=== PATIENT | female | born 1995 | race Hispanic/Latino ===

== ENCOUNTER 2018-01-03 18:16 | Emergency (ER) | payer SELFPAY ==
[2018-01-03 19:03] LABS: Urine Blood NEGATIVE (NEG); Urine Glucose NEGATIVE (NEG); Urine Protein NEGATIVE (NEG); Urine Specific Gravity 1.015 (1.005-1.030)
--- NOTE | 2018-01-03 19:23 | RAD REPORT ---
EXAM DESCRIPTION: CT - Head Brain Wo Cont - 01/03/2018 7:13 pm CLINICAL HISTORY: SEIZURE COMPARISON: No comparisons TECHNIQUE: All CT scans are performed using dose optimization technique as appropriate and may inclu de automated exposure control or mA/KV adjustment according to patient size. FINDINGS: No intracranial hemorrhage, hydrocephalus or extra-axial fluid collection.No areas of brai n edema or evidence of midline shift. The paranasal sinuses and mastoids are clear. The calvarium is intact. IMPRESSION: No acute intracranial abnormality.
[2018-01-03 19:27] LABS: Absolute Monocytes 0.8 K/uL (0.1-1.3); Absolute Neutrophil 5.6 K/uL (1.8-8.0); Basophils % 0.6 % (0-1.3); Eosinophils % 3.1 % (0-4.4); Hematocrit 38.4 % (36.0-45.0); Lymphocytes % 31.1 % (15.3-44.8); MCH 32.5 pg (27.0-35.0); MCV 91.1 fL (80-100); Monocytes % 7.9 % (3.3-12.3); RBC Red Blood Cell Count 4.21 M/uL (3.86-4.86)
[2018-01-03 19:36] LABS: Barbiturates NEGATIVE (NEGATIVE); Benzodiazepines NEGATIVE (NEGATIVE); Cocaine NEGATIVE (NEGATIVE); METHAMPHETAM NEGATIVE (NEGATIVE); Methadone NEGATIVE (NEGATIVE); Opiates NEGATIVE (NEGATIVE); Phencyclidine NEGATIVE (NEGATIVE); THC Cannibis POSITIVE (NEGATIVE)
[2018-01-03 19:37] LABS: ALT/SGPT 26 U/L (12-78); AST/SGOT 15 U/L (15-37); Albumin 4.1 g/dL (3.4-5.0); Alkaline Phosphatase 54 U/L (45-117); BUN Blood Urea Nitrogen 9 mg/dL (7-18); Bicarbonate 29 mmol/L (21-32); Bilirubin Direct < 0.1 mg/dL (0-0.2); Bilirubin Total 0.3 mg/dL (0.2-1.0); Glucose Level 95 mg/dL (74-106); Potassium 3.4 mmol/L (3.5-5.1); Protein, Total 7.3 g/dL (6.4-8.2); Sodium Level 141 mmol/L (136-145)
--- NOTE | 2018-01-03 20:06 | ER ---
Nurse's Notes [facility] Name: Chetna Amador Age: 22 yrs Sex: Female : 1995 Arrival Date: 01/03/2018 Time: 18:20 Bed 30 Private MD: Diagnosis: Epilepsy and recurrent seizures Presentation: 01/03 18:40 Presenting complaint: EMS states: "MOTHER FOUND HER ON THE FLOOR. SHE HAD TWO TO THREE rv TIMES OF SEIZURE/SHAKING LASTING FOR 2-3 MINUTES. SHE HAS HISTORY OF SEIZURE. SHE TAKES DILANTIN BEFORE BUT SHE WAS TAKEN OFF. LAST SEIZURE WAS A YEAR AGO.". Transition of care: patient was not received from another setting of care. Onset of symptoms was January 03, 2018 at 18:00. Risk Assessment: Do you want to hurt yourself or someone else? Patient reports no desire to harm self or others. Initial Sepsis Screen: Does the patient meet any 2 criteria? No. Patient's initial sepsis screen is negative. Does the patient have a suspected source of infection? No. Patient's initial sepsis screen is negative. Care prior to arrival: None. 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 - Social history:: Smoking status: unknown. - Ebola Screening: : Patient negative for fever greater than or equal to 101.5 degrees Fahrenheit, and additional compatible Ebola Virus Disease symptoms Patient denies exposure to infectious person Patient denies travel to an Ebola-affected area in the 21 days before illness onset. Screenin:46 Abuse screen: Denies threats or abuse. Denies injuries from another. Nutritional rv screening: On. Tuberculosis screening: No symptoms or risk factors identified. Fall Risk None identified. Assessment: 18:44 General: Appears in no apparent distress. comfortable, Behavior is calm, cooperative. rv Pain: Complains of pain in GENERALIZED. Neuro: Level of Consciousness is awake, alert, obeys commands, Oriented to person, place, time, situation. Cardiovascular: Capillary refill < 3 seconds Rhythm is regular. Respiratory: Airway is patent. GI: No signs and/or symptoms were reported involving the gastrointestinal system. : No signs and/or symptoms were reported regarding the genitourinary system. EENT: No signs and/or symptoms were reported regarding the EENT system. Derm: Skin is intact. Musculoskeletal: No signs and/or symptoms reported regarding the musculoskeletal system. 20:13 Reassessment: Patient appears in no apparent distress at this time. Patient and/or rv family updated on plan of care and expected duration. Pain level reassessed. Patient is alert, oriented x 3, equal unlabored respirations, skin warm/dry/pink. Vital Signs: 18:45 BP 127 / 89; Pulse 85; Resp 22; Temp 98.6; Pulse Ox 100% on R/A; rv 20:13 BP 120 / 88; Pulse 80 MON; Resp 16 S; Pulse Ox 99% on R/A; rv ED Course: 18:20 Patient arrived in ED. rv 18:21 Erik Pal PA is PHCP. [facility] 18:21 Lucio Mendez MD is Attending Physician. [facility] 18:44 Triage completed. rv 18:46 Patient has correct armband on for positive identification. Bed in low position. Call rv light in reach. Side rails up X2. awake overnight monitor on. Pulse ox on. NIBP on. 18:47 Patient placed in an exam room, on a stretcher, on rn cardiac, on pulse oximetry, rv Patient notified of wait time. 19:00 No provider procedures requiring assistance completed. Maintain EMS IV. Dressing rv intact. Good blood return noted. Site clean \\T\\ dry. Gauge \\T\\ site: G18 RIGHT AC. IV is patent, Changed dressing on right antecubital Flushed right antecubital. 19:[address] via stretcher. nj 19:13 CT completed. Patient tolerated procedure well. Patient moved back from CT. nj 19:13 CT Head Brain wo Cont In Process Unspecified. EDMS 20:05 Steve Ross MD is Referral Physician. [facility] Administered Medications: No medications were administered Outcome: 20:05 Discharge ordered by . jmm 20:15 Condition: good rv 20:33 Patient left the ED. aa1 Signatures: Dispatcher [employer] EDMS Adamaris Johnson, RN RN aa1 Erik Pal PA PA jmm Jordan, Nathan nj Vicente, Ronaldo, RN RN rv
--- NOTE | 2018-01-03 20:07 | EDPHYS ---
Physician Documentation [facility] Name: Chetna Amador Age: 22 yrs Sex: Female : 1995 Arrival Date: 01/03/2018 Time: 18:20 Bed 30 Private MD: ED Physician Lucio Mendez HPI: 01/03 18:54 This 22 yrs old Female presents to ER via EMS with complaints of seizure. jmm 18:54 The patient presents after having a single isolated seizure. Character of seizure(s): jmm Motor activity: generalized. Seizure onset: just prior to arrival. Seizure Hx: Seizure medications: none. This is a 22 year old female with a history of seizures that presents to the ED after a seizure which occurred just prior to arrival. Seizure was witnessed by the patient's mom. Patient states having decreased sleep over the past 3 weeks due to stress. Patient states she has not taken medication for seizures since she turned 21. . PHARMACOGNOSIST: 18:46 LMP N/A - Irregular menses rv Historical: - Allergies: 18:44 No Known Allergies; rv - Home Meds: 18:44 None [Active]; rv - PMHx: 18:44 Seizures; rv - PSHx: 18:44 None; rv - Immunization history:: Adult Immunizations up to date. - Social history:: Smoking status: unknown. - Ebola Screening: : Patient negative for fever greater than or equal to 101.5 degrees Fahrenheit, and additional compatible Ebola Virus Disease symptoms Patient denies exposure to infectious person Patient denies travel to an Ebola-affected area in the 21 days before illness onset. ROS: 18:54 Constitutional: Negative for fever, chills, and weight loss, Cardiovascular: Negative jmm for chest pain, palpitations, and edema, Respiratory: Negative for shortness of breath, cough, wheezing, and pleuritic chest pain. 18:54 MS/Extremity: Negative for injury and deformity, Skin: Negative for injury, rash, and discoloration, Neuro: Negative for headache, weakness, numbness, tingling, and seizure. 18:54 : Positive for pelvic pain x 1 year. 18:54 All other systems are negative. Exam: 18:54 Constitutional: This is a well developed, well nourished patient who is awake, alert, jmm and in no acute distress. Head/Face: atraumatic. Eyes: EOMI, no conjunctival erythema appreciated ENT: Moist Mucus Membranes Neck: Trachea midline, Supple Chest/axilla: Normal chest wall appearance and motion. Cardiovascular: Regular rate and rhythm. No edema appreciated Respiratory: Normal respirations, no respiratory distress appreciated Abdomen/GI: Non distended, soft Back: Normal ROM Skin: General appearance color normal MS/ Extremity: Moves all extremities, no obvious deformities appreciated, no edema noted to the lower extremities Neuro: Awake and alert, normal gait Psych: Behavior is normal, Mood is normal, Patient is cooperative and pleasant Vital Signs: 18:45 BP 127 / 89; Pulse 85; Resp 22; Temp 98.6; Pulse Ox 100% on R/A; rv 20:13 BP 120 / 88; Pulse 80 MON; Resp 16 S; Pulse Ox 99% on R/A; rv MDM: 18:36 Patient medically screened. [facility] 20:03 Data reviewed: vital signs, nurses notes. Counseling: I had a detailed discussion with [facility] the patient and/or guardian regarding: the historical points, exam findings, and any diagnostic results supporting the discharge/admit diagnosis, lab results, radiology results, the need for outpatient follow up, to return to the emergency department if symptoms worsen or persist or if there are any questions or concerns that arise at home. ED course: I discussed the patient with Dr. Ross whom advised to discharge the patient with keppra 250 mg q pm and will follow up with the patient in clinic next week. Patient is alert and non toxic in appearance in the ED. No seizure like activity is appreciated. Patient given strict return precautions. Patient understood and agrees with the plan of care. . 01/03 18:37 Order name: Acetaminophen [facility] 01/03 18:37 Order name: Basic Metabolic Panel [facility] 01/03 18:37 Order name: CBC with Diff [facility] 01/03 18:37 Order name: ETOH Level [facility] 01/03 18:37 Order name: Hepatic Function [facility] 01/03 18:37 Order name: PT-INR; Complete Time: 19:19 [facility] 01/03 18:37 Order name: Ptt, Activated; Complete Time: 19:19 [facility] 01/03 18:37 Order name: Salicylate; Complete Time: 19:48 [facility] 01/03 18:37 Order name: Urine Drug Screen; Complete Time: 19:48 [facility] 01/03 18:38 Order name: Acetaminophen Level; Complete Time: 19:54 [facility] 01/03 18:38 Order name: Basic Metabolic Panel; Complete Time: 19:54 [facility] 01/03 18:38 Order name: CBC with Automated Diff; Complete Time: 19:48 [facility] 01/03 18:38 Order name: Alcohol Serum/Plasma; Complete Time: 19:48 [facility] 01/03 18:38 Order name: Liver (Hepatic) Function; Complete Time: 19:54 [facility] 01/03 18:37 Order name: EKG; Complete Time: 18:38 [facility] 01/03 18:37 Order name: EKG - Nurse/Tech; Complete Time: 18:43 [facility] 01/03 18:37 Order name: IV Saline Lock; Complete Time: 18:59 [facility] 01/03 18:37 Order name: Labs collected and sent; Complete Time: 18:59 [facility] 01/03 18:37 Order name: Urine Dipstick-Ancillary (obtain specimen); Complete Time: 18:59 [facility] 18:37 Order name: CT Head Brain wo Cont; Complete Time: 19:25 [facility] 01/03 18:40 Order name: Urine Test (obtain specimen); Complete Time: 19:43 [facility] 01/03 18:58 Order name: Urine Dipstick--Ancillary (enter results); Complete Time: 19:19 eb 01/03 18:58 Order name: Urine --Ancillary (enter results); Complete Time: 19:19 eb Administered Medications: No medications were administered Disposition: 01/03/18 20:05 Discharged to Home. Impression: Epilepsy and recurrent seizures. - Condition is Stable. - Discharge Instructions: Seizure, Adult. - Prescriptions for DIAZEPAM RECTAL - insert 1 applicatorful by RECTAL route as directed 10 MG GEL; 1 Pack. Keppra 500 mg Oral tablet - take 0.5 tablet by ORAL route At bedtime; 30 tablet. - Medication Reconciliation Form, Thank You Letter, Antibiotic Education, Prescription Opioid Use form. - Follow up: Steve Ross MD; When: 2 - 3 days; Reason: Recheck today's complaints, Continuance of care, Re-evaluation by your physician. Signatures: Dispatcher [employer] Adamaris Trujillo RN RN aa1 MickailErik PA PA jmm Vicente, Ronaldo, RN RN rv Corrections: (The following items were deleted from the chart) 20:33 20:05 01/03/2018 20:05 Discharged to Home. Impression: Epilepsy and recurrent seizures. aa1 Condition is Stable. Forms are Medication Reconciliation Form, Thank You Letter, Antibiotic Education, Prescription Opioid Use. Follow up: Steve Ross; When: 2 - 3 days; Reason: Recheck today's complaints, Continuance of care, Re-evaluation by your physician. patrick
--- NOTE | 2018-01-04 07:43 | EKG ---
Test Date: 2018-01-03 Test Time: 18:33:53 Retail Sales Clerk: TL MEASUREMENT RESULTS: Intervals: Rate: 78 WA: 156 QRSD: 78 QT: 372 QTc: 424 [place]: P: 31 WA: 156 QRS: 42 T: 31 INTERPRETIVE STATEMENTS: Normal sinus rhythm with sinus arrhythmia Normal ECG No previous ECG available for comparison Electronically Signed On 01-04-18 07:42:48 BELL NECK HAMMERER by Leonard Mohan
== END 2018-01-03 20:33 | disposition home or self-care (01) ==
LOC: ER 18:16
DX: G40.802 Other epilepsy, not intractable, without status epilepticus (principal)
CPT/HCPCS: 36415; 70450; 80048; 80076; 80307; 80320; 80329; 81003; 81025; 85025; 85610; 85730; 93005; 99284

== ENCOUNTER 2018-10-27 14:11 | Emergency (ER) | payer SELFPAY ==
[2018-10-27 15:17] LABS: Absolute Lymphocytes (CBC) 1.9 K/uL (0.7-4.9); Basophils % 0.6 % (0-1.3); Hematocrit 36.8 % (36.0-45.0); Lymphocytes % 29.4 % (15.3-44.8); MPV 10.3 fL (7.6-11.3); RBC Red Blood Cell Count 4.18 M/uL (3.86-4.86)
[2018-10-27 15:26] LABS: ALT/SGPT 20 U/L (12-78); AST/SGOT 14 U/L (15-37); Albumin 3.9 g/dL (3.4-5.0); Alkaline Phosphatase 40 U/L (45-117); BUN Blood Urea Nitrogen 7 mg/dL (7-18); Bicarbonate 25 mmol/L (21-32); Bilirubin Direct 0.2 mg/dL (0-0.2); Bilirubin Total 0.5 mg/dL (0.2-1.0); Glucose Level 78 mg/dL (74-106); Lipase 117 U/L (73-393); Potassium 3.7 mmol/L (3.5-5.1); Protein, Total 6.9 g/dL (6.4-8.2); Sodium Level 141 mmol/L (136-145)
[2018-10-27] MEDS ORDERED: NA CHLORIDE 0.9% 1,000 ML ONE (15:40)
--- NOTE | 2018-10-27 17:01 | ER ---
Nurse's Notes [facility] Name: Chetna Amador Age: 22 yrs Sex: Female : 1995 Arrival Date: 10/27/2018 Time: 14:13 Bed 15 Private MD: Diagnosis: Less than 8 weeks gestation of Presentation: 10/27 14:20 Presenting complaint: Patient states: Nausea and vomiting that started yesterday. Today aj1 she is having some pelvic pain, and some light pink vaginal discharge. States that she was suppose to have her period on October 16, she took a test but it was negative. Transition of care: patient was not received from another setting of care. Onset of symptoms was 2018. Risk Assessment: Do you want to hurt yourself or someone else? Patient reports no desire to harm self or others. Initial Sepsis Screen: Does the patient meet any 2 criteria? No. Patient's initial sepsis screen is negative. Does the patient have a suspected source of infection? No. Patient's initial sepsis screen is negative. Care prior to arrival: None. 14:20 Method Of Arrival: Ambulatory aj 14:20 Acuity: SWAPNIL 4 aj1 17:41 Acuity: SWAPNIL 3 ss Triage Assessment: 14:22 General: Appears in no apparent distress. comfortable, Behavior is calm, cooperative, aj1 appropriate for age. Pain: Pain currently is 9 out of 10 on a pain scale. Neuro: Level of Consciousness is alert, obeys commands. Cardiovascular: Patient's skin is warm and dry. Respiratory: Airway is patent Respiratory effort is even, unlabored, Respiratory pattern is regular, symmetrical. GI: Reports nausea, vomiting. 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 - Social history:: Smoking status: Patient/guardian denies using tobacco. - Ebola Screening: : Patient denies travel to an Ebola-affected area in the 21 days before illness onset. Screenin:38 Abuse screen: Denies threats or abuse. Nutritional screening: No deficits noted. rb1 Tuberculosis screening: No symptoms or risk factors identified. Fall Risk None identified. Assessment: 14:38 General: Appears in no apparent distress. comfortable, Behavior is calm, cooperative, rb1 Reports fever for. Pain: Complains of pain in abdomen Pain currently is 9 out of 10 on a pain scale. Neuro: Level of Consciousness is awake, alert, obeys commands, Oriented to person, place, time, situation. Cardiovascular: Capillary refill < 3 seconds is brisk in bilateral fingers. Respiratory: Airway is patent Respiratory effort is even, unlabored, Respiratory pattern is regular, symmetrical. GI: Reports nausea, vomiting. : Reports pink tinged when she wipes. Derm: Skin is pink, warm \T\ dry. 15:35 Reassessment: Pt. is crying and feeling anxious because her UPT came back positive. Her rb1 significant other is at the bedside. 16:30 Reassessment: Patient appears in no apparent distress at this time. Patient and/or rb1 family updated on plan of care and expected duration. Pain level reassessed. Patient is alert, oriented x 3, equal unlabored respirations, skin warm/dry/pink. 16:45 Reassessment: US is at pt. bedside. rb1 17:28 Reassessment: Patient appears in no apparent distress at this time. Patient and/or rb1 family updated on plan of care and expected duration. Pain level reassessed. Patient is alert, oriented x 3, equal unlabored respirations, skin warm/dry/pink. Vital Signs: 14:22 BP 126 / 73; Pulse 88; Resp 18; Temp 97.6; Pulse Ox 98% on R/A; Weight 94.8 kg (R); aj1 Height 5 ft. 5 in. (165.10 cm) (R); Pain 9/10; 16:42 BP 118 / 66; Pulse 74; Resp 16; Temp 98.0(O); Pulse Ox 100% on R/A; Pain 7/10; rb1 17:38 BP 122 / 81; Pulse 79; Resp 16; Temp 98.3(O); Pulse Ox 100% on R/A; Pain 5/10; rb1 14:22 Body Mass Index 34.78 (94.80 kg, 165.10 cm) aj1 ED Course: 14:13 Patient arrived in ED. as 14:22 Triage completed. aj1 14:22 Sandhya Dutton FNP-C [facility]. kb 14:22 Lucio Mendez MD is Attending Physician. kb 14:22 Arm band placed on Patient placed in an exam room. aj1 14:38 Patient has correct armband on for positive identification. Bed in low position. Call rb1 light in reach. Side rails up X 1. Pulse ox on. NIBP on. 14:40 Georgia Jameson, RN is Primary Nurse. rb1 15:01 Initial lab(s) drawn, by me, sent to lab. Inserted saline lock: 20 gauge in right jp3 antecubital area, using aseptic technique. Blood collected. Patient maintains SpO2 saturation greater than 95% on room air. 15:02 Lipase Sent. jp3 15:02 Hepatic Function Sent. jp3 15:02 CBC with Diff Sent. jp3 15:02 Basic Metabolic Panel Sent. jp3 17:06 Ultrasound completed. Patient tolerated well. Notified CASH POSTING CLERK/PA sandhya. sg3 17:07 US Transvaginal Ob In Process Unspecified. EDMS 17:41 No provider procedures requiring assistance completed. IV discontinued, intact, rb1 bleeding controlled, No redness/swelling at site. Pressure dressing applied. Administered Medications: 15:45 Drug: NS 0.9% 1000 ml Route: IV; Rate: 1000 ml; Site: right antecubital; rb1 16:53 Follow up: IV Status: Completed infusion rb1 Outcome: 15:31 Discharge ordered by MD. kb 17:01 Discharge ordered by MD. kb 17:41 Patient left the ED. rb1 17:41 Discharged to home ambulatory, with significant other. rb1 17:41 Condition: stable 17:41 Discharge instructions given to patient, Instructed on discharge instructions, follow up and referral plans. Demonstrated understanding of instructions, follow-up care, Prescriptions given X none Signatures: Dispatcher [employer] EDMS Sandhya Dutton FNP-C DRUM SANDER SETTER-CkDayanara Guzmán RN RN aj1 Rosy Whiting Shelby, RN RN ss Georgia Jameson, RN RN rb1 Corry Medrano sg3 Raul Thompson jp3
--- NOTE | 2018-10-27 17:02 | EDPHYS ---
Physician Documentation [facility] Name: Chetna Amador Age: 22 yrs Sex: Female : 1995 Arrival Date: 10/27/2018 Time: 14:13 Bed 15 Private MD: ED Physician Lucio Mendez HPI: 10/27 16:31 This 22 yrs old Female presents to ER via Ambulatory with complaints of kb Vomiting, Pelvic Pain, Vaginal Discharge. 16:31 The patient presents to the emergency department with nausea, vomiting, abdominal pain. kb Onset: The symptoms/episode began/occurred yesterday. Possible causes: unknown. The symptoms are aggravated by nothing. The symptoms are alleviated by nothing. Associated signs and symptoms: Pertinent positives: abdominal pain, nausea, vaginal discharge, vomiting. Severity of symptoms: At their worst the symptoms were moderate in the emergency department the symptoms are unchanged. The patient has not experienced similar symptoms in the past. The patient has not recently seen a physician. Pt reports nausea, vomiting that started yesterday morning. Diarrhea yesterday morning, fever last night. Reports light pink discharge today. 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 - Social history:: Smoking status: Patient/guardian denies using tobacco. - Ebola Screening: : Patient denies travel to an Ebola-affected area in the 21 days before illness onset. ROS: 16:31 Constitutional: Negative for fever, chills, and weight loss, ENT: Negative for injury, kb pain, and discharge, Neck: Negative for injury, pain, and swelling, Cardiovascular: Negative for chest pain, palpitations, and edema, Respiratory: Negative for shortness of breath, cough, wheezing, and pleuritic chest pain, Back: Negative for injury and pain, MS/Extremity: Negative for injury and deformity, Skin: Negative for injury, rash, and discoloration, Neuro: Negative for headache, weakness, numbness, tingling, and seizure. 16:31 Abdomen/GI: Positive for abdominal pain, nausea and vomiting. 16:31 : Positive for vaginal bleeding. Exam: 16:30 Constitutional: This is a well developed, well nourished patient who is awake, alert, kb and in no acute distress. Head/Face: Normocephalic, atraumatic. ENT: Nares patent. No nasal discharge, no septal abnormalities noted. Tympanic membranes are normal and external auditory canals are clear. Oropharynx with no redness, swelling, or masses, exudates, or evidence of obstruction, uvula midline. Mucous membranes moist. Neck: Trachea midline, no thyromegaly or masses palpated, and no cervical lymphadenopathy. Supple, full range of motion without nuchal rigidity, or vertebral point tenderness. No Meningismus. Chest/axilla: Normal chest wall appearance and motion. Nontender with no deformity. No lesions are appreciated. Cardiovascular: Regular rate and rhythm with a normal S1 and S2. No gallops, murmurs, or rubs. Normal PMI, no JVD. No pulse deficits. Respiratory: Lungs have equal breath sounds bilaterally, clear to auscultation and percussion. No rales, rhonchi or wheezes noted. No increased work of breathing, no retractions or nasal flaring. Back: No spinal tenderness. No costovertebral tenderness. Full range of motion. Skin: Warm, dry with normal turgor. Normal color with no rashes, no lesions, and no evidence of cellulitis. MS/ Extremity: Pulses equal, no cyanosis. Neurovascular intact. Full, normal range of motion. Neuro: Awake and alert, GCS 15, oriented to person, place, time, and situation. Cranial nerves II-XII grossly intact. Motor strength 5/5 in all extremities. Sensory grossly intact. Cerebellar exam normal. Normal gait. 16:30 Abdomen/GI: Inspection: abdomen appears normal, Bowel sounds: normal, in all quadrants, Palpation: soft, in all quadrants, mild abdominal tenderness, in the right lower quadrant, moderate abdominal tenderness, in the left lower quadrant. Vital Signs: 14:22 BP 126 / 73; Pulse 88; Resp 18; Temp 97.6; Pulse Ox 98% on R/A; Weight 94.8 kg (R); aj1 Height 5 ft. 5 in. (165.10 cm) (R); Pain 9/10; 16:42 BP 118 / 66; Pulse 74; Resp 16; Temp 98.0(O); Pulse Ox 100% on R/A; Pain 7/10; rb1 17:38 BP 122 / 81; Pulse 79; Resp 16; Temp 98.3(O); Pulse Ox 100% on R/A; Pain 5/10; rb1 14:22 Body Mass Index 34.78 (94.80 kg, 165.10 cm) aj1 MDM: 14:23 Patient medically screened. kb 15:28 Data reviewed: vital signs, nurses notes. Data interpreted: Pulse oximetry: on room air kb is 98 %. Interpretation: normal. 17:00 Counseling: I had a detailed discussion with the patient and/or guardian regarding: the kb historical points, exam findings, and any diagnostic results supporting the discharge/admit diagnosis, lab results, radiology results, the need for outpatient follow up, an OB/Gyne specialist, to return to the emergency department if symptoms worsen or persist or if there are any questions or concerns that arise at home. 10/27 14:39 Order name: Basic Metabolic Panel; Complete Time: 15:28 kb 10/27 14:39 Order name: CBC with Diff; Complete Time: 15:23 kb 10/27 14:39 Order name: Hepatic Function; Complete Time: 15:28 kb 10/27 14:39 Order name: Lipase; Complete Time: 15:28 kb 10/27 15:26 Order name: Urine Dipstick--Ancillary (enter results) eb 10/27 15:26 Order name: Urine --Ancillary (enter results) eb 10/27 14:23 Order name: Urine Test (obtain specimen); Complete Time: 15:59 kb 10/27 14:23 Order name: Urine Dipstick-Ancillary (obtain specimen); Complete Time: 15:59 kb 10/27 14:39 Order name: IV Saline Lock; Complete Time: 15:02 kb 10/27 15:32 Order name: US Transvaginal Ob kb 10/27 15:32 Order name: Abo/rh Typing; Complete Time: 16:33 kb 10/27 15:32 Order name: HCG-Quantitative; Complete Time: 16:41 kb 10/27 17:00 Order name: ABO/RH no charge; Complete Time: 17:01 EDMS 10/27 14:39 Order name: Labs collected and sent; Complete Time: 15:02 kb Administered Medications: 15:45 Drug: NS 0.9% 1000 ml Route: IV; Rate: 1000 ml; Site: right antecubital; rb1 16:53 Follow up: IV Status: Completed infusion rb1 Disposition: 18:07 Co-signature as Attending Physician, Lucio Mendez MD. rn Disposition: 10/27/18 17:01 Discharged to Home. Impression: Less than 8 weeks gestation of . - Condition is Stable. - Discharge Instructions: First Trimester of , [id number]. - Medication Reconciliation Form, Thank You Letter, Antibiotic Education, Prescription Opioid Use, Work release form form. - Follow up: Emergency Department; When: As needed; Reason: Worsening of condition. Follow up: Private Physician; When: 2 - 3 days; Reason: Recheck today's complaints, Continuance of care, Re-evaluation by your physician. Signatures: Dispatcher [employer] EDMS Sandhya Dutton, Dayanara Thompson RN RN aj1 Lucio Mendez MD MD rn Barber, Rebecca, RN RN rb1 Corrections: (The following items were deleted from the chart) 15:32 15:31 10/27/2018 15:31 Discharged to Home. Impression: Nausea with vomiting, kb unspecified; state. Condition is Stable. Forms are Medication Reconciliation Form, Thank You Letter, Antibiotic Education, Prescription Opioid Use. Follow up: Emergency Department; When: As needed; Reason: Worsening of condition. Follow up: Private Physician; When: 2 - 3 days; Reason: Recheck today's complaints, Continuance of care, Re-evaluation by your physician. 16:31 15:28 Counseling: I had a detailed discussion with the patient and/or guardian regarding: the historical points, exam findings, and any diagnostic results supporting the discharge/admit diagnosis, lab results, the need for outpatient follow up, a family practitioner, to return to the emergency department if symptoms worsen or persist or if there are any questions or concerns that arise at home, kb 17:41 17:01 10/27/2018 17:01 Discharged to Home. Impression: Less than 8 weeks gestation of rb1 . Condition is Stable. Forms are Medication Reconciliation Form, Thank You Letter, Antibiotic Education, Prescription Opioid Use. Follow up: Emergency Department; When: As needed; Reason: Worsening of condition. Follow up: Private Physician; When: 2 - 3 days; Reason: Recheck today's complaints, Continuance of care, Re-evaluation by your physician. kb
[2018-10-27 20:16] LABS: Urine Blood NEGATIVE (NEG); Urine Glucose NEGATIVE (NEG); Urine Protein NEGATIVE (NEG)
[2018-10-27 20:39] VITALS: BP 118/66; TEMP 98; O2SAT 100
--- NOTE | 2018-10-27 23:48 | RAD REPORT ---
EXAM DESCRIPTION: US - Transvaginal OB - 10/27/2018 10:33 pm CLINICAL HISTORY: Abd pain;Abd cramping, COMPARISON: <Comparisons> FINDINGS: A single gestational sac is seen within the uterus. The shape of the sac is within normal limits for gestational age. Within the sac is a single pole with crown-rump length of 8 mm, cor relating to estimated gestational age of 7 weeks 0 days. Estimated date of delivery is 06/15/2019. Heart rate is 128 BPM. The placenta is not yet developed due to early gestational age. 11 x 8 mm subchorionic bleed is prese nt inferiorly. The maternal adnexa and ovaries are within normal limits. Normal Doppler blood flow was demonstrated to both ovaries. IMPRESSION: Single live early intrauterine gestation with estimated gestational age of 7 weeks 0 day s, COOPRE 06/15/2019. 11 x 8 mm inferiorly located subchorionic bleed.
== END 2018-10-27 17:41 | disposition home or self-care (01) ==
LOC: ER 14:11
DX: O21.9 Vomiting of pregnancy, unspecified (principal); Z3A.01 Less than 8 weeks gestation of pregnancy
CPT/HCPCS: 36415; 76817; 80048; 80076; 81003; 81025; 83690; 84702; 85025; 86900; 86901; 96360; 99284; J7030

== ENCOUNTER 2022-07-14 16:01 | Emergency (ER) | payer OTHER ==
--- OUTSIDE RECORDS SUMMARY | 2022-07-14 16:13 | XMS REPORT | Continuity of Care Document ---
:1995 Author Organization [facility] t Address [address] [facility]. [address] [place] [address] Care Team Providers Name Role Phone Nicole Boland PA-C Primary Care Physician DANIEL AGUILAR Attending Clinician Unavailable Daniel Aguilar MD Attending Clinician Doctor Unassigned, Marlin Attending Clinician Unavailable Pgy2 Attending Clinician Unavailable Sindy Rizvi MA Attending Clinician Unavailable Visit, Mary Nurse Attending Clinician Unavailable Emmanuel Rosas Attending Clinician [phone] EMMANUEL RABAGO Attending Clinician Unavailable SINDY WHITT Attending Clinician Unavailable Provider, Mary Temp Attending Clinician Unavailable Sindy Whitt CNM Attending Clinician NIC SNEED Attending Clinician Unavailable Olegario Ingram MD Attending Clinician [phone] Bertram Rodriguez Attending Clinician BERTRAM QUINONEZ Attending Clinician Unavailable Lab, [facility] Attending Clinician Unavailable Nicole Boland PA-C Attending Clinician NICOLE BOLAND Attending Clinician Unavailable SUDARSHAN MONTES Attending Clinician Unavailable Sandhya Jarrett Attending Clinician Unavailable Sudarshan Montes MD Attending Clinician Us, Con-m Attending Clinician Unavailable iDno Lopez MD Attending Clinician DINO LOPEZ Attending Clinician Unavailable SANDRA JOE Attending Clinician Unavailable Heath CABLE INSTALLATION TECHNICIANSandra Osman Attending Clinician SARAH MORALES Attending Clinician Unavailable Andrew SIMENTALSarah Osman Attending Clinician Silas Marino Attending Clinician Unavailable Ultrasound, [facility] Attending Clinician Unavailable Olayinka Duenas MD Attending Clinician Patience Mcleod MD Attending Clinician PATIENCE MCLEOD Attending Clinician Unavailable Rosey Corado PA-C Attending Clinician Luc Triplett MD, Marj Attending Clinician [phone] Po, [facility] Lab Main Attending Clinician Unavailable JULIA HOLLIS Attending Clinician Unavailable Rosie Lisa MD Attending Clinician ROSIE LISA Attending Clinician Unavailable Nurse, [facility] General Surgery Attending Clinician Unavailable Ultrasound, [facility] Attending Clinician Unavailable Ramy Schwartz MD Attending Clinician Cruzito Thompson DO Attending Clinician , [facility] Attending Clinician Unavailable ROSIE LISA Admitting Clinician Unavailable DANIEL AGUILAR Admitting Clinician Unavailable Daniel Aguilar MD Admitting Clinician NIC SNEED Admitting Clinician Unavailable Silas Marino Admitting Clinician Unavailable Payers Payer Name Policy Type Policy Number Effective Date Expiration Date [facility] [id number] 2018 CHOICE MEDICAID 00:00:00 Problems Condition Condition Condition Status Onset Resolution Last Treating Co mments Source Name Details Category Date Date Treatment Clinician Date Tubal Tubal Disease Active Overview: Univer s ligation ligation 05-26 Formattin ity of status status 00:00: g of this [place] 00 note Medical might be Branch different from the original. Added automatic ally from request for surgery [id number] Well woman Well woman Disease Active U nivers exam exam 2-10 ity of 00:00: [place] [facility] Morbid Morbid Disease Active Univers obesity obesity 2-10 ity of 00:00: [place] [facility] Nerve pain Nerve pain Disease Active U nivers 1-11 ity of 00:00: [place] 00 Medical Branch 39 weeks 39 weeks Disease Active 2021-02 Unive rs gestation gestation 2-22 ity of of of 00:00: [place] 00 Medi yessica Branch Pain of Pain of Disease Active 2021-02 Univers round round 1-10 ity of ligament ligament 00:00: [place] affecting affecting 00 Medi yessica , , Br anch antepartum antepartum Depression Depression Disease Active 2021-02 U nivers affecting affecting 0-22 [place] in third in third 00 Medica l trimester, trimester, Br anch antepartum antepartum Supervisio Supervisio Disease Active 2021-02 U nivers n of n of 0-20 ity of high-risk high-risk 00:00[place] 00 [place] with with Branch insufficie insufficie nt nt care in care in third third trimester trimester Maternal Maternal Disease Active 2021-02 Unive rs tobacco tobacco 0-20 ity of use in use in 00:00: [place] third third 00 Medical trimester trimester Bran ch Abnormal Abnormal Disease Active Unive rs quad quad 6-29 ity of screen- screen- 00:00: [place] +DS risk +DS risk 00 Medica l 1:67 1:67 Branch Obesity Obesity Disease Active Univers affecting affecting 6-28 ity of , , 00:00: [place] antepartum antepartum 00 Me dical Branch High risk High risk Disease Active Uni vers , , 6-28 it y of antepartum antepartum 00:00: [place] 00 [place] Insufficie Insufficie Disease Active U nivers nt nt 6-28 ity of 00:00: [place] care in care in 00 Medical second second Branch trimester trimester History of History of Disease Active U nivers pre-eclamp pre-eclamp 6-28 it y of chad in chad in 00:00: [place] prior prior 00 Medical , , Br anch currently currently S/P S/P Disease Active Univers 6-28 ity of section section 00:00: [place] 00 Medical Branch Short Short Disease Active Univers interval interval 6-28 ity of between between 00:00: [place] pregnancie pregnancie 00 Me dical s s Branch affecting affecting , , antepartum antepartum Supervisio Supervisio Disease Active U nivers n of high n of high 7-21 ity of risk risk 00:00: [place] 00 [facility] in second in second Bran ch trimester trimester 23 weeks 23 weeks Disease Active Unive rs gestation gestation 7-21 ity of of of 00:00: [place] 00 [facility] Branch Morbid Morbid Disease Active Univers obesity obesity 5-12 ity of with body with body 00:00[place] mass index mass index 00 Me dical of of Branch 40.0-49.9 40.0-49.9 Hx of Hx of Disease Active Univers preeclamps preeclamps 5-12 it y of ia, prior ia, prior 00:00: [place] , , 00 Me dical currently currently Bran ch , , unspecifie unspecifie d d trimester trimester Morbid Morbid Disease Active Univers obesity obesity 5-12 ity of with body with body 00:00: [place] mass index mass index 00 Me dical of of Branch 40.0-49.9 40.0-49.9 Single Single Disease Active Univers liveborn liveborn 4-25 ity of , , 00:00: [place] delivered delivered 00 [facility] by by Branch 39 weeks 39 weeks Disease Active Unive rs gestation gestation 4-19 ity of of of 00:00: [place] 00 [facility] Branch Supervisio Supervisio Disease Active U nivers n of high n of high 4-19 ity of risk risk 00:00: [place] , , 00 Me dical antepartum antepartum Br anch Encounter Encounter Disease Active Uni vers for for 4-19 ity of elective elective 00:00: [place] induction induction 00 [facility] of labor of labor Branch Positive Positive Disease Active 2019- Unive rs GBS test GBS test 4-19 ity of 00:00: [place] 00 Medical Branch Seizure Seizure Disease Active 2019- Univers disorder disorder 4-19 ity of during during 00:00: [place] , , 00 Me dical antepartum antepartum Br anch Excessive Excessive Disease Active Uni vers weight weight 4-19 ity of gain gain 00:00: [place] during during 00 Medical , , Br anch antepartum antepartum BMI BMI Disease Active 2019- Univers 40.0-44.9, 40.0-44.9, 4-19 it y of adult adult 00:00: [address] Branch Morbid Morbid Disease Active 2019- Univers obesity obesity 2-01 ity of with body with body 00:00[place] mass index mass index 00 Wi dical of of Branch 40.0-49.9 40.0-49.9 Seizure Seizure Disease Active 2018-02 Univers disorder disorder 0-10 ity of in in 00:00: [place] 00 [facility] Branch Obesity Obesity Disease Active Univers affecting affecting 9-26 it[place] of 00:[place] in second in second 00 [facility] trimester trimester Bran ch Obesity Obesity Disease Active Univers (BMI (BMI 9-26 ity of 30-39.9) 30-39.9) 00:00: [address] Allergies, Adverse Reactions, Alerts Allergy Allergy Status Severity Reaction(s) Onset Inactive Treating Comm ents Source Name Type Date Date Clinician No Known DA Active U [facility] Allergie 06-10 [place] 00:[facility]: [place] 00 [facility] NO KNOWN Drug Active Univers ALLERGIE Class ity of S [facility] Social History Social Habit Start Date Stop Date Quantity Comments Source ASSERTION 2021-05-26 University of 00:00:00 [facility] History of Cigarette Smoker Universi ty of tobacco use [facility] Exposure to 2022-06-30 2022-07-10 Not sure University of SARS-CoV-2 00:00:00 10:48:00 [facility] (event) Branch Tobacco use and 2022-07-10 2022-07-10 Smokeless tobacco Un iversity of exposure 00:00:00 00:00:00 non-user [facility] Alcohol intake 2021-08-16 2021-08-16 Lifetime University of 00:00:00 00:00:00 non-drinker [facility] (finding) [place] Tobacco Comment 2021-08-16 2021-08-16 4 cig per wk x 1 Uni versity of 00:00:00 00:00:00 yr. [facility] Sex Ass[birth year] At [birth year] Universit y of 00:00:00 00:00:00 [facility] Smoking Status Start Date Stop Date Source Ex-smoker 2022-07-10 00:00:00 2022-07-10 00:00:00 Universi ty [facility] Smokes tobacco daily 2021-09-14 00:00:00 Univers ity [facility] Never smoker [facility] Medications Ordered Filled Start Stop Current Ordering Indication Dosage Frequency Signature Comments Components Source Medication Medication Date Date Medication? Clinician (SIG) Name Name lactated Yes 500mL at 75 Univers ringers IV 5-24 mL/hr, 500 ity of infusion 16:15: mL, IV [place] 500 mL 00 Infusion, Medical CONTINUOUS Branch , Starting on Sun07/12/22 at 1115, Until Discontinu ed, Routine, PACU lactated 2022- No 500mL at 75 Univer s ringers IV 5-24 05-24 mL/hr, 500 it y of infusion 16:15: 20:19 mL, IV [place] 500 mL 00 :28 Infusion, Medical CONTINUOUS Branch , Starting on Sun07/12/22 at 1115, Until Sun07/12/22 at 1519, Routine, PACU bupivacaine 2022- No PRN, Unive rs (preserv 07-12- Starting ity of free) 16:05: 16:15 on Sun (SENSORCAIN 00 :07 07/12/22 at Wi dical E MPF) 0.25 1105, Branch % (2.5 Until Sun mg/mL) 07/12/22 at injection 1115, Routine, Intra-op HYDROcodone Yes 1{tbl} 1 tablet, Univers -acetaminop 07-12 Oral, PRN, it y of hen (NORCO 16:02: 1 dose, [place] 5) 5-325 mg 27 Starting Medi yessica tablet 1 on Sun Branch tablet 07/12/22 at 1102, Until Discontinu ed, Routine, Pain (scale 7-10), DSU Recovery ibuprofen 2022-0 Yes 800mg 800 mg, Univ ers (IBU) 07-12 Oral, PRN, ity of tablet 800 16:02: 1 dose, [place] mg 27 Starting Medical on Sun Branch 07/12/22 at 1102, Until Discontinu ed, Routine, Pain (scale 4-6), DSU Recovery acetaminoph Yes 650mg 650 mg, Un [place] en 07-12 Oral, PRN, ity of (TYLENOL) 16:02: 1 dose, [place] tablet 650 27 Starting Medic al mg on Sun Branch 07/12/22 at 1102, Until Discontinu ed, Routine, Pain (scale 1-3), DSU Recovery HYDROcodone 2022- No 1{tbl} 1 tablet, Univers -acetaminop 07-12 Oral, PRN, i ty of hen (NORCO 16:02: 20:19 1 dose, [place] 5) 5-325 mg 27 :28 Starting Medi yessica tablet 1 on Sun Branch tablet 07/12/22 at 1102, Until Sun07/12/22 at 1519, Routine, Pain (scale 7-10), DSU Recovery ibuprofen 2022- No 800mg 800 mg, Uni vers (IBU) 07-12 Oral, PRN, ity of tablet 800 16:02: 20:19 1 dose, [place] mg 27 :28 Starting Medical on Sun Branch 07/12/22 at 1102, Until 07/12/22 at 1519, Routine, Pain (scale 4-6), DSU Recovery acetaminoph 2022- No 650mg 650 mg, U nivers en 07-12 Oral, PRN, ity of (TYLENOL) 16:02: 20:19 1 dose, [place] tablet 650 27 :28 Starting Medic al mg on Sun Branch 07/12/22 at 1102, Until Sun07/12/22 at 1519, Routine, Pain (scale 1-3), DSU Recovery HYDROmorphO Yes .2mg 0.2 mg, Uni vers ne 07-12 Slow IV ity of (DILAUDID) 16:02: Push, [place] injection 18 Q5MIN PRN, Medi yessica 0.2 mg 10 doses, Branch Starting on Sun07/12/22 at 1102, Until Discontinu ed, Routine, Pain (scale 7-10), PACU
Us e approved by (Faculty): PACU USE -ANESTHESI A SERVICE-HY DROMORPHON E INJECTIONS FENTanyl PF 2022- No 25ug 25 mcg, [place] (SUBLIMAZE 07-12-24 Slow IV ity o f (PF)) 16:02: 16:34 Push, [place] injection 18 :00 Q5MIN PRN, Medi yessica 25 mcg 4 doses, Branch Starting on Sun07/12/22 at 1102, Until Sun07/12/22 at 1134, Routine, Pain (scale 4-6), PACU ondansetron 2022- No 4mg 4 mg, Slow Univers (ZOFRAN 07-12 IV Push, ity of (PF)) 16:02: 16:55 PRN, 1 [place] injection 4 18 :00 dose, Medical mg Starting Branch on Sun07/12/22 at 1102, Until Sun07/12/22 at 1155, Routine, Nausea and Vomiting (N/V), PACU HYDROmorphO 2022- No .2mg 0.2 mg, Un [place] ne 07-12 Slow IV ity of (DILAUDID) 16:02: 20:19 Push, [place] injection 18 :28 Q5MIN PRN, Medi yessica 0.2 mg 10 doses, Branch Starting on Sun07/12/22 at 1102, Until Sun07/12/22 at 1519, Routine, Pain (scale 7-10), PACU
Us e approved by (Faculty): PACU USE -ANESTHESI A SERVICE-HY DROMORPHON E INJECTIONS FENTanyl PF 2022-2022- No 25ug 25 mcg, Un [place] (SUBLIMAZE 07-12-24 Slow IV ity o f (PF)) 16:02: 16:34 Push, [place] injection 18 :00 Q5MIN PRN, Medi yessica 25 mcg 4 doses, Branch Starting on Sun07/12/22 at 1102, Until Sun07/12/22 at 1134, Routine, Pain (scale 4-6), PACU ondansetron 2022- No 4mg 4 mg, Slow Univers (ZOFRAN - 05-24 IV Push, ity of (PF)) 16:02: 16:55 PRN, 1 [place] injection 4 18 :00 dose, Medical mg Starting Branch on Sun07/12/22 at 1102, Until Sun07/12/22 at 1155, Routine, Nausea and Vomiting (N/V), PACU ibuprofen 0 Yes [id number] 800mg Take 1 Univers 800 mg 5-24 tablet by ity of tablet 00:00: mouth [place] 00 every 6 Medical (six) Branch hours as needed for Alternate with [place] for pain scale 4-6. ibuprofen Yes [id number] 800mg Take 1 Univers 800 mg 5-24 tablet by ity of tablet 00:00: mouth [place] 00 every 6 Medical (six) Branch hours as needed for Alternate with [place] for pain scale 4-6. HYDROcodone 2022- Yes [id number] 1{tbl} Take 1 U nivers -acetaminop 07-12-01 tablet by it y of hen 5-325 00:00: 04:59 mouth [place] mg tablet 00 :00 every 6 Medical (six) Branch hours as needed for Pain (scale 4-6) or Pain (scale 7-10) for up to 7 days. Indication s: acute pain HYDROcodone 2022- Yes [id number] 1{tbl} Take 1 U nivers -acetaminop 07-12-01 tablet by it y of hen 5-325 00:00: 04:59 mouth [place] mg tablet 00 :00 every 6 Medical (six) Branch hours as needed for Pain (scale 4-6) or Pain (scale 7-10) for up to 7 days. Indication s: acute pain medroxyPROG 2022-2022- Yes [id number] 150mg Univers ESTERone 3-20 11-27 ity of (DEPO-PROVE 05:00: 05:59 [place] RA) syringe 00 :00 Medical 150 mg Branch medroxyPROG 2022-2022- Yes [id number] 150mg Univers ESTERone 3-20 11-27 ity of (DEPO-PROVE 05:00: 05:59 [place] RA) syringe 00 :00 Medical 150 mg Branch medroxyPROG 2022-0 2022- Yes [id number] 150mg Univers ESTERone 3-20 11-27 ity of (DEPO-PROVE 05:00: 05:59 [place] RA) syringe 00 :00 Medical 150 mg Branch medroxyPROG 2022-0 2022- Yes [id number] 150mg Univers ESTERone 3-20 11-27 ity of (DEPO-PROVE 05:00: 05:59 [place] RA) syringe 00 :00 Medical 150 mg Branch medroxyPROG 2023-0 2022- Yes [id number] 150mg Univers ESTERone 3-20 11-27 ity of (DEPO-PROVE 05:00: 05:59 [place] RA) syringe 00 :00 Medical 150 mg Branch medroxyPROG 2022-0 2022- Yes [id number] 150mg Univers ESTERone 3-20 11-27 ity of (DEPO-PROVE 05:00: 05:59 [place] RA) syringe 00 :00 Medical 150 mg Branch medroxyPROG 2022-0 2022- Yes [id number] 150mg 150 mg, Univers ESTERone 3-20 11-27 Intramuscu ity of (DEPO-PROVE 05:00: 05:59 lar, [place] RA) syringe 00 :00 [id number], Med ical 150 mg 3 doses, Branch First dose on Sun05/08/22 at 0000, Last dose on Sun10/23/22 at 0000, Routine medroxyPROG 2022-2022- Yes [id number] 150mg Univers ESTERone 3-20 11-27 ity of (DEPO-PROVE 05:00: 05:59 [place] RA) syringe 00 :00 Medical 150 mg Branch medroxyPROG 3-0 2022- Yes [id number] 150mg Univers ESTERone 3-20 11-27 ity of (DEPO-PROVE 05:00: 05:59 [place] RA) syringe 00 :00 Medical 150 mg Branch medroxyPROG 2023-0 2022- Yes [id number] 150mg Univers ESTERone 3-20 11-27 ity of (DEPO-PROVE 05:00: 05:59 [place] RA) syringe 00 :00 Medical 150 mg Branch medroxyPROG 2022- Yes [id number] 150mg Univers ESTERone 3-20 - ity of (DEPO-PROVE 05:00: 05:59 [place] RA) syringe 00 :00 Medical 150 mg Branch medroxyPROG 2022- Yes [id number] 150mg Univers ESTERone 3-20 - ity of (DEPO-PROVE 05:00: 05:59 [place] RA) syringe 00 :00 Medical 150 mg Branch medroxyPROG 2022- Yes [id number] 150mg Univers ESTERone 3-20 - ity of (DEPO-PROVE 05:00: 05:59 [place] RA) syringe 00 :00 Medical 150 mg Branch medroxyPROG 2021-02- No 150mg 150 mg, U nivers ESTERone 04-13 Intramuscu ity of (DEPO-PROVE 12:15: 12:15 lar, ONCE, [facility]) 00 :00 1 dose, On Medical injection Fri Branch 150 mg 02/10/22 at 0615, Routine 2021-02- No Take by [facility] rs vit 04-13 mouth. ity of calc,iron,f 06:06: 00:00 [facility] 17 :00 Medical ( Branch VITAMIN ORAL) aspirin 81 2021-02- No 81mg Take 81 mg Univers mg EC 04-13 by mouth ity of tablet 06:06: 00:00 daily. [place] 17 :00 Medical Branch 2021-02- No Take by [facility] rs vit 04-13 mouth. ity of calc,iron,f 06:06: 00:00 [facility] 17 :00 Medical ( Branch VITAMIN ORAL) aspirin 81 2021-02- No 81mg Take 81 mg Univers mg EC 04-13 by mouth ity of tablet 06:06: 00:00 daily. [place] 17 :00 Medical Branch acetaminoph 2021-02- No 1000mg 1,000 mg, Univers en ADULT 04-13 IV ity of (OFIRMEV) 00:45: 01:42 Infusion, [place] injection 00 :24 at 400 Medical 1,000 mg mL/hr Branch Administer over 15 Minutes, ONCE, 1 dose, On [facility] 02/09/22 at 1845, Routine
Indicatio n: Perioperat elder Patient proMETHazin 2021-02 No 12.5mg 12.5 mg, Univers e 2-23 12- IV ity of (PHENERGAN) 00:45: 02:13 Piggyback, [place] 12.5 mg in 00 :08 ONCE, Medical NS 50 mL IV Administer Br anch piggyback over 15 (CNR) Minutes, On [facility] 02/09/22 at 1845, For 1 dose 2021-02 Yes [id number] 1{tbl} Take 1 Univers vitamin 2-23 tablet by ity of w/FA tablet 00:00: mouth in [place] 00 the Medical morning. Branch docusate 2021-02 Yes [id number] 200mg Take 2 U nivers 100 mg 2-23 capsules ity of capsule 00:00: by mouth [place] 00 once daily Medical as needed Branch for Constipati on. ferrous 2021-02 Yes [id number] 325mg Take 1 [place] sulfate 325 2-23 tablet by ity of mg (65 mg 00:00: mouth [place] iron) 00 the Medical tablet morning Branch and 1 tablet in the evening. ibuprofen 2021-02 Yes [id number] 600mg Take 1 Univers 600 mg 2-23 tablet by ity of tablet 00:00: mouth [place] 00 every 6 Medical (six) Branch hours as needed (Pain). Take with food or milk. ibuprofen 2021-02 Yes 600mg 600 mg, Univ ers (IBU) 2-23 Oral, Q6H, ity of tablet 600 00:00: First dose [place] mg 00 on [facility] Medical 02/09/22 Branch at 1800, Until Discontinu ed, Routine 2021-02 Yes [id number] 1{tbl} Take 1 Univers vitamin 2-23 tablet by ity of w/FA tablet 00:00: mouth in [place] 00 the Medical morning. Branch docusate 2021-02 Yes [id number] 200mg Take 2 U nivers 100 mg 2-23 capsules ity of capsule 00:00: by mouth [place] 00 once daily Medical as needed Branch for Constipati on. ferrous 2021-02 Yes [id number] 325mg Take 1 Un [place] sulfate 325 2-23 tablet by ity of mg (65 mg 00:00: mouth [place] iron) 00 the Medical tablet morning Branch and 1 tablet in the evening. ibuprofen 2021-02 Yes [id number] 600mg Take 1 Univers 600 mg 2-23 tablet by ity of tablet 00:00: mouth [place] 00 every 6 Medical (six) Branch hours as needed (Pain). Take with food or milk. ibuprofen 2021-02 Yes 600mg 600 mg, Univ ers (IBU) 2-23 Oral, Q6H, ity of tablet 600 00:00: First dose [place] mg 00 on [facility] 02/09/22 Branch at 1800, Until Discontinu ed, Routine 2021-02 Yes [id number] 1{tbl} Take 1 Univers vitamin 2-23 tablet by ity of w/FA tablet 00:00: mouth in [place] 00 the Medical morning. Branch docusate 2021-02 Yes [id number] 200mg Take 2 U nivers 100 mg 2-23 capsules ity of capsule 00:00: by mouth [place] 00 once daily Medical as needed Branch for Constipati on. ferrous 2021-02 Yes [id number] 325mg Take 1 [place] sulfate 325 2-23 tablet by ity of mg (65 mg 00:00: mouth [place] iron) 00 the Medical tablet morning Branch and 1 tablet in the evening. ibuprofen 2021-02 Yes [id number] 600mg Take 1 Univers 600 mg 2-23 tablet by ity of tablet 00:00: mouth [place] 00 every 6 Medical (six) Branch hours as needed (Pain). Take with food or milk. 2021-02 Yes [id number] 1{tbl} Take 1 Univers vitamin 2-23 tablet by ity of w/FA tablet 00:00: mouth in [place] 00 the Medical morning. Branch docusate 2021-02 Yes [id number] 200mg Take 2 U nivers 100 mg 2-23 capsules ity of capsule 00:00: by mouth [place] 00 once daily Medical as needed Branch for Constipati on. ferrous 2021-02 Yes [id number] 325mg Take 1 [place] sulfate 325 2-23 tablet by ity of mg (65 mg 00:00: mouth [place] iron) 00 the Medical tablet morning Branch and 1 tablet in the evening. ibuprofen 2021-02 Yes [id number] 600mg Take 1 Univers 600 mg 2-23 tablet by ity of tablet 00:00: mouth [place] 00 every 6 Medical (six) Branch hours as needed (Pain). Take with food or milk. 2021-02 Yes [id number] 1{tbl} Take 1 Univers vitamin 2-23 tablet by ity of w/FA tablet 00:00: mouth in [place] 00 the Medical morning. Branch docusate 2021-02 Yes [id number] 200mg Take 2 U nivers 100 mg 2-23 capsules ity of capsule 00:00: by mouth [place] 00 once daily Medical as needed Branch for Constipati on. ferrous 2021-02 Yes [id number] 325mg Take 1 Un [place] sulfate 325 2-23 tablet by ity of mg (65 mg 00:00: mouth [place] iron) 00 the Medical tablet morning Branch and 1 tablet in the evening. ibuprofen 2021-02 Yes [id number] 600mg Take 1 Univers 600 mg 2-23 tablet by ity of tablet 00:00: mouth [place] 00 every 6 Medical (six) Branch hours as needed (Pain). Take with food or milk. 2021-02 Yes [id number] 1{tbl} Take 1 Univers vitamin 2-23 tablet by ity of w/FA tablet 00:00: mouth in [place] 00 the Medical morning. Branch docusate 2021-02 Yes [id number] 200mg Take 2 U nivers 100 mg 2-23 capsules ity of capsule 00:00: by mouth [place] 00 once daily Medical as needed Branch for Constipati on. ferrous 2021-02 Yes [id number] 325mg Take 1 Un [place] sulfate 325 2-23 tablet by ity of mg (65 mg 00:00: mouth [place] iron) 00 the Medical tablet morning Branch and 1 tablet in the evening. ibuprofen 2021-02 Yes [id number] 600mg Take 1 Univers 600 mg 2-23 tablet by ity of tablet 00:00: mouth [place] 00 every 6 Medical (six) Branch hours as needed (Pain). Take with food or milk. 2021-02 Yes [id number] 1{tbl} Take 1 Univers vitamin 2-23 tablet by ity of w/FA tablet 00:00: mouth in [place] 00 the Medical morning. Branch docusate 2021-02 Yes [id number] 200mg Take 2 U nivers 100 mg 2-23 capsules ity of capsule 00:00: by mouth [place] 00 once daily Medical as needed Branch for Constipati on. ferrous 2021-02 Yes [id number] 325mg Take 1 Un [place] sulfate 325 2-23 tablet by ity of mg (65 mg 00:00: mouth [place] iron) 00 the Medical tablet morning Branch and 1 tablet in the evening. ibuprofen 2021-02 Yes [id number] 600mg Take 1 Univers 600 mg 2-23 tablet by ity of tablet 00:00: mouth [place] 00 every 6 Medical (six) Branch hours as needed (Pain). Take with food or milk. 2021-02 Yes [id number] 1{tbl} Take 1 Univers vitamin 2-23 tablet by ity of w/FA tablet 00:00: mouth in [place] 00 the Medical morning. Branch docusate 2021-02 Yes [id number] 200mg Take 2 U nivers 100 mg 2-23 capsules ity of capsule 00:00: by mouth [place] 00 once daily Medical as needed Branch for Constipati on. ferrous 2021-02 Yes [id number] 325mg Take 1 Un [place] sulfate 325 2-23 tablet by ity of mg (65 mg 00:00: mouth [place] iron) 00 the Medical tablet morning Branch and 1 tablet in the evening. ibuprofen 2021-02 Yes [id number] 600mg Take 1 Univers 600 mg 2-23 tablet by ity of tablet 00:00: mouth [place] 00 every 6 Medical (six) Branch hours as needed (Pain). Take with food or milk. 2021-02 Yes [id number] 1{tbl} Take 1 Univers vitamin 2-23 tablet by ity of w/FA tablet 00:00: mouth in [place] 00 the Medical morning. Branch docusate 2021-02 Yes [id number] 200mg Take 2 U nivers 100 mg 2-23 capsules ity of capsule 00:00: by mouth [place] 00 once daily Medical as needed Branch for Constipati on. ferrous 2021-02 Yes [id number] 325mg Take 1 [facility] [place] sulfate 325 2-23 tablet by ity of mg (65 mg 00:00: [place] iron[place] 00 the Medical tablet morning Branch and 1 tablet in the evening. ibuprofen 2021-02 Yes [id number] 600mg Take 1 [facility] 600 mg 2-23 tablet by ity of tablet 00:00: mouth [place] 00 every 6 Medical (six) Branch hours as needed (Pain). Take with food or milk. 2021-02 Yes [id number] 1{tbl} Take 1 [facility] vitamin 2-23 tablet by ity of w/FA tablet 00:00: mouth in [place] 00 the Medical morning. Branch docusate 2021-02 Yes [id number] 200mg Take 2 [facility] nivers 100 mg 2-23 capsules ity of capsule 00:00: by mouth [place] 00 once daily Medical as needed Branch for Constipati on. ferrous 2021-02 Yes [id number] 325mg Take 1 [facility] [place] sulfate 325 2-23 tablet by ity of mg (65 mg 00:00: mouth [place] iron) 00 the Medical tablet morning Branch and 1 tablet in the evening. ibuprofen 2021-02 Yes [id number] 600mg Take 1 [facility] 600 mg 2-23 tablet by ity of tablet 00:00: mouth [place] 00 every 6 Medical (six) Branch hours as needed (Pain). Take with food or milk. 2021-02 Yes [id number] 1{tbl} Take 1 [facility] vitamin 2-23 tablet by ity of w/FA tablet 00:00: mouth in [place] 00 the Medical morning. Branch docusate 2021-02 Yes [id number] 200mg Take 2 [facility] n[facility] 100 mg 2-23 capsules ity of capsule 00:00: by mouth [place] 00 once daily Medical as needed Branch for Constipati on. ferrous 2021-02 Yes [id number] 325mg Take 1 [facility] [place] sulfate 325 2-23 tablet by [facility] of mg (65 mg 00:00: [place] iron) 00 the Medical tablet morning Branch and 1 tablet in the evening. ibuprofen 2021-02 Yes [id number] 600mg Take 1 [facility] 600 mg 2-23 tablet by ity of tablet 00:00: mouth [place] 00 every 6 Medical (six) Branch hours as needed (Pain). Take with food or milk. 2021-02 Yes [id number] 1{tbl} Take 1 [facility] vitamin 2-23 tablet by ity of w/FA tablet 00:00: mouth in [place] 00 the Medical morning. Branch docusate 2021-02 Yes [id number] 200mg Take 2 [facility] n[facility] 100 mg 2-23 capsules ity of capsule 00:00: by mouth [place] 00 once daily Medical as needed Branch for Constipati on. ferrous 2021-02 Yes [id number] 325mg Take 1 [place] sulfate 325 2-23 tablet by ity of mg (65 mg 00:00: [place] iron) 00 the Medical tablet morning Branch and 1 tablet in the evening. ibuprofen 2021-02 Yes [id number] 600mg Take 1 [facility] 600 mg 2-23 tablet by ity of tablet 00:00: mouth [place] 00 every 6 Medical (six) Branch hours as needed (Pain). Take with food or milk. 2021-02 Yes [id number] 1{tbl} Take 1 [facility] vitamin 2-23 tablet by ity of w/FA tablet 00:00: mouth in [place] 00 the Medical morning. Branch docusate 2021-02 Yes [id number] 200mg Take 2 [facility] 100 mg 2-23 capsules ity of capsule 00:00: by mouth [place] 00 once daily Medical as needed Branch for Constipati on. ferrous 2021-02 Yes [id number] 325mg Take 1 [place] sulfate 325 2-23 tablet by ity of mg (65 mg 00:00: [place] iron) 00 the Medical tablet morning Branch and 1 tablet in the evening. ibuprofen 2021-02 Yes [id number] 600mg Take 1 [facility] 600 mg 2-23 tablet by ity of tablet 00:00: mouth [place] 00 every 6 Medical (six) Branch hours as needed (Pain). Take with food or milk. 2021-02 Yes [id number] 1{tbl} Take 1 [facility] vitamin 2-23 tablet by ity of w/FA tablet 00:00: mouth in [place] 00 the Medical morning. Branch docusate 2021-02 Yes [id number] 200mg Take 2 [facility] 100 mg 2-23 capsules ity of capsule 00:00: by mouth [place] 00 once daily Medical as needed Branch for Constipati on. ferrous 2021-02 Yes [id number] 325mg Take 1 [place] sulfate 325 2-23 tablet by ity of mg (65 mg 00:00: [place] iron[place] 00 the Medical tablet morning Branch and 1 tablet in the evening. ibuprofen 2021-02 Yes [id number] 600mg Take 1 [facility] 600 mg 2-23 tablet by ity of tablet 00:00: mouth [place] 00 every 6 Medical (six) Branch hours as needed (Pain). Take with food or milk. 2021-02 Yes [id number] 1{tbl} Take 1 [facility] vitamin 2-23 tablet by ity of w/FA tablet 00:00: mouth in [place] 00 the Medical morning. Branch docusate 2021-02 Yes [id number] 200mg Take 2 [facility] 100 mg 2-23 capsules ity of capsule 00:00: by mouth [place] 00 once daily Medical as needed Branch for Constipati on. ferrous 2021-02 Yes [id number] 325mg Take 1 [place] sulfate 325 2-23 tablet by ity of mg (65 mg 00:00: [place] iron) 00 the Medical tablet morning Branch and 1 tablet in the evening. ibuprofen 2021-02 Yes [id number] 600mg Take 1 [facility] 600 mg 2-23 tablet by ity of tablet 00:00: mouth [place] 00 every 6 Medical (six) Branch hours as needed (Pain). Take with food or milk. 2021-02 Yes [id number] 1{tbl} Take 1 [facility] vitamin 2-23 tablet by ity of w/FA tablet 00:00: mouth in [place] 00 the Medical morning. Branch docusate 2021-02 Yes [id number] 200mg Take 2 [facility] 100 mg 2-23 capsules ity of capsule 00:00: by mouth [place] 00 once daily Medical as needed Branch for Constipati on. ferrous 2021-02 Yes [id number] 325mg Take 1 [place] sulfate 325 2-23 tablet by ity of mg (65 mg 00:00: [place] iron) 00 the Medical tablet morning Branch and 1 tablet in the evening. ibuprofen 2021-02 Yes [id number] 600mg Take 1 [facility] 600 mg 2-23 tablet by ity of tablet 00:00: mouth [place] 00 every 6 Medical (six) Branch hours as needed (Pain). Take with food or milk. 2021-02 Yes [id number] 1{tbl} Take 1 [facility] vitamin 2-23 tablet by ity of w/FA tablet 00:00: mouth in [place] 00 the Medical morning. Branch docusate 2021-02 Yes [id number] 200mg Take 2 [facility] n[facility] 100 mg 2-23 capsules ity of capsule 00:00: by mouth [place] 00 once daily Medical as needed Branch for Constipati on. ferrous 2021-02 Yes [id number] 325mg Take 1 [place] sulfate 325 2-23 tablet by ity of mg (65 mg 00:00: mouth [place] iron) 00 the Medical tablet morning Branch and 1 tablet in the evening. ibuprofen 2021-02 Yes [id number] 600mg Take 1 [facility] 600 mg 2-23 tablet by ity of tablet 00:00: mouth [place] 00 every 6 Medical (six) Branch hours as needed (Pain). Take with food or milk. HYDROcodone 2021-02- No [id number] 1{tbl} Take 1 U nivers -acetaminop 2-23 12-31 tablet by it y of hen 5-325 00:00: 05:59 mouth [place] mg tablet 00 :00 every 6 Medical (six) Branch hours as needed (Pain scale above 4) for up to 7 days. Do not exceed 3 grams of acetaminop hen in 24 hours. Indication s: acute pain HYDROcodone 2021-02- No [id number] 1{tbl} Take 1 U nivers -acetaminop 2-23 12-31 tablet by it y of hen 5-325 00:00: 05:59 mouth [place] mg tablet 00 :00 every 6 Medical (six) Branch hours as needed (Pain scale above 4) for up to 7 days. Do not exceed 3 grams of acetaminop hen in 24 hours. Indication s: acute pain lactated 2021-02- No 1000mL at 125 Univ ers ringers IV 2-22 12-22 mL/hr, ity of infusion 20:45: 20:35 1,000 mL, [place] 1,000 mL 00 :00 IV Medical Infusion, Branch ONCE, 1 dose, On [place] 02/09/22 at 1445, Routine rho(D) 2021-02 Yes 300ug 300 mcg, Univer s immune 2-22 Intramuscu ity of globulin 20:34: lar, ONCE, [place] (RHOGAM) 28 For 1 Medical syringe 300 dose, Branch mcg Conditiona l, Routine rho(D) 2021-02 Yes 300ug 300 mcg, Univer s immune 2- Intramuscu ity of globulin 20:34: lar, ONCE, [place] (RHOGAM) 28 For 1 Medical syringe 300 dose, Branch mcg Conditiona l, Routine HYDROcodone 2021-02 Yes 2{tbl} 2 tablet, Univers -acetaminop 2- Oral, ity of hen (NORCO 20:34: Q6HPRN, [place] 5) 5-325 mg 19 Starting Medi yessica tablet 2 on [place] Branch tablet 02/09/22 at 1434, Until Discontinu ed, Routine, Pain (scale 7-10), Alternate with Ibuprofen HYDROcodone 2021-02 Yes 1{tbl} 1 tablet, Univers -acetaminop 2- Oral, ity of hen (NORCO 20:34: Q6HPRN, [place] 5) 5-325 mg 19 Starting Medi yessica tablet 1 on [place] Branch tablet 02/09/22 at 1434, Until Discontinu ed, Routine, Pain (scale 4-6), Alternate with Ibuprofen human 2021-02 Yes .5mL 0.5 mL, Univers papillomav 04-12 Intramuscu ity of vac,9-evelin(P 20:34: lar, [place] F) 19 ONCE-PRIOR Medical (GARDASIL-9 TO Branch ) syringe DISCHARGE, 0.5 mL 1 dose, Starting on [place] 02/09/22 at 1434, Until Discontinu ed, Routine, Give vaccine prior to discharge diphenhydrA 2021-02 Yes 25mg 25 mg, Univ ers MINE 2- Slow IV ity of (BENADRYL) 20:34: Push, [place] injection 19 Q6HPRN, Medical 25 mg Starting Branch on [place] 02/09/22 at 1434, Until Discontinu ed, Routine, Itching diphenhydrA 2021-02 Yes 25mg 25 mg, Univ ers MINE 2- Oral, ity of (BENADRYL) 20:34: Q6HPRN, [place] tablet 25 19 Starting Medica l mg on [place] Branch 02/09/22 at 1434, Until Discontinu ed, Routine, Sleep, Itching ondansetron 2021-02 Yes 4mg 4 mg, Slow Univers (ZOFRAN 2- IV Push, ity of (PF)) 20:34: Q8HPRN, [place] injection 4 19 Starting Medi yessica mg on [facility] Branch 02/09/22 at 1434, Until Discontinu ed, Routine, Nausea and Vomiting (N/V) bisacodyL 2021-02 Yes 10mg 10 mg, Univer s (DULCOLAX) 2- Rectal, ity of suppository 20:34: QDAILYPRN, [place] 10 mg 19 Starting Medical on [place] Branch 02/09/22 at 1434, Until Discontinu ed, Routine, Constipati on simethicone 2021-02 Yes 160mg 160 mg, [place] (GAS RELIEF 2- Oral, ity of (SIMETHICON 20:34: PC+HSPRN, [place] E)) 19 Starting Medical chewable on [facility] tablet 160 02/09/22 mg at 1434, Until Discontinu ed, Routine, Gas docusate 2021-02 Yes 200mg 200 mg, Unive rs (COLACE) 2- Oral, ity of capsule 200 20:34: QDAILYPRN, [place] mg 19 Starting Medical on [facility] Branch 02/09/22 at 1434, Until Discontinu ed, Routine, Constipati on magnesium 2021-02 Yes 30mL 30 mL, Univer s hydroxide 2- Oral, ity of (MILK OF 20:34: QDAILYPRN, [place] MAGNESIA) 19 Starting Medica l 400 mg/5 mL on [facility] suspension 02/09/22 30 mL at 1434, Until Discontinu ed, Routine, Constipati on HYDROcodone 2021-02 Yes 2{tbl} 2 tablet, Univers -acetaminop 2- Oral, ity of hen (NORCO 20:34: Q6HPRN, [place] 5) 5-325 mg 19 Starting Medi yessica tablet 2 on [facility] tablet 02/09/22 at 1434, Until Discontinu ed, Routine, Pain (scale 7-10), Alternate with Ibuprofen HYDROcodone 2021-02 Yes 1{tbl} 1 tablet, Univers -acetaminop 2-22 Oral, ity of hen (NORCO 20:34: Q6HPRN, [place] 5) 5-325 mg 19 Starting Medi yessica tablet 1 on [facility] tablet 02/09/22 at 1434, Until Discontinu ed, Routine, Pain (scale 4-6), Alternate with Ibuprofen human 2021-02 Yes .5mL 0.5 mL, Univers papillomav 04-12 Intramuscu ity of vac,9-evelin(P 20:34: lar, [place] F) 19 ONCE-PRIOR Medical (GARDASIL-9 TO [place] ) syringe DISCHARGE, 0.5 mL 1 dose, Starting on [facility] 02/09/22 at 1434, Until Discontinu ed, Routine, Give vaccine prior to discharge diphenhydrA 2021-02 Yes 25mg 25 mg, Univ ers MINE 2- Slow IV ity of (BENADRYL) 20:34: Push, [place] injection 19 Q6HPRN, Medical 25 mg Starting Branch on [facility] 02/09/22 at 1434, Until Discontinu ed, Routine, Itching diphenhydrA 2021-02 Yes 25mg 25 mg, Univ ers MINE 2- Oral, ity of (BENADRYL) 20:34: Q6HPRN, [place] tablet 25 19 Starting Medica l mg on [facility] 02/09/22 at 1434, Until Discontinu ed, Routine, Sleep, Itching ondansetron 2021-02 Yes 4mg 4 mg, Slow Univers (ZOFRAN 2 IV Push, ity of (PF)) 20:34: Q8HPRN, [place] injection 4 19 Starting Medi yessica mg on [facility] 02/09/22 at 1434, Until Discontinu ed, Routine, Nausea and Vomiting (N/V) bisacodyL 2021-02 Yes 10mg 10 mg, Univer s (DULCOLAX) 2 Rectal, ity of suppository 20:34: QDAILYPRN, [place] 10 mg 19 Starting Medical on [facility] 02/09/22 at 1434, Until Discontinu ed, Routine, Constipati on simethicone 2021-02 Yes 160mg 160 mg, [place] (GAS RELIEF 2 Oral, ity of (SIMETHICON 20:34: PC+HSPRN, [place] E)) 19 Starting Medical chewable on [facility] tablet 160 02/09/22 mg at 1434, Until Discontinu ed, Routine, Gas docusate 2021-02 Yes 200mg 200 mg, Unive rs (COLACE) 04-12 Oral, ity of capsule 200 20:34: QDAILYPRN, [place] mg 19 Starting Medical on [place] Branch 02/09/22 at 1434, Until Discontinu ed, Routine, Constipati on magnesium 2021-02 Yes 30mL 30 mL, Univer s hydroxide 04-12 Oral, ity of (MILK OF 20:34: QDAILYPRN, [place] MAGNESIA) 19 Starting Medica l 400 mg/5 mL on [place] Branch suspension 02/09/22 30 mL at 1434, Until Discontinu ed, Routine, Constipati on lactated 2021-02- No 1000mL at 125 Univ ers ringers IV 04-12 12-23 mL/hr, ity of infusion 20:34: 05:03 1,000 mL, [place] 1,000 mL 19 :25 IV Medical Infusion, Branch PRN, 1 dose, Starting on [place] 02/09/22 at 1434, Until Discontinu ed, Routine nalbuphine 2021-02 Yes 5mg 5 mg, Univer s (NUBAIN) 04-12 Intravenou ity o f injection 5 18:02: s, PRN, 1 [place] mg 07 dose, Medical Starting Branch on [place] 02/09/22 at 1202, Until Discontinu ed, Routine, itching nalbuphine 2021-02 Yes 5mg 5 mg, Univer s (NUBAIN) 04-12 Intravenou ity o f injection 5 18:02: s, PRN, 1 [place] mg 07 dose, Medical Starting Branch on [place] 02/09/22 at 1202, Until Discontinu ed, Routine, itching naloxone 2021-02- No .4mg 0.4 mg, Unive rs (NARCAN) 04-12 1225 Slow IV ity of injection 18:02: 00:14 Push, PRN [place] 0.4 mg 07 :19 - SEE Medical INSTRUCTIO Branch NS, Starting on [place] 02/09/22 at 1202, Until 02/11/22 at 1814, Routine, Analgesia Recovery naloxone 2021-02- No .4mg 0.4 mg, Unive rs (NARCAN) 04-12 Slow IV ity of injection 18:02: 00:14 [place], PRN [place] 0.4 mg 07 :19 - SEE Medical INSTRUCTIO Branch NS, Starting on [place] 02/09/22 at 1202, Until 02/11/22 at 1814, Routine, Analgesia Recovery acetaminoph 2021-02 No 650mg 650 mg, U nivers en 04-12 Oral, ity of (TYLENOL) 12:45: 15:02 ONCE, 1 [place] tablet 650 00 :00 dose, On Medic al mg [place] Branch 02/09/22 at 0645, Routine lactated 2021-02 No 1000mL at 125 Univ ers ringers IV 04-12 mL/hr, ity of infusion 12:45: 20:34 1,000 mL, [place] 1,000 mL 00 :26 IV Medical Infusion, Branch CONTINUOUS , Starting on [place] 02/09/22 at 0645, Until [place] 02/09/22 at 1434, Routine ceFAZolin 2021-02 No 2000mg 2,000 mg, Univers (ANCEF) 04-12 IV ity of 2,000 mg in 12:32: 20:34 Piggyback, [place] NaCl 0.9% 22 :26 O.R. Medical () 100 mL HOLDING Branc h MINI-BAG ONCE, Starting on [place] 02/09/22 at 0632, Until [place] 02/09/22 at 1434, Administer over 30 Minutes, 100 mL
Reas on for Anti-Infec tive: Surgical Prophylaxi s
Surgi yessica Prophylaxi s: UNDERWRITING INTERN
Duration of therapy: within 24 hours of surgery sodium 2021-02 No 30mL 30 mL, Univers citrate-cit 04-12 Oral, ity of [place]ila acid 12:32: 16:33 PRE-PROCED [place] (BICITRA) 22 :00 URE ONCE, Medic al 500-334 1 dose, Branch mg/5 mL Starting solution 30 on [place] mL 02/09/22 at 0632, Until [place] 02/09/22 at 1033, Routine, Surgery/Pr ocedure aspirin 81 2021-02 Yes 81mg Take 81 mg U nivers mg EC 1-22 by mouth ity of tablet 14:21: daily. [place] 20 Medical Branch aspirin 81 2021-02 Yes 81mg Take 81 mg U nivers mg EC 1-22 by mouth ity of tablet 14:21: daily. [place] 20 Medical Branch aspirin 2021-0 Yes 81mg Take 81 mg Univ ers (ADULT LOW 8-23 by mouth ity o f DOSE 16:59: daily. [place] ASPIRIN) 81 12 Medical mg EC Branch tablet aspirin 2021-0 Yes 81mg Take 81 mg Univ ers (ADULT LOW 8-23 by mouth ity o f DOSE 16:59: daily. [place] ASPIRIN) 81 12 Medical mg EC Branch tablet aspirin 2021-0 Yes 81mg Take 81 mg Univ ers (ADULT LOW 8-23 by mouth ity o f DOSE 16:59: daily. [place] ASPIRIN) 81 12 Medical mg EC Branch tablet aspirin Yes 81mg Take 81 mg Univ ers (ADULT LOW 8-23 by mouth ity o f DOSE 16:59: daily. [place] ASPIRIN) 81 12 Medical mg EC Branch tablet aspirin Yes 81mg Take 81 mg Univ ers (ADULT LOW 8-23 by mouth ity o f DOSE 16:59: daily. [place] ASPIRIN) 81 12 Medical mg EC Branch tablet aspirin 0 Yes 81mg Take 81 mg Univ ers (ADULT LOW 8-23 by mouth ity o f DOSE 16:59: daily. [place] ASPIRIN) 81 12 Medical mg EC Branch tablet aspirin Yes 81mg Take 81 mg Univ ers (ADULT LOW 8-23 by mouth ity o f DOSE 16:59: daily. [place] ASPIRIN) 81 12 Medical mg EC Branch tablet aspirin 2021-0 Yes 81mg Take 81 mg Univ ers (ADULT LOW 8-23 by mouth ity o f DOSE 16:59: daily. [place] ASPIRIN) 81 12 Medical mg EC Branch tablet aspirin 2021-0 Yes 81mg Take 81 mg Univ ers (ADULT LOW 8-23 by mouth ity o f DOSE 16:59: daily. [place] ASPIRIN) 81 12 Medical mg EC Branch tablet aspirin 2021-0 Yes 81mg Take 81 mg Univ ers (ADULT LOW 8-23 by mouth ity o f DOSE 16:59: daily. [place] ASPIRIN) 81 12 Medical mg EC Branch tablet 0 Yes Take by Univer s vit 8-23 mouth. ity of calc,iron,f 16:59: [place] [address] Medical ( Branch VITAMIN ORAL) Yes Take by Univer s vit 8-23 mouth. ity of calc,iron,f 16:59: [place] [address] Medical ( Branch VITAMIN ORAL) Yes Take by Univer s vit 8-23 mouth. ity of calc,iron,f 16:59: [place] [address] Medical ( Branch VITAMIN ORAL) Yes Take by Univer s vit 8-23 mouth. ity of calc,iron,f 16:59: [place] [address] Medical ( Branch VITAMIN ORAL) Yes Take by Univer s vit 8-23 mouth. ity of calc,iron,f 16:59: [place] [address] Medical ( Branch VITAMIN ORAL) Yes Take by Univer s vit 8-23 mouth. ity of calc,iron,f 16:59: [place] [address] Medical ( Branch VITAMIN ORAL) Yes Take by Univer s vit 8-23 mouth. ity of calc,iron,f 16:59: [place] [address] Medical ( Branch VITAMIN ORAL) Yes Take by Univer s vit 8-23 mouth. ity of calc,iron,f 16:59: [place] [address] Medical ( Branch VITAMIN ORAL) Yes Take by Univer s vit 8-23 mouth. ity of calc,iron,f 16:59: [place] [address] Medical ( Branch VITAMIN ORAL) Yes Take by Univer s vit 8-23 mouth. ity of calc,iron,f 16:59: [place] [address] Medical ( Branch VITAMIN ORAL) Yes Take by Univer s vit 8-23 mouth. ity of calc,iron,f 16:59: [place] [address] Medical ( Branch VITAMIN ORAL) Yes Take by Univer s vit 8-23 mouth. ity of calc,iron,f 16:59: [place] [address] Medical ( Branch VITAMIN ORAL) aspirin Yes 81mg Take 81 mg Univ ers (ADULT LOW 7-27 by mouth ity o f DOSE 15:32: daily. [place] ASPIRIN) 81 59 Medical mg EC Branch tablet 0 Yes Take by Univer s vit 7-27 mouth. ity of calc,iron,f 15:32: [place] olic 58 Medical ( Branch VITAMIN ORAL) [id number] 2021-0 Yes 1{each} Take 1 U nivers 3-dha-epa-f 7-01 Each by ity o f [place] oil 00:00: mouth [place] ( 00 daily. Medical GUMMY) 400 Branch mcg-35 mg -25 mg-5 mg Chew [id number] 2021-0 Yes 1{each} Take 1 U nivers 3-dha-epa-f 7-01 Each by ity o f [place] oil 00:00: mouth [place] ( 00 daily. Medical GUMMY) 400 Branch mcg-35 mg -25 mg-5 mg Chew [id number] 2021-0 Yes 1{each} Take 1 U nivers 3-dha-epa-f 7-01 Each by ity o f [place] oil 00:00: mouth [place] ( 00 daily. Medical GUMMY) 400 Branch mcg-35 mg -25 mg-5 mg Chew [id number] 2021-0 Yes 1{each} Take 1 U nivers 3-dha-epa-f 7-01 Each by ity o f [place] oil 00:00: mouth [place] ( 00 daily. Medical GUMMY) 400 Branch mcg-35 mg -25 mg-5 mg Chew [id number] 2021-0 Yes 1{each} Take 1 U nivers 3-dha-epa-f 7-01 Each by ity o f [place] oil 00:00: mouth [place] ( 00 daily. Medical GUMMY) 400 Branch mcg-35 mg -25 mg-5 mg Chew [id number] 2021-0 Yes 1{each} Take 1 U nivers 3-dha-epa-f 7-01 Each by ity o f [place] oil 00:00: mouth [place] ( 00 daily. Medical GUMMY) 400 Branch mcg-35 mg -25 mg-5 mg Chew [id number] 2021-0 Yes 1{each} Take 1 U nivers 3-dha-epa-f 7-01 Each by ity o f [place] oil 00:00: mouth [place] ( 00 daily. Medical GUMMY) 400 Branch mcg-35 mg -25 mg-5 mg Chew [id number] 2022-0 Yes 1{each} Take 1 U nivers 3-dha-epa-f 7-01 Each by ity o f [place] oil 00:00: mouth [place] ( 00 daily. Medical GUMMY) 400 Branch mcg-35 mg -25 mg-5 mg Chew [id number] 2022-0 Yes 1{each} Take 1 U nivers 3-dha-epa-f 7-01 Each by ity o f [place] oil 00:00: mouth [place] ( 00 daily. Medical GUMMY) 400 Branch mcg-35 mg -25 mg-5 mg Chew [id number] 2-0 Yes 1{each} Take 1 U nivers 3-dha-epa-f 7-01 Each by ity o f [place] oil 00:00: mouth [place] ( 00 daily. Medical GUMMY) 400 Branch mcg-35 mg -25 mg-5 mg Chew [id number] 2021-0 Yes 1{each} Take 1 U nivers 3-dha-epa-f 7-01 Each by ity o f [place] oil 00:00: mouth [place] ( 00 daily. Medical GUMMY) 400 Branch mcg-35 mg -25 mg-5 mg Chew [id number] 2021-0 Yes 1{each} Take 1 U nivers 3-dha-epa-f 7-01 Each by ity o f [place] oil 00:00: mouth [place] ( 00 daily. Medical GUMMY) 400 Branch mcg-35 mg -25 mg-5 mg Chew [id number] 2021-0 Yes 1{each} Take 1 U nivers 3-dha-epa-f 7-01 Each by ity o f [place] oil 00:00: mouth [place] ( 00 daily. Medical GUMMY) 400 Branch mcg-35 mg -25 mg-5 mg Chew [id number] 2-0 Yes 1{each} Take 1 U nivers 3-dha-epa-f 7-01 Each by ity o f [place] oil 00:00: mouth [place] ( 00 daily. Medical GUMMY) 400 Branch mcg-35 mg -25 mg-5 mg Chew [id number] 2-0 2022- No 1{each} Take 1 Univers 3-dha-epa-f -02-10 Each by ity of [place] oil 00:00: 00:00 mouth [place] ( 00 :00 daily. Medical GUMMY) 400 Branch mcg-35 mg -25 mg-5 mg Chew [id number] 2021- No 1{each} Take 1 Univers 3-dha-epa-f -02-10 Each by ity of [place] oil 00:00: 00:00 mouth [place] ( 00 :00 daily. Medical GUMMY) 400 Branch mcg-35 mg -25 mg-5 mg Chew Yes [id number] 1{tbl} Take 1 U nivers multivitami 6-28 tablet by ity of n ( 00:00: mouth [place] VITAMIN) 00 daily. Medical tablet Branch Yes [id number] 1{tbl} Take 1 U nivers multivitami 6-28 tablet by ity of n ( 00:00: mouth [place] VITAMIN) 00 daily. Medical tablet Branch Yes [id number] 1{tbl} Take 1 U nivers multivitami 6-28 tablet by ity of n ( 00:00: mouth [place] VITAMIN) 00 daily. Medical tablet Branch Yes [id number] 1{tbl} Take 1 U nivers multivitami 6-28 tablet by ity of n ( 00:00: mouth [place] VITAMIN) 00 daily. Medical tablet Branch Yes [id number] 1{tbl} Take 1 U nivers multivitami 6-28 tablet by ity of n ( 00:00: mouth [place] VITAMIN) 00 daily. Medical tablet Branch Yes [id number] 1{tbl} Take 1 U nivers multivitami 6-28 tablet by ity of n ( 00:00: mouth [place] VITAMIN) 00 daily. Medical tablet Branch Yes [id number] 1{tbl} Take 1 U nivers multivitami 6-28 tablet by ity of n ( 00:00: mouth [place] VITAMIN) 00 daily. Medical tablet Branch Yes [id number] 1{tbl} Take 1 U nivers multivitami 6-28 tablet by ity of n ( 00:00: mouth [place] VITAMIN) 00 daily. Medical tablet Branch Yes [id number] 1{tbl} Take 1 U nivers multivitami 6-28 tablet by ity of n ( 00:00: mouth [place] VITAMIN) 00 daily. Medical tablet Branch Yes [id number] 1{tbl} Take 1 U nivers multivitami 6-28 tablet by ity of n ( 00:00: mouth [place] VITAMIN) 00 daily. Medical tablet Branch Yes [id number] 1{tbl} Take 1 U nivers multivitami 6-28 tablet by ity of n ( 00:00: mouth [place] VITAMIN) 00 daily. Medical tablet Branch Yes [id number] 1{tbl} Take 1 U nivers multivitami 6-28 tablet by ity of n ( 00:00: mouth [place] VITAMIN) 00 daily. Medical tablet Branch Yes [id number] 1{tbl} Take 1 U nivers multivitami 6-28 tablet by ity of n ( 00:00: mouth [place] VITAMIN) 00 daily. Medical tablet Branch Yes [id number] 1{tbl} Take 1 U nivers multivitami 6-28 tablet by ity of n ( 00:00: mouth [place] VITAMIN) 00 daily. Medical tablet Branch Yes [id number] 1{tbl} Take 1 U nivers multivitami 6-28 tablet by ity of n ( 00:00: mouth [place] VITAMIN) 00 daily. Medical tablet Branch 2021- No [id number] 1{tbl} Take 1 Univers multivitami 6-28 12-23 tablet by it y of n ( 00:00: 00:00 [place] VITAMIN) 00 :00 daily. Medical tablet Branch 2021- No [id number] 1{tbl} Take 1 [facility] multivitami 6-28 12-23 tablet by it y of n ( 00:00: 00:00 [place] VITAMIN) 00 :00 daily. Medical tablet Branch Yes Take by Univer s vit 7-21 mouth. ity of calc,iron,f 20:05: [place] olic 07 Medical ( Branch VITAMIN ORAL) aspirin 2021-0 Yes 81mg Take 81 mg Univ ers (ADULT LOW 7-21 by mouth ity o f DOSE 20:05: daily. [place] ASPIRIN) 81 07 Medical mg EC Branch tablet Yes Take by [email or web address] vit 7-21 mouth. ity of calc,iron,f 20:05: [place] [id number] Medical ( Branch VITAMIN ORAL) aspirin Yes 81mg Take 81 mg [facility] ers (ADULT LOW 7-21 by mouth ity o f DOSE 20:05: daily. [place] ASPIRIN) 81 07 Medical mg EC Branch tablet Yes Take by [email or web address] vit 6-09 mouth. ity of calc,iron,f 20:15: [place] [id number] Medical ( Branch VITAMIN ORAL) Yes Take by [email or web address] vit 6- mouth. ity of calc,iron,f 20:15: [place] [address] Medical ( Branch VITAMIN ORAL) Yes Take by [email or web address] vit 6- mouth. ity of calc,iron,f 20:15: [place] [address] Medical ( Branch VITAMIN ORAL) Yes Take by [email or web address] vit 6-09 mouth. ity of calc,iron,f 20:15: [place] [address] Medical ( Branch VITAMIN ORAL) Yes Take by [email or web address] vit 6-09 mouth. ity of calc,iron,f 20:15: [place] [address] Medical ( Branch VITAMIN ORAL) Yes Take by [email or web address] vit 6-09 mouth. ity of calc,iron,f 20:15: [place] [address] Medical ( Branch VITAMIN ORAL) Yes Take by [email or web address] vit 6-09 mouth. ity of calc,iron,f 20:15: [place] [address] Medical ( Branch VITAMIN ORAL) norethindro 2020-0 Yes [id number] 1{tbl} Take 1 [facility] ne-e.estrad 5-21 tablet by ity of iol-iron 00:00: mouth [place] (LOESTRIN 00 daily. Medical FE 1.07/18) Branch 1.5 mg-30 mcg (21)/75 mg (7) per tablet norethindro 2020-0 Yes [id number] 1{tbl} Take 1 Univers ne-e.estrad 5-21 tablet by ity of iol-iron 00:00: mouth [place] (LOESTRIN 00 daily. Medical FE ) Branch 1.5 mg-30 mcg (21)/75 mg (7) per tablet norethindro 2019-0 2020- No [id number] 1{tbl} Take 1 Univers ne-e.estrad 5-21 05-12 tablet by it y of iol-iron 00:00: 00:00 mouth [place] (LOESTRIN 00 :00 daily. Medical FE ) Branch 1.5 mg-30 mcg (21)/75 mg (7) per tablet docusate 2020-0 Yes [id number] 240mg Take 1 [facility] [place] calcium 240 4-25 capsule by it y of mg capsule 00:00: mouth [place] 00 daily as Medical needed for Branch Constipati on. simethicone 2020-0 Yes [id number] 160mg Take 2 [facility] 80 mg 4-25 tablets by ity of chewable 00:00: mouth [place] tablet 00 after Medical meals and Branch at bedtime as needed for Gas. oxyCODONE 5 2019-0 Yes [id number] 5mg Take 1 [facility] mg 4-25 tablet by ity of immediate 00:00: mouth [place] release 00 every 6 Medical tablet (six) Branch hours as needed for Pain (scale 4-6) or Pain (scale 7-10). docusate 2020-0 Yes [id number] 240mg Take 1 [facility] [place] calcium 240 4-25 capsule by it y of mg capsule 00:00: mouth once [place] 00 daily as Medical needed for Branch Constipati on. simethicone 2020-0 Yes [id number] 160mg Take 2 [facility] 80 mg 4-25 tablets by ity of chewable 00:00: mouth [place] tablet 00 after Medical meals and Branch at bedtime as needed for Gas. oxyCODONE 5 2020-0 Yes [id number] 5mg Take 1 [facility] mg 4-25 tablet by ity of immediate 00:00: mouth [place] release 00 every 6 Medical tablet (six) Branch hours as needed for Pain (scale 4-6) or Pain (scale 7-10). docusate 2020-0 Yes [id number] 240mg Take 1 [facility] [place] calcium 240 4-25 capsule by it y of mg capsule 00:00: mouth once [place] 00 daily as Medical needed for Branch Constipati on. simethicone 2020-0 Yes [id number] 160mg Take 2 [facility] 80 mg 4-25 tablets by ity of chewable 00:00: mouth [place] tablet 00 after Medical meals and Branch at bedtime as needed for Gas. oxyCODONE 5 2020-0 Yes [id number] 5mg Take 1 [facility] mg 4-25 tablet by ity of immediate 00:00: mouth [place] release 00 every 6 Medical tablet (six) Branch hours as needed for Pain (scale 4-6) or Pain (scale 7-10). docusate 2020-0 Yes [id number] 240mg Take 1 [facility] [place] calcium 240 4-25 capsule by it y of mg capsule 00:00: mouth once [place] 00 daily as Medical needed for Branch Constipati on. simethicone 2020-0 Yes [id number] 160mg Take 2 [facility] 80 mg 4-25 tablets by ity of chewable 00:00: mouth [place] tablet 00 after Medical meals and Branch at bedtime as needed for Gas. oxyCODONE 5 2019-0 Yes [id number] 5mg Take 1 [facility] mg 4-25 tablet by ity of immediate 00:00: mouth [place] release 00 every 6 Medical tablet (six) Branch hours as needed for Pain (scale 4-6) or Pain (scale 7-10). docusate 2020-0 Yes [id number] 240mg Take 1 [facility] [place] calcium 240 4-25 capsule by it y of mg capsule 00:00: mouth once [place] 00 daily as Medical needed for Branch Constipati on. simethicone 2020-0 Yes [id number] 160mg Take 2 [facility] 80 mg 4-25 tablets by ity of chewable 00:00: mouth [place] tablet 00 after Medical meals and Branch at bedtime as needed for Gas. oxyCODONE 5 2020-0 Yes [id number] 5mg Take 1 [facility] mg 4-25 tablet by ity of immediate 00:00: mouth [place] release 00 every 6 Medical tablet (six) Branch hours as needed for Pain (scale 4-6) or Pain (scale 7-10). docusate 2020-0 202- No [id number] 240mg Take 1 [facility] calcium 240 4-25 05-12 capsule by i ty of mg capsule 00:00: 00:00 mouth once [place] 00 :00 daily as Medical needed for Branch Constipati on. simethicone 2019-2020- No [id number] 160mg Take 2 [facility] 80 mg 4-25 05-12 tablets by ity of chewable 00:00: 00:00 mouth [place] tablet 00 :00 after Medical meals and Branch at bedtime as needed for Gas. oxyCODONE 5 2020- No [id number] 5mg Take 1 [facility] mg 4-25 05-12 tablet by ity of immediate 00:00: 00:00 mouth [place] release 00 :00 every 6 Medical tablet (six) Branch hours as needed for Pain (scale 4-6) or Pain (scale 7-10). acetaminoph No [id number] 650mg Take 2 [facility] en 325 mg 4-25 04-26 tablets by ity of tablet 00:00: 04:59 mouth [place] 00 :00 every 6 Medical (six) Branch hours as needed for Pain (scale 1-3) or Pain (scale 4-6). acetaminoph No [id number] 650mg Take 2 [facility] en 325 mg 4-25 04-26 tablets by ity of tablet 00:00: 04:59 mouth [place] 00 :00 every 6 Medical (six) Branch hours as needed for Pain (scale 1-3) or Pain (scale 4-6). acetaminoph No [id number] 650mg Take 2 [facility] en 325 mg 4-25 04-26 tablets by ity of tablet 00:00: 04:59 mouth [place] 00 :00 every 6 Medical (six) Branch hours as needed for Pain (scale 1-3) or Pain (scale 4-6). acetaminoph No [id number] 650mg Take 2 [facility] en 325 mg 4-25 04-26 tablets by ity of tablet 00:00: 04:59 mouth [place] 00 :00 every 6 Medical (six) Branch hours as needed for Pain (scale 1-3) or Pain (scale 4-6). acetaminoph No [id number] 650mg Take 2 [facility] en 325 mg 4-25 04-26 tablets by ity of tablet 00:00: 04:59 mouth [place] 00 :00 every 6 Medical (six) Branch hours as needed for Pain (scale 1-3) or Pain (scale 4-6). 2020-0 Yes Take by [email or web address] vits62/FA/o 4-22 mouth ity of m3/dha/epa 20:08: daily. [place] ( 21 Medical GUMMY ORAL) Branch ofloxacin 2020-0 Yes [id number] 5[drp] Place 5 Univers 0.3 % otic 4-14 Drops in ity o f drops 00:00: both ears [place] 00 2 (two) Medical times Branch daily. ofloxacin 2020-0 Yes [id number] 5[drp] Place 5 Univers 0.3 % otic 4-14 Drops in ity o f drops 00:00: both ears [place] 00 2 (two) Medical times Branch daily. ofloxacin 2020-0 Yes [id number] 5[drp] Place 5 Univers 0.3 % otic 4-14 Drops in ity o f drops 00:00: both ears [place] 00 2 (two) Medical times Branch daily. ofloxacin 2020-0 Yes [id number] 5[drp] Place 5 Univers 0.3 % otic 4-14 Drops in ity o f drops 00:00: both ears [place] 00 2 (two) Medical times Branch daily. ofloxacin 2020-0 Yes [id number] 5[drp] Place 5 Univers 0.3 % otic 4-14 Drops in ity o f drops 00:00: both ears [place] 00 2 (two) Medical times Branch daily. ofloxacin 2020-0 Yes [id number] 5[drp] Place 5 Univers 0.3 % otic 4-14 Drops in ity o f drops 00:00: both ears [place] 00 2 (two) Medical times Branch daily. ofloxacin 2020-0 Yes [id number] 5[drp] Place 5 Univers 0.3 % otic 4-14 Drops in ity o f drops 00:00: both ears [place] 00 2 (two) Medical times Branch daily. ofloxacin 2020-0 Yes [id number] 5[drp] Place 5 Univers 0.3 % otic 4-14 Drops in ity o f drops 00:00: both ears [place] 00 2 (two) Medical times Branch daily. 2020-0 Yes Take by [email or web address] vits62/FA/o 3-19 mouth ity of m3/dha/epa 18:41: daily. [place] ( 40 Medical GUMMY ORAL) Branch 2020-0 Yes Take by Univer s vits62/FA/o 3-19 mouth ity of m3/dha/epa 18:41: daily. [place] ( 40 Medical GUMMY ORAL) Branch 2020-0 Yes Take by Univer s vits62/FA/o 3-19 mouth ity of m3/dha/epa 18:41: daily. [place] ( 40 Medical GUMMY ORAL) Branch 2020-0 Yes Take by Univer s vits62/FA/o 3-19 mouth ity of m3/dha/epa 18:41: daily. [place] ( 40 Medical GUMMY ORAL) Branch 2020-0 Yes Take by Univer s vits62/FA/o 3-19 mouth ity of m3/dha/epa 18:41: daily. [place] ( 40 Medical GUMMY ORAL) Branch 2020-0 Yes Take by Univer s vits62/FA/o 3-19 mouth ity of m3/dha/epa 18:41: daily. [place] ( 40 Medical GUMMY ORAL) Branch 2020-0 Yes Take by Univer s vits62/FA/o 3-19 mouth ity of m3/dha/epa 18:41: daily. [place] ( 40 Medical GUMMY ORAL) Branch 2020-0 Yes Take by Univer s vits62/FA/o 3-19 mouth ity of m3/dha/epa 18:41: daily. [place] ( 40 Medical GUMMY ORAL) Branch 2020-0 Yes Take by Univer s vits62/FA/o 3-19 mouth ity of m3/dha/epa 18:41: daily. [place] ( 40 Medical GUMMY ORAL) Branch 2020-0 Yes Take by Univer s vits62/FA/o 3-19 mouth ity of m3/dha/epa 18:41: daily. [place] ( 40 Medical GUMMY ORAL) Branch 2020-0 Yes Take by Univer s vits62/FA/o 3-19 mouth ity of m3/dha/epa 18:41: daily. [place] ( 40 Medical GUMMY ORAL) Branch 2020-0 Yes Take by Univer s vits62/FA/o 3-19 mouth ity of m3/dha/epa 18:41: daily. [place] ( 40 Medical GUMMY ORAL) [place] Yes Take by [facility] vits62/FA/o 3-19 mouth ity of m3/dha/epa 18:41: daily. [place] ( 40 Medical GUMMY ORAL) [place] Yes Take by [facility] vits62/FA/o 3-19 mouth ity of m3/dha/epa 18:41: daily. [place] ( 40 Medical GUMMY ORAL) [place] Yes Take by [facility] vits62/FA/o 3-19 mouth ity of m3/dha/epa 18:41: daily. [place] ( 40 Medical GUMMY ORAL) [place] [id number]- 2020-0 Yes [id number] 1{tbl} Take 1 Univers iron-folic 1-07 tablet by ity of acid-dha 00:00: mouth [place] 30-1.4-200 00 daily. Medical mg CpID [facility] Yes [id number] 1{tbl} Take 1 Univers iron-folic 1-07 tablet by ity of acid-dha 00:00: mouth [place] 30-1.4-200 00 daily. Medical mg CpID [place] [id number]- 2020-0 Yes [id number] 1{tbl} Take 1 Univers iron-folic 1-07 tablet by ity of acid-dha 00:00: mouth [place] 30-1.4-200 00 daily. Medical mg CpID [place] [id number]- 2020-0 Yes [id number] 1{tbl} Take 1 [facility] iron-folic 1-07 tablet by ity of acid-dha 00:00: mouth [place] 30-1.4-200 00 daily. Medical mg CpID [place] - 2020-0 Yes [id number] 1{tbl} Take 1 [facility] iron-folic 1-07 tablet by ity of acid-dha 00:00: mouth [place] 30-1.4-200 00 daily. Medical mg CpID [place] [id number]- 2020-0 Yes [id number] 1{tbl} Take 1 [facility] iron-folic 1-07 tablet by ity of acid-dha 00:00: mouth [place] 30-1.4-200 00 daily. Medical mg CpID [place] [id number]- 2020-0 Yes [id number] 1{tbl} Take 1 [facility] iron-folic 1-07 tablet by ity of acid-dha 00:00: mouth [place] 30-1.4-200 00 daily. Medical mg [facility] Yes [id number] 1{tbl} Take 1 [facility] iron-folic 1-07 tablet by ity of acid-dha 00:00: mouth [place] 30-1.4-200 00 daily. Medical mg [facility] Yes [id number] 1{tbl} Take 1 [facility] iron-folic 1-07 tablet by ity of acid-dha 00:00: mouth [place] 30-1.4-200 00 daily. Medical mg [facility] Yes [id number] 1{tbl} Take 1 [facility] iron-folic 1-07 tablet by ity of acid-dha 00:00: mouth [place] 30-1.4-200 00 daily. Medical mg [facility] Yes [id number] 1{tbl} Take 1 [facility] iron-folic 1-07 tablet by ity of acid-dha 00:00: mouth [place] 30-1.4-200 00 daily. Medical mg [facility] Yes [id number] 1{tbl} Take 1 Univers iron-folic 1-07 tablet by ity of acid-dha 00:00: mouth [place] 30-1.4-200 00 daily. Medical mg [facility] Yes [id number] 1{tbl} Take 1 Univers iron-folic 1-07 tablet by ity of acid-dha 00:00: mouth [place] 30-1.4-200 00 daily. Medical mg [facility] Yes [id number] 1{tbl} Take 1 [facility] iron-folic 1-07 tablet by ity of acid-dha 00:00: mouth [place] 30-1.4-200 00 daily. Medical mg [facility] Yes [id number] 1{tbl} Take 1 [facility] iron-folic 1-07 tablet by ity of acid-dha 00:00: mouth [place] 30-1.4-200 00 daily. Medical mg [facility] Yes [id number] 1{tbl} Take 1 [facility] iron-folic 1-07 tablet by ity of acid-dha 00:00: mouth [place] 30-1.4-200 00 daily. Medical mg [facility] Yes [id number] 1{tbl} Take 1 [facility] iron-folic 1-07 tablet by ity of acid-dha 00:00: mouth [place] 30-1.4-200 00 daily. Medical mg [facility] Yes [id number] 1{tbl} Take 1 [facility] iron-folic 1-07 tablet by ity of acid-dha 00:00: mouth [place] 30-1.4-200 00 daily. Medical mg [facility] Yes [id number] 1{tbl} Take 1 Univers iron-folic 1-07 tablet by ity of acid-dha 00:00: mouth [place] 30-1.4-200 00 daily. Medical mg [facility] Yes [id number] 1{tbl} Take 1 Univers iron-folic 1-07 tablet by ity of acid-dha 00:00: mouth [place] 30-1.4-200 00 daily. Medical mg [facility] Yes [id number] 1{tbl} Take 1 Univers iron-folic 1-07 tablet by ity of acid-dha 00:00: mouth [place] 30-1.4-200 00 daily. Medical mg [facility] Yes [id number] 1{tbl} Take 1 Univers iron-folic 1-07 tablet by ity of acid-dha 00:00: mouth [place] 30-1.4-200 00 daily. Medical mg [facility] Yes [id number] 1{tbl} Take 1 Univers iron-folic 1-07 tablet by ity of acid-dha 00:00: mouth [place] 30-1.4-200 00 daily. Medical mg [facility] Yes [id number] 1{tbl} Take 1 [facility] iron-folic 1-07 tablet by ity of acid-dha 00:00: mouth [place] 30-1.4-200 00 daily. Medical mg [facility] Yes [id number] 1{tbl} Take 1 Univers iron-folic 1-07 tablet by ity of acid-dha 00:00: mouth [place] 30-1.4-200 00 daily. Medical mg [place] [address] 2021- No [id number] 1{tbl} Take 1 Univers iron-folic 1-07 05-12 tablet by ity of acid-dha 00:00: 00:00 mouth [place] 30-1.4-200 00 :00 daily. Medical mg CpID Branch cephALEXin 2018- Yes [id number] 500mg Take 1 [facility] 500 mg 2-11 capsule by ity of capsule 00:00: mouth [place] ([facility]) Medical times Branch daily. cephALEXin 2018-02 Yes [id number] 500mg Take 1 [facility] 500 mg 2-11 capsule by ity of capsule 00:00: mouth [place] ([facility]) Medical times Branch daily. cephALEXin 2018-02 Yes [id number] 500mg Take 1 [facility] 500 mg 2-11 capsule by ity of capsule 00:00: mouth [place] ([facility]) Medical times Branch daily. cephALEXin 2018-02 Yes [id number] 500mg Take 1 [facility] 500 mg 2-11 capsule by ity of capsule 00:00: mouth [place] ([facility]) Medical times Branch daily. cephALEXin 2018-02 Yes [id number] 500mg Take 1 [facility] 500 mg 2-11 capsule by ity of capsule 00:00: mouth [address] [place] [address] ([facility]) Medical times Branch daily. cephALEXin 2018-02 Yes [id number] 500mg Take 1 [facility] 500 mg 2-11 capsule by ity of capsule 00:00: mouth [place] ([facility]) Medical times Branch daily. cephALEXin 2018-02 Yes [id number] 500mg Take 1 [facility] 500 mg 2-11 capsule by ity of capsule 00:00: mouth [place] ([facility]) Medical times Branch daily. cephALEXin 2018-02 Yes [id number] 500mg Take 1 [facility] 500 mg 2-11 capsule by ity of capsule 00:00: mouth [address] [place] [address] ([facility]) Medical times Branch daily. cephALEXin 2018-02 Yes [id number] 500mg Take 1 [facility] 500 mg 2-11 capsule by ity of capsule 00:00: mouth [place] ([facility]) Medical times Branch daily. cephALEXin 2018- Yes [id number] 500mg Take 1 [facility] 500 mg 2-11 capsule by ity of capsule 00:00: mouth [place] ([facility]) Medical times Branch daily. cephALEXin 2018-02 Yes [id number] 500mg Take 1 [facility] 500 mg 2-11 capsule by ity of capsule 00:00: mouth [address] [place] [address] ([facility]) Medical times Branch daily. cephALEXin 2018- Yes [id number] 500mg Take 1 [facility] 500 mg 2-11 capsule by ity of capsule 00:00: mouth 4 [place] ([facility]) Medical times Branch daily. cephALEXin 2018- Yes [id number] 500mg Take 1 [facility] 500 mg 2-11 capsule by ity of capsule 00:00: mouth 4 [place] ([facility]) Medical times Branch daily. cephALEXin 2018-02 Yes [id number] 500mg Take 1 [facility] 500 mg 2-11 capsule by ity of capsule 00:00: mouth 4 [place] ([facility]) Medical times Branch daily. cephALEXin 2018-02 Yes [id number] 500mg Take 1 [facility] 500 mg 2-11 capsule by ity of capsule 00:00: mouth 4 [place] ([facility]) Medical times Branch daily. cephALEXin 2018-02 Yes [id number] 500mg Take 1 [facility] 500 mg 2-11 capsule by ity of capsule 00:00: mouth 4 [place] ([facility]) Medical times Branch daily. cephALEXin 2018-02 Yes [id number] 500mg Take 1 [facility] 500 mg 2-11 capsule by ity of capsule 00:00: mouth [address] [place] [address] ([facility]) Medical times Branch daily. cephALEXin 2018-02 Yes [id number] 500mg Take 1 [facility] 500 mg 2-11 capsule by ity of capsule 00:00: mouth [address] [place] [address] ([facility]) Medical times Branch daily. cephALEXin 2018-02 Yes [id number] 500mg Take 1 [facility] 500 mg 2-11 capsule by ity of capsule 00:00: mouth 4 [place] [address] ([facility]) Medical times Branch daily. cephALEXin 2018-02 Yes [id number] 500mg Take 1 [facility] 500 mg 2-11 capsule by ity of capsule 00:00: mouth [address] [place] [address] ([facility]) Medical times Branch daily. 2019- Yes Take by [email or web address] vits62/FA/o 0-10 mouth ity of m3/dha/epa 19:12: daily. [place] ( 30 Medical GUMMY ORAL) Branch 2019- Yes Take by Univer s vits62/FA/o 0-10 mouth ity of m3/dha/epa 19:12: daily. [place] ( 30 Medical GUMMY ORAL) Branch 2019- Yes Take by Univer s vits62/FA/o 0-10 mouth ity of m3/dha/epa 19:12: daily. [place] ( 30 Medical GUMMY ORAL) [place] 2019-1 Yes Take by Univer s vits62/FA/o 0-10 mouth ity of m3/dha/epa 19:12: daily. [place] ( 30 Medical GUMMY ORAL) [place] No known No Univers medications ity [facility] No known No Univers medications ity [facility] No known No Univers medications ity [facility] No known No Univers medications ity [facility] No known No Univers medications ity [facility] No known No Univers medications ity [facility] No known No Univers medications ity [facility] Immunizations Ordered Immunization Filled Immunization Date Status Commen ts Source Name Name TDAP 2021-12-08 Completed University of 00:00:00 [facility] TDAP 2021-12-08 Completed University of 00:00:00 [facility] TDAP 2021-12-08 Completed University of 00:00:00 [facility] TDAP 2021-12-08 Completed University of 00:00:00 [facility] TDAP 2021-12-08 Completed University of 00:00:00 [facility] TDAP 2021-12-08 Completed University of 00:00:00 [facility] TDAP 2021-12-08 Completed University of 00:00:00 [facility] TDAP 2021-12-08 Completed University of 00:00:00 [facility] TDAP 2021-12-08 Completed University of 00:00:00 [facility] TDAP 2021-12-08 Completed University of 00:00:00 [facility] TDAP 2021-12-08 Completed University of 00:00:00 [facility] TDAP 2021-12-08 Completed University of 00:00:00 [facility] TDAP 2021-12-08 Completed University of 00:00:00 [facility] TDAP 2021-12-08 Completed University of 00:00:00 [facility] TDAP 2021-12-08 Completed University of 00:00:00 [facility] TDAP 2021-12-08 Completed University of 00:00:00 [facility] TDAP 2021-12-08 Completed University of 00:00:00 [facility] TDAP 2021-12-08 Completed University of 00:00:00 [facility] TDAP 2021-12-08 Completed University of 00:00:00 [facility] TDAP 2021-12-08 Completed University of 00:00:00 [facility] TDAP 2021-12-08 Completed University of 00:00:00 [place] [facility] TDAP 2021-12-08 Completed University of 00:00:00 [place] [facility] TDAP 2021-12-08 Completed University of 00:00:00 [facility] Branch TDAP 2021-12-08 Completed University of 00:00:00 [facility] Branch TDAP 2021-12-08 Completed University of 00:00:00 [facility] Branch TDAP 2021-12-08 Completed University of 00:00:00 [facility] TDAP 2021-12-08 Completed University of 00:00:00 [facility] TDAP 2020-07-28 Completed University of 00:00:00 [facility] TDAP 2020-07-28 Completed University of 00:00:00 [facility] TDAP 2020-07-28 Completed University of 00:00:00 [facility] TDAP 2020-07-28 Completed University of 00:00:00 [facility] TDAP 2020-07-28 Completed University of 00:00:00 [facility] TDAP 2020-07-28 Completed University of 00:00:00 [facility] TDAP 2020-07-28 Completed University of 00:00:00 [facility] TDAP 2020-07-28 Completed University of 00:00:00 [facility] TDAP 2020-07-28 Completed University of 00:00:00 [facility] TDAP 2020-07-28 Completed University of 00:00:00 [facility] Branch TDAP 2020-07-28 Completed University of 00:00:00 [facility] TDAP 2020-07-28 Completed University of 00:00:00 [facility] TDAP 2020-07-28 Completed University of 00:00:00 [facility] TDAP 2020-07-28 Completed University of 00:00:00 [facility] TDAP 2020-07-28 Completed University of 00:00:00 [facility] TDAP 2020-07-28 Completed University of 00:00:00 [facility] TDAP 2020-07-28 Completed University of 00:00:00 [facility] TDAP 2020-07-28 Completed University of 00:00:00 [facility] TDAP 2020-07-28 Completed University of 00:00:00 [place] [facility] TDAP 2020-07-28 Completed University of 00:00:00 [place] [facility] TDAP 2020-07-28 Completed University of 00:00:00 [place] [facility] TDAP 2020-07-28 Completed University of 00:00:00 [place] [facility] TDAP 2020-07-28 Completed University of 00:00:00 [place] [facility] TDAP 2020-07-28 Completed University of 00:00:00 [place] [facility] TDAP 2020-07-28 Completed University of 00:00:00 [place] [facility] TDAP 2020-07-28 Completed University of 00:00:00 [place] [facility] TDAP 2020-07-28 Completed University of 00:00:00 [place] [facility] TDAP 2020-07-28 Completed University of 00:00:00 [place] [facility] TDAP 2020-07-28 Completed University of 00:00:00 [place] [facility] TDAP 2020-07-28 Completed University of 00:00:00 [place] [facility] TDAP 2020-07-28 Completed University of 00:00:00 [place] [facility] TDAP 2020-07-28 Completed University of 00:00:00 [place] [facility] TDAP 2020-07-28 Completed University of 00:00:00 [place] [facility] TDAP 2020-07-28 Completed University of 00:00:00 [place] [facility] TDAP 2020-07-28 Completed University of 00:00:00 [place] [facility] TDAP 2020-07-28 Completed University of 00:00:00 [place] [facility] TDAP 2020-07-28 Completed University of 00:00:00 [place] [facility] TDAP 2020-07-28 Completed University of 00:00:00 [place] [facility] TDAP 2020-07-28 Completed University of 00:00:00 [place] [facility] TDAP (ADACEL) VACCINE 2019-03-21 Completed Uni versity of 00:00:00 [place] [facility] TDAP (ADACEL) VACCINE 2019-03-21 Completed Uni versity of 00:00:00 [place] [facility] TDAP (ADACEL) VACCINE 2019-03-21 Completed Uni versity of 00:00:00 [place] [facility] TDAP (ADACEL) VACCINE 2019-03-21 Completed Uni versity of 00:00:00 [place] [facility] TDAP (ADACEL) VACCINE 2019-03-21 Completed Uni versity of 00:00:00 [place] [facility] TDAP (ADACEL) VACCINE 2019-03-21 Completed Uni versity of 00:00:00 [place] [facility] TDAP (ADACEL) VACCINE 2019-03-21 Completed Uni versity of 00:00:00 [place] [facility] TDAP (ADACEL) VACCINE 2019-03-21 Completed Uni versity of 00:00:00 [place] [facility] TDAP (ADACEL) VACCINE 2019-03-21 Completed Uni versity of 00:00:00 [place] [facility] TDAP (ADACEL) VACCINE 2019-03-21 Completed Uni versity of 00:00:00 [place] [facility] TDAP (ADACEL) VACCINE 2019-03-21 Completed Uni versity of 00:00:00 [place] [facility] TDAP (ADACEL) VACCINE 2019-03-21 Completed Uni versity of 00:00:00 [place] [facility] TDAP (ADACEL) VACCINE 2019-03-21 Completed Uni versity of 00:00:00 [place] [facility] TDAP (ADACEL) VACCINE 2019-03-21 Completed Uni versity of 00:00:00 [place] [facility] TDAP (ADACEL) VACCINE 2019-03-21 Completed Uni versity of 00:00:00 [place] [facility] TDAP (ADACEL) VACCINE 2019-03-21 Completed Uni versity of 00:00:00 [place] [facility] TDAP (ADACEL) VACCINE 2019-03-21 Completed Uni versity of 00:00:00 [place] [facility] TDAP (ADACEL) VACCINE 2019-03-21 Completed Uni versity of 00:00:00 [place] [facility] TDAP (ADACEL) VACCINE 2019-03-21 Completed Uni versity of 00:00:00 [place] [facility] TDAP (ADACEL) VACCINE 2019-03-21 Completed Uni versity of 00:00:00 [place] [facility] TDAP (ADACEL) VACCINE 2019-03-21 Completed Uni versity of 00:00:00 [facility] TDAP (ADACEL) VACCINE 2019-03-21 Completed [facility] 00:00:00 [facility] TDAP (ADACEL) VACCINE 2019-03-21 Completed [facility] 00:00:00 [facility] TDAP (ADACEL) VACCINE 2019-03-21 Completed [facility] 00:00:00 [facility] TDAP (ADACEL) VACCINE 2019-03-21 Completed [facility] 00:00:00 [facility] TDAP (ADACEL) VACCINE 2019-03-21 Completed [facility] 00:00:00 [facility] TDAP (ADACEL) VACCINE 2019-03-21 Completed [facility] 00:00:00 [facility] TDAP (ADACEL) VACCINE 2019-03-21 Completed [facility] 00:00:00 [facility] TDAP (ADACEL) VACCINE 2019-03-21 Completed [facility] 00:00:00 [facility] TDAP (ADACEL) VACCINE 2019-03-21 Completed [facility] 00:00:00 [facility] TDAP (ADACEL) VACCINE 2019-03-21 Completed [facility] 00:00:00 [facility] TDAP (ADACEL) VACCINE 2019-03-21 Completed [facility] 00:00:00 [facility] TDAP (ADACEL) VACCINE 2019-03-21 Completed [facility] 00:00:00 [facility] TDAP (ADACEL) VACCINE 2019-03-21 Completed [facility] 00:00:00 [facility] TDAP (ADACEL) VACCINE 2019-03-21 Completed [facility] 00:00:00 [facility] TDAP (ADACEL) VACCINE 2019-03-21 Completed [facility] 00:00:00 [facility] TDAP (ADACEL) VACCINE 2019-03-21 Completed [facility] 00:00:00 [facility] TDAP (ADACEL) VACCINE 2019-03-21 Completed [facility] 00:00:00 [facility] TDAP (ADACEL) VACCINE 2019-03-21 Completed [facility] 00:00:00 [facility] TDAP (ADACEL) VACCINE 2019-03-21 Completed [facility] 00:00:00 [facility] TDAP (ADACEL) VACCINE 2019-03-21 Completed [facility] 00:00:00 [facility] TDAP (ADACEL) VACCINE 2019-03-21 Completed [facility] 00:00:00 [facility] TDAP (ADACEL) VACCINE 2019-03-21 Completed [facility] 00:00:00 [facility] TDAP (ADACEL) VACCINE 2019-03-21 Completed [facility] 00:00:00 [facility] TDAP (ADACEL) VACCINE 2019-03-21 Completed [facility] 00:00:00 [facility] TDAP (ADACEL) VACCINE 2019-03-21 Completed [facility] 00:00:00 [facility] TDAP (ADACEL) VACCINE 2019-03-21 Completed [facility] 00:00:00 [facility] TDAP (ADACEL) VACCINE 2019-03-21 Completed [facility] 00:00:00 [facility] TDAP (ADACEL) VACCINE 2019-03-21 Completed [facility] 00:00:00 [facility] TDAP (ADACEL) VACCINE 2019-03-21 Completed [facility] 00:00:00 [facility] TDAP (ADACEL) VACCINE 2019-03-21 Completed [facility] 00:00:00 [facility] TDAP (ADACEL) VACCINE 2019-03-21 Completed [facility] 00:00:00 [facility] TDAP (ADACEL) VACCINE 2019-03-21 Completed [facility] 00:00:00 [facility] TDAP (ADACEL) VACCINE 2019-03-21 Completed [facility] 00:00:00 [facility] TDAP (ADACEL) VACCINE 2019-03-21 Completed [facility] 00:00:00 [facility] TDAP (ADACEL) VACCINE 2019-03-21 Completed [facility] 00:00:00 [facility] TDAP (ADACEL) VACCINE 2019-03-21 Completed [facility] 00:00:00 [facility] TDAP (ADACEL) VACCINE 2019-03-21 Completed [facility] 00:00:00 [facility] TDAP (ADACEL) VACCINE 2019-03-21 Completed [facility] 00:00:00 [facility] TDAP (ADACEL) VACCINE 2019-03-21 Completed [facility] 00:00:00 [facility] TDAP (ADACEL) VACCINE 2019-03-21 Completed [facility] 00:00:00 [facility] TDAP (ADACEL) VACCINE 2019-03-21 Completed [facility] 00:00:00 [facility] TDAP (ADACEL) VACCINE 2019-03-21 Completed [facility] 00:00:00 [facility] TDAP (ADACEL) VACCINE 2019-03-21 Completed [facility] 00:00:00 [facility] TDAP (ADACEL) VACCINE 2019-03-21 Completed [facility] 00:00:00 [facility] TDAP (ADACEL) VACCINE 2019-03-21 Completed [facility] 00:00:00 [facility] TDAP (ADACEL) VACCINE 2019-03-21 Completed [facility] 00:00:00 [facility] TDAP (ADACEL) VACCINE 2019-03-21 Completed [facility] 00:00:00 [facility] TDAP (ADACEL) VACCINE 2019-03-21 Completed [facility] 00:00:00 [facility] TDAP (ADACEL) VACCINE 2019-03-21 Completed [facility] 00:00:00 [facility] TDAP (ADACEL) VACCINE 2019-03-21 Completed [facility] 00:00:00 [facility] TDAP (ADACEL) VACCINE 2019-03-21 Completed [facility] 00:00:00 [facility] Influenza Virus 2018-11-28 Completed [facility] Vaccine Quad .5 mL IM 00:00:00 [facility] Influenza Virus 2018-11-28 Completed [facility] Vaccine Quad .5 mL IM 00:00:00 [facility] Influenza Virus 2018-11-28 Completed [facility] Vaccine Quad .5 mL IM 00:00:00 [facility] Influenza Virus 2018-11-28 Completed [facility] Vaccine Quad .5 mL IM 00:00:00 [facility] Influenza Virus 2018-11-28 Completed [facility] Vaccine Quad .5 mL IM 00:00:00 [facility] Influenza Virus 2018-11-28 Completed [facility] Vaccine Quad .5 mL IM 00:00:00 [facility] Influenza Virus 2018-11-28 Completed [facility] Vaccine Quad .5 mL IM 00:00:00 [facility] Influenza Virus 2018-11-28 Completed [facility] Vaccine Quad .5 mL IM 00:00:00 [facility] Influenza Virus 2018-11-28 Completed [facility] Vaccine Quad .5 mL IM 00:00:00 [facility] Influenza Virus 2018-11-28 Completed [facility] Vaccine Quad .5 mL IM 00:00:00 [facility] Influenza Virus 2018-11-28 Completed [facility] Vaccine Quad .5 mL IM 00:00:00 [facility] Influenza Virus 2018-11-28 Completed [facility] Vaccine Quad .5 mL IM 00:00:00 [facility] Influenza Virus 2018-11-28 Completed [facility] Vaccine Quad .5 mL IM 00:00:00 [facility] Influenza Virus 2018-11-28 Completed [facility] Vaccine Quad .5 mL IM 00:00:00 [facility] Influenza Virus 2018-11-28 Completed [facility] Vaccine Quad .5 mL IM 00:00:00 [facility] Influenza Virus 2018-11-28 Completed [facility] Vaccine Quad .5 mL IM 00:00:00 [facility] Influenza Virus 2018-11-28 Completed [facility] Vaccine Quad .5 mL IM 00:00:00 [facility] Influenza Virus 2018-11-28 Completed [facility] Vaccine Quad .5 mL IM 00:00:00 [facility] Influenza Virus 2018-11-28 Completed [facility] Vaccine Quad .5 mL IM 00:00:00 [facility] Influenza Virus 2018-11-28 Completed [facility] Vaccine Quad .5 mL IM 00:00:00 [facility] Influenza Virus 2018-11-28 Completed [facility] Vaccine Quad .5 mL IM 00:00:00 [facility] Influenza Virus 2018-11-28 Completed [facility] Vaccine Quad .5 mL IM 00:00:00 [facility] Influenza Virus 2018-11-28 Completed [facility] Vaccine Quad .5 mL IM 00:00:00 [facility] Influenza Virus 2018-11-28 Completed [facility] Vaccine Quad .5 mL IM 00:00:00 [facility] Influenza Virus 2018-11-28 Completed [facility] Vaccine Quad .5 mL IM 00:00:00 [facility] Influenza Virus 2018-11-28 Completed [facility] Vaccine Quad .5 mL IM 00:00:00 [facility] Influenza Virus 2018-11-28 Completed [facility] Vaccine Quad .5 mL IM 00:00:00 [facility] Influenza Virus 2018-11-28 Completed [facility] Vaccine Quad .5 mL IM 00:00:00 [facility] Influenza Virus 2018-11-28 Completed [facility] Vaccine Quad .5 mL IM 00:00:00 [facility] Influenza Virus 2018-11-28 Completed [facility] Vaccine Quad .5 mL IM 00:00:00 [facility] Influenza Virus 2018-11-28 Completed [facility] Vaccine Quad .5 mL IM 00:00:00 [facility] Influenza Virus 2018-11-28 Completed [facility] Vaccine Quad .5 mL IM 00:00:00 [facility] Influenza Virus 2018-11-28 Completed [facility] Vaccine Quad .5 mL IM 00:00:00 [facility] Influenza Virus 2018-11-28 Completed [facility] Vaccine Quad .5 mL IM 00:00:00 [facility] Influenza Virus 2018-11-28 Completed [facility] Vaccine Quad .5 mL IM 00:00:00 [facility] Influenza Virus 2018-11-28 Completed [facility] Vaccine Quad .5 mL IM 00:00:00 [facility] Influenza Virus 2018-11-28 Completed [facility] Vaccine Quad .5 mL IM 00:00:00 [facility] Influenza Virus 2018-11-28 Completed [facility] Vaccine Quad .5 mL IM 00:00:00 [facility] Influenza Virus 2018-11-28 Completed [facility] Vaccine Quad .5 mL IM 00:00:00 [facility] Influenza Virus 2018-11-28 Completed [facility] Vaccine Quad .5 mL IM 00:00:00 [facility] Influenza Virus 2018-11-28 Completed [facility] Vaccine Quad .5 mL IM 00:00:00 [facility] Influenza Virus 2018-11-28 Completed [facility] Vaccine Quad .5 mL IM 00:00:00 [facility] Influenza Virus 2018-11-28 Completed [facility] Vaccine Quad .5 mL IM 00:00:00 [facility] Influenza Virus 2018-11-28 Completed [facility] Vaccine Quad .5 mL IM 00:00:00 [facility] Influenza Virus 2018-11-28 Completed [facility] Vaccine Quad .5 mL IM 00:00:00 [facility] Influenza Virus 2018-11-28 Completed [facility] Vaccine Quad .5 mL IM 00:00:00 [facility] Influenza Virus 2018-11-28 Completed [facility] Vaccine Quad .5 mL IM 00:00:00 [facility] Influenza Virus 2018-11-28 Completed [facility] Vaccine Quad .5 mL IM 00:00:00 [facility] Influenza Virus 2018-11-28 Completed [facility] Vaccine Quad .5 mL IM 00:00:00 [facility] Influenza Virus 2018-11-28 Completed [facility] Vaccine Quad .5 mL IM 00:00:00 [facility] Influenza Virus 2018-11-28 Completed [facility] Vaccine Quad .5 mL IM 00:00:00 [facility] Influenza Virus 2018-11-28 Completed [facility] Vaccine Quad .5 mL IM 00:00:00 [facility] Influenza Virus 2018-11-28 Completed [facility] Vaccine Quad .5 mL IM 00:00:00 [facility] Influenza Virus 2018-11-28 Completed [facility] Vaccine Quad .5 mL IM 00:00:00 [facility] Influenza Virus 2018-11-28 Completed [facility] Vaccine Quad .5 mL IM 00:00:00 [facility] Influenza Virus 2018-11-28 Completed [facility] Vaccine Quad .5 mL IM 00:00:00 [facility] Influenza Virus 2018-11-28 Completed [facility] Vaccine Quad .5 mL IM 00:00:00 [facility] Influenza Virus 2018-11-28 Completed [facility] Vaccine Quad .5 mL IM 00:00:00 [facility] Influenza Virus 2018-11-28 Completed [facility] Vaccine Quad .5 mL IM 00:00:00 [facility] Influenza Virus 2018-11-28 Completed [facility] Vaccine Quad .5 mL IM 00:00:00 [facility] Influenza Virus 2018-11-28 Completed [facility] Vaccine Quad .5 mL IM 00:00:00 [facility] Influenza Virus 2018-11-28 Completed [facility] Vaccine Quad .5 mL IM 00:00:00 [facility] Influenza Virus 2018-11-28 Completed [facility] Vaccine Quad .5 mL IM 00:00:00 [facility] Influenza Virus 2018-11-28 Completed [facility] Vaccine Quad .5 mL IM 00:00:00 [facility] Influenza Virus 2018-11-28 Completed [facility] Vaccine Quad .5 mL IM 00:00:00 [facility] Influenza Virus 2018-11-28 Completed [facility] Vaccine Quad .5 mL IM 00:00:00 [facility] Influenza Virus 2018-11-28 Completed [facility] Vaccine Quad .5 mL IM 00:00:00 [facility] Influenza Virus 2018-11-28 Completed [facility] Vaccine Quad .5 mL IM 00:00:00 [facility] Influenza Virus 2018-11-28 Completed [facility] Vaccine Quad .5 mL IM 00:00:00 [facility] Influenza Virus 2018-11-28 Completed [facility] Vaccine Quad .5 mL IM 00:00:00 [facility] Influenza Virus 2018-11-28 Completed [facility] Vaccine Quad .5 mL IM 00:00:00 [facility] Influenza Virus 2018-11-28 Completed [facility] Vaccine Quad .5 mL IM 00:00:00 [facility] Influenza Virus 2012-11-29 Completed [facility] Vaccine Nasal 00:00:00 [facility] Influenza Virus 2012-11-29 Completed [facility] Vaccine Nasal 00:00:00 [facility] Influenza Virus 2012-11-29 Completed [facility] Vaccine Nasal 00:00:00 [facility] Influenza Virus 2012-11-29 Completed [facility] Vaccine Nasal 00:00:00 [facility] Influenza Virus 2012-11-29 Completed [facility] Vaccine Nasal 00:00:00 [facility] Influenza Virus 2012-11-29 Completed [facility] Vaccine Nasal 00:00:00 [facility] Influenza Virus 2012-11-29 Completed [facility] Vaccine Nasal 00:00:00 [facility] Influenza Virus 2012-11-29 Completed [facility] of Vaccine Nasal 00:00:00 [facility] Meningococcal 2011-11-27 Completed [facility] Polysaccharide 00:00:00 [facility] (groups A, C, Y and Branc h W-135) conjugate vaccine (MCV4P) Meningococcal 2011-11-27 Completed [facility] Polysaccharide 00:00:00 [facility] (groups A, C, Y and Branc h W-135) conjugate vaccine (MCV4P) Meningococcal 2011-11-27 Completed [facility] Polysaccharide 00:00:00 [facility] (groups A, C, Y and Branc h W-135) conjugate vaccine (MCV4P) Meningococcal 2011-11-27 Completed [facility] Polysaccharide 00:00:00 [facility] (groups A, C, Y and Branc h W-135) conjugate vaccine (MCV4P) Meningococcal 2011-11-27 Completed [facility] Polysaccharide 00:00:00 [facility] (groups A, C, Y and Branc h W-135) conjugate vaccine (MCV4P) Meningococcal 2011-11-27 Completed [facility] Polysaccharide 00:00:00 [facility] (groups A, C, Y and Branc h W-135) conjugate vaccine (MCV4P) Meningococcal 2011-11-27 Completed [facility] Polysaccharide 00:00:00 [facility] (groups A, C, Y and Branc h W-135) conjugate vaccine (MCV4P) Meningococcal 2011-11-27 Completed [facility] Polysaccharide 00:00:00 [facility] (groups A, C, Y and Branc h W-135) conjugate vaccine (MCV4P) Influenza Virus 2011-11-10 Completed [facility]it [facility] of Vaccine - Whole 00:00:00 [facility] Influenza Virus 2011-11-10 Completed [facility] of Vaccine - Whole 00:00:00 [facility] Influenza Virus 2011-11-10 Completed [facility] of Vaccine - Whole 00:00:00 [facility] Influenza Virus 2011-11-10 Completed [facility] of Vaccine - Whole 00:00:00 [facility] Influenza Virus 2011-11-10 Completed [facility] of Vaccine - Whole 00:00:00 [facility] Influenza Virus 2011-11-10 Completed [facility] of Vaccine - Whole 00:00:00 [facility] Influenza Virus 2011-11-10 Completed [facility] of Vaccine - Whole 00:00:00 [facility] Influenza Virus 2011-11-10 Completed [facility] of Vaccine - Whole 00:00:00 [facility] Influenza Virus 2010-11-25 Completed [facility] of Vaccine Nasal 00:00:00 [facility] Influenza Virus 2010-11-25 Completed [facility] of Vaccine Nasal 00:00:00 [facility] Influenza Virus 2010-11-25 Completed [facility] of Vaccine Nasal 00:00:00 [facility] Influenza Virus 2010-11-25 Completed [facility] of Vaccine Nasal 00:00:00 [facility] Influenza Virus 2010-11-25 Completed [facility] of Vaccine Nasal 00:00:00 [facility] Influenza Virus 2010-11-25 Completed [facility] of Vaccine Nasal 00:00:00 [facility] Influenza Virus 2010-11-25 Completed [facility] of Vaccine Nasal 00:00:00 [facility] Influenza Virus 2010-11-25 Completed [facility] of Vaccine Nasal 00:00:00 [facility] Flu Trivalent 2010-02-24 Completed University of 00:00:00 [facility] Flu Trivalent 2010-02-24 Completed University of 00:00:00 [facility] Flu Trivalent 2010-02-24 Completed University of 00:00:00 [facility] Flu Trivalent 2010-02-24 Completed [facility] of 00:00:00 [facility] Flu Trivalent 2010-02-24 Completed [facility] of 00:00:00 [facility] Flu Trivalent 2010-02-24 Completed [facility] of 00:00:00 [facility] Flu Trivalent 2010-02-24 Completed [facility] of 00:00:00 [facility] Flu Trivalent 2010-02-24 Completed [facility] of 00:00:00 [facility] Influenza Virus 2008-11-23 Completed [facility]it [facility] of Vaccine Nasal 00:00:00 [facility] Influenza Virus 2008-11-23 Completed [facility] of Vaccine Nasal 00:00:00 [facility] Influenza Virus 2008-11-23 Completed [facility] of Vaccine Nasal 00:00:00 [facility] Influenza Virus 2008-11-23 Completed [facility] of Vaccine Nasal 00:00:00 [facility] Influenza Virus 2008-11-23 Completed [facility] of Vaccine Nasal 00:00:00 [facility] Influenza Virus 2008-11-23 Completed [facility] of Vaccine Nasal 00:00:00 [facility] Influenza Virus 2008-11-23 Completed [facility] of Vaccine Nasal 00:00:00 [facility] Influenza Virus 2008-11-23 Completed [facility] of Vaccine Nasal 00:00:00 [facility] HPV 2008-04-28 Completed [facility] of 00:00:00 [facility] HPV 2008-04-28 Completed [facility] of 00:00:00 [facility] HPV 2008-04-28 Completed [facility] of 00:00:00 [facility] HPV 2008-04-28 Completed [facility] of 00:00:00 [facility] HPV 2008-04-28 Completed [facility] of 00:00:00 [facility] HPV 2008-04-28 Completed [facility] of 00:00:00 [facility] HPV 2008-04-28 Completed [facility] of 00:00:00 [facility] HPV 2008-04-28 Completed [facility] of 00:00:00 [facility] HPV 2008-04-28 Completed [facility] of 00:00:00 [facility] HPV 2008-04-28 Completed [facility] of 00:00:00 [facility] HPV 2008-04-28 Completed [facility] of 00:00:00 [facility] HPV 2008-04-28 Completed [facility] of 00:00:00 [facility] HPV 2008-04-28 Completed [facility] of 00:00:00 [facility] HPV 2008-04-28 Completed [facility] of 00:00:00 [facility] HPV 2007-12-02 Completed [facility] of 00:00:00 [facility] HPV 2007-12-02 Completed [facility] of 00:00:00 [facility] HPV 2007-12-02 Completed [facility] of 00:00:00 [facility] HPV 2007-12-02 Completed [facility] of 00:00:00 [facility] HPV 2007-12-02 Completed [facility] of 00:00:00 [facility] HPV 2007-12-02 Completed [facility] of 00:00:00 [facility] HPV 2007-12-02 Completed [facility] of 00:00:00 [facility] Influenza Virus 2007-12-02 Completed [facility]it y of Vaccine - Whole 00:00:00 [facility] HPV 2007-12-02 Completed [facility] of 00:00:00 [facility] Influenza Virus 2007-12-02 Completed [facility]it y of Vaccine - Whole 00:00:00 [facility] HPV 2007-12-02 Completed [facility] of 00:00:00 [facility] Influenza Virus 2007-12-02 Completed [facility] of Vaccine - Whole 00:00:00 [facility] HPV 2007-12-02 Completed [facility] of 00:00:00 [facility] Influenza Virus 2007-12-02 Completed [facility] y of Vaccine - Whole 00:00:00 [facility] HPV 2007-12-02 Completed [facility] of 00:00:00 [facility] Influenza Virus 2007-12-02 Completed [facility] y of Vaccine - Whole 00:00:00 [facility] HPV 2007-12-02 Completed [facility] of 00:00:00 [facility] Influenza Virus 2007-12-02 Completed [facility] y of Vaccine - Whole 00:00:00 [facility] HPV 2007-12-02 Completed [facility] of 00:00:00 [facility] Influenza Virus 2007-12-02 Completed [facility] of Vaccine - Whole 00:00:00 [facility] HPV 2007-12-02 Completed [facility] of 00:00:00 [facility] Influenza Virus 2007-12-02 Completed [facility] of Vaccine - Whole 00:00:00 [facility] HPV 2007-05-23 Completed [facility] of 00:00:00 [facility] HPV 2007-05-23 Completed [facility] of 00:00:00 [facility] HPV 2007-05-23 Completed [facility] of 00:00:00 [facility] HPV 2007-05-23 Completed [facility] of 00:00:00 [facility] HPV 2007-05-23 Completed [facility] of 00:00:00 [facility] HPV 2007-05-23 Completed [facility] of 00:00:00 [facility] HPV 2007-05-23 Completed [facility] of 00:00:00 [facility] TDAP 2007-05-23 Completed [facility] of 00:00:00 [facility] Meningococcal 2007-05-23 Completed [facility] Polysaccharide 00:00:00 [facility] (groups A, C, Y and Branc h W-135) conjugate vaccine (MCV4P) HPV 2007-05-23 Completed [facility] of 00:00:00 [facility] TDAP 2007-05-23 Completed [facility] of 00:00:00 [facility] Meningococcal 2007-05-23 Completed [facility] Polysaccharide 00:00:00 [facility] (groups A, C, Y and Branc h W-135) conjugate vaccine (MCV4P) HPV 2007-05-23 Completed [facility] of 00:00:00 [facility] TDAP 2007-05-23 Completed [facility] of 00:00:00 [facility] Meningococcal 2007-05-23 Completed [facility] Polysaccharide 00:00:00 [facility] (groups A, C, Y and Branc h W-135) conjugate vaccine (MCV4P) HPV 2007-05-23 Completed [facility] of 00:00:00 [facility] TDAP 2007-05-23 Completed [facility] of 00:00:00 [facility] Meningococcal 2007-05-23 Completed [facility] Polysaccharide 00:00:00 [facility] (groups A, C, Y and Branc h W-135) conjugate vaccine (MCV4P) HPV 2007-05-23 Completed [facility] of 00:00:00 [facility] TDAP 2007-05-23 Completed [facility] of 00:00:00 [facility] Meningococcal 2007-05-23 Completed [facility] Polysaccharide 00:00:00 [facility] (groups A, C, Y and Branc h W-135) conjugate vaccine (MCV4P) HPV 2007-05-23 Completed [facility] of 00:00:00 [facility] TDAP 2007-05-23 Completed [facility] of 00:00:00 [facility] Meningococcal 2007-05-23 Completed [facility] Polysaccharide 00:00:00 [facility] (groups A, C, Y and Branc h W-135) conjugate vaccine (MCV4P) HPV 2007-05-23 Completed [facility] of 00:00:00 [facility] TDAP 2007-05-23 Completed [facility] 00:00:00 [facility] Meningococcal 2007-05-23 Completed [facility] Polysaccharide 00:00:00 [place] [facility] (groups A, C, Y and Branc h W-135) conjugate vaccine (MCV4P) HPV 2007-05-23 Completed [facility] 00:00:00 [facility] TDAP 2007-05-23 Completed [facility] 00:00:00 [facility] Meningococcal 2007-05-23 Completed [facility] Polysaccharide 00:00:00 [place] [facility] (groups A, C, Y and Branc h W-135) conjugate vaccine (MCV4P) Varicella 2006-06-25 Completed University of (varivax)(chicken 00:00:00 [place] [facility] pox) Branch HEPATITIS A 2006-06-25 Completed [facility] 00:00:00 [facility] Varicella 2006-06-25 Completed [facility] of (varivax)(chicken 00:00:00 [place] [facility] pox) [facility] HEPATITIS A 2006-06-25 Completed [facility] of 00:00:00 [facility] Varicella 2006-06-25 Completed [facility] of (varivax)(chicken 00:00:00 [place] [facility] pox) [facility] HEPATITIS A 2006-06-25 Completed [facility] of 00:00:00 [facility] Varicella 2006-06-25 Completed [facility] of (varivax)(chicken 00:00:00 [place] [facility] pox) Branch HEPATITIS A 2006-06-25 Completed [facility] of 00:00:00 [facility] Varicella 2006-06-25 Completed [facility] of (varivax)(chicken 00:00:00 [place] [facility] pox) [facility] HEPATITIS A 2006-06-25 Completed [facility] of 00:00:00 [facility] Varicella 2006-06-25 Completed [facility] of (varivax)(chicken 00:00:00 [place] [facility] pox) Branch HEPATITIS A 2006-06-25 Completed [facility] of 00:00:00 [facility] Varicella 2006-06-25 Completed [facility] of (varivax)(chicken 00:00:00 [place] [facility] pox) Branch HEPATITIS A 2006-06-25 Completed [facility] of 00:00:00 [facility] Varicella 2006-06-25 Completed [facility] of (varivax)(chicken 00:00:00 [place] [facility] pox) [facility] HEPATITIS A 2006-06-25 Completed [facility] of 00:00:00 [facility] DT/Tetanus 2004-01-20 Completed [facility] of 00:00:00 [facility] DT/Tetanus 2004-01-20 Completed [facility] of 00:00:00 [facility] DT/Tetanus 2004-01-20 Completed [facility] of 00:00:00 [facility] DT/Tetanus 2004-01-20 Completed [facility] of 00:00:00 [facility] DT/Tetanus 2004-01-20 Completed [facility] of 00:00:00 [facility] DT/Tetanus 2004-01-20 Completed [facility] of 00:00:00 [facility] DT/Tetanus 2004-01-20 Completed [facility] of 00:00:00 [facility] DT/Tetanus 2004-01-20 Completed [facility] of 00:00:00 [facility] MMR 1996-12-12 Completed [facility] of 00:00:00 [facility] Poliovirus, Live, 1996-12-12 Completed Univers ity of Oral, Trivalent 00:00:00 [facility] Haemophilus 1996-12-12 Completed University of influenzae type b 00:00:00 [facility] edical vaccine, conjugate Branch unspecified formulation DTaP, Unspecified 1996-12-12 Completed Univers ity of Formulation 00:00:00 [facility] MMR 1996-12-12 Completed University of 00:00:00 [facility] Poliovirus, Live, 1996-12-12 Completed Univers ity of Oral, Trivalent 00:00:00 [facility] Haemophilus 1996-12-12 Completed University of influenzae type b 00:00:00 [facility] edical vaccine, conjugate Branch unspecified formulation DTaP, Unspecified 1996-12-12 Completed Univers ity of Formulation 00:00:00 [facility] MMR 1996-12-12 Completed University of 00:00:00 [facility] Poliovirus, Live, 1996-12-12 Completed Univers ity of Oral, Trivalent 00:00:00 [facility] Haemophilus 1996-12-12 Completed University of influenzae type b 00:00:00 [facility] edical vaccine, conjugate Branch unspecified formulation DTaP, Unspecified 1996-12-12 Completed Univers ity of Formulation 00:00:00 [facility] MMR 1996-12-12 Completed University of 00:00:00 [facility] Poliovirus, Live, 1996-12-12 Completed Univers ity of Oral, Trivalent 00:00:00 [facility] Haemophilus 1996-12-12 Completed University of influenzae type b 00:00:00 [facility] edical vaccine, conjugate Branch unspecified formulation DTaP, Unspecified 1996-12-12 Completed Univers ity of Formulation 00:00:00 [facility] MMR 1996-12-12 Completed University of 00:00:00 [facility] Poliovirus, Live, 1996-12-12 Completed Univers ity of Oral, Trivalent 00:00:00 [facility] Haemophilus 1996-12-12 Completed University of influenzae type b 00:00:00 [facility] edical vaccine, conjugate Branch unspecified formulation DTaP, Unspecified 1996-12-12 Completed Univers ity of Formulation 00:00:00 [facility] MMR 1996-12-12 Completed University of 00:00:00 [facility] Poliovirus, Live, 1996-12-12 Completed Univers ity of Oral, Trivalent 00:00:00 [facility] Haemophilus 1996-12-12 Completed University of influenzae type b 00:00:00 [facility] edical vaccine, conjugate Branch unspecified formulation DTaP, Unspecified 1996-12-12 Completed Univers ity of Formulation 00:00:00 [facility] MMR 1996-12-12 Completed University of 00:00:00 [facility] Poliovirus, Live, 1996-12-12 Completed Univers ity of Oral, Trivalent 00:00:00 [facility] Haemophilus 1996-12-12 Completed University of influenzae type b 00:00:00 [facility] edical vaccine, conjugate Branch unspecified formulation DTaP, Unspecified 1996-12-12 Completed Univers ity of Formulation 00:00:00 [facility] MMR 1996-12-12 Completed University of 00:00:00 [facility] Poliovirus, Live, 1996-12-12 Completed Univers ity [facility] Oral, [facility] influenzae type b 00:00:00 [facility] edical vaccine, conjugate Branch unspecified formulation DTaP, Unspecified 1996-12-12 Completed Univers ity of Formulation 00:00:00 [facility] Poliovirus, Live, 1996-10-10 Completed Univers ity of Oral, Trivalent 00:00:00 [facility] Haemophilus 1996-10-10 Completed University of influenzae type b 00:00:00 [facility] edical vaccine, conjugate Branch unspecified formulation Hep B, Adol or Pedi 1996-10-10 Completed Unive rsity of Dosage 00:00:00 [facility] Poliovirus, Live, 1996-10-10 Completed Univers ity of Oral, Trivalent 00:00:00 [facility] Haemophilus 1996-10-10 Completed University of influenzae type b 00:00:00 [facility] edical vaccine, conjugate Branch unspecified formulation Hep B, Adol or Pedi 1996-10-10 Completed Unive rsity of Dosage 00:00:00 [facility] Poliovirus, Live, 1996-10-10 Completed Univers ity of Oral, Trivalent 00:00:00 [facility] Haemophilus 1996-10-10 Completed University of influenzae type b 00:00:00 [facility] edical vaccine, conjugate Branch unspecified formulation Hep B, Adol or Pedi 1996-10-10 Completed Unive rsity of Dosage 00:00:00 [facility] Poliovirus, Live, 1996-10-10 Completed Univers ity of Oral, Trivalent 00:00:00 [facility] University of influenzae type b 00:00:00 [facility] edical vaccine, conjugate Branch unspecified formulation Hep B, Adol or Pedi 1996-10-10 Completed Unive rsity of Dosage 00:00:00 [facility] Poliovirus, Live, 1996-10-10 Completed Univers ity of Oral, Trivalent 00:00:00 [facility] Com[facility] University of influenzae type b 00:00:00 [facility] edical vaccine, conjugate Branch unspecified formulation Hep B, Adol or Pedi 1996-10-10 Completed Unive rsity of Dosage 00:00:00 [facility] Poliovirus, Live, 1996-10-10 Completed Univers ity of Oral, Trivalent 00:00:00 [facility] Com[facility] University of influenzae type b 00:00:00 [facility] edical vaccine, conjugate Branch unspecified formulation Hep B, Adol or Pedi 1996-10-10 Completed Unive rsity of Dosage 00:00:00 [facility] Poliovirus, Live, 1996-10-10 Completed Univers ity of Oral, Trivalent 00:00:00 [facility] Com[facility] University of influenzae type b 00:00:00 [facility] edical vaccine, conjugate Branch unspecified formulation Hep B, Adol or Pedi 1996-10-10 Completed Unive rsity of Dosage 00:00:00 [facility] Poliovirus, Live, 1996-10-10 Completed Univers ity of Oral, Trivalent 00:00:00 [facility] Com[facility] University of influenzae type b 00:00:00 [facility] edical vaccine, conjugate Branch unspecified formulation Hep B, Adol or Pedi 1996-10-10 Completed Unive rsity of Dosage 00:00:00 [facility] Poliovirus, Live, 1996-02-11 Completed Univers ity of Oral, Trivalent 00:00:00 [place] [facility] Hep B, Unspecified 1996-02-11 Completed Univer sity of Formulation 00:00:00 [facility] DPT/HIB 1996-02-11 Completed University of 00:00:00 [facility] Poliovirus, Live, 1996-02-11 Completed Univers ity of Oral, Trivalent 00:00:00 [facility] Hep B, Unspecified 1996-02-11 Completed Univer sity of Formulation 00:00:00 [facility] DPT/HIB 1996-02-11 Completed University of 00:00:00 [facility] Poliovirus, Live, 1996-02-11 Completed Univers ity of Oral, Trivalent 00:00:00 [facility] Branch Hep B, Unspecified 1996-02-11 Completed Univer sity of Formulation 00:00:00 [facility] DPT/HIB 1996-02-11 Completed University of 00:00:00 [facility] Poliovirus, Live, 1996-02-11 Completed Univers ity of Oral, Trivalent 00:00:00 [facility] Branch Hep B, Unspecified 1996-02-11 Completed Univer sity of Formulation 00:00:00 [facility] DPT/HIB 1996-02-11 Completed University of 00:00:00 [facility] Poliovirus, Live, 1996-02-11 Completed Univers ity of Oral, Trivalent 00:00:00 [facility] Branch Hep B, Unspecified 1996-02-11 Completed Univer sity of Formulation 00:00:00 [facility] DPT/HIB 1996-02-11 Completed University of 00:00:00 [facility] Poliovirus, Live, 1996-02-11 Completed Univers ity of Oral, Trivalent 00:00:00 [facility] Branch Hep B, Unspecified 1996-02-11 Completed Univer sity of Formulation 00:00:00 [facility] DPT/HIB 1996-02-11 Completed University of 00:00:00 [facility] Poliovirus, Live, 1996-02-11 Completed Univers ity of Oral, Trivalent 00:00:00 [facility] Branch Hep B, Unspecified 1996-02-11 Completed Univer sity of Formulation 00:00:00 [facility] DPT/HIB 1996-02-11 Completed University of 00:00:00 [facility] Poliovirus, Live, 1996-02-11 Completed Univers ity of Oral, Trivalent 00:00:00 [facility] ical Branch Hep B, Unspecified 1996-02-11 Completed Univer sity of Formulation 00:00:00 [facility] DPT/HIB 1996-02-11 Completed [facility] 00:00:00 [facility] Hep B, Unspecified 1995 Completed Univer sity of Formulation 00:00:00 [facility] Hep B, Unspecified 1995 Completed Univer sity of Formulation 00:00:00 [facility] Branch Hep B, Unspecified 1995 Completed Univer sity of Formulation 00:00:00 [facility] Branch Hep B, Unspecified 1995 Completed Univer sity of Formulation 00:00:00 [facility] Branch Hep B, Unspecified 1995 Completed Univer sity of Formulation 00:00:00 [facility] Branch Hep B, Unspecified 1995 Completed Univer sity of Formulation 00:00:00 [facility] Hep B, Unspecified 1995 Completed Univer sity of Formulation 00:00:00 [facility] Hep B, Unspecified 1995 Completed Univer sity of Formulation 00:00:00 [facility] Vital Signs Vital Name Observation Time Observation Value Comments Source Oxygen saturation in 2022-07-12 17:45:00 96 /min [facility] Arterial blood by [facility] Pulse oximetry [place] Systolic blood 2022-07-12 17:30:00 130 mm[Hg] Univer sity of pressure [facility] Diastolic blood 2022-07-12 17:30:00 84 mm[Hg] Unive rsity of pressure [facility] Respiratory rate 2022-07-12 17:30:00 13 /min [facility] 2022-07-12 16:10:00 77 /min [facility] Body temperature 2022-07-12 16:10:00 36.22 Kimberlyn [facility] height 2022-07-12 12:39:00 165.1 cm [facility] Body weight 2022-07-12 12:39:00 123.8 kg [facility] BMI 2022-07-12 12:39:00 45.42 kg/m2 [facility] Respiratory rate 2022-07-12 13:05:00 18 /min [facility] Systolic blood 2022-07-12 12:39:00 135 mm[Hg] Univer sity of pressure [facility] Diastolic blood 2022-07-12 12:39:00 85 mm[Hg] Unive rsity of pressure [facility] Heart rate 2022-07-12 12:39:00 88 /min [facility] Body temperature 2022-07-12 12:39:00 36.94 Kimberlyn [facility] Body height 2022-07-12 12:39:00 165.1 cm [facility] Body weight 2022-07-12 12:39:00 123.8 kg [facility] BMI 2022-07-12 12:39:00 45.42 kg/m2 Universi ty of [facility] Oxygen saturation in 2022-07-12 12:39:00 98 /min University of Arterial blood by [facility] Pulse oximetry Branch Systolic blood 2022-05-23 18:59:00 120 mm[Hg] Univer sity of pressure [facility] Diastolic blood 2022-05-23 18:59:00 69 mm[Hg] Unive rsity of pressure [facility] Heart rate 2022-05-23 18:59:00 85 /min [facility] Body temperature 2022-05-23 18:59:00 36.11 Kimberlyn [facility] Body height 2022-05-23 18:59:00 165.1 cm [facility] Body weight 2022-05-23 18:59:00 123.923 kg [facility] BMI 2022-05-23 18:59:00 45.46 kg/m2 [facility] Systolic blood 2022-05-08 20:43:00 120 mm[Hg] Univer sity of pressure [facility] Diastolic blood 2022-05-08 20:43:00 58 mm[Hg] Unive rsity of pressure [facility] Heart rate 2022-05-08 20:43:00 88 /min [facility] Body temperature 2022-05-08 20:43:00 36.33 Kimberlyn [facility] Respiratory rate 2022-05-08 20:43:00 18 /min Univ ersity of [facility] Body height 2022-05-08 20:43:00 165.1 cm [facility] Body weight 2022-05-08 20:43:00 125.374 kg [facility] BMI 2022-05-08 20:43:00 46.00 kg/m2 [facility] Systolic blood 2022-03-30 21:49:00 119 mm[Hg] Univer sity of pressure [facility] Diastolic blood 2022-03-30 21:49:00 70 mm[Hg] Unive rsity of pressure [facility] Heart rate 2022-03-30 21:49:00 83 /min [facility] Body temperature 2022-03-30 21:49:00 36.22 Kimberlyn [facility] Respiratory rate 2022-03-30 21:49:00 18 /min Univ ers[facility] Body weight 2022-03-30 21:49:00 123.968 kg [facility] BMI 2022-03-30 21:49:00 45.48 kg/m2 [facility] Systolic blood 2022-02-28 22:15:00 133 mm[Hg] Univer sity of pressure [facility] Diastolic blood 2022-02-28 22:15:00 77 mm[Hg] Unive rsity of pressure [facility] Heart rate 2022-02-28 22:15:00 93 /min [facility] Body temperature 2022-02-28 22:15:00 36.67 Kimberlyn [facility] Respiratory rate 2022-02-28 22:15:00 20 /min Univ [facility] Body height 2022-02-28 22:15:00 165.1 cm [facility] Body weight 2022-02-28 22:15:00 125.964 kg [facility] BMI 2022-02-28 22:15:00 46.21 kg/m2 [facility] Systolic blood 2022-02-11 05:56:00 133 mm[Hg] Univer sity of pressure [facility] Diastolic blood 2022-02-11 05:56:00 88 mm[Hg] Unive rsity of pressure [facility] Heart rate 2022-02-11 05:56:00 96 /min [facility] Body temperature 2022-02-11 05:56:00 37 Kimberlyn [facility] Respiratory rate 2022-02-11 05:56:00 20 /min Univ ersity of [facility] Oxygen saturation in 2022-02-11 05:56:00 99 /min [facility] of Arterial blood by [place] [employer] [facility] Pulse oximetry Branch Body weight 2022-02-09 12:00:00 130.182 kg [facility] BMI 2022-02-09 12:00:00 47.76 kg/m2 [facility] Heart rate 2022-02-09 14:00:00 109 /min [facility] Oxygen saturation in 2022-02-09 14:00:00 98 /min University of Arterial blood by [facility] Pulse oximetry Branch Systolic blood 2022-02-09 12:44:00 138 mm[Hg] Univer sity of pressure [facility] Diastolic blood 2022-02-09 12:44:00 75 mm[Hg] Unive rsity of pressure [facility] Body temperature 2022-02-09 12:44:00 37.22 Kimberlyn [facility] Respiratory rate 2022-02-09 12:44:00 16 /min Univ ers[facility] Body weight 2022-02-09 12:00:00 130.182 kg [facility] BMI 2022-02-09 12:00:00 47.76 kg/m2 [facility] Systolic blood 2022-01-10 19:13:00 123 mm[Hg] Univer sity of pressure [facility] Diastolic blood 2022-01-10 19:13:00 78 mm[Hg] Unive rsity of pressure [facility] Heart rate 2022-01-10 19:13:00 103 /min [facility] Body temperature 2022-01-10 19:13:00 36.78 Kimberlyn [facility] Respiratory rate 2022-01-10 19:13:00 20 /min Univ ersity of [facility] Body height 2022-01-10 19:13:00 165.1 cm [facility] Body weight 2022-01-10 19:13:00 130.182 kg [facility] BMI 2022-01-10 19:13:00 47.76 kg/m2 [facility] Systolic blood 2021-12-29 20:00:00 128 mm[Hg] Univer sity of pressure [facility] Diastolic blood 2021-12-29 20:00:00 81 mm[Hg] Unive rsity of pressure [facility] Heart rate 2021-12-29 20:00:00 107 /min [facility] Body temperature 2021-12-29 20:00:00 36.61 Kimberlyn [facility] Respiratory rate 2021-12-29 20:00:00 18 /min Univ [facility] Body height 2021-12-29 20:00:00 165.1 cm [facility] Body weight 2021-12-29 20:00:00 128.005 kg [facility] BMI 2021-12-29 20:00:00 46.96 kg/m2 [facility] Systolic blood 2021-12-08 13:19:00 123 mm[Hg] Univer sity of pressure [facility] Diastolic blood 2021-12-08 13:19:00 87 mm[Hg] Unive rsity of pressure [facility] Heart rate 2021-12-08 13:19:00 105 /min [facility] Body temperature 2021-12-08 13:19:00 36.28 Kimberlyn [facility] Respiratory rate 2021-12-08 13:19:00 16 /min Univ [facility] Body height 2021-12-08 13:19:00 165.1 cm [facility] Body weight 2021-12-08 13:19:00 125.828 kg [facility] BMI 2021-12-08 13:19:00 46.16 kg/m2 [facility] Systolic blood 2021-09-14 19:47:00 111 mm[Hg] Univer sity of pressure [facility] Diastolic blood 2021-09-14 19:47:00 78 mm[Hg] Unive rsity of pressure [facility] Heart rate 2021-09-14 19:47:00 133 /min [facility] Body temperature 2021-09-14 19:47:00 37.56 Kimberlyn [facility] Respiratory rate 2021-09-14 19:47:00 16 /min [facility] Body height 2021-09-14 19:47:00 165.1 cm [facility] Body weight 2021-09-14 19:47:00 116.756 kg [facility] BMI 2021-09-14 19:47:00 42.83 kg/m2 [facility] Systolic blood 2021-08-16 19:24:00 119 mm[Hg] Univer sity of pressure [facility] Diastolic blood 2021-08-16 19:24:00 75 mm[Hg] Unive rsity of pressure [facility] Heart rate 2021-08-16 19:24:00 98 /min [facility] Body temperature 2021-08-16 19:24:00 37.11 Kimberlyn [facility] Respiratory rate 2021-08-16 19:24:00 16 /min [facility] Body height 2021-08-16 19:24:00 165.1 cm [facility] Body weight 2021-08-16 19:24:00 118.298 kg [facility] BMI 2021-08-16 19:24:00 43.40 kg/m2 [facility] Systolic blood 2021-08-16 19:24:00 119 mm[Hg] Univer sity of pressure [facility] Diastolic blood 2021-08-16 19:24:00 75 mm[Hg] Unive rsity of pressure [facility] Heart rate 2021-08-16 19:24:00 98 /min [facility] Body temperature 2021-08-16 19:24:00 37.11 Kimberlyn [facility] Respiratory rate 2021-08-16 19:24:00 16 /min [facility] Body height 2021-08-16 19:24:00 165.1 cm [facility] Body weight 2021-08-16 19:24:00 118.298 kg [facility] BMI 2021-08-16 19:24:00 43.40 kg/m2 [facility] Systolic blood 2020-09-08 20:04:00 119 mm[Hg] Univer sity of pressure [facility] Diastolic blood 2020-09-08 20:04:00 79 mm[Hg] Unive rsity of pressure [facility] Heart rate 2020-09-08 20:04:00 96 /min [facility] Body temperature 2020-09-08 20:04:00 36.78 Kimberlyn [facility] Respiratory rate 2020-09-08 20:04:00 18 /min [facility] Body height 2020-09-08 20:04:00 165.1 cm [facility] Body weight 2020-09-08 20:04:00 112.22 kg [facility] BMI 2020-09-08 20:04:00 41.17 kg/m2 [facility] Systolic blood 2020-07-28 20:15:00 125 mm[Hg] Univer sity of pressure [facility] Diastolic blood 2020-07-28 20:15:00 80 mm[Hg] Unive rsity of pressure [facility] Heart rate 2020-07-28 20:15:00 90 /min [facility] Body temperature 2020-07-28 20:15:00 37 Kimberlyn [facility] Respiratory rate 2020-07-28 20:15:00 18 /min [facility] Body height 2020-07-28 20:15:00 165.1 cm [facility] Body weight 2020-07-28 20:15:00 108.682 kg [facility] BMI 2020-07-28 20:15:00 39.87 kg/m2 [facility] Systolic blood 2020-06-30 16:01:00 122 mm[Hg] Univer sity of pressure [facility] Diastolic blood 2020-06-30 16:01:00 77 mm[Hg] Unive rsity of pressure [facility] Heart rate 2020-06-30 16:01:00 83 /min [facility] Branch Body temperature 2020-06-30 16:01:00 36.72 Kimberlyn [facility] Respiratory rate 2020-06-30 16:01:00 16 /min [facility] Body height 2020-06-30 16:01:00 165.1 cm [facility] Body weight 2020-06-30 16:01:00 109.135 kg [facility] BMI 2020-06-30 16:01:00 40.04 kg/m2 [facility] Systolic blood 2019-07-10 15:53:00 121 mm[Hg] [facility] Diastolic blood 2019-07-10 15:53:00 85 mm[Hg] [facility] Heart rate 2019-07-10 15:53:00 97 /min [facility] Body temperature 2019-07-10 15:53:00 36.89 Kimberlyn [facility] Respiratory rate 2019-07-10 15:53:00 18 /min [facility] Body weight 2019-07-10 15:53:00 121.11 kg [facility] BMI 2019-07-10 15:53:00 44.43 kg/m2 [facility] Systolic blood 2019-07-10 15:53:00 121 mm[Hg] [facility] Diastolic blood 2019-07-10 15:53:00 85 mm[Hg] [facility] Heart rate 2019-07-10 15:53:00 97 /min [facility] Body temperature 2019-07-10 15:53:00 36.89 Kimberlyn [facility] Respiratory rate 2019-07-10 15:53:00 18 /min [facility] Body weight 2019-07-10 15:53:00 121.11 kg [facility] BMI 2019-07-10 15:53:00 44.43 kg/m2 [facility] Systolic blood 2019-06-19 18:08:00 130 mm[Hg] [facility] Diastolic blood 2019-06-19 18:08:00 88 mm[Hg] [facility] Heart rate 2019-06-19 18:08:00 96 /min [facility] Body temperature 2019-06-19 18:08:00 37 Kimberlyn [facility] Respiratory rate 2019-06-19 18:08:00 18 /min [facility] Body weight 2019-06-19 18:08:00 127.007 kg [facility] BMI 2019-06-19 18:08:00 46.59 kg/m2 [facility] Systolic blood 2019-06-19 18:08:00 130 mm[Hg] [facility] Diastolic blood 2019-06-19 18:08:00 88 mm[Hg] [facility] Heart rate 2019-06-19 18:08:00 96 /min [facility] Body temperature 2019-06-19 18:08:00 37 Kimberlyn [facility] Respiratory rate 2019-06-19 18:08:00 18 /min [facility] Body weight 2019-06-19 18:08:00 127.007 kg [facility] BMI 2019-06-19 18:08:00 46.59 kg/m2 [facility] Body temperature 2019-06-10 15:57:00 36.72 Kimberlyn [facility] Body temperature 2019-06-10 15:57:00 36.72 Kimberlyn [facility] Systolic blood 2019-06-05 19:38:00 129 mm[Hg] [facility] Diastolic blood 2019-06-05 19:38:00 87 mm[Hg] [facility] Heart rate 2019-06-05 19:38:00 105 /min [facility] Body temperature 2019-06-05 19:38:00 36.89 Kimberlyn [facility] Respiratory rate 2019-06-05 19:38:00 18 /min [facility] Body height 2019-06-05 19:38:00 165.1 cm [facility] Body weight 2019-06-05 19:38:00 137.44 kg [facility] BMI 2019-06-05 19:38:00 50.42 kg/m2 [facility] Systolic blood 2019-06-03 21:00:00 148 mm[Hg] [facility] [place] Diastolic blood 2019-06-03 21:00:00 91 mm[Hg] [facility]ive rsity of pressure [facility] Heart rate 2019-06-03 21:00:00 116 /min [facility] Respiratory rate 2019-06-03 21:00:00 20 /min [facility] Oxygen saturation in 2019-06-03 21:00:00 99 /min [facility] of Arterial blood by [facility] Pulse oximetry Branch Body temperature 2019-06-03 20:54:00 36.78 Kimberlyn [facility] Body weight 2019-06-03 20:54:00 132.904 kg [facility] BMI 2019-06-03 20:54:00 48.76 kg/m2 [facility] Systolic blood 2019-05-29 20:24:00 132 mm[Hg] Univer [facility] Diastolic blood 2019-05-29 20:24:00 81 mm[Hg] Unive rsity of pressure [facility] Heart rate 2019-05-29 20:24:00 113 /min [facility] Body temperature 2019-05-29 20:24:00 36.89 Kimberlyn [facility] Respiratory rate 2019-05-29 20:24:00 18 /min [facility] Body height 2019-05-29 20:24:00 165.1 cm [facility] [place] Body weight 2019-05-29 20:24:00 135.172 kg [facility] BMI 2019-05-29 20:24:00 49.59 kg/m2 [facility] Systolic blood 2019-05-23 20:38:00 122 mm[Hg] [facility]iver [facility] Diastolic blood 2019-05-23 20:38:00 72 mm[Hg] [facility]ive [facility]ity of [facility] Heart rate 2019-05-23 20:38:00 113 /min [facility] Body temperature 2019-05-23 20:38:00 36.83 Kimberlyn [facility] Body weight 2019-05-23 20:38:00 132.904 kg [facility] BMI 2019-05-23 20:38:00 48.76 kg/m2 [facility] Systolic blood 2019-05-08 18:41:00 129 mm[Hg] [facility] Diastolic blood 2019-05-08 18:41:00 79 mm[Hg] [facility] Heart rate 2019-05-08 18:41:00 113 /min [facility] Body temperature 2019-05-08 18:41:00 36.67 Kimberlyn [facility] Respiratory rate 2019-05-08 18:41:00 18 /min [facility] Body height 2019-05-08 18:41:00 165.1 cm [facility] Body weight 2019-05-08 18:41:00 126.372 kg [facility] BMI 2019-05-08 18:41:00 46.36 kg/m2 [facility] Systolic blood 2019-04-04 22:03:00 130 mm[Hg] [facility] Diastolic blood 2019-04-04 22:03:00 87 mm[Hg] [facility] Heart rate 2019-04-04 22:03:00 99 /min [facility] Body temperature 2019-04-04 22:03:00 36.72 Kimberlyn [facility] Respiratory rate 2019-04-04 22:03:00 18 /min [facility] Body height 2019-04-04 22:03:00 165.1 cm [facility] Body weight 2019-04-04 22:03:00 117.935 kg [facility] BMI 2019-04-04 22:03:00 43.27 kg/m2 [facility] Systolic blood 2019-03-21 22:42:00 120 mm[Hg] [facility] Diastolic blood 2019-03-21 22:42:00 81 mm[Hg] [facility] Heart rate 2019-03-21 22:42:00 110 /min [facility] Body temperature 2019-03-21 22:42:00 36.83 Kimberlyn [facility] Respiratory rate 2019-03-21 22:42:00 18 /min [facility] Body height 2019-03-21 22:42:00 165.1 cm [facility] Body weight 2019-03-21 22:42:00 113.853 kg [facility] BMI 2019-03-21 22:42:00 41.77 kg/m2 [facility] Procedures Procedure Date / Time Performing Clinician Source Performed LAPAROSCOPIC 2022-07-12 13:41:00 Daniel Aguilar [facility] SALPINGECTOMY [facility] DIAGNOSTIC LAPAROSCOPY 2022-07-12 13:41:00 Daniel Aguilar [facility] HB ABO GROUPING 2022-07-12 12:58:00 Hernandez, [facility] HB ABO GROUPING 2022-07-12 12:58:00 Hernandez, [facility] POCT TEST 2022-07-12 12:40:00 Wilbert Urrutia [facility] POCT TEST 2022-07-12 12:40:00 Wilbert Urrutia [facility] ASSIGNMENT OF BENEFITS 2022-07-12 12:29:40 Doctor Unassigned, No [facility] DISCLOSURE AND CONSENT, 2022-05-23 05:01:00 Doctor Unassigned, N o [facility] MEDICAL AND SURGICAL [facility] PROCEDURES GC & CHLAMYDIA AMPLIFIED 2022-03-30 22:14:00 Emmanuel Rabago [facility] ASSAY [facility] HIV 1/2 AG-AB WITH 2022-03-30 22:14:[address] [facility] SYPHILIS IGG/IGM 2022-03-30 22:14:00 Emmanuel Rabago [facility] CBC WITH DIFF 2022-02-10 10:19:00 Dorothydanisha [facility] CBC WITH DIFF 2022-02-10 10:19:00 [facility] 2022-02-09 18:31:00 Juan [facility] VENOUS CORD GAS 2022-02-09 18:31:00 Juan [facility] SECTION 2022-02-09 16:24:00 [facility] SECTION 2022-02-09 16:24:00 [facility] CBC WITH DIFF 2022-02-09 13:25:00 Juan [facility] HEPATITIS B SURFACE 2022-02-09 13:25:00 Juan [facility] ANTIGEN [facility] GALV ONLY - SYPHILIS 2022-02-09 13:25:00 Juan [facility] IGG/IGM [facility] CBC WITH DIFF 2022-02-09 13:25:00 Juan [facility] HEPATITIS B SURFACE 2022-02-09 13:25:00 Juan [facility] ANTIGEN [facility] GALV ONLY - SYPHILIS 2022-02-09 13:25:00 Juan [facility] IGG/IGM [facility] HB ABO GROUPING 2022-02-09 12:37:00 Juan [facility] RHO (D) IMMUNE GLOBULIN 2022-02-09 12:37:00 Dorothydanisha [facility] HB ABO GROUPING 2022-02-09 12:37:00 Juan [facility] RHO (D) IMMUNE GLOBULIN 2022-02-09 12:37:00 [facility] 2022-01-10 19:15:00 Gin [facility] POCT URINALYSIS 2021-12-29 00:00:00 Gin [facility] GLUCOSE 1 HOUR POST 2021-12-08 14:20:00 Bertram Quinonez [facility] CBC WITH DIFF 2021-12-08 14:20:00 Bertram Quinonez [facility] TDAP VACCINE, >11 YRS, 2021-12-08 13:39:18 Bertram Quinonez [facility] POCT URINALYSIS 2021-12-08 00:00:00 Gin [facility] POCT URINALYSIS 2021-09-14 00:00:00 Gin [facility] QUAD SCRN 2021-08-16 20:53:00 Gin [facility] GLUCOSE 1 HOUR POST 2021-08-16 20:52:00 Gin [facility] WITH DIFF 2021-08-16 20:52:00 Gin [facility] RUBELLA SCREEN IGG 2021-08-16 20:52:00 Gin [facility] VZV ANTIBODY SCREEN 2021-08-16 20:52:00 Gin [facility] HEPATITIS B SURFACE 2021-08-16 20:52:00 Gin [facility] ANTIGEN [facility] HIV 1/2 AG-AB WITH 2021-08-16 20:52:00 [facility] REFLEX [facility] GALV ONLY - SYPHILIS 2021-08-16 20:52:00 Gin [facility] IGG/IGM Medical Branch HB ABO GROUPING 2021-08-16 20:49:00 Gin [facility] URINE CULTURE 2021-08-16 20:20:00 Gin [facility] GC & CHLAMYDIA AMPLIFIED 2021-08-16 20:20:00 Nicole Boland [facility] ASSAY [facility] LAB ONLY PAP 2021-08-16 20:20:00 Gin [facility] SMEAR-LIQUID BASED Medical Branc h PAP SMEAR-LIQUID 2021-08-16 20:20:00 Gin [facility] BASED-CP Medical Branch POCT URINALYSIS 2021-08-16 00:00:00 Gin [facility] POCT TEST 2021-08-16 00:00:00 Nicole Boland [facility] [id number] 2020-12-30 00:00:00 JERRY Winter [facility] POCT URINALYSIS W/O 2020-09-08 20:02:00 Adum, Patience Bella [facility] SCANNED LAB RESULTS 2020-07-29 05:01:00 Doctor Unassigned, [facility] V[facility], >11 YRS, 2020-07-28 20:17:08 Adum, Patience Belcher [facility] POCT URINALYSIS W/O 2020-07-28 00:00:00 Adum, Patience Bella [facility] CBC WITH DIFF 2020-07-02 19:18:00 Adum, Patience Bella [facility] ASSIGNMENT OF BENEFITS 2020-07-02 18:02:33 Doctor Unassigned, No [facility] POCT TEST 2020-06-30 16:00:00 Adum, Patience Bella [facility] POCT URINALYSIS W/O 2020-06-30 15:59:00 Adum, Patience Bella [facility] ASSIGNMENT OF BENEFITS 2019-07-10 16:59:19 Doctor Unassigned, No [facility] POCT URINALYSIS W/O 2019-07-10 00:00:00 Rosie Lisa [facility] POCT URINALYSIS W/O 2019-06-05 00:00:00 Rosie Lisa [facility] POCT URINALYSIS W/O 2019-05-29 00:00:00 Rosie Lisa [facility] CBC WITH DIFFERENTIAL 2019-05-27 19:41:00 Rosie Lisa [facility] DSU PRE-OP 2019-05-23 05:01:00 Doctor Unassigned, No [facility] POCT URINALYSIS W/O 2019-05-08 00:00:00 Lisa, Rosie [facility] ADC / LCC - DRUG SCREEN 2019-04-04 22:48:00 Nidia Rosie [facility] POCT URINALYSIS W/O 2019-04-04 00:00:00 Rosie Lisa [facility] GLUCOSE 1 HOUR POST 2019-03-26 21:52:00 [facility] WITH DIFFERENTIAL 2019-03-26 21:52:00 Rosie Lisa [facility] ADC OR DANA ONLY - 2019-03-26 21:52:00 [facility] HIV 1/2 AG-AB WITH 2019-03-26 21:52:[address] [facility] REFLEX [facility] HB ABO GROUPING 2019-03-26 21:00:00 Rosie Lisa [facility] ASSIGNMENT OF BENEFITS 2019-03-26 20:30:45 Doctor Unassigned, No [facility] Name [facility] TDAP (ADACEL) 2019-03-21 22:45:02 Rosie Lisa [facility] IMMUNIZATION [facility] Encounters Start End Encounter Admission Attending Care Care Encounter Source Date/Time Date/Time Type Type Clinicians Facility Department ID 2020-12-16 Outpatient P [facility] LUCIAN [id number] Univers 18:13:48 [facility] 2020-12-16 Emergency [facility] [id number] Univers [facility] 2022-08-08 2022-08-08 Outpatient R [facility] [id number] Univers 13:30:00 13:30:00 ity [facility] 2022-07-12 2022-07-12 Outpatient [facility]ARE COORDINATOR [id number] Univers 07:31:00 13:15:00 [facility] 2022-07-12 2022-07-12 [facility] RAVI Aguilar [id number] Univers 07:31:00 13:15:00 Encounter Daniel DESIR [id number] ity [facility] 4.2.7.2.686 David as [phone] [facility] [address] 2022-07-12 2022-07-12 Surgery RAVI Aguilar [id number] Univers 08:45:00 11:09:00 Daniel Bella KARLEE 350.1.13.10 it y of HOSPITAL 4.2.7.2.686 David as [id number] [facility] [address] 2022-07-12 2022-07-12 Orders Doctor JEAN MARIE [id number] Univers 00:00:00 00:00:00 Only Unassigned, KARLEE 350.1.13.10 ity of [place] [facility] 4.2.7.2.686 David as [id number] [facility] [address] [place] 2022-05-23 2022-05-23 Outpatient R VALERIE [facility] [id number] Univers 13:45:00 15:06:02 DANIEL ity of [facility] 2022-05-23 2022-05-23 Office Pgy2 UNIVERSIT [id number] Univers 13:45:00 15:06:02 Visit Daniel Aguilar [facility] 350.1.13.10 ity of CL[place] [id number] [facility] [address] 2022-05-23 2022-05-23 Orders Doctor JEAN MARIE 1.2.840.114 [id number] Univers 00:00:00 00:00:00 Only Unassigned, KARLEE 350.1.13.10 ity of [place] [facility] 4.2.7.2.686 David as [id number] [facility] [address] 2022-05-16 2022-05-16 Case Dmitri KERMIT [id number] Univers 00:00:00 00:00:00 Management Sindy BRASHER 350.1.13.10 [place] [id number] [facility] [address] 2022-05-08 2022-05-08 Nurse Visit, Vinicius-Rmchp Nurse [facility] 1.2 .840.114 [id number] Univers 15:30:00 15:48:51 Visit Gregoryaga Emmanuel Moreno UNDERWRITING INTERN 350.1.13. 10 ity of REGIONAL 4.2.7.2.686 David as MATERNAL [id number] [facility] & [address] 2022-05-08 2022-05-08 Outpatient R CARMELO [facility] [id number] Univers 15:30:00 15:30:00 EMMANUEL ity o f [facility] 2022-04-13 2022-04-13 [facility] [id number] Univers 00:00:00 00:00:00 Emmanuel C UNDERWRITING INTERN 350.1.13.10 ity of REGIONAL 4.2.7.2.686 David as MATERNAL [id number] [address] 2022-03-31 2022-03-31 Telephone [facility] [id number] [facility] 00:00:00 00:00:00 Emmanuel C UNDERWRITING INTERN 350.1.13.10 ity of REGIONAL 4.2.7.2.686 David as MATERNAL [id number] [facility] & [address] 2022-03-30 2022-03-30 [facility] [id number] Univers 15:30:00 16:18:57 EMMANUEL ity o [facility] 2022-03-30 2022-03-30 [facility] [id number] Univers 15:30:00 16:18:57 Visit Emmanuel C UNDERWRITING INTERN 350.1.13.10 ity of REGIONAL 4.2.7.2.686 David as MATERNAL [id number] [address] 2022-03-28 2022-03-28 Outpatient Maggy WHITT [facility] [id number] Univers 15:00:00 15:00:00 SINDY ity [facility] 2022-03-07 2022-03-07 Outpatient Maggy WHITT [facility] [id number] Univers 13:15:00 13:15:00 SINDY ity of [facility] 2022-02-28 2022-02-28 Outpatient R JOSE EDUARDO [facility] [id number] Univers 16:00:00 16:39:26 SINDY ity [facility] 2022-02-28 2022-02-28 Routine Provider, Vinicius-Rmchp Mike [facility] 1 .2.840.114 [id number] Univers 16:00:00 16:39:26 Sindy Whitt UNDERWRITING INTERN 350.1.13. 10 ity of Visit [facility] 4.2.7.2.686 David as MATERNAL [id number] Med ical & CHILD [address] [facility] 2022-02-09 2022-02-11 Inpatient P VENKATA [facility]CI[facility] [id number] Univers 06:23:00 05:22:00 NIC ity [facility] 2022-02-09 2022-02-11 Hospital JEAN MARIE Sneed 1.2.840.114 [id number] Univers 06:23:00 05:22:00 Encounter Nicmuriel DESIR 350.1.13.10 ity [facility] 4.2.7.2.686 David as [id number] [facility] [address] 2022-02-09 2022-02-09 Surgery JEAN MARIE Ingram 1.2.840.114 [id number] Univers 07:15:00 09:01:00 Chasey KARLEE 350.1.13.10 it y of [facility] 4.2.7.2.[place] [id number] [facility] [address] 2022-02-01 2022-02-01 Telephone [facility] [id number] Univers 00:00:00 00:00:00 Bertram UNDERWRITING INTERN 350.1.13.10 it y of [facility] 4.2.7.2.686 David as MATERNAL [id number] Med ical & CHILD 122 [facility] 2022-01-23 2022-01-23 Outpatient P [facility] [id number] Univers 15:00:00 15:00:00 ity of [facility] 2022-01-19 2022-01-19 Outpatient Maggy QUINONEZ [facility] [id number] Univers 15:45:00 15:45:00 [facility] 2022-01-11 2022-01-11 Outpatient P [facility] [id number] Univers 13:00:00 13:00:00 [facility] 2022-01-10 2022-01-10 Routine [facility] 1.2.840.114 [id number] Univers 13:15:00 13:21:51 Bertram UNDERWRITING INTERN 350.1.13.10 i ty of Visit REGIONAL 4.2.7.2.686 David as MATERNAL [id number] [facility] & [address] 2022-01-10 2022-01-10 Outpatient Maggy QUINONEZ [facility] [id number] Univers 13:15:00 13:21:51 BERTRAM [facility] 2021-12-29 2021-12-29 Outpatient Maggy QUINONEZ [facility] [id number] Univers 14:15:00 14:34:25 [facility] 2021-12-29 2021-12-29 Routine [facility] 1.2.840.114 [id number] Univers 14:15:00 14:34:25 Bertram UNDERWRITING INTERN 350.1.13.10 i ty of Visit REGIONAL 4.2.7.2.686 David as MATERNAL [id number] [address] 2021-12-26 2021-12-26 Case David [facility] 1.2.840.114 [id number] Univers 00:00:00 00:00:00 Management Bertram UNDERWRITING INTERN 350.1.13.10 ity of REGIONAL 4.2.7.2.686 David as MATERNAL [id number] [address] 2021-12-22 2021-12-22 Outpatient Maggy QUINONEZ [facility] [id number] Univers 12:45:00 12:45:00 [facility] 2021-12-15 2021-12-15 Equipment Inspector Lab, Nwc-Rmchp [facility] 1.2.840. 114 [id number] Univers 08:00:00 11:08:42 Visit Nicole Boland UNDERWRITING INTERN 350.1.13.10 ity of [facility] 4.2.7.2.686 David as MATERNAL [id number] [facility] & [address] 2021-12-15 2021-12-15 Outpatient Maggy BOLAND [facility] [id number] Univers 08:00:00 08:00:00 NICOLE [facility] 2021-12-12 2021-12-12 Telephone [facility] [id number] Univers 00:00:00 00:00:00 Bertram UNDERWRITING INTERN 350.1.13.10 it y of REGIONAL 4.2.7.2.686 David as MATERNAL [id number] [facility] & [address] 2021-12-08 2021-12-08 [facility] [id number] Univers 08:15:00 09:20:06 BERTRAM [facility] 2021-12-08 2021-12-08 Routine [facility] 1.2.840.114 [id number] Univers 08:15:00 09:20:06 Bertram UNDERWRITING INTERN 350.1.13.10 i ty of Visit REGIONAL 4.2.7.2.686 David as MATERNAL [id number] [facility] & [address] 2021-12-01 2021-12-01 Outpatient Maggy QUINONEZ [facility] [id number] Univers 10:30:00 10:30:00 BERTRAM [facility] 2021-11-10 2021-11-10 [facility] [id number] Univers 10:30:00 10:30:00 BERTRAM [facility] 2021-11-03 2021-11-03 Outpatient Maggy QUINONEZ [facility] [id number] Univers 15:15:00 15:15:00 BERTRAM [facility] 2021-11-03 2021-11-03 Telephone [facility] [id number] Univers 00:00:00 00:00:00 Bertram UNDERWRITING INTERN 350.1.13.10 it y of REGIONAL 4.2.7.2.686 David as MATERNAL [id number] [facility] & CHILD [address] [place] [address] 2021-10-25 2021-10-25 Outpatient Maggy BOLAND [facility] [id number] Univers 15:00:00 15:00:00 [facility] 2021-10-25 2021-10-25 Telephone [facility] [id number] Univers 00:00:00 00:00:00 Bertram UNDERWRITING INTERN 350.1.13.10 it y of REGIONAL 4.2.7.2.686 David as MATERNAL [id number] [address] 2021-10-12 2021-10-12 Outpatient Maggy BOLAND [facility] [id number] Univers 14:45:00 14:45:00 [facility] 2021-10-06 2021-10-06 Outpatient P [facility] [id number] Univers 13:00:00 13:00:00 [facility] 2021-09-14 2021-09-14 Outpatient Maggy BOLAND [facility] [id number] Univers 14:45:00 15:42:26 [facility] 2021-09-14 2021-09-14 [facility] 1.2.840.114 [id number] Univers 14:45:00 15:42:26 Nicole UNDERWRITING INTERN 350.1.13.10 i ty of Visit REGIONAL 4.2.7.2.686 David as MATERNAL [phone] [facility] CHILD [address] [place] [address] 2021-09-14 2021-09-14 Outpatient Maggy BOLAND [facility] [id number] Univers 14:45:00 14:45:00 [facility] 2021-09-14 2021-09-14 Outpatient Maggy BOLAND [facility] [id number] Univers 14:45:00 14:45:00 [facility] 2021-09-14 2021-09-14 Outpatient R GIN [facility] [id number] Univers 14:45:00 14:45:00 NICOLE ity [facility] 2021-09-05 2021-09-05 Telephone Gin [facility] 1.2.957.083 [id number] Univers 00:00:00 00:00:00 Nicole UNDERWRITING INTERN 350.1.13.10 it y of REGIONAL 4.2.7.2.686 David as MATERNAL [phone] [facility] CHILD 122 [facility] 2021-09-02 2021-09-02 Outpatient SUDARSHAN VELA [facility] [id number] Univers 11:15:00 14:39:00 ity [facility] 2021-09-02 2021-09-02 TelemedicSandhya Alexander [facility] 1.2.8 40.114 [id number] Univers 11:15:00 14:39:00 ne Visit Sudarshan Montes UNDERWRITING INTERN 350.1.13.10 ity of REGIONAL 4.2.7.2.686 David as MATERNAL [phone] [facility] [address] [place] [address] 2021-09-01 2021-09-01 Equipment Inspector Krish Mazariegos [facility] 1.2.840.114 [id number] Univers 13:30:00 13:59:57 Visit Dino Lopez UNDERWRITING INTERN 350.1.13.1 0 ity of REGIONAL 4.2.7.2.686 David as MATERNAL [phone] [facility] CHILD [address] [facility]OB 2021-09-01 2021-09-01 Outpatient P JOHN [facility] [id number] Univers 13:30:00 13:59:57 DINO grajeda [facility] 2021-09-01 2021-09-01 Outpatient P JOHN [facility] [id number] Univers 13:30:00 13:30:00 DINO [facility] 2021-08-26 2021-08-26 Outpatient Maggy JOE [facility] [id number] Univers 09:30:00 09:40:11 SANDRA [facility] 2021-08-26 2021-08-26 Equipment Inspector Lab, Nwc[facility]Rm[facility] 1.2.840. 114 [id number] Univers 09:30:00 09:40:11 Visit Sandra Joe UNDERWRITING INTERN 350.1.13.10 ity of [facility] 4.2.7.2.686 David as MATERNAL [phone] [facility] & [address] 2021-08-23 2021-08-23 Outpatient Maggy JOE [facility] [id number] Univers 10:00:00 10:00:00 SANDRA [facility] 2021-08-19 2021-08-19 Outpatient R ANDREW [facility] [id number] Univers 09:30:00 09:30:00 SARAH taras [facility] 2021-08-19 2021-08-19 [facility]phone [facility] 1.2.840.114 [id number] Univers 00:00:00 00:00:00 Sarah Bella UNDERWRITING INTERN 350.1.13.10 it y of [facility] 4.2.7.2.686 David as MATERNAL [phone] [address] 2021-08-17 2021-08-17 Telephone Gin [facility] 1.2.599.365 [id number] Univers 00:00:00 00:00:00 Nicole UNDERWRITING INTERN 350.1.13.10 it y of [facility] 4.2.7.2.686 David as MATERNAL [phone] [address] 2021-08-16 2021-08-16 Outpatient Maggy BOLAND [facility] [id number] Univers 14:15:00 15:39:45 NICOLE [facility] 2021-08-16 2021-08-16 Outpatient Maggy BOLAND [facility] [id number] Univers 14:15:00 15:39:45 NICOLE [facility] 2021-08-16 2021-08-16 Initial Gin [facility] 1.2.840.114 [id number] Univers 14:15:00 15:39:45 Nicole UNDERWRITING INTERN 350.1.13.10 i ty of Visit [facility] 4.2.7.2.686 David as MATERNAL [phone] [facility] CHILD [address] [place] [address] 2021-08-16 2021-08-16 Outpatient R GIN [facility] [id number] Univers 14:15:00 15:39:45 NICOLE ity of [facility] 2021-08-16 2021-08-16 Initial Gin [facility] 1.2.840.114 [id number] Univers 14:15:00 15:39:45 Nicole UNDERWRITING INTERN 350.1.13.10 i ty of Visit [facility] 4.2.7.2.686 David as MATERNAL [phone] [facility] CHILD [address] [place] [address] 2021-08-16 2021-08-16 Orders Doctor JEAN MARIE 1.2.840.114 [id number] Univers 00:00:00 00:00:00 Only Unassigned, KARLEE 350.1.13.10 ity [facility] 4.2.7.2.686 David as [phone] [address] 2020-12-30 2021-01-01 Inpatient ION Marino, [facility] [id number] [facility] 10:05:00 13:15:00 Silas Araiza [facility] 2020-10-05 2020-10-05 Outpatient R [facility] [id number] Univers 13:00:00 13:00:00 ity of [facility] 2020-09-10 2020-09-10 Equipment Inspector Ultrasound, Adc [facility] 1.2 .840.114 [id number] Univers 15:11:35 15:41:35 Visit Olayinka Duenas 350.1.13.10 ity [facility] [place].2.7.[place] [phone] Wi dic[address] 2020-09-10 2020-09-10 Outpatient R [facility] [id number] Univers 15:00:00 15:00:00 ity [facility] 2020-09-08 2020-09-08 Routine Adum, [facility] 1.2.840.114 [id number] Univers 14:23:42 15:39:03 Patience Bella Serenity 350.1.13.10 ity of Visit [place].2.7.2.[place] [phone] Wi dical nal [address] [place] [address] 2020-09-08 2020-09-08 Outpatient R ADUM, [facility] [id number] Univers 14:15:00 14:15:00 PATIENCE ity [facility] 2020-09-01 2020-09-01 Outpatient R ADUM, [facility] [id number] Univers 09:15:00 09:15:00 PATIENCE ity [facility] 2020-08-25 2020-08-25 Outpatient R ADUM, [facility] [id number] Univers 14:15:00 14:15:00 PATIENCE ity [facility] 2020-08-16 2020-08-16 Case [facility] 1.2.840.114 [id number] Univers 00:00:00 00:00:00 Management Patience Benton 350.1.13.10 ity of [place]2.7.2.[place] [phone] Wi dical nal [address] [place] [address] 2020-08-16 2020-08-16 Telephone Mak [facility] 1.2.840.114 [id number] Univers 00:00:00 00:00:00 Rosey Benton 350.1.13.10 i ty of [place] 4.2.7.2.[place] [phone] Wi dical nal [address] [place] [address] 2020-08-13 2020-08-13 Equipment Inspector Ultrasound, Adc [facility] 1.2 .840.114 [id number] Univers 14:15:34 15:15:34 Visit Marj Hays 350.1 .13.10 ity of [place] 4.2.7.2.[place] [phone] Wi dical nal [address] [place] [address] 2020-08-13 2020-08-13 Outpatient P [facility] [id number] Univers 14:00:00 14:00:00 ity of [facility] 2020-08-13 2020-08-13 Case Adum, [facility] 1.2.840.114 [id number] Univers 00:00:00 00:00:00 Management Patience Benton 350.1.13.10 ity of [place]2.7.2.[place] [phone] Wi dical [address] 2020-07-29 2020-07-29 Orders Doctor JEAN MARIE 1.2.840.114 [id number] Univers 00:00:00 00:00:00 Only Unassigned, KARLEE 350.1.13.10 ity of [place] [facility] 4.2.7.2.686 David as [phone] [address] 2020-07-28 2020-07-28 Routine Adum, [facility] 1.2.840.114 [id number] Univers 14:51:38 16:08:48 Patience Benton 350.1.13.10 ity of Visit [place] 4.2.7.2.[place] [phone] Wi dical nal [address] [place] [address] 2020-07-28 2020-07-28 Outpatient R ADUM, [facility] [id number] Univers 14:30:00 14:30:00 PATIENCE ity of [facility] 2020-07-13 2020-07-13 Case Adum, [facility] 1.2.840.114 [id number] Univers 00:00:00 00:00:00 Management Patience Sharpton 350.1.13.10 ity of [place] 4.2.7.2.[place] [phone] Wi dical nal [address] [place] [address] 2020-07-09 2020-07-09 Telephone Adum, [facility] 1.2.052.164 [id number] Univers 00:00:00 00:00:00 Patience L [place] 350.1.13.10 ity of [place] 4.2.7.2.[place] [phone] Wi dical nal [address] [place] [address] 2020-07-05 2020-07-05 Equipment Inspector Derek, Adc Lab Main [facility] 1.2.8 40.114 [id number] Univers 12:40:26 12:55:26 Visit Adum, Patience Bella Serenity 350.1.13.10 ity of [place] 4.2.7.2.[place] [phone] [facility] [address] [facility] 2020-07-05 2020-07-05 Outpatient R ADUM, [facility] [id number] Univers 12:30:00 12:30:00 PATIENCE ity [facility] 2020-07-02 2020-07-02 Equipment Inspector Derek, Adc Lab Main [facility] 1.2.8 40.114 [id number] Univers 13:02:56 13:17:56 Visit AdumPatience Serenity 350.1.13.10 ity of [place] 4.2.7.2.[place] [phone] [facility] [address] [facility] 2020-07-02 2020-07-02 Outpatient R [facility] [id number] Univers 10:15:00 10:15:00 ity of [facility] 2020-07-02 2020-07-02 Orders Doctor JEAN MARIE 1.2.840.114 [id number] Univers 00:00:00 00:00:00 Only Unassigned, KARLEE 350.1.13.10 ity of [place] [facility] 4.2.7.2.686 David as [phone] [address] 2020-06-30 2020-06-30 Initial Adum, [facility] 1.2.840.114 [id number] Univers 10:39:42 12:04:24 Patience Bella Serenity 350.1.13.10 ity of Visit [place] 4.2.7.2.[place] [phone] [facility] [address] [facility] 2020-06-30 2020-06-30 Outpatient R ADUM, [facility] [id number] Univers 10:30:00 10:30:00 PATIENCE ity [facility] 2020-06-24 2020-06-24 Outpatient R ADUM, [facility] [id number] Univers 13:30:00 13:30:00 PATIENCE ity [facility] 2020-01-12 2020-01-12 Outpatient R ADUM, [facility] [id number] Univers 13:00:00 13:00:00 PATIENCE grajeda [facility] 2019-11-13 2019-11-13 Outpatient R BUNNY, [facility] [id number] Univers 08:00:00 08:00:00 JULIA itmuriel [facility] 2019-08-21 2019-08-21 Outpatient R [facility] [id number] Univers 13:00:00 13:00:00 ity [facility] 2019-07-22 2019-07-22 Telephone [facility] 1.2.840.114 [id number] 00:00:00 00:00:00 Rosie Benton 350.1.13.10 [place] 4.2.7.2.686 Professio [phone] [address] 2019-07-22 2019-07-22 Telephone [facility] 1.2.840.114 [id number] Univers 00:00:00 00:00:00 Rosie Benton 350.1.13.10 i ty of [place]2.7.2.[place] [phone] Wi dical [address] 2019-07-10 2019-07-10 Equipment Inspector Moriah Reed [facility] 1.2.840.114 [id number] 11:59:33 12:14:33 Visit Lab Main [place] 350.1.13.10 [place] 4.2.7.2.686 Professio [phone] [address] 2019-07-10 2019-07-10 Equipment Inspector Moriah Reed Lab Main [facility] 1.2.8 40.114 [id number] Univers 11:59:33 12:14:33 Visit Rosie Lisa 350.1.13.10 ity of [place] 4.2.7.2.[place] [phone] Wi dical [address] 2019-07-10 2019-07-10 Routine Lisa, [facility] 1.2.840.114 [id number] 10:32:19 11:43:21 Rosie Benton 350.1.13.10 Visit [place] 4.2.7.2.686 Professio [phone] [address] 2019-07-10 2019-07-10 Routine Lisa, [facility] 1.2.840.114 [id number] [facility] 10:32:19 11:43:21 Rosie [place] 350.1.13.10 ity of Visit [place] 4.2.7.2.[place] [phone] [address] 2019-07-10 2019-07-10 Outpatient R LISA, [facility] [id number] Univers 11:30:00 11:30:00 ROSIE ity [facility] 2019-07-10 2019-07-10 Orders Doctor JEAN MARIE 1.2.840.114 [id number] 00:00:00 00:00:00 Only Unassigned, KARLEE 350.1.13.10 [place] [facility] 4.2.7.2.686 [phone] [facility] 2019-07-10 2019-07-10 Orders Doctor JEAN MARIE 1.2.840.114 [id number] Univers 00:00:00 00:00:00 Only Unassigned, KARLEE 350.1.13.10 ity of [place] [facility] 4.2.7.2.686 David as [phone] [address] 2019-06-19 2019-06-19 Routine Lisa, [facility] 1.2.840.114 [id number] 12:59:21 13:55:02 Rosie [place] 350.1.13.10 Visit [place] 4.2.7.2.686 Professio [phone] [address] 2019-06-19 2019-06-19 Routine Lisa, [facility] 1.2.840.114 [id number] Univers 12:59:21 13:55:02 Rosie [place] 350.1.13.10 ity of Visit [place] 4[place]2.7.2.[place] [phone] Wi dic[address] 2019-06-19 2019-06-19 Outpatient R LISA, [facility] [id number] Univers 13:00:00 13:00:00 ROSIE ity [facility] 2019-06-11 2019-06-11 Telephone Lisa, [facility] 1.2.840.114 [id number] 00:00:00 00:00:00 Rosie Benton 350.1.13.10 [place] 4.2.7.2.686 Professio [phone] [address] 2019-06-11 2019-06-11 Telephone Lisa, [facility] 1.2.840.114 [id number] [facility] 00:00:00 00:00:00 Rosie Benton 350.1.13.10 i ty of [place].2.[place] [phone] [address] 2019-06-10 2019-06-10 Nurse Nurse, [facility] 1.2.840.114 [id number] 10:43:00 11:07:40 Visit General [place] 350.1.13.10 Surgery [place] 4.2.7.2.686 Professio [phone] [address] 2019-06-10 2019-06-10 Nurse Nurse, [facility] General Surgery [facility] 1.2.840.114 [id number] [facility] 10:43:00 11:07:40 Visit Rosie Lisa 350.1.13.10 ity of [place] 4.2.7.2.[place] [phone] [address] 2019-06-10 2019-06-10 Outpatient R LISA, [facility] [id number] [facility] 10:30:00 10:30:00 ROSIE grajeda [facility] 2019-06-10 2019-06-10 Telephone Lisa, [facility] 1.2.840.114 [id number] 00:00:00 00:00:00 Rosie Benton 350.1.13.10 [place] 4.2.7.2.686 Professio [phone] [address] 2019-06-10 2019-06-10 Telephone Lisa, [facility] 1.2.840.114 [id number] [facility] 00:00:00 00:00:00 Rosie Benton 350.1.13.10 i ty of [place] 4[place]2.7.2.[place] [phone] [address] 2019-06-05 2019-06-05 Routine Scurry, [facility] 1.2.840.114 [id number] Univers 14:20:26 15:15:21 Rosie Benton 350.1.13.10 ity of Visit [place] 4[place]2.7.2.[place] [phone] [address] 2019-06-05 2019-06-05 Outpatient R [facility] [id number] Univers 14:15:00 14:15:00 ROSIE ity of [facility] 2019-06-04 2019-06-04 Equipment Inspector Ultrasound, [facility] 1.2 .840.114 [id number] Univers 14:30:39 14:57:33 Visit Ramy Schwartz UNDERWRITING INTERN 350.1.13.10 ity of REGIONAL 4.2.7.2.686 David as MATERNAL [phone] Med ical & CHILD [address] [place] [address] 2019-06-04 2019-06-04 Outpatient P [facility] [id number] Univers 14:30:00 14:30:00 ity of [facility] 2019-06-03 2019-06-03 [facility] 1.2.274.557 [id number] Univers 15:44:34 16:32:00 Cruzito Sharpton 350.1.13.10 i ty of [place].2.7.2.[place] [phone] [address] 2019-06-02 2019-06-02 Telephone Scurry, [facility] 1.2.840.114 [id number] Univers 00:00:00 00:00:00 Rosie Benton 350.1.13.10 i ty of [place] 4.2.7.2.[place] [phone] [address] 2019-05-29 2019-05-29 Routine Scurry, [facility] 1.2.840.114 [id number] Univers 14:59:08 15:47:56 Rosie Benton 350.1.13.10 ity of Visit [place] 4.2.7.2.[place] [phone] Wi dical nal [address] [facility] 2019-05-29 2019-05-29 Outpatient R [facility] [id number] Univers 14:45:00 14:45:00 ROSIE ity of [facility] 2019-05-27 2019-05-27 Equipment Inspector 1, Adc Lab [facility] 1.2.840.114 [id number] Univers 14:28:26 14:43:26 Visit Rosie Lisa 350.1.13.10 ity of [place] 4.2.7.2.[place] [phone] [facility] [address] 2019-05-27 2019-05-27 Outpatient R [facility] [id number] Univers 14:00:00 14:00:00 ity of [facility] 2019-05-23 2019-05-23 Routine [facility] 1.2.840.114 [id number] Univers 08:35:46 16:15:44 Rosie Serenity 350.1.13.10 ity of Visit [place]2.7.2.[place] [phone] Wi dical nal [address] [place] [address] 2019-05-23 2019-05-23 [id number] Univers 15:15:00 15:15:00 ROSIE ity of [facility] 2019-05-23 2019-05-23 Orders Doctor AJ 1.2.840.114 [id number] Univers 00:00:00 00:00:00 Only Unassigned, KARLEE 350.1.13.10 ity of [place] [facility] 4.2.7.2.686 David as [phone] [facility] [address] 2019-05-15 2019-05-15 Telemedici [facility] 1.2.840.114 [id number] Univers 11:24:12 17:00:51 ne Visit Rosie Benton 350.1.13.10 ity of [place].2.[place] [phone] Wi dical nal [address] [facility] 2019-05-15 2019-05-15 Outpatient R LISA, [facility] [id number] Univers 16:00:00 16:00:00 ROSIE ity [facility] 2019-05-08 2019-05-10 [facility] 1.2.840.114 [id number] Univers 13:28:58 01:26:19 Rosie Benton 350.1.13.10 ity of Visit [place].2.[place] [phone] Wi dical nal [address] [facility] 2019-05-08 2019-05-08 [id number] Univers 13:15:00 13:15:00 ROSIE ity [facility] 2019-04-24 2019-04-24 Outpatient R LISA, [facility] [id number] Univers 15:15:00 15:15:00 ROSIE ity [facility] 2019-04-04 2019-04-04 Routine [facility] 1.2.840.114 [id number] Univers 15:41:32 16:58:45 Rosie Benton 350.1.13.10 ity of Visit [place].2.[place] [phone] Wi dical nal [address] [facility] 2019-03-26 2019-03-26 Equipment Inspector Derek, Adc Lab Main [facility] 1.2.8 40.114 [id number] Univers 14:32:19 14:47:19 Visit Rosie Lisa 350.1.13.10 ity of [place].2.[place] [phone] Wi dical nal [address] [facility] 2019-03-26 2019-03-26 Orders Doctor JEAN MARIE 1.2.840.114 [id number] Univers 00:00:00 00:00:00 Only Unassigned, KARLEE 350.1.13.10 ity of [place] [facility] 4.2.7.2.686 David as [phone] [address] 2019-03-21 2019-03-21 [facility] 1.2.840.114 [id number] Univers 16:12:08 16:53:37 Rosie Benton 350.1.13.10 ity of Visit [place] 4.2.7.2.686 Daniel Otero [phone] Wi dical nal [address] [facility] Results Test Description Test Time Test Comments Results Result Comments Source POCT Test 2022-07-12 12:43:00 Test Item Value Reference Range Interpretation Comme nts POCT PREG (test code = 1605) Negative On board controls acceptable with C Line (test code = 3574) Yes POCT PREG LOT # (test code = 3575) POCT PREG TEST DATE (test code = 3576) [id number] 12:43:00 Test Item Value Reference Range Interpretation Comments POCT PREG (test code = 1605) Negative On board controls acceptable with C Yes Line (test code = 3574) POCT PREG LOT # (test code = 3575) POCT PREG TEST DATE (test code = 3576) [facility] (D) IMMUNE [id number] 20:41:00 Test Item Value Reference Range Interpretation Comments RHIG CANDIDATE? No- see comment Patient i s not a (test code = candidate for R hIg- 5055) Patient is Rh Positive.Perfor med at [facility] Laboratory Services - [facility] Blood [address] [place] [address] Free: [phone] A No. [id number] [facility] (D) IMMUNE [id number] 20:41:00 Test Item Value Reference Range Interpretation Comments RHIG CANDIDATE? No- see comment Patient i s not a (test code = candidate for R hIg- 5055) Patient is Rh Positive.Perfor med at [facility] Laboratory Services - [facility] Blood [address] [place] [address] 230[address]Wafm Free: [phone] A No. [id number] [facility] [id number] 18:43:14 Test Item Value Reference Range Interpretation Comments VENOUS BASE EXCESS, CORD mEq/L (test code = 9943981495) VENOUS PH, CORD (test 7.25-7.45 code = 9263379887) VENOUS PC02, CORD (test See_Comment H [Au tomated message] code = 2799947959) The syste m which generated this result transmitted ref erence range: 27 - 49 mmHg. The reference r becca was not used to interpret this result as normal/abnor mal. VENOUS PO2, CORD (test See_Comment [Aut omated message] code = 7745473235) The syste m which generated this result transmitted ref erence range: 17 - 41 mmHg. The reference r becca was not used to interpret this result as normal/abnor mal. VENOUS BICARBONATE, CORD See_Comment [A utomated message] (test code = 7442981413) The system which generated this result transmitted ref erence range: 12 - 29 mEq/L. The reference r becca was not used to interpret this result as normal/abnor mal. Lab Interpretation (test Abnormal code = 27440-9) [id number]:14 Test Item Value Reference Range Interpretation Comments VENOUS BASE EXCESS, CORD mEq/L (test code = 0911133746) VENOUS PH, CORD (test 7.25-7.45 code = [id number]) VENOUS PC02, CORD (test See_Comment H [Au tomated message] code = [id number]) The syste m which generated this result transmitted ref erence range: 27 - 49 mmHg. The reference r becca was not used to interpret this result as normal/abnor mal. VENOUS PO2, CORD (test See_Comment [Aut omated message] code = [id number]) The syste m which generated this result transmitted ref erence range: 17 - 41 mmHg. The reference r becca was not used to interpret this result as normal/abnor mal. VENOUS BICARBONATE, CORD See_Comment [A utomated message] (test code = [id number]) The system which generated this result transmitted ref erence range: 12 - 29 mEq/L. The reference r becca was not used to interpret this result as normal/abnor mal. Lab Interpretation (test Abnormal code = 62873-8) [facility] [id number] 14:03:57 Test Item Value Reference Range Interpretation Comments ABO & RH (test code A POSITIVE Performe d at [facility] = 20) Laboratory Serv [facility] 45 [place] [address]Aypf Free: [phone] A No. [id number] IAT (test code = Negative Performed a t [facility] 1185) Laboratory [facility] Blood [facility] [place] [address]Fuoc Free: [phone] A No. [id number] [facility] Screen - ONCE [id number] 14:03:57 Test Item Value Reference Range Interpretation Comments ABO & RH (test code A POSITIVE Performe d at [facility] = 20) Laboratory [facility] Blood [address] [address]Uwke Free: [phone] A No. [id number] IAT (test code = Negative Performed a t [facility] 1185) Laboratory [facility] Blood [address] [address]Cgny Free: [phone] A No. [id number] [facility] SPECIFIC [id number] 19:15:00 Test Item Value Reference Range Interpretation Comments POCT U SP GRAV (test code = 3255) na 1.005-1.025 POCT PH U (test code = 3254) 5 mg/dl 5-8 POCT U LEUK EST (test code = neg Negative - Negative 3263) POCT U NIT (test code = 3262) neg Negative - Negative POCT U PROT (test code = 3259) neg Negative - Negative POCT U GLU (test code = 3256) neg Negative - Negative POCT U KETONE (test code = 3258) neg Negative - Negative POCT U UROBILI (test code = 3260) na 0.2-1 POCT U BILI (test code = 3261) na Negative - Negative POCT U BLD (test code = 3257) neg Negative - Negative POCT U COLOR (test code = 3266) na POCT U APPEAR (test code = 3267) na [facility] SPECIFIC [id number] 20:02:00 Test Item Value Reference Range Interpretation Comments POCT U SP GRAV (test code = 3255) na 1.005-1.025 POCT PH U (test code = 3254) na 5-8 POCT U LEUK EST (test code = 3263) na Negative - Negative POCT U NIT (test code = 3262) na Negative - Negative POCT U PROT (test code = 3259) neg Negative - Negative POCT U GLU (test code = 3256) neg Negative - Negative POCT U KETONE (test code = 3258) na Negative - Negative POCT U UROBILI (test code = 3260) na 0.2-1 POCT U BILI (test code = 3261) na Negative - Negative POCT U BLD (test code = 3257) na Negative - Negative POCT U COLOR (test code = 3266) POCT U APPEAR (test code = 3267) [facility] URINALYSIS W SPECIFIC [id number] 20:02:00 Test Item Value Reference Range Interpretation Comments POCT U SP GRAV (test code = 3255) na 1.005-1.025 POCT PH U (test code = 3254) na 5-8 POCT U LEUK EST (test code = 3263) na Negative - Negative POCT U NIT (test code = 3262) na Negative - Negative POCT U PROT (test code = 3259) neg Negative - Negative POCT U GLU (test code = 3256) neg Negative - Negative POCT U KETONE (test code = 3258) na Negative - Negative POCT U UROBILI (test code = 3260) na 0.2-1 POCT U BILI (test code = 3261) na Negative - Negative POCT U BLD (test code = 3257) na Negative - Negative POCT U COLOR (test code = 3266) POCT U APPEAR (test code = 3267) [facility] URINALYSIS W SPECIFIC [id number] 13:24:00 Test Item Value Reference Range Interpretation Comments POCT U SP GRAV (test code = 3255) n 1.005-1.025 POCT PH U (test code = 3254) n 5-8 POCT U LEUK EST (test code = 3263) n Negative - Negative POCT U NIT (test code = 3262) n Negative - Negative POCT U PROT (test code = 3259) neg Negative - Negative POCT U GLU (test code = 3256) neg Negative - Negative POCT U KETONE (test code = 3258) n Negative - Negative POCT U UROBILI (test code = 3260) n 0.2-1 POCT U BILI (test code = 3261) n Negative - Negative POCT U BLD (test code = 3257) n Negative - Negative POCT U COLOR (test code = 3266) POCT U APPEAR (test code = 3267) [facility] SPECIFIC [id number] 19:52:00 Test Item Value Reference Range Interpretation Comments POCT U SP GRAV (test code = 3255) n 1.005-1.025 POCT PH U (test code = 3254) n 5-8 POCT U LEUK EST (test code = 3263) n Negative - Negative POCT U NIT (test code = 3262) n Negative - Negative POCT U PROT (test code = 3259) neg Negative - Negative POCT U GLU (test code = 3256) neg Negative - Negative POCT U KETONE (test code = 3258) n Negative - Negative POCT U UROBILI (test code = 3260) n 0.2-1 POCT U BILI (test code = 3261) n Negative - Negative POCT U BLD (test code = 3257) n Negative - Negative POCT U COLOR (test code = 3266) POCT U APPEAR (test code = 3267) [facility] TylerQUAD [id number] 20:17:52 Test Item Value Reference Interpretation Comments Range RACE (test code = 0738070087) WEIGHT (test code = lbs 6696322103) GEST. AGE (test 19w,3d code = 9176854332) INS. DEP (test code No = 7218648617) LMP (test code = 1453625540) US DATE (test code = 9177582260) PE DATE (test code = 5941270932) METHOD (test code = LMP 4424246833) MULT GEST (test No code = 1947497274) NTD HX (test code = No 9162766447) INITAL OR REPEAT Initial (test code = Testing 0514265533) SMOKER (test code = No 7820882413) RH (test code = Unknown 0563055610) INHIBIN (test code 120.5 pg/mL = 3295704869) AFP-MS (test code = 10.5 ng/mL 5044452712) ESTRIOL (test code 0.11 ng/mL = 0351689575) BHCG DOWNS (test mIU/mL code = 3789708941) AFP-MS MoM (test code = 6555131176) BHCG MoM (test code = 4506341282) INHIBIN MoM (test code = 5601412868) E3 MoM (test code = 6217464045) EQ AGE RSK (test equivalent to that of a code = 8982672074) 41.5 year old DS APR (test code = 1:1010 8585255267) DS INTERP (test See Note The risk of Down code = 1363848377) syndrome is GREATER than the screening c ut-off. If thegestation al age is confirmed, coun selling regarding the r isks andbenefits of amniocentesis i s suggested. DS RSK (test code = ~ 1:67 The risk at 0700489129) mid-trimester i s approximately 1 :67 DS SCRN (test code Positive = 9534582533) TRISOMY 18 (test See Note These serum marker code = 2346534948) levels ar e not consistent with the pattern seen in Trisomy 18 pregnancies. Maternal serum screening will detectapproxima tely 60% of Trisomy 18 pregnancies. ES RSK (test code = ~ 1:843 The risk of Trisomy 18 1506572276) is approximatel y 1:843The Trisom y 18 cut-off is 1:45 ES SCRN (test code Negative = 7414049252) OSB INTERP (test See Note The materna l serum AFP code = 2501213577) result is NOT elevated for a of thisgestational age. The risk of an open neural tube defect is less thanthe screeni ng cut-off. OSB RSK (test code 1:4440 The risk of OSB is equal = 0619162723) to 1:4440The O SB cut-off is 2.57 (1:104) OSB SCRN (test code Negative = 0253402275) INTERPRETATION P INTERPRETATIO N: SCREEN (test code = POSITIVE Follow -up for 6384202775) risk of Down sy ndrome is suggested [facility] [id number] 19:26:59 Test Item Value Reference Range Interpretation Comments VZV IgG antibody Positive Negative (test code = 89851-8) KAMILLE (test code = KAMILLE) Positive - Indicates the patient was exposed to VZV through infection or vaccination.Negative - Indicates the patient could be susceptible to VZV infection.Equivocal - A second specimen should be sent for testing. [facility] Tyler[facility]BELLA SCREEN (LUIS) [id number] 19:26:59 Test Item Value Reference Range Interpretation Comments Rubella screen IgG Positive Negative (test code = 0852114773) KAMILLE (test code = KAMILLE) Positive - Indicates the patient was exposed to Rubella through infection or vaccination.Negative - Indicates the patient could be susceptible to Rubella infection.Equivocal - A second specimen should be sent. [facility] ONLY - SYPHILIS [id number] 16:09:46 Test Item Value Reference Range Interpretation Comments Syphilis IgG/IgM (test Non-reactive Non-reactive code = 93075-2) KAMILLE (test code = KAMILLE) Non-reactive - No serologic evidence of T. pallidum infection. Cannot exclude incubating or early syphilis. Submit a second specimen in 2-4 weeks if syphilis is clinically suspected. Equivocal - Further testing to follow. Reactive - Further testing to follow. Lab Interpretation (test Normal code = 29587-8) [facility]2 AG-AB WITH [id number] 04:28:35 Test Item Value Reference Range Interpretation Comments HIV Negative Negative Semi-quantitative (test code = 51231-7) KAMILLE (test code = Non-reactive for HIV-1 KAMILLE) antigen and HIV-1/HIV-2 antibodies. ?No laboratory evidence of HIV infection. ?Repeat in 2-4 weeks if acute HIV infection is suspected. [facility] TylerPR[facility]AT[facility] WORKUP, BLOOD [id number] 03:11:28 Test Item Value Reference Range Interpretation Comments ABO & RH (test code A POSITIVE Performe d at [facility] = 20) Laboratory Serv [facility] [address]Pprv Free: [phone] A No. [id number] IAT (test code = Negative Performed a t [facility] 1185) Laboratory Serv [facility]3 [address] [place], [place] [address] [facility] [address]Rrna Free: [phone] A No. [id number] [facility] TylerGLUCOSE 1 HOUR POST [id number] 03:02:50 Test Item Value Reference Range Interpretation Comments GLUC 1 HR (test code = 6716695189) 108 mg/dL 120-170 L Lab Interpretation (test code = Abnormal 89873-8) [facility] TylerHEPATITIS B SURFACE [id number] 02:56:09 Test Item Value Reference Range Interpretation Comments HBsAg Semi-Quantitative (test code = Negative Negative 5195-3) [facility] TylerCB WITH [id number] 01:53:42 Test Item Value Reference Range Interpretation Comments WBC (test code = See_Comment [Automated 9923-2) message] The sy stem which generated this result transmitted reference range : 4.30 - 11.10 10*3/?L. The reference range was not used to interpret this result as normal/abnormal . RBC (test code = See_Comment [Automated 709-8) message] The sy stem which generated this result transmitted reference range : 3.93 - 5.25 10*6/?L. The reference range was not used to interpret this result as normal/abnormal . HGB (test code = 12.8 g/dL 11.6-15 718-7) HCT (test code = 35.8 % 35.7-45.2 4544-3) MCV (test code = 87.1 fL 80.6-95.5 787-2) MCH (test code = 31.1 pg 25.9-32.8 785-6) MCHC (test code = 35.8 g/dL 31.6-35.1 H 786-4) RDW-SD (test code = 39.0 fL 39-49.9 65841-4) RDW-CV (test code = 12.3 % 12-15.5 788-0) PLT (test code = See_Comment [Automated 107-3) message] The sy stem which generated this result transmitted reference range : 166 - 358 10*3/ ?L. The reference r becca was not used to interpret this result as normal/abnormal . MPV (test code = 11.7 fL 9.5-12.9 82317-2) NRBC/100 WBC (test See_Comment [Automat ed code = 6109486592) message] The system which generated this result transmitted reference range : 0.0 - 10.0 /100 WBCs. The refer ence range was not u sed to interpret th is result as normal/abnormal . NRBC x10^3 (test code See_Comment [Auto mated = 5512660283) message] The s ystem which generated this result transmitted reference range : 10*3/?L. The reference range was not used to interpret this result as normal/abnormal . GRAN MAT (NEUT) % 60.7 % (test code = 770-8) IMM GRAN % (test code 0.30 % = 6300474779) LYMPH % (test code = 31.7 % 736-9) MONO % (test code = 5.3 % 5905-5) EOS % (test code = 1.7 % 713-8) BASO % (test code = 0.3 % 706-2) GRAN MAT x10^3(ANC) 4.03 10*3/uL 1.88-7.09 (test code = 0597898083) IMM GRAN x10^3 (test 0-0.06 code = 7107452975) LYMPH x10^3 (test code 2.10 10*3/uL 1.32-3.29 = 731-0) MONO x10^3 (test code 0.35 10*3/uL 0.33-0.92 = 742-7) EOS x10^3 (test code = 0.11 10*3/uL 0.03-0.39 711-2) BASO x10^3 (test code 0.01-0.07 = 704-7) Lab Interpretation Abnormal (test code = 62715-3) [facility] URINALYSIS W SPECIFIC [id number] 19:26:00 Test Item Value Reference Range Interpretation Comments POCT U SP GRAV (test code = 3255) n 1.005-1.025 POCT PH U (test code = 3254) 6 mg/dl 5-8 POCT U LEUK EST (test code = neg Negative - Negative 3263) POCT U NIT (test code = 3262) neg Negative - Negative POCT U PROT (test code = 3259) trace Negative - Negative POCT U GLU (test code = 3256) neg Negative - Negative POCT U KETONE (test code = 3258) neg Negative - Negative POCT U UROBILI (test code = 3260) n 0.2-1 POCT U BILI (test code = 3261) n Negative - Negative POCT U BLD (test code = 3257) neg Negative - Negative POCT U COLOR (test code = 3266) POCT U APPEAR (test code = 3267) [facility] [id number] 19:25:00 Test Item Value Reference Range Interpretation Comments POCT PREG (test code = 1605) Positive On board controls acceptable with C Yes Line (test code = 3574) POCT PREG LOT # (test code = 3575) POCT PREG TEST DATE (test code = 3576) [facility] W/AUTO [id number] 05:46:00 Test Item Value Reference Range Interpretation Comments WHITE BLOOD CELL (test code = 9.5 K/mm3 4.1-12.1 N WBC) RED BLOOD CELL (test code = RBC) 3.14 M/mm3 3.8-5.5 L HEMOGLOBIN (test code = HGB) 9.9 G/DL 10.6-15.8 L HEMATOCRIT (test code = HCT) 28.6 % 31.8-47.4 L MEAN CELL VOLUME (test code = 91.1 fL 80.1-101.1 N MCV) MEAN CELL HGB (test code = MCH) 31.5 pg 25.3-35.3 N MEAN CELL HGB CONCETRATION (test 34.6 G/DL 32.7-35.1 N code = MCHC) RED CELL DISTRIBUTION WIDTH 13.0 % 12.2-16.4 N (test code = RDW) RED CELL DISTRIBUTION WIDTH 41.9 fL 36.4-46.3 N (test code = RDW-SD) PLATELET COUNT (test code = PLT) 106 K/mm3 155-337 L MEAN PLATELET VOLUME (test code 12.8 fL 6.8-11.2 H = MPV) GRANULOCYTE % (test code = GR%) 66.9 % 37.8-82.6 N IMMATURE GRANULOCYTE % (test 0.6 % 0.0-2.0 N code = IG%) LYMPHOCYTE % (test code = LY%) 22.7 % 14.1-45.4 N MONOCYTE % (test code = MO%) 8.4 % 2.5-11.7 N EOSINOPHIL % (test code = EO%) 1.1 % 0.0-6.2 N BASOPHIL % (test code = BA%) 0.3 % 0.0-2.1 N NUCLEATED RBC % (test code = 0.0 /100WBC% 0.0-1.0 N NRBC%) GRANULOCYTE # (test code = GR#) 6.36 k/mm3 2.0-13.7 N IMMATURE GRANULOCYTE # (test 0.06 K/mm3 0.00-0.03 H code = IG#) LYMPHOCYTE # (test code = LY#) 2.16 K/mm3 0.6-3.8 N MONOCYTE # (test code = MO#) 0.80 K/mm3 0.11-0.59 H EOSINOPHIL # (test code = EO#) 0.10 K/mm3 0.0-0.4 N BASOPHIL # (test code = BA#) 0.03 K/mm3 0.0-0.1 N NUCLEATED RBC # (test code = 0.00 K/mm3 0.0-0.05 N NRBC#) DRUGS OF ABUSE SCREEN [id number] 14:01:00 Test Item Value Reference Interpretation Comments Range URN COCAINE (test NONE DETECTED See_Comment [Automat ed message] The code = COCAURN) (NEG) system which generated SCcutoff this result tra nsmitted reference range : <300 NG/ML. The refe rence range was not u sed to interpret this result as normal/abnormal . URN CANNABINOIDS NONE DETECTED See_Comment [Automate d message] The (test code = (NEG) system which ge nerated CANNABURN) SCcutoff this result tra nsmitted reference range : <50 NG/ML. The refe rence range was not u sed to interpret this result as normal/abnormal . URN AMPHETAMINE NONE DETECTED See_Comment [Automated message] The (test code = (NEG) system which ge nerated AMPHETURN) SCcutoff this result tra nsmitted reference range : <1000 NG/ML. The refe rence range was not u sed to interpret this result as normal/abnormal . URN BARBITURATE NONE DETECTED See_Comment [Automated message] The (test code = (NEG) system which ge nerated BARBITURN) SCcutoff this result tra nsmitted reference range : <200 NG/ML. The refe rence range was not u sed to interpret this result as normal/abnormal . URN BENZODIAZEPINE NONE DETECTED See_Comment [Automa marielena message] The (test code = (NEG) system which ge nerated BENZOURN) SCcutoff this result tra nsmitted reference range : <200 NG/ML. The refe rence range was not u sed to interpret this result as normal/abnormal . URN OPIATES (test NONE DETECTED See_Comment [Automat ed message] The code = OPIATURN) (NEG) system whic h generated SCcutoff this result tra nsmitted reference range : <300 NG/ML. The refe rence range was not u sed to interpret this result as normal/abnormal . URN PHENCYCLIDINE NONE DETECTED See_Comment ------ Fo r all drug (PCP) (test code = (NEG) screen an alytes PHENCURN) SCcutoff ------The scree n method provides only a preliminary analyticaltest result. A more specific a lternate chemical method mustbe used in order t o obtain a confirmed travon lytical result.Gas chromatography/ mass spectrometry (G C/MS) is thepreferred confirmatory me thod. Other chemical confirmationmet hods are available. Clin ical consideration andprofessional judgement shoul d be applied to any drug ofabuse test re sult, particularly wh en preliminary positiveresults are used. [Automate d message] The sy stem which generated this result transmit marielena reference range : <25 NG/ML. The refe rence range was not u sed to interpret this result as normal/abnormal . CORD VENOUS BLOOD [id number] 13:39:00 Test Item Value Reference Range Interpretation Comments VENOUS BLOOD GAS SITE (test Venous Site DESCRIPTION code = SITEV) CORD VENOUS PH (test code = 7.27 pH units 7.25-7.45 N PHCV) CORD VENOUS PCO2 (test code = 64 mmHg 27-49 H PCO2CV) CORD VENOUS PO2 (test code = 10 mmHg 17-41 L PO2CV) CORD VENOUS HCO3 (test code = 29.4 mmol/L 12-28 H HCO3CV) CORD VENOUS BASE EXCESS (test 2.5 mmol/L -10--2 H code = BEXCV) CORD VENOUS 02 SAT (test code = 11 % (calc) 72-77 L O2SCV) HOLD IN OE? NCAMPUS: CCORD ARTERIAL BLOOD [id number] 13:38:00 Test Item Value Reference Range Interpretation Comments ABG SITE (test code = SITEA) Arterial ARTKIT DESCRIPTION CORD BLOOD ABG PH (test code 7.21 pH units 7.18-7.38 N = PHCA) CORD BLOOD ABG PCO2 (test 74 mmHg 32-66 H code = PCO2CA) CORD BLOOD ABG PO2 (test code < 10 mmHg 6-30 N = PO2CA) CORD BLOOD ABG HCO3 (test 29.3 mmol/L 17-27 H code = HCO3CA) CORD BLOOD ABG SISI (test code 1.4 mmol/L -10--2 H = BEXCA) CORD BLOOD ABG 02 SAT (test < 4 % (calc) 72-77 L code = O2SCA) HOLD IN OE? NCAMPUS: CAB HIV 1 12:46:00 Test Item Value Reference Range Interpretation Comments AB HIV 1 2 NonReactive SREEN NR This i s a screening (test code = test only A [id number]) Non-Reactive te st result does not exclude the possibility of exposure to or infection with HIV. HIV antibodies and/orantigen m ay be undetectable in some stages of infection.Curre ntly available assay s for the detection o f p24 antigenand/or antibodies to H IV-1 and/or HIV-2 ma y not detect allinfec marielena individuals. HIV-1/HIV-2 differentiation testing will be reflexedautomat ically per pathologist approved reflex protocols onall Reactive test r esults. Has the HIV testing consent form been signed? YESAB [id number] 11:49:00 Test Item Value Reference Range Interpretation Comments AB TREPONEMA (test code = NonReactive Screen NonReactive TREPAB) HBSAG NEUTRALIZATION [id number] 11:49:00 Test Item Value Reference Range Interpretation Comments AG HEPATITIS B SURFACE NEG-NONREAC SCREEN Nonreactive (test code = HBSAG) COVID 19 Asymptomatic IH [id number] 11:29:00 Test Item Value Reference Range Interpretation Comments COVID 19 Asymptomatic IH AG (test Negative Neg code = COVNONPUIAG) CBC W/AUTO [id number] 11:08:00 Test Item Value Reference Range Interpretation Comments WHITE BLOOD CELL (test code = 9.7 K/mm3 4.1-12.1 N WBC) RED BLOOD CELL (test code = RBC) 3.83 M/mm3 3.8-5.5 N HEMOGLOBIN (test code = HGB) 12.0 G/DL 10.6-15.8 N HEMATOCRIT (test code = HCT) 34.7 % 31.8-47.4 N MEAN CELL VOLUME (test code = 90.6 fL 80.1-101.1 N MCV) MEAN CELL HGB (test code = MCH) 31.3 pg 25.3-35.3 N MEAN CELL HGB CONCETRATION (test 34.6 G/DL 32.7-35.1 N code = MCHC) RED CELL DISTRIBUTION WIDTH 12.7 % 12.2-16.4 N (test code = RDW) RED CELL DISTRIBUTION WIDTH 41.1 fL 36.4-46.3 N (test code = RDW-SD) PLATELET COUNT (test code = PLT) 141 K/mm3 155-337 L MEAN PLATELET VOLUME (test code 12.5 fL 6.8-11.2 H = MPV) GRANULOCYTE % (test code = GR%) 69.4 % 37.8-82.6 N IMMATURE GRANULOCYTE % (test 0.8 % 0.0-2.0 N code = IG%) LYMPHOCYTE % (test code = LY%) 22.1 % 14.1-45.4 N MONOCYTE % (test code = MO%) 6.7 % 2.5-11.7 N EOSINOPHIL % (test code = EO%) 0.8 % 0.0-6.2 N BASOPHIL % (test code = BA%) 0.2 % 0.0-2.1 N NUCLEATED RBC % (test code = 0.0 /100WBC% 0.0-1.0 N NRBC%) GRANULOCYTE # (test code = GR#) 6.70 k/mm3 2.0-13.7 N IMMATURE GRANULOCYTE # (test 0.08 K/mm3 0.00-0.03 H code = IG#) LYMPHOCYTE # (test code = LY#) 2.14 K/mm3 0.6-3.8 N MONOCYTE # (test code = MO#) 0.65 K/mm3 0.11-0.59 H EOSINOPHIL # (test code = EO#) 0.08 K/mm3 0.0-0.4 N BASOPHIL # (test code = BA#) 0.02 K/mm3 0.0-0.1 N NUCLEATED RBC # (test code = 0.00 K/mm3 0.0-0.05 N NRBC#) POCT URINALYSIS W/O SPECIFIC [id number] 20:02:00 Test Item Value Reference Range Interpretation Comments POCT PH U (test code = 3254) n/a 5-8 POCT U LEUK EST (test code = 3263) n/a Negative - Negative POCT U NIT (test code = 3262) n/a Negative - Negative POCT U PROT (test code = 3259) neg Negative - Negative POCT U GLU (test code = 3256) neg Negative - Negative POCT U KETONE (test code = 3258) n/a Negative - Negative POCT U BLD (test code = 3257) n/a Negative - Negative [facility] URINALYSIS W/O SPECIFIC [id number] 20:17:00 Test Item Value Reference Range Interpretation Comments POCT PH U (test code = 3254) n/a 5-8 POCT U LEUK EST (test code = 3263) n/a Negative - Negative POCT U NIT (test code = 3262) n/a Negative - Negative POCT U PROT (test code = 3259) neg Negative - Negative POCT U GLU (test code = 3256) neg Negative - Negative POCT U KETONE (test code = 3258) n/a Negative - Negative POCT U BLD (test code = 3257) n/a Negative - Negative Lab Interpretation (test code = Normal 48725-1) [facility] URINALYSIS W/O SPECIFIC [id number] 20:17:00 Test Item Value Reference Range Interpretation Comments POCT PH U (test code = 3254) n/a 5-8 POCT U LEUK EST (test code = 3263) n/a Negative - Negative POCT U NIT (test code = 3262) n/a Negative - Negative POCT U PROT (test code = 3259) neg Negative - Negative POCT U GLU (test code = 3256) neg Negative - Negative POCT U KETONE (test code = 3258) n/a Negative - Negative POCT U BLD (test code = 3257) n/a Negative - Negative Lab Interpretation (test code = Normal 01215-8) General acute hospital WITH [id number] 19:47:33 Test Item Value Reference Range Interpretation Comments WBC (test code = See_Comment [Automated 6690-2) message] The sy stem which generated this result transmitted reference range : 4.30 - 11.10 10*3/?L. The reference range was not used to interpret this result as normal/abnormal . RBC (test code = See_Comment L [Automated 789-8) message] The sy stem which generated this result transmitted reference range : 3.93 - 5.25 10*6/?L. The reference range was not used to interpret this result as normal/abnormal . HGB (test code = 12.3 g/dL 11.6-15.0 718-7) HCT (test code = 33.9 % 35.7-45.2 L 4544-3) MCV (test code = 87.4 fL 80.6-95.5 787-2) MCH (test code = 31.7 pg 25.9-32.8 785-6) MCHC (test code = 36.3 g/dL 31.6-35.1 H 786-4) RDW-SD (test code = 38.4 fL 39.0-49.9 L 72395-3) RDW-CV (test code = 12.1 % 12.0-15.5 788-0) PLT (test code = See_Comment [Automated 777-3) message] The sy stem which generated this result transmitted reference range : 166 - 358 10*3/ ?L. The reference r becca was not used to interpret this result as normal/abnormal . MPV (test code = 11.9 fL 9.5-12.9 03373-0) NRBC/100 WBC (test See_Comment [Automat ed code = 0871574693) message] The system which generated this result transmitted reference range : 0.0 - 10.0 /100 WBCs. The refer ence range was not u sed to interpret th is result as normal/abnormal . NRBC x10^3 (test code <0.01 See_Comment [Auto mated = 9100378487) message] The s ystem which generated this result transmitted reference range : 10*3/?L. The reference range was not used to interpret this result as normal/abnormal . GRAN MAT (NEUT) % 50.1 % (test code = 770-8) IMM GRAN % (test code 0.40 % = 7363074735) LYMPH % (test code = 38.2 % 736-9) MONO % (test code = 7.8 % 5905-5) EOS % (test code = 2.9 % 713-8) BASO % (test code = 0.6 % 706-2) GRAN MAT x10^3(ANC) 2.62 10*3/uL 1.88-7.09 (test code = [id number]) IMM GRAN x10^3 (test <0.03 0.00-0.06 code = [id number]) LYMPH x10^3 (test code 2.00 10*3/uL 1.32-3.29 = 731-0) MONO x10^3 (test code 0.41 10*3/uL 0.33-0.92 = 742-7) EOS x10^3 (test code = 0.15 10*3/uL 0.03-0.39 711-2) BASO x10^3 (test code 0.03 10*3/uL 0.01-0.07 = 704-7) Lab Interpretation Abnormal (test code = 19854-6) [facility] [facility] [id number] 16:00:00 Test Item Value Reference Range Interpretation Comments POCT PREG (test code Positive = 1605) On board controls Yes acceptable with C Line (test code = 3574) POCT PREG LOT # (test code = 3575) POCT PREG TEST DATE (test code = 357) KAMILLE (test code = KAMILLE) accurate development and interpretation of all internal controls [facility] URINALYSIS W/O SPECIFIC [id number] 15:59:00 Test Item Value Reference Range Interpretation Comments POCT PH U (test code = 3254) 5 mg/dl 5-8 POCT U LEUK EST (test code = NEG Negative - Negative 3263) POCT U NIT (test code = 3262) NEG Negative - Negative POCT U PROT (test code = 3259) NEG Negative - Negative POCT U GLU (test code = 3256) NEG Negative - Negative POCT U KETONE (test code = 3258) NEG Negative - Negative POCT U BLD (test code = 3257) NEG Negative - Negative [facility] URINALYSIS W/O SPECIFIC [id number] 16:40:00 Test Item Value Reference Range Interpretation Comments POCT PH U (test code = 3254) n/a 5-8 POCT U LEUK EST (test code = 3263) n/a Negative - Negative POCT U NIT (test code = 3262) n/a Negative - Negative POCT U PROT (test code = 3259) neg Negative - Negative POCT U GLU (test code = 3256) neg Negative - Negative POCT U KETONE (test code = 3258) n/a Negative - Negative POCT U BLD (test code = 3257) n/a Negative - Negative Lab Interpretation (test code = Normal 41468-7) [facility] URINALYSIS W/O SPECIFIC [id number] 20:12:00 Test Item Value Reference Range Interpretation Comments POCT PH U (test code = 3254) n/a 5-8 POCT U LEUK EST (test code = 3263) n/a Negative - Negative POCT U NIT (test code = 3262) n/a Negative - Negative POCT U PROT (test code = 3259) neg Negative - Negative POCT U GLU (test code = 3256) neg Negative - Negative POCT U KETONE (test code = 3258) n/a Negative - Negative POCT U BLD (test code = 3257) n/a Negative - Negative Lab Interpretation (test code = Normal 33966-2) [facility] URINALYSIS W/O SPECIFIC [id number] 20:12:00 Test Item Value Reference Range Interpretation Comments POCT PH U (test code = 3254) n/a 5-8 POCT U LEUK EST (test code = 3263) n/a Negative - Negative POCT U NIT (test code = 3262) n/a Negative - Negative POCT U PROT (test code = 3259) neg Negative - Negative POCT U GLU (test code = 3256) neg Negative - Negative POCT U KETONE (test code = 3258) n/a Negative - Negative POCT U BLD (test code = 3257) n/a Negative - Negative Lab Interpretation (test code = Normal 71754-6) [facility] [id number] 20:34:00 Test Item Value Reference Range Interpretation Comments POCT PH U (test code = 3254) n/a 5-8 POCT U LEUK EST (test code = 3263) n/a Negative - Negative POCT U NIT (test code = 3262) n/a Negative - Negative POCT U PROT (test code = 3259) neg Negative - Negative POCT U GLU (test code = 3256) Negative - Negative POCT U KETONE (test code = 3258) n/a Negative - Negative POCT U BLD (test code = 3257) n/a Negative - Negative Lab Interpretation (test code = Normal 68566-4) [facility] WITH [id number] 19:51:00 Test Item Value Reference Range Interpretation Comments WBC (test code = See_Comment [Automated 3890-2) message] The sy stem which generated this result transmitted reference range : 4.30 - 11.10 10*3/?L. The reference range was not used to interpret this result as normal/abnormal . RBC (test code = See_Comment L [Automated 227-8) message] The sy stem which generated this result transmitted reference range : 3.93 - 5.25 10*6/?L. The reference range was not used to interpret this result as normal/abnormal . HGB (test code = 12.0 g/dL 11.6-15 718-7) HCT (test code = 33.7 % 35.7-45.2 L 4544-3) MCV (test code = 90.8 fL 80.6-95.5 787-2) MCH (test code = 32.3 pg 25.9-32.8 785-6) MCHC (test code = 35.6 g/dL 31.6-35.1 H 786-4) RDW-SD (test code = 41.4 fL 39-49.9 79875-0) RDW-CV (test code = 12.9 % 12-15.5 788-0) PLT (test code = See_Comment [Automated 777-3) message] The sy stem which generated this result transmitted reference range : 166 - 358 10*3/ ?L. The reference r becca was not used to interpret this result as normal/abnormal . MPV (test code = 11.3 fL 9.5-12.9 59360-9) NRBC/100 WBC (test See_Comment [Automat ed code = 1665796570) message] The system which generated this result transmitted reference range : 0.0 - 10.0 /100 WBCs. The refer ence range was not u sed to interpret th is result as normal/abnormal . NRBC x10^3 (test code <0.01 See_Comment [Auto mated = 9792368125) message] The s ystem which generated this result transmitted reference range : 10*3/?L. The reference range was not used to interpret this result as normal/abnormal . GRAN MAT (NEUT) % 64.7 % (test code = 770-8) IMM GRAN % (test code 1.00 % = 0183986628) LYMPH % (test code = 23.0 % 736-9) MONO % (test code = 9.0 % 5905-5) EOS % (test code = 2.0 % 713-8) BASO % (test code = 0.3 % 706-2) GRAN MAT x10^3(ANC) 6.63 10*3/uL 1.88-7.09 (test code = 1969276846) IMM GRAN x10^3 (test 0.10 10*3/uL 0-0.06 H code = 5148981531) LYMPH x10^3 (test code 2.36 10*3/uL 1.32-3.29 = 731-0) MONO x10^3 (test code 0.92 10*3/uL 0.33-0.92 = 742-7) EOS x10^3 (test code = 0.20 10*3/uL 0.03-0.39 711-2) BASO x10^3 (test code 0.03 10*3/uL 0.01-0.07 = 704-7) Lab Interpretation Abnormal (test code = 75151-1) [facility] URINALYSIS W/O SPECIFIC [id number] 21:07:00 Test Item Value Reference Range Interpretation Comments POCT PH U (test code = 3254) n/a 5-8 POCT U LEUK EST (test code = 3263) n/a Negative - Negative POCT U NIT (test code = 3262) n/a Negative - Negative POCT U PROT (test code = 3259) neg Negative - Negative POCT U GLU (test code = 3256) neg Negative - Negative POCT U KETONE (test code = 3258) n/a Negative - Negative POCT U BLD (test code = 3257) n/a Negative - Negative Lab Interpretation (test code = Normal 30178-1) [facility] URINALYSIS W/O SPECIFIC [id number] 21:07:00 Test Item Value Reference Range Interpretation Comments POCT PH U (test code = 3254) n/a 5-8 POCT U LEUK EST (test code = 3263) n/a Negative - Negative POCT U NIT (test code = 3262) n/a Negative - Negative POCT U PROT (test code = 3259) neg Negative - Negative POCT U GLU (test code = 3256) neg Negative - Negative POCT U KETONE (test code = 3258) n/a Negative - Negative POCT U BLD (test code = 3257) n/a Negative - Negative Lab Interpretation (test code = Normal 90516-0) [facility] / [facility] - DRUG SCREEN [id number] 00:31:00 Test Item Value Reference Range Interpretation Comments BENZO U (test code = Negative Negative 1943887335) SUDHIR U (test code = Negative Negative 3274638952) AMPHET (test code = Negative Negative 1087484488) THC (test code = Negative Negative 8782496278) METHADONE (test code = Negative Negative 6158378122) Meth U (test code = Negative Negative 0838574735) OPIATES (test code = Negative Negative 5302862873) Cocaine Metabolite (test Negative Negative code = 7575635019) PROPOXY (test code = Negative Negative 2602884943) Tric U (test code = Negative Negative 8953780233) PCP (test code = Negative Negative 9450986502) OXYCOD (test code = Negative Negative 0403816636) KAMILLE (test code = KAMILLE) Urine Drug Cutoff Ranges Benzodiazepines: ? ? 150 ng/mLBarbiturates: ?200 ng/mLAmphetamine: ? 500 ng/mLCannabinoids: ?50 ?ng/mLMethadone: ? 200 ng/mLMethamphetamine: ? ? 500 ng/mL Opiates: ? 100 ng/mL or 2000 ng/mLCocaine: ? 150 ng/mLPropoxyphene: ?300 ng/mLTricyclics: ?300 ng/mLOxycodone: ? 100 ng/mLPCP: ? 25 ?ng/mL The results are to be used only for medical (i.e., treatment) purposes. Unconfirmed screening results must not be used for non-medical purposes (e.g., employment testing, legal testing). Lab Interpretation (test Normal code = 68232-6) [facility] SPECIFIC [id number] 22:07:00 Test Item Value Reference Range Interpretation Comments POCT PH U (test code = 3254) N/A 5-8 POCT U LEUK EST (test code = N/A Negative - Negative 3263) POCT U NIT (test code = 3262) N/A Negative - Negative POCT U PROT (test code = 3259) Negative Negative - Negative POCT U GLU (test code = 3256) Negative Negative - Negative POCT U KETONE (test code = 3258) N/A Negative - Negative POCT U BLD (test code = 3257) N/A Negative - Negative [facility] - [id number] 01:32:00 Test Item Value Reference Range Interpretation Comments RPR (Qualitative) (test code = Nonreactive Nonreactive 88044-6) Lab Interpretation (test code = Normal 93002-9) [facility]-AB WITH [id number] 23:28:00 Test Item Value Reference Range Interpretation Comments HIV Negative Negative Semi-quantitative (test code = 48347-2) KAMILLE (test code = Non-reactive for HIV-1 KAMILLE) antigen and HIV-1/HIV-2 antibodies. ?No laboratory evidence of HIV infection. ?Repeat in 2-4 weeks if acute HIV infection is suspected. [facility] [id number] 22:48:00 Test Item Value Reference Range Interpretation Comments GLUC 1 HR (test code = 7077876424) 105 mg/dL 120-170 L Lab Interpretation (test code = Abnormal 72856-8) [facility] WORK[facility], BLOOD [id number] 22:47:10 Test Item Value Reference Range Interpretation Comments ABO & RH (test code A Positive Performe d at [facility] = 20) Laboratory Serv [facility] [address] [place], [place] [id number] Free: [phone] A No. [id number] IAT (test code = Negative Performed a t [facility] 1185) Laboratory Serv [facility] [address] [place], [place] [id number] Free: [phone] A No. [id number] [facility] TylerCBC WITH [id number] 21:58:00 Test Item Value Reference Range Interpretation Comments WBC (test code = See_Comment [Automated 5411-2) message] The sy stem which generated this result transmitted reference range : 4.30 - 11.10 10*3/?L. The reference range was not used to interpret this result as normal/abnormal . RBC (test code = See_Comment L [Automated 899-8) message] The sy stem which generated this result transmitted reference range : 3.93 - 5.25 10*6/?L. The reference range was not used to interpret this result as normal/abnormal . HGB (test code = 12.3 g/dL 11.6-15 718-7) HCT (test code = 34.4 % 35.7-45.2 L 4544-3) MCV (test code = 93.0 fL 80.6-95.5 787-2) MCH (test code = 33.2 pg 25.9-32.8 H 785-6) MCHC (test code = 35.8 g/dL 31.6-35.1 H 786-4) RDW-SD (test code = 42.3 fL 39-49.9 82607-1) RDW-CV (test code = 12.5 % 12-15.5 788-0) PLT (test code = See_Comment L [Automated 777-3) message] The sy stem which generated this result transmitted reference range : 166 - 358 10*3/ ?L. The reference r becca was not used to interpret this result as normal/abnormal . MPV (test code = 12.2 fL 9.5-12.9 37829-4) NRBC/100 WBC (test See_Comment [Automat ed code = 0593705880) message] The system which generated this result transmitted reference range : 0.0 - 10.0 /100 WBCs. The refer ence range was not u sed to interpret th is result as normal/abnormal . NRBC x10^3 (test code <0.01 See_Comment [Auto mated = 4745352789) message] The s ystem which generated this result transmitted reference range : 10*3/?L. The reference range was not used to interpret this result as normal/abnormal . GRAN MAT (NEUT) % 63.4 % (test code = 770-8) IMM GRAN % (test code 1.30 % = 1860924685) LYMPH % (test code = 25.0 % 736-9) MONO % (test code = 7.7 % 5905-5) EOS % (test code = 2.3 % 713-8) BASO % (test code = 0.3 % 706-2) GRAN MAT x10^3(ANC) 6.55 10*3/uL 1.88-7.09 (test code = 5143990359) IMM GRAN x10^3 (test 0.13 10*3/uL 0-0.06 H code = 7820479141) LYMPH x10^3 (test code 2.59 10*3/uL 1.32-3.29 = 731-0) MONO x10^3 (test code 0.80 10*3/uL 0.33-0.92 = 742-7) EOS x10^3 (test code = 0.24 10*3/uL 0.03-0.39 711-2) BASO x10^3 (test code 0.03 10*3/uL 0.01-0.07 = 704-7) Lab Interpretation Abnormal (test code = 64870-1) [facility] Notes Date/Time Note Provider Source 2021-01-01 12:15:00-00:00 [facility] ([facility]) DT Operative Note REPORT#:[id number] REPORT STATUS: Signed DATE:01/01/21 TIME: 1215 PATIENT: MITCH GONZALEZ UNIT #: [id number] ROOM/BED: [address] : 95 AGE: 25 SEX: F ATTEND: Ish Marino MD ADM AUTHOR: Silas Marino MD * ALL edits or amendments must be made on the [employer]/computer document * Operative Report Operative Note Note: Date of service: 12/30/2020 Preoperative diagnosis: 39 weeks intrauterine gestation No care Prior declined trial labor Postoperative diagnosis: Same Procedure: Repeat low transverse section. Surgeon: Jean Pierre ESPANA. Business Technology Teacher: None. Operative findings: Peralta live fetus normal uterus tubes and ova umu Apgars per NICU Anesthesia was spinal. Estimated blood loss: 600 cc. Fluids Per anesthesia. Quiroga catheter to gravity. Complications: None. Specimens removed placenta. Narrative: Patient taken operating spina l anesthesia was found to be adequate. Pfannenstiel skin incision was made carried down to the underlying fascia sharply a scalpel. Fascia was nicked in midline. Fascial excision was extended laterally pickups and curved Arevalo scissors. The rectus muscles were midline. The r ight the peritoneum was identified tented up and entered sharply Metzenb ausiena scissors the incision was extended superiorly and inferiorly good visualiz ation of bowel and bladder content. Bladder blade was placed. The vesicoperitoneum w as identified tented up and entered sharply Metzenbaum scissors the incision was extended laterally and bladder flap was created digitally. Blad aquilino blade was replaced. Low transverse hysterotomy was made without difficulty and exte nded digitally. Amniotomy was performed with a scalpel demonstrate clear fluid . Senior Attorney's right hand was inserted into the uter ine cavity and the head was delivered with mild fundal pressure without difficulty. Nares and mouth were bulb suctioned on maternal abdomen. Remaind er the infant was delivered with mild fundal pressure without difficulty. Na res and mouth were bulb suctioned again on maternal abdomen. The infant' s umbilical cord was then clamped cut and infant was handed off to waiting pediatric staff. The placenta was delivered manually. The uterus is exteriorized and cleared of all clots. Uterine incision was closed with a running locking suture #1 chromic with excellent hemostasis was noted. The cul-de- sac was irrigated copious amounts of normal saline and evacuated. The uterus was returned to the abdomen. Uterine incision was reinspected not have excellent hemostasis. Paracolic gut ters were inspected and cleared of all clots. Sponge lap needle count correct x1. Peritoneum was closed with 2-0 PDS. Sponge lap and needle count correct x2. The fascia was closed with #1 Vicryl. The subcu was closed with 3 000 plain. Sponge lap and needle count correct x3. The skin was closed with subcuticular kylee an d Dermabond. Patient was taken recovery room in stable condit ion. There are no complications. Jean Pierre Marino MD Sponge lap needle count correct x3. at 1217 RPT #:[id number] END OF REPORT 2021-01-01 08:41:00-00:00 [facility] ([facility]) OB Disch REPORT#:[id number] REPORT STATUS: Signed DATE:01/01/21 TIME: 08 PATIENT: MITCH GONZALEZ UNIT #: [id number] ROOM/BED: [address] : 95 AGE: 25 SEX: F ATTEND: Ish Marino MD ADM AUTHOR: Alanna Espinoza CNM * ALL edits or amendments must be made on the el [employer]/computer document * Subjective Subjective Admission EGA: Weeks: 39 Days: 4 EGA at delivery (wks/days): 39.4 Status/day: post operative (day 2) Patient reports: Patient reports: Yes: normal lochia, pain management effective, tolerating po well, voiding well, voiding without pain, tolerating ambulatio n, flatus. No: complaints, bowel movement, nausea, vomiting, excess elder bleeding, abdominal pain, perineal pain, difficulty nursing, headache, blurred visi on. Objective General VS: Vital Signs Date Temp Pulse Resp B/P B/P Mean Pulse Ox FiO2 12/31-01/01 97.9-99.1 87-120 18-20 101-133/66-83 77.9-100.0 95-98 Last Documented: Result Date Time Pulse Ox 98 01/01 0759 B/P 117/70 01/01 0759 B/P Mean 85.9 01/01 0759 O2 Delivery Room air 01/01 759 Temp 97.9 01/01 759 Pulse 87 01/01 075 Resp 18 01/01 759 PATIENT WEIGHT: Weight (lb): 286 Weight (oz): Weight (kg): 129.727 Physical Exam Breasts: Breasts: normal Feeding: breast Nursing: well Lungs: unlabored breathing Neuro: Exam: alert, oriented x3, normal speech, normal gait Abdomen: post gravid, soft Incision site: well approximated edges, kylee intact, dressing clean dry, dry, no drainage, no inflammation Uterus: involution appropriate, non-tender Fundus: firm, below the umbilicus Lochia: normal Results Findings/Data: Laboratory Tests: 12/31 12/30 12/30 0515 1310 1310 Blood Gas Puncture Site (DESCRIPTION Site) Venous Arteria l Cord ABG pH (7.18 - 7.38 pH units) 7.21 Cord ABG pCO2 (32 - 66 mmHg) 74 H Cord ABG pO2 (6 - 30 mmHg) < 10 Cord ABG HCO3 (17 - 27 mmol/L) 29.3 H Cord ABG Base Excess (-10 - -2 mmol/L) 1.4 H Cord ABG O2 Sat (72 - 77 % (calc)) < 4 L Cord VBG pH (7.25 - 7.45 pH units) 7.27 Cord VBG pCO2 (27 - 49 mmHg) 64 H Cord VBG pO2 (17 - 41 mmHg) 10 L Cord VBG HCO3 (12 - 28 mmol/L) 29.4 H Cord VBG Base Excess (-10 - -2 mmol/L) 2.5 H Cord VBG O2 Sat (72 - 77 % (calc)) 11 L Hematology WBC (4.1 - 12.1 K/mm3) 9.5 RBC (3.8 - 5.5 M/mm3) 3.14 L Hgb (10.6 - 15.8 G/DL) 9.9 L Hct (31.8 - 47.4 %) 28.6 L MCV (80.1 - 101.1 fL) 91.1 MCH (25.3 - 35.3 pg) 31.5 MCHC (32.7 - 35.1 G/DL) 34.6 RDW (12.2 - 16.4 %) 13.0 Plt Count (155 - 337 K/mm3) 106 L MPV (6.8 - 11.2 fL) 12.8 H Gran % (37.8 - 82.6 %) 66.9 Lymph % (Auto) (14.1 - 45.4 %) 22.7 Boundary % (Auto) (2.5 - 11.7 %) 8.4 Eos % (Auto) (0.0 - 6.2 %) 1.1 Baso % (Auto) (0.0 - 2.1 %) 0.3 Gran # (2.0 - 13.7 k/mm3) 6.36 Lymph # (Auto) (0.6 - 3.8 K/mm3) 2.16 Boundary # (Auto) (0.11 - 0.59 K/mm3) 0.80 H Eos # (Auto) (0.0 - 0.4 K/mm3) 0.10 Baso # (Auto) (0.0 - 0.1 K/mm3) 0.03 Immature Gran % (0.0 - 2.0 %) 0.6 Nucleated RBC % (0.0 - 1.0 /100WBC%) 0.0 Nucleated RBCs # (0.0 - 0.05 K/mm3) 0.00 12/30 12/30 1146 1014 Hematology WBC (4.1 - 12.1 K/mm3) 9.7 RBC (3.8 - 5.5 M/mm3) 3.83 Hgb (10.6 - 15.8 G/DL) 12.0 Hct (31.8 - 47.4 %) 34.7 MCV (80.1 - 101.1 fL) 90.6 MCH (25.3 - 35.3 pg) 31.3 MCHC (32.7 - 35.1 G/DL) 34.6 RDW (12.2 - 16.4 %) 12.7 Plt Count (155 - 337 K/mm3) 141 L MPV (6.8 - 11.2 fL) 12.5 H Gran % (37.8 - 82.6 %) 69.4 Lymph % (Auto) (14.1 - 45.4 %) 22.1 Boundary % (Auto) (2.5 - 11.7 %) 6.7 Eos % (Auto) (0.0 - 6.2 %) 0.8 Baso % (Auto) (0.0 - 2.1 %) 0.2 Gran # (2.0 - 13.7 k/mm3) 6.70 Lymph # (Auto) (0.6 - 3.8 K/mm3) 2.14 Boundary # (Auto) (0.11 - 0.59 K/mm3) 0.65 H Eos # (Auto) (0.0 - 0.4 K/mm3) 0.08 Baso # (Auto) (0.0 - 0.1 K/mm3) 0.02 Immature Gran % (0.0 - 2.0 %) 0.8 Nucleated RBC % (0.0 - 1.0 /100WBC%) 0.0 Nucleated RBCs # (0.0 - 0.05 K/mm3) 0.00 Toxicology Urine Opiates Screen (<300 NG/ML SCcutoff) NONE DETECTED (NEG) Urine Barbiturates (<200 NG/ML SCcutoff) NONE D ETECTED (NEG) Ur Phencyclidine Scrn (<25 NG/ML SCcutoff) NONE DETECTED (NEG) Ur Amphetamines Screen (<1000 NG/ML SCcutoff) N ONE DETECTED (NEG) U Benzodiazepines Scrn (<200 NG/ML SCcutoff) NO NE DETECTED (NEG) Urine Cocaine Screen (<300 NG/ML SCcutoff) NON E DETECTED (NEG) Urine Cannabinoids (<50 NG/ML SCcutoff) NONE DE TECTED (NEG) 12/30 12/30 1013 1013 Serology T.pallidum Ab (FTA-ABS) (NonReactive Screen) No nReactive Hep Bs Antigen (Nonreactive SCREEN) NEG-NONREAC SARS-CoV-2 Ag (Rapid) (Neg) Negative 12/30 1013 Serology HIV 1 2 Antibody (NR SREEN) NonReactive Results: no new labs, labs reviewed, vital signs stable Discharge Summary General Assessment: nml progress Date of admission: Date of admission: 12/30/20 Admission diagnosis: previous uterine incision Hospital course: repeat admit, spinal anesthesia, nml postop/postpart care Procedures: spinal anesthesia, repeat CS deliver y Discharge condition: stable Discharge to: Home/Self Care Discharge diagnosis: full-term uncomp delivery Discharge management: greater than 30 mins Time spent: Time spent with patient (minutes): 15 >50% spent on counseling/coordination of care: yes Plan: routine care, discharge tomorro w Discharge Instructions Instructions: routine instr sheet given Diet: Res Diet Activity: Resume Normal Activity Additional discharge routines: Attending Follow- Up Contraception discussed: abstinence for 4-6 week s, will discuss at PP visit Discharge meds: Continue taking these medications: [SEIZURE MEDICATION] Unknown Dose Instructions: PT STATES TAKES SEIZURE MED, UNKNOWN OF NAME Start taking the following new medications: HYDROcodone/APAP (NORCO 5/325) 1 TAB TAB 1 TABLET ORAL EVERY SIX HOURS NEEDED as need ed for PAIN SCALE OF 2 TO 7 Qty = 28 No Refills IBUPROFEN (MOTRIN) 800 MG TAB 800 MILLIGRAM ORAL EVERY 8 HOURS. Qty = 60 No Refills Prescriptions: e-prescribe Add'l Follow-up Appointments Attending Physician: Attending Physician: Silas Marino MD Attending physician follow up timeframe: In 2-3 weeks Electronically Signed by Alanna Espinoza CNM on 12/20 05/09 at 0844 at 1717 RPT #:[id number] END OF REPORT 2020-12-31 12:15:00-00:00 [facility] OB Postpart Progr Note REPORT#:[id number] REPORT STATUS: Signed DATE:12/31/20 TIME: 1215 PATIENT: MITCH GONZALEZ UNIT #: [id number] ROOM/BED: [address] : 95 AGE: 25 SEX: F ATTEND: Ralf Marino MD ADM AUTHOR: Alanna Espinoza CNM * ALL edits or amendments must be made on the el [employer]/computer document * Subjective Subjective Admission EGA: Weeks: 39 Days: 4 EGA at delivery (wks/days): 39.4 Status/Day: post operative (day 1) Patient reports: Patient reports: Yes normal lochia, Yes pain management effective, Yes tolerating po well, Yes voiding well, Yes voiding without pain, Yes tolerating ambulation, Yes flatus, No no complaints, No bowel movement, No nausea, No vomiting, No excessive bleeding, No abdominal pain, No perineal pain, N o difficulty nursing, No headache, No blurred vision Objective Nursing Documentation Review Nursing Data: The data set between the solid lines has been im ported from nursing documentation. Any exceptions have been noted be low under Provider comments. Feeding preference: Post hemorrhage risk score: Medium Risk f or Hemorrhage. Provider comments on imported nursing data: [] General VS: Vital Signs: Date Time Temp Pulse Resp B/P B/P Pulse O2 O2 F low FiO2 Mean Ox Delivery Rate 12/31 0847 98.6 87 18 101/66 77.9 95 12/31 0409 98.1 72 20 125/82 96.4 97 Room air 12/30 2348 98.2 83 18 115/77 89.4 96 Room air 12/30 2238 101 108/68 81.5 12/30 2237 66 117/71 86.7 97 12/30 1945 98.1 84 18 112/77 88.9 97 Room air 12/30 1651 101 100 12/30 1646 100 99 12/30 1645 102.0 12/30 1645 95 136/79 12/30 1641 95 97 12/30 1636 94 97 12/30 1631 90 97 12/30 1630 94.0 12/30 1630 82 130/70 12/30 1626 91 96 12/30 1621 86 97 12/30 1616 94 97 12/30 1615 91.0 12/30 1615 88 128/64 12/30 1611 89 98 12/30 1606 88 98 12/30 1601 89.0 12/30 1601 87 127/62 98 12/30 1556 85 98 12/30 1551 82 99 12/30 1546 95 98 12/30 1541 89 98 12/30 1536 83 97 12/30 1531 76.0 12/30 1531 79 109/58 97 12/30 1526 79 97 12/30 1521 87 98 12/30 1516 85 98 12/30 1515 91.0 12/30 1515 83 133/63 12/30 1511 86 100 12/30 1506 79 97 12/30 1501 91.0 12/30 1501 87 134/58 99 12/30 1456 81 98 12/30 1451 91 98 12/30 1446 102.0 12/30 1446 87 139/80 98 12/30 1441 86 100 12/30 1436 88 99 12/30 1431 104.0 12/30 1431 87 131/85 100 12/30 1426 96 98 12/30 1421 92 99 12/30 1416 86.0 12/30 1416 89 106/69 100 12/30 1411 86 100 12/30 1406 92 99 12/30 1401 98.0 12/30 1401 85 117/84 99 12/30 1356 92 98 12/30 1351 89 97 12/30 1346 95.0 12/30 1346 90 120/79 99 12/30 1341 93 100 12/30 1336 95 99 12/30 1331 94 99 12/30 1329 100.0 12/30 1329 93 126/84 12/30 1326 101.0 12/30 1326 94 126/85 100 12/30 1323 94.0 12/30 1323 93 126/75 12/30 1321 99 100 12/30 1320 99.0 12/30 1320 100 130/82 12/30 1316 106 99 12/30 1312 105.0 12/30 1312 105 135/83 12/30 1311 87 98 PATIENT WEIGHT: Weight (lb): 286 Weight (oz): Weight (kg): 129.727 Physical Exam Breasts: Breasts: soft Nipples: intact Feeding: breast Nursing: well Lungs: no unlabored breathing Neuro: Exam: alert, oriented x3, normal speech, normal gait Abdomen: soft, no abnormal tenderness Incision site: no drainage Uterus: firm, involution appropriate Fundus: firm, below the umbilicus Lochia: normal Lower extremities: Edema: none Result Findings/Data: Laboratory Tests: 12/31 12/30 12/30 0515 1310 1310 Blood Gas Puncture Site (DESCRIPTION Site) Venous Arteria l Cord ABG pH (7.18 - 7.38 pH units) 7.21 Cord ABG pCO2 (32 - 66 mmHg) 74 H Cord ABG pO2 (6 - 30 mmHg) < 10 Cord ABG HCO3 (17 - 27 mmol/L) 29.3 H Cord ABG Base Excess (-10 - -2 mmol/L) 1.4 H Cord ABG O2 Sat (72 - 77 % (calc)) < 4 L Cord VBG pH (7.25 - 7.45 pH units) 7.27 Cord VBG pCO2 (27 - 49 mmHg) 64 H Cord VBG pO2 (17 - 41 mmHg) 10 L Cord VBG HCO3 (12 - 28 mmol/L) 29.4 H Cord VBG Base Excess (-10 - -2 mmol/L) 2.5 H Cord VBG O2 Sat (72 - 77 % (calc)) 11 L Hematology WBC (4.1 - 12.1 K/mm3) 9.5 RBC (3.8 - 5.5 M/mm3) 3.14 L Hgb (10.6 - 15.8 G/DL) 9.9 L Hct (31.8 - 47.4 %) 28.6 L MCV (80.1 - 101.1 fL) 91.1 MCH (25.3 - 35.3 pg) 31.5 MCHC (32.7 - 35.1 G/DL) 34.6 RDW (12.2 - 16.4 %) 13.0 Plt Count (155 - 337 K/mm3) 106 L MPV (6.8 - 11.2 fL) 12.8 H Gran % (37.8 - 82.6 %) 66.9 Lymph % (Auto) (14.1 - 45.4 %) 22.7 Boundary % (Auto) (2.5 - 11.7 %) 8.4 Eos % (Auto) (0.0 - 6.2 %) 1.1 Baso % (Auto) (0.0 - 2.1 %) 0.3 Gran # (2.0 - 13.7 k/mm3) 6.36 Lymph # (Auto) (0.6 - 3.8 K/mm3) 2.16 Boundary # (Auto) (0.11 - 0.59 K/mm3) 0.80 H Eos # (Auto) (0.0 - 0.4 K/mm3) 0.10 Baso # (Auto) (0.0 - 0.1 K/mm3) 0.03 Immature Gran % (0.0 - 2.0 %) 0.6 Nucleated RBC % (0.0 - 1.0 /100WBC%) 0.0 Nucleated RBCs # (0.0 - 0.05 K/mm3) 0.00 Results: no new labs, labs reviewed, vitl signs stable Diagnosis, Assessment Plan Diagnosis, Assessment Plan Assessment: nml progress Plan: routine care, discharge tomorro w Plan discussed with: patient Electronically Signed by Alanna Espinoza CNM on 12/20 04/11 at 1217 RPT #[id number] END OF REPORT
--- NOTE | 2022-07-14 16:49 | EDPHYS ---
Physician Documentation [facility] Name: Chetna Amador Age: 26 yrs Sex: Female : 1995 Arrival Date: 07/14/2022 Time: 16:01 Bed DIS4 Private MD: ED Physician Lucio Mendez HPI: 07/14 16:42 This 26 yrs old Female presents to ER via Unassigned with complaints of Lip cp Injury. 16:42 The patient presents with redness, swelling. The problem is located in the right upper cp lip. Onset: The symptoms/episode began/occurred 2 day(s) ago. Associated signs and symptoms: Pertinent positives: pain, Pertinent negatives: chills, fever. Severity of symptoms: in the emergency department the symptoms are unchanged, despite home interventions. 16:42 Patient is a 26-year-old female who presents to the emergency department with cp complaints of right side upper lip swelling, pain and redness for the past 2 days. Patient reports she was intubated for surgery when her lip was injured 2 days ago. Historical: - Allergies: 16:43 No Known Allergies; bp - Home Meds: 16:43 None [Active]; bp - PMHx: 16:43 Seizures; bp - PSHx: 16:43 section; Ligation of fallopian tube; bp - Immunization history:: Adult Immunizations up to date. - Social history:: Smoking status: Patient denies any tobacco usage or history of. ROS: 16:43 Constitutional: Negative for fever. cp 16:43 Skin: Positive for erythema, swelling, of the right upper lip. 16:43 All other systems are negative. Exam: 16:45 Constitutional: The patient appears in no acute distress, alert, awake, non-toxic, well cp developed, well nourished, obese. 16:45 Head/face: Noted is erythema, that is mild, swelling, that is mild, of the right upper lip, tenderness, that is mild. 16:45 Eyes: Periorbital structures: appear normal, Conjunctiva: normal, no exudate, no injection, Sclera: no appreciated abnormality, Lids and lashes: appear normal, bilaterally. 16:45 ENT: External ear(s): are unremarkable, Nose: is normal, Mouth: Oral mucosa: pink and intact, moist, Gums: normal with healthy appearance, Tongue: is normal, Posterior pharynx: Airway: no evidence of obstruction, patent. 16:45 Chest/axilla: Inspection: normal. 16:45 Cardiovascular: Rate: normal. 16:45 Respiratory: the patient does not display signs of respiratory distress, Respirations: normal, no use of accessory muscles, no retractions, labored breathing, is not present. Vital Signs: 16:42 BP 124 / 71; Pulse 67; Resp 16; Temp 97.3; Pulse Ox 100% ; Weight 123.83 kg; Height 5 bp ft. 5 in. ; 16:42 Body Mass Index 45.43 (123.83 kg, 165.1 cm) bp MDM: 16:48 Patient medically screened. cp 16:48 Differential diagnosis: cellulitis, abscess, herpes. cp 16:48 Data reviewed: vital signs, nurses notes. Counseling: I had a detailed discussion with cp the patient and/or guardian regarding: the historical points, exam findings, and any diagnostic results supporting the discharge/admit diagnosis, to return to the emergency department if symptoms worsen or persist or if there are any questions or concerns that arise at home. Administered Medications: No medications were administered Disposition: 17:17 Co-signature as Attending Physician, Lucio Mendez MD I reviewed the patient's care rn provided by the Advanced Practice Provider and agree with the diagnosis and treatment plan. Disposition Summary: 07/14/22 16:48 Discharge Ordered Location: Home cp Problem: new cp Symptoms: have improved cp Condition: Stable cp Diagnosis - Local infection of the skin and subcutaneous tissue, unspecified - right upper lip cp Followup: cp - With: Private Physician - When: 2 - 3 days - Reason: Worsening of condition Discharge Instructions: - Discharge Summary Sheet cp - Wound Infection, [id number] cp Forms: - Medication Reconciliation Form cp - Thank You Letter cp - Antibiotic Education cp - Prescription Opioid Use cp Prescriptions: - Cephalexin 500 mg Oral Capsule - take 1 capsule by ORAL route every 8 hours for 10 days; 30 capsule; Refills: 0, cp Product Selection Permitted Signatures: Lucio Mendez MD MD rn Page, Corey, PA PA cp Peltier, Brian, RN RN bp
--- NOTE | 2022-07-14 16:49 | ER ---
Nurse's Notes [facility] Name: Chetna Amador Age: 26 yrs Sex: Female : 1995 Arrival Date: 07/14/2022 Time: 16:01 Bed DIS4 Private MD: Diagnosis: Local infection of the skin and subcutaneous tissue, unspecified-right upper lip Presentation: 07/14 16:42 Chief complaint: Patient states: UPPER LIP LAC 2/2 SURGICAL INTUBATION 07/12. bp Coronavirus screen: At this time, the client does not indicate any symptoms associated with coronavirus-19. Ebola Screen: No symptoms or risks identified at this time. Initial Sepsis Screen: Does the patient meet any 2 criteria? No. Patient's initial sepsis screen is negative. Does the patient have a suspected source of infection? No. Patient's initial sepsis screen is negative. Risk Assessment: Do you want to hurt yourself or someone else? Patient reports no desire to harm self or others. Onset of symptoms is unknown. 16:42 Method Of Arrival: Ambulatory bp 16:42 Acuity: SWAPNIL 5 bp Triage Assessment: 16:43 General: Appears in no apparent distress. comfortable, obese, Behavior is calm, bp cooperative, appropriate for age. Pain: Complains of pain in mouth. Injury Description: Laceration sustained to mouth. Historical: - Allergies: 16:43 No Known Allergies; bp - Home Meds: 16:43 None [Active]; bp - PMHx: 16:43 Seizures; bp - PSHx: 16:43 section; Ligation of fallopian tube; bp - Immunization history:: Adult Immunizations up to date. - Social history:: Smoking status: Patient denies any tobacco usage or history of. Screenin:52 [facility] ED Fall Risk Assessment (Adult) History of falling in the last 3 months, bp including since admission No falls in past 3 months (0 pts). Abuse screen: Denies threats or abuse. Denies injuries from another. Nutritional screening: No deficits noted. Tuberculosis screening: No symptoms or risk factors identified. Assessment: 16:44 General: SEE TRIAGE NOTE. bp 16:52 Reassessment: DC HOME AMBULATORY. bp Vital Signs: 16:42 BP 124 / 71; Pulse 67; Resp 16; Temp 97.3; Pulse Ox 100% ; Weight 123.83 kg; Height 5 bp ft. 5 in. ; 16:42 Body Mass Index 45.43 (123.83 kg, 165.1 cm) bp ED Course: 16:05 Patient arrived in ED. ts1 16:08 Nic Rushing PA is PHCP. cp 16:08 Lucio Mendez MD is Attending Physician. cp 16:43 Triage completed. bp 16:43 Arm band placed on. bp 16:52 Wilbert Rodríguez, RN is Primary Nurse. bp 16:52 Patient has correct armband on for positive identification. Call light in reach. bp 16:52 No provider procedures requiring assistance completed. Patient did not have IV access bp during this emergency room visit. Administered Medications: No medications were administered Medication: 16:52 VIS not applicable for this client. bp Outcome: 16:48 Discharge ordered by . cp 16:52 Discharged to home ambulatory. bp 16:52 Condition: stable 16:52 Discharge instructions given to patient, Instructed on discharge instructions, follow up and referral plans. medication usage, wound care, Demonstrated understanding of instructions, follow-up care, medications, wound care, Prescriptions given X 1. 16:53 Patient left the ED. bp Signatures: Nic Rushing PA PA cp Wilbert Rodríguez, RN RN bp Ana Hines PAS PAS ts1
[2022-07-14 17:01] VITALS: BP 124/71; TEMP 97.3; O2SAT 100
== END 2022-07-14 16:53 | disposition home or self-care (01) ==
LOC: ER 16:01
DX: L08.9 Local infection of the skin and subcutaneous tissue, unspecified (principal)
CPT/HCPCS: 99283

== ENCOUNTER 2022-12-21 20:15 | Emergency (ER) | payer OTHER ==
--- NOTE | 2022-12-21 20:24 | ER ---
Nurse's Notes [facility] Name: Chetna Amador Age: 27 yrs Sex: Female : 1995 Arrival Date: 12/21/2022 Time: 20:15 Bed IW1 Private MD: Diagnosis: Other otitis externa, left ear Presentation: 12/21 20:21 Chief complaint: Patient states: left ear pain X2 days. Coronavirus screen: Vaccine cm10 status: Patient reports being unvaccinated. Client denies travel out of the [place] in the last 14 days. Ebola Screen: Patient denies travel to an Ebola-affected area in the 21 days before illness onset. No symptoms or risks identified at this time. Initial Sepsis Screen: Does the patient meet any 2 criteria? No. Patient's initial sepsis screen is negative. Does the patient have a suspected source of infection? No. Patient's initial sepsis screen is negative. Risk Assessment: Do you want to hurt yourself or someone else? Patient reports no desire to harm self or others. Onset of symptoms was December 21, 2022. 20:21 Method Of Arrival: Ambulatory cm10 20:21 Acuity: SWAPNIL 4 cm10 Triage Assessment: 20:22 General: Appears in no apparent distress. comfortable, Behavior is calm, cooperative. cm10 Pain: Complains of pain in left ear. EENT: Reports pain in left ear. Historical: - Allergies: 20:22 No Known Allergies; cm10 - PMHx: 20:22 Seizures; cm10 - PSHx: 20:22 section; Ligation of fallopian tube; cm10 - Immunization history:: Adult Immunizations unknown. - Social history:: Smoking status: Reported history of juuling and/or vaping. Screenin:24 [place] ED Fall Risk Assessment (Adult) History of falling in the last 3 months, cm10 including since admission No falls in past 3 months (0 pts). Abuse screen: Denies threats or abuse. Denies injuries from another. Nutritional screening: No deficits noted. Tuberculosis screening: No symptoms or risk factors identified. Vital Signs: 20:21 BP 130 / 77; Pulse 77; Resp 16 S; Temp 98.6; Pulse Ox 100% on R/A; Weight 122.47 kg; cm10 Height 5 ft. 5 in. ; Pain 10/10; 20:21 Body Mass Index 44.93 (122.47 kg, 165.1 cm) cm10 20:21 Pain Scale: Adult cm10 ED Course: 20:18 Patient arrived in ED. ag3 20:22 Triage completed. cm10 20:22 [facility] Dutton [facility]. kb 20:22 Nic Bryant MD is Attending Physician. kb 20:22 Arm band placed on Patient placed in an exam room, on a stretcher. cm10 20:24 Patient has correct armband on for positive identification. Provided Education on: ER cm10 process and procedures. . 20:24 No provider procedures requiring assistance completed. Patient did not have IV access cm10 during this emergency room visit. Administered Medications: 20:30 Drug: Ibuprofen PO 600 mg PO once Route: PO; cm10 20:30 Follow up: Response: No adverse reaction cm10 20:36 Drug: HYDROcodone-acetaminophen PO 5 mg-325 mg 1 tabs PO once Route: PO; cm10 20:36 Follow up: Response: No adverse reaction cm10 Medication: 20:24 VIS not applicable for this client. cm10 Outcome: 20:24 Discharge ordered by MD. kb 20:31 Discharged to home ambulatory, with significant other, cm10 20:31 Condition: good 20:31 Discharge instructions given to patient, Instructed on discharge instructions, follow up and referral plans. medication usage, Demonstrated understanding of instructions, follow-up care, medications, Prescriptions given X 1, 20:31 Patient left the ED. cm10 20:36 Patient left the ED. cm10 Signatures: Sandhya Dutton FNP-C FNP-Ckb Gomez, Alice ag3 Nora Whiting, RN RN cm10
--- NOTE | 2022-12-21 20:25 | EDPHYS ---
Physician Documentation [facility] Name: Chetna Amador Age: 27 yrs Sex: Female : 1995 Arrival Date: 12/21/2022 Time: 20:15 Bed IW1 Private MD: ED Physician Nic Bryant HPI: 12/21 21:56 This 27 yrs old Female presents to ER via Ambulatory with complaints of Ear kb Pain. 21:56 Patient is a 27-year-old female with history of seizures who presents for left ear pain kb that started 3 days ago. Reports fever last night.. Historical: - Allergies: 20:22 No Known Allergies; cm10 - PMHx: 20:22 Seizures; cm10 - PSHx: 20:22 section; Ligation of fallopian tube; cm10 - Immunization history:: Adult Immunizations unknown. - Social history:: Smoking status: Reported history of juuling and/or vaping. ROS: 21:55 Constitutional: Negative for fever, chills, and weight loss, kb 21:55 ENT: Positive for ear pain, 21:55 All other systems are negative, Exam: 21:55 Constitutional: This is a well developed, well nourished patient who is awake, alert, kb and in no acute distress. Head/Face: Normocephalic, atraumatic. ENT: Moist Mucous membranes Cardiovascular: Regular rate Respiratory: Respirations even and unlabored. No increased work of breathing. Talking in full sentences Abdomen/GI: Soft, non-tender. No distention Skin: Warm, dry with normal turgor. Normal color. MS/ Extremity: Pulses equal, no cyanosis. Neurovascular intact. Full, normal range of motion. Neuro: Awake and alert, GCS 15, oriented to person, place, time, and situation. Moves all extremities. Normal gait. 21:55 ENT: External ear(s): pain with movement, of the left ear canal, Ear canal(s): swelling, that is moderate, of the left canal, TM's: are normal, Vital Signs: 20:21 BP 130 / 77; Pulse 77; Resp 16 S; Temp 98.6; Pulse Ox 100% on R/A; Weight 122.47 kg; cm10 Height 5 ft. 5 in. ; Pain 10/10; 20:21 Body Mass Index 44.93 (122.47 kg, 165.1 cm) cm10 20:21 Pain Scale: Adult cm10 MDM: 20:22 Patient medically screened. kb 21:56 Differential diagnosis: otitis media, otitis externa, ruptured TM, foreign body, acute kb otalgia. Data reviewed: vital signs, nurses notes. Counseling: I had a detailed discussion with the patient and/or guardian regarding the historical points, exam findings, and any diagnostic results supporting the discharge/admit diagnosis, the need for outpatient follow up, an ENT specialist, to return to the emergency department if symptoms worsen or persist or if there are any questions or concerns that arise at home. Administered Medications: 20:30 Drug: Ibuprofen PO 600 mg PO once Route: PO; cm10 20:30 Follow up: Response: No adverse reaction cm10 20:36 Drug: HYDROcodone-acetaminophen PO 5 mg-325 mg 1 tabs PO once Route: PO; cm10 20:36 Follow up: Response: No adverse reaction cm10 Disposition Summary: 12/21/22 20:24 Discharge Ordered Notes: Location: Home kb Condition: Stable kb Diagnosis - Other otitis externa, left ear kb Followup: kb - With: Emergency Department - When: As needed - Reason: Worsening of condition Followup: kb - With: Private Physician - When: 2 - 3 days - Reason: Recheck today's complaints, Continuance of care, Re-evaluation by your physician Discharge Instructions: - Discharge Summary Sheet kb - Otitis Externa, [id number] kb - Ear Drops, Adult, [id number] kb Forms: - Work release form kb - Medication Reconciliation Form kb - Thank You Letter kb - Antibiotic Education kb - Prescription Opioid Use kb - Patient Portal Instructions kb - Leadership Thank You Letter kb Prescriptions: - Ciprodex 0.3-0.1 % Otic drops, suspension - instill 4 drops OTIC route every 12 hours for 7 days , for ears ONLY; 1 unit; kb Refills: 0, Product Selection Permitted Signatures: Sandhya Dutton FNP-C FNP-Ckb Martinez, Clarissa, RN RN cm10
--- OUTSIDE RECORDS SUMMARY | 2022-12-21 20:25 | XMS REPORT | Continuity of Care Document ---
:1995 Author Organization [facility] t Address [address] [facility]. [address] [place] [address] Care Team Providers Name Role Phone Nicole Boland PA-C Primary Care Physician JOSSY MCCALLUM Attending Clinician Unavailable Pgy2 Attending Clinician Unavailable Jossy Mccallum MD Attending Clinician DANIEL AGUILAR Attending Clinician Unavailable Daniel Aguilar MD Attending Clinician Doctor Unassigned, [place] Attending Clinician Unavailable Sindy Rizvi MA Attending Clinician Unavailable Visit, Mary Nurse Attending Clinician Unavailable Emmanuel Rosas Attending Clinician [phone] EMMANUEL RABAGO Attending Clinician Unavailable SINDY WHITT Attending Clinician Unavailable Provider, Mary Temp Attending Clinician Unavailable Sindy Whitt CNM Attending Clinician NIC SNEED Attending Clinician Unavailable Olegario Ingram MD Attending Clinician [phone] Cristiano SARKAR, Bertram Attending Clinician BERTRAM QUINONEZ Attending Clinician Unavailable Lab, [facility] Attending Clinician Unavailable Nicole Boland PA-C Attending Clinician NICOLE BOLAND Attending Clinician Unavailable SUDARSHAN MONTES Attending Clinician Unavailable Sandhya Jarrett Attending Clinician Unavailable Sudarshan Montes MD Attending Clinician , Con-m Attending Clinician Unavailable Vicente ESPANA, Dino Sharma Attending Clinician DINO ZHANG Attending Clinician Unavailable SANDRA JOE Attending Clinician Unavailable Heath DATA WAREHOUSE ADMINISTRATOR, Sandra Vines Attending Clinician SARAH MORALES Attending Clinician Unavailable [facility] Attending Clinician Silas Marino Attending Clinician Unavailable Ultrasound, [facility] Attending Clinician Unavailable Olayinka Duenas MD Attending Clinician Patience Mcleod MD Attending Clinician ADPATIENCE MCCORMICK Attending Clinician Unavailable Rosey Corado PA-C Attending Clinician Luc Triplett MD, Marj Attending Clinician [phone] Po, [facility] Lab Main Attending Clinician Unavailable BUNNY JULIA Attending Clinician Unavailable Rosie Lisa MD Attending Clinician ROSIE LISA Attending Clinician Unavailable Nurse, [facility] General Surgery Attending Clinician Unavailable Ultrasound, Ang-m Attending Clinician Unavailable Ramy Schwartz MD Attending Clinician Cruzito Thompson DO Attending Clinician , [facility] Attending Clinician Unavailable ROSIE LISA Admitting Clinician Unavailable DANIEL AGUILAR Admitting Clinician Unavailable Daniel Aguilar MD Admitting Clinician NIC SNEED Admitting Clinician Unavailable Silas Marino Admitting Clinician Unavailable Payers Payer Name Policy Type Policy Number Effective Date Expiration Date [facility] [id number] 2018 CHOICE MEDICAID 00:00:00 Problems Condition Condition Condition Status Onset Resolution Last Treating Co mments Source Name Details Category Date Date Treatment Clinician Date Tubal Tubal Disease Active Overview: Univer s ligation ligation 05-26 Formattin ity of status status 00:00: g of this [place] 00 note Medical might be Branch different from the original. Added automatic ally from request for surgery [id number] Well woman Well woman Disease Active U nivers exam exam 2-10 ity of 00:00: [place] 00 Medical Branch Morbid Morbid Disease Active Univers obesity obesity 2-10 ity of 00:00: [place] Medical Branch Nerve pain Nerve pain Disease Active U nivers 1-11 ity of 00:00: Medical Branch 39 weeks 39 weeks Disease Active 2021-02 Unive rs gestation gestation 2-22 ity of of of 00:00: [place] 00 Medi yessica Branch Pain of Pain of Disease Active 2021-02 Univers round round 1-10 ity of ligament ligament 00:00: [place] affecting affecting 00 Medi yessica , , [...] ity of use in use in 00:00: [place] third third 00 Medical trimester trimester Bran ch Abnormal Abnormal Disease Active Unive rs quad quad 6-29 ity of screen- screen- 00:00: [place] +DS risk +DS risk 00 Medica l [...] nivers nt nt 6-28 ity of 00:00: [place] care in care in 00 Medical second second Branch trimester trimester History of History of Disease Active U nivers pre-eclamp pre-eclamp 6-28 it y of chad in chad in 00:00: [place] prior prior 00 Medical , , Br anch currently currently S/P S/P Disease Active Univers 6-28 ity of section section 00:00: [place] 00 Medical Branch Short Short Disease Active Univers interval interval 6-28 ity of between between 00:00: [place] pregnancie pregnancie 00 Me dical s s Branch affecting affecting , , antepartum antepartum Supervisio Supervisio Disease Active U nivers n of high n of high 7-21 ity of risk risk 00:00: [place] 00 [facility] in second in second Bran ch trimester trimester 23 weeks 23 weeks Disease Active Unive rs gestation gestation 7-21 ity of of of 00:00: [place] 00 [facility] Branch Morbid Morbid Disease Active Univers obesity [...] Univers liveborn liveborn 4-25 ity of , infant, 00:00: [place] delivered delivered 00 [facility] by by Branch 39 weeks 39 weeks Disease Active Unive rs gestation gestation 4-19 ity of of of 00:00: [place] 00 [facility] Supervisio Supervisio Disease Active U nivers n of high n of high 4-19 ity of risk risk 00:00: [place] , , 00 Me dical antepartum antepartum Br anch Encounter Encounter Disease Active Uni vers for for 4-19 ity of elective elective 00:00: [place] induction induction 00 [facility] of labor of labor Branch Positive Positive Disease Active Unive rs GBS test GBS test 4-19 ity of 00:00: [place] 00 Medical Branch Seizure Seizure Disease Active Univers disorder disorder 4-19 ity of during during 00:00: [place] , , 00 Me dical antepartum antepartum Br anch Excessive Excessive Disease Active Uni vers weight weight 4-19 ity of gain gain 00:00: [place] during during 00 Medical , , Br anch antepartum antepartum BMI BMI Disease Active 2019- Univers 40.0-44.9, 40.0-44.9, 4-19 it y of adult adult 00:00: [address] Branch Morbid Morbid Disease Active Univers obesity obesity 2-01 ity of with body with body 00:00[place] mass index mass index 00 Al dical of of Branch 40.0-49.9 40.0-49.9 Seizure Seizure Disease Active 2018-02 Univers disorder disorder 0-10 ity of in in 00:00: [place] 00 [facility] Branch Obesity Obesity Disease Active Univers affecting affecting 9-26 it[place] of 00:[place] in second in second 00 [facility] trimester trimester Bran ch Obesity Obesity Disease Active Univers (BMI (BMI 9-26 ity of 30-39.9) 30-39.9) 00:00: [address] Allergies, Adverse Reactions, Alerts Allergy Allergy Status Severity Reaction(s) Onset Inactive Treating Comm ents Source Name Type Date Date Clinician No Known DA Active U [facility] [place] s 00:00: [address] NO KNOWN Drug Active Univers ALLERGIE Class ity of S [facility] Social History Social Habit Start Date Stop Date Quantity Comments Source ASSERTION 2021-05-26 University of 00:00:00 [facility] Sexual orientation Univer sity of [facility] History of tobacco Cigarette Smoker University of use [facility] History of Social 2022-07-122022-07-12 Univers ity of function 00:00:00 00:00:00 [facility] Exposure to 2022-06-30 2022-07-10 Not sure [facility] SARS-CoV-2 (event) 00:00:00 10:48:00 [facility] Tobacco use and 2021-08-16 2021-08-16 Smokeless Universit y of exposure 00:00:00 00:00:00 tobacco non-user [facility] dical Branch Alcohol intake 2021-08-16 2021-08-16 Lifetime University of 00:00:00 00:00:00 non-drinker [facility] (finding) Branch Tobacco Comment 2021-08-16 2021-08-16 4 cig per wk x 1 Uni versity of 00:00:00 00:00:00 yr. [facility] Sex Ass[birth year] At [birth year] Universit y of 00:00:00 00:00:00 [facility] Smoking Status Start Date Stop Date Source Ex-smoker 2022-07-10 00:00:00 2022-07-10 00:00:00 Universi ty of [facility] Smokes tobacco daily 2021-09-14 00:00:00 Univers ity [facility] [place] [facility] Never smoked tobacco [facility] Medications Ordered Filled Start Stop Current Ordering [...] 500mL at 75 Univer s ringers IV 07-12-24 mL/hr, 500 it y of infusion 16:15: 20:19 mL, IV [place] 500 mL 00 :28 Infusion, Medical CONTINUOUS Branch , Starting on Sun07/12/22 at 1115, Until Sun07/12/22 at 1519, Routine, PACU bupivacaine 2022- No PRN, Unive rs (preserv 07-12 Starting ity of free) 16:05: 16:15 on Sun [place] (SENSORCAIN 00 :07 07/12/22 at Al dical E MPF) 0.25 1105, Branch % (2.5 Until Sun mg/mL) 07/12/22 at injection 1115, Routine, Intra-op HYDROcodone 2022-0 Yes 1{tbl} 1 tablet, Univers -acetaminop 07-12 [...] Routine, Pain (scale 4-6), DSU Recovery acetaminoph 2022-0 Yes 650mg 650 mg, Un [place] en 07-12 Oral, PRN, ity of (TYLENOL) 16:02: 1 dose, [place] tablet 650 27 Starting Medic al mg on Sun Branch 07/12/22 at 1102, Until Discontinu ed, Routine, Pain (scale 1-3), DSU Recovery HYDROcodone 0 2022- No 1{tbl} 1 tablet, Univers -acetaminop 07-12 Oral, PRN, i ty of hen (NORCO 16:02: 20:19 1 dose, [place] as 5) 5-325 mg 27 :28 Starting Medi yessica tablet 1 on Sun Branch tablet 07/12/22 at 1102, Until Sun07/12/22 at 1519, Routine, Pain (scale 7-10), DSU Recovery ibuprofen 2022-0 2022- No 800mg 800 mg, Uni vers (IBU) 07-12 Oral, PRN, ity of tablet 800 16:02: 20:19 1 dose, [place] as mg 27 :28 Starting Medical on Sun Branch 07/12/22 at 1102, Until Sun07/12/22 at 1519, Routine, Pain (scale 4-6), DSU Recovery acetaminoph 2022-0 2022- No 650mg 650 mg, U nivers [...] No 25ug 25 mcg, [place] (SUBLIMAZE 07-12 Slow IV ity o f (PF)) 16:02: [...] No 25ug 25 mcg, [place] (SUBLIMAZE 07-12- Slow IV ity o f (PF)) 16:02: 16:34 Push, [place] injection 18 :00 Q5MIN PRN, Medi yessica 25 mcg 4 doses, Branch Starting on Sun07/12/22 at 1102, Until Sun07/12/22 at 1134, Routine, Pain (scale 4-6), PACU ondansetron 2022- No 4mg 4 mg, Slow Univers (ZOFRAN 07-12-24 IV Push, ity of (PF)) 16:02: 16:55 PRN, 1 [place] injection 4 18 :00 dose, Medical mg Starting Branch on Sun07/12/22 at 1102, Until Sun07/12/22 at 1155, Routine, Nausea and Vomiting (N/V), PACU ibuprofen 2022-0 Yes [id number] 800mg Take 1 Univers 800 mg 5-24 tablet by ity of tablet 00:00: mouth [place] 00 every 6 Medical (six) Branch hours as needed for Alternate with [place] for pain scale 4-6. ibuprofen 2022-0 Yes [id number] 800mg Take 1 Univers 800 mg 5-24 tablet by ity of tablet 00:00: mouth [place] 00 every 6 Medical (six) Branch hours as needed for Alternate with [place] for pain scale 4-6. ibuprofen 2022-0 Yes [id number] 800mg Take 1 Univers 800 mg 5-24 tablet by ity of tablet 00:00: mouth [place] 00 every 6 Medical (six) Branch hours as needed for Alternate with [place] for pain scale 4-6. ibuprofen 202-0 Yes [id number] 800mg Take 1 Univers 800 mg 5-24 tablet by ity of tablet 00:00: mouth [place] 00 every 6 Medical (six) Branch hours as needed for Alternate with [place] for pain scale 4-6. ibuprofen 2023-0 Yes [id number] 800mg Take 1 Univers 800 mg 5-24 tablet by ity of tablet 00:00: mouth [place] 00 every 6 Medical (six) Branch hours as needed for Alternate with [place] for pain scale 4-6. ibuprofen 2022-0 Yes [id number] 800mg Take 1 Univers 800 mg 5-24 tablet by ity of tablet 00:00: mouth [place] 00 every 6 Medical (six) Branch hours as needed for Alternate with [place] for pain scale 4-6. HYDROcodone 2022-2022- No [id number] 1{tbl} Take 1 U nivers -acetaminop 5-24 06-01 tablet by it y of hen 5-325 00:00: 04:59 mouth [place] mg tablet 00 :00 every 6 Medical (six) Branch hours as needed for Pain (scale 4-6) or Pain (scale 7-10) for up to 7 days. Indication s: acute pain HYDROcodone 2022-0 2022- No [id number] 1{tbl} Take 1 U nivers -acetaminop 5-24 06-01 tablet by it y of hen 5-325 00:00: 04:59 mouth [place] mg tablet 00 :00 every 6 Medical (six) Branch hours as needed for Pain (scale 4-6) or Pain (scale 7-10) for up to 7 days. Indication s: acute pain medroxyPROG 2023-0 2022- No [id number] 150mg Univers ESTERone 3-20 11-27 ity of (DEPO-PROVE 05:00: 05:59 [place] RA) syringe 00 :00 Medical 150 mg Branch medroxyPROG 2023-0 2022- No [id number] 150mg Univers ESTERone 3-20 11-27 ity of (DEPO-PROVE 05:00: 05:59 [place] RA) syringe 00 :00 Medical 150 mg Branch medroxyPROG 2023-0 2022- No [id number] 150mg Univers ESTERone 3-20 11-27 ity of (DEPO-PROVE 05:00: 05:59 [place] RA) syringe 00 :00 Medical 150 mg Branch medroxyPROG 2023-0 2022- No [id number] 150mg Univers ESTERone 3-20 11-27 ity of (DEPO-PROVE 05:00: 05:59 [place] RA) syringe 00 :00 Medical 150 mg Branch medroxyPROG 2023-0 2022- No [id number] 150mg Univers ESTERone 3-20 11-27 ity of (DEPO-PROVE 05:00: 05:59 [place] RA) syringe 00 :00 Medical 150 mg Branch medroxyPROG 2023-0 2022- No [id number] 150mg Univers ESTERone 3-20 11-27 ity of (DEPO-PROVE 05:00: 05:59 [place] RA) syringe 00 :00 Medical 150 mg Branch medroxyPROG 2023-0 2022- No [id number] 150mg 150 mg, Univers ESTERone 3-20 11-27 Intramuscu ity of (DEPO-PROVE 05:00: 05:59 lar, [place] RA) syringe 00 :00 [id number], Med ical 150 mg 3 doses, Branch First dose on Sun05/08/22 at 0000, Last dose on Sun10/23/22 at 0000, Routine medroxyPROG 3-0 2022- No [id number] 150mg Univers ESTERone 3-20 11-27 ity of (DEPO-PROVE 05:00: 05:59 [place] RA) syringe 00 :00 Medical 150 mg Branch medroxyPROG 2023-0 2022- No [id number] 150mg Univers ESTERone 3-20 11-27 ity of (DEPO-PROVE 05:00: 05:59 [place] RA) syringe 00 :00 Medical 150 mg Branch medroxyPROG 2023-0 2022- No [id number] 150mg Univers ESTERone 3-20 11-27 ity of (DEPO-PROVE 05:00: 05:59 [place] RA) syringe 00 :00 Medical 150 mg Branch medroxyPROG 2023-0 2022- No [id number] 150mg Univers ESTERone 3-20 11-27 ity of (DEPO-PROVE 05:00: 05:59 [place] RA) syringe 00 :00 Medical 150 mg Branch medroxyPROG 2023-0 2022- No [id number] 150mg Univers ESTERone 3-20 11-27 ity of (DEPO-PROVE 05:00: 05:59 [place] RA) syringe 00 :00 Medical 150 mg Branch medroxyPROG 2023-0 3- No [id number] 150mg Univers ESTERone 3-20 11-27 ity of (DEPO-PROVE 05:00: 05:59 [place] RA) syringe 00 :00 Medical 150 mg Branch medroxyPROG 2023-0 3- No [id number] 150mg Univers ESTERone 3-20 11-27 ity of (DEPO-PROVE 05:00: 05:59 [place] RA) syringe 00 :00 Medical 150 mg Branch medroxyPROG 2022- No [id number] 150mg Univers ESTERone -20 - ity of (DEPO-PROVE 05:00: 05:59 [place] RA) syringe 00 :00 Medical 150 mg Branch medroxyPROG 2022-0 2022- No [id number] 150mg Univers ESTERone 3-20 - ity of (DEPO-PROVE 05:00: 05:59 [place] RA) syringe 00 :00 Medical 150 mg Branch medroxyPROG 0 2022- No [id number] 150mg Univers ESTERone 3-20 - ity of (DEPO-PROVE 05:00: 05:59 [place] RA) syringe 00 :00 Medical 150 mg Branch medroxyPROG 2021-02- No 150mg 150 mg, U nivers ESTERone 04-13 Intramuscu ity of (DEPO-PROVE 12:15: 12:15 lar, ONCE, [facility]) 00 :00 1 dose, On Medical injection Fri Branch 150 mg 02/10/22 at 0615, Routine 2021-02- No Take by [facility] rs vit 04-13- mouth. ity of calc,iron,f 06:06: 00:00 [facility] 17 :00 Medical ( Branch VITAMIN ORAL) aspirin 81 2021-02- No 81mg Take 81 mg Univers mg EC 04-13 by mouth ity of tablet 06:06: 00:00 daily. [place] 17 :00 Medical Branch 2021-02- No Take by [facility] rs vit 04-13 mouth. ity of calc,iron,f 06:06: 00:00 [facility] 17 :00 Medical ( Branch VITAMIN ORAL) aspirin 81 2021-02- No 81mg Take 81 mg Univers mg EC 04-13 by mouth ity of tablet 06:06: 00:00 daily. [place] 17 :00 Medical Branch acetaminoph 2021-02- No 1000mg 1,000 mg, Univers en ADULT 04-13 IV ity of (OFIRMEV) 00:45: 01:42 Infusion, [place] injection 00 :24 at 400 Medical 1,000 mg mL/hr Branch Administer over 15 Minutes, ONCE, 1 dose, On [place] 02/09/22 at 1845, Routine
Indicatio n: Perioperat elder Patient proMETHazin 2021-02 No 12.5mg 12.5 mg, Univers e 2-23 12-23 IV ity of (PHENERGAN) 00:45: 02:13 Piggyback, [place] 12.5 mg in 00 :08 ONCE, Medical NS 50 mL IV Administer Br anch piggyback over 15 (CNR) Minutes, On [facility] 02/09/22 at 1845, For 1 dose 2021-02 Yes [id number] 1{tbl} Take 1 Univers vitamin 2-23 tablet by ity of w/FA tablet 00:00: mouth in [place] 00 the Medical morning. Branch docusate 2021-02 Yes [id number] 200mg Take 2 U nivers 100 mg 2-23 capsules ity of capsule 00:00: by mouth [place] 00 once daily Medical as needed Branch for Constipati on. ferrous 2021-02 Yes [id number] 325mg Take 1 Un [place] sulfate 325 2-23 tablet by ity of mg (65 mg 00:00: mouth [place] iron) 00 the Medical tablet morning Branch and 1 tablet in the evening. ibuprofen 2021-02 Yes [id number] 600mg Take 1 Univers 600 mg 2-23 tablet by ity of tablet 00:00: mouth [place] 00 every 6 Medical (six) Branch hours as needed (Pain). Take with food or milk. ibuprofen 2021-02 Yes 600mg 600 mg, Univ ers (IBU) 2-23 Oral, Q6H, ity of tablet 600 00:00: First dose [place] mg 00 on [facility] Medical 02/09/22 Branch at 1800, Until Discontinu ed, Routine 2021-02 Yes [id number] 1{tbl} Take 1 Univers vitamin 2-23 tablet by ity of w/FA tablet 00:00: mouth in [place] 00 the Medical morning. Branch docusate 2021-02 Yes [id number] 200mg Take 2 U nivers 100 mg 2-23 capsules ity of capsule 00:00: by mouth [place] 00 once daily Medical as needed Branch for Constipati on. ferrous 2021-02 Yes [id number] 325mg Take 1 Un [place] sulfate 325 2-23 tablet by ity of mg (65 mg 00:00: mouth [place] iron) 00 the Medical tablet morning Branch and 1 tablet in the evening. ibuprofen 2021-02 Yes [id number] 600mg Take 1 Univers 600 mg 2-23 [...] 1800, Until Discontinu ed, Routine 2021-02 Yes [id number] 1{tbl} Take 1 Univers vitamin 2-23 tablet by ity of w/FA tablet 00:00: mouth in [place] 00 the Medical morning. Branch docusate 2021-02 Yes [id number] 200mg Take 2 U nivers 100 mg 2-23 capsules ity of capsule 00:00: by mouth [place] 00 once daily Medical as needed Branch for Constipati on. ferrous 2021-02 Yes [id number] 325mg Take 1 Un [place] sulfate 325 2-23 tablet by ity of mg (65 mg 00:00: mouth [place] iron) 00 the Medical tablet morning Branch and 1 tablet in the evening. ibuprofen 2021-02 Yes [id number] 600mg Take 1 Univers 600 mg 2-23 tablet by ity of tablet 00:00: mouth [place] 00 every 6 Medical (six) Branch hours as needed (Pain). Take with food or milk. 2021-02 Yes [id number] 1{tbl} Take 1 Univers vitamin 2-23 tablet by ity of w/FA tablet 00:00: mouth in [place] 00 the Medical morning. Branch docusate 2021-02 Yes [id number] 200mg Take 2 U nivers 100 mg 2-23 capsules ity of capsule 00:00: by mouth [place] 00 once daily Medical as needed Branch for Constipati on. ferrous 2021-02 Yes [id number] 325mg Take 1 Un [place] sulfate 325 2-23 tablet by ity of mg (65 mg 00:00: mouth [place] iron) 00 the Medical tablet morning Branch and 1 tablet in the evening. ibuprofen 2021-02 Yes [id number] 600mg Take 1 Univers 600 mg 2-23 tablet by ity of tablet 00:00: mouth [place] 00 every 6 Medical (six) Branch hours as needed (Pain). Take with food or milk. 2021-02 Yes [id number] 1{tbl} Take 1 Univers vitamin 2-23 tablet by ity of w/FA tablet 00:00: mouth in [place] 00 the Medical morning. Branch docusate 2021-02 Yes [id number] 200mg Take 2 U nivers 100 mg 2-23 capsules ity of capsule 00:00: by mouth [place] 00 once daily Medical as needed Branch for Constipati on. ferrous 2021-02 Yes [id number] 325mg Take 1 Un [place] sulfate 325 2-23 tablet by ity of mg (65 mg 00:00: mouth [place] iron) 00 the Medical tablet morning Branch and 1 tablet in the evening. ibuprofen 2021-02 Yes [id number] 600mg Take 1 Univers 600 mg 2-23 tablet by ity of tablet 00:00: mouth [place] 00 every 6 Medical (six) Branch hours as needed (Pain). Take with food or milk. 2021-02 Yes [id number] 1{tbl} Take 1 Univers vitamin 2-23 tablet by ity of w/FA tablet 00:00: mouth in [place] 00 the Medical morning. Branch docusate 2021-02 Yes [id number] 200mg Take 2 U nivers 100 mg 2-23 capsules ity of capsule 00:00: by mouth [place] 00 once daily Medical as needed Branch for Constipati on. ferrous 2021-02 Yes [id number] 325mg Take 1 Un [place] sulfate 325 2-23 tablet by ity of mg (65 mg 00:00: mouth [place] iron) 00 the Medical tablet morning Branch and 1 tablet in the evening. ibuprofen 2021-02 Yes [id number] 600mg Take 1 Univers 600 mg 2-23 tablet by ity of tablet 00:00: mouth [place] 00 every 6 Medical (six) Branch hours as needed (Pain). Take with food or milk. 2021-02 Yes [id number] 1{tbl} Take 1 Univers vitamin 2-23 tablet by ity of w/FA tablet 00:00: mouth in [place] 00 the Medical morning. Branch docusate 2021-02 Yes [id number] 200mg Take 2 U nivers 100 mg 2-23 capsules ity of capsule 00:00: by mouth [place] 00 once daily Medical as needed Branch for Constipati on. ferrous 2021-02 Yes [id number] 325mg Take 1 Un [place] sulfate 325 2-23 tablet by ity of mg (65 mg 00:00: mouth [place] iron[place] 00 the Medical tablet morning Branch and 1 tablet in the evening. ibuprofen 2021-02 Yes [id number] 600mg Take 1 Univers 600 mg 2-23 tablet by ity of tablet 00:00: mouth [place] 00 every 6 Medical (six) Branch hours as needed (Pain). Take with food or milk. 2021-02 Yes [id number] 1{tbl} Take 1 Univers vitamin 2-23 tablet by ity of w/FA tablet 00:00: mouth in [place] 00 the Medical morning. Branch docusate 2021-02 Yes [id number] 200mg Take 2 U nivers 100 mg 2-23 capsules ity of capsule 00:00: by mouth [place] 00 once daily Medical as needed Branch for Constipati on. ferrous 2021-02 Yes [id number] 325mg Take 1 Un [place] sulfate 325 2-23 tablet by ity of mg (65 mg 00:00: mouth [place] iron) 00 the Medical tablet morning Branch and 1 tablet in the evening. ibuprofen 2021-02 Yes [id number] 600mg Take 1 Univers 600 mg 2-23 tablet by ity of tablet 00:00: mouth [place] 00 every 6 Medical (six) Branch hours as needed (Pain). Take with food or milk. 2021-02 Yes [id number] 1{tbl} Take 1 Univers vitamin 2-23 tablet by ity of w/FA tablet 00:00: mouth in [place] 00 the Medical morning. Branch docusate 2021-02 Yes [id number] 200mg Take 2 U nivers 100 mg 2-23 capsules ity of capsule 00:00: by mouth [place] 00 once daily Medical as needed Branch for Constipati on. ferrous 2021-02 Yes [id number] 325mg Take 1 Un [place] sulfate 325 2-23 tablet by ity of mg (65 mg 00:00: mouth [place] iron) 00 the Medical tablet morning Branch and 1 tablet in the evening. ibuprofen 2021-02 Yes [id number] 600mg Take 1 Univers 600 mg 2-23 tablet by ity of tablet 00:00: mouth [place] 00 every 6 Medical (six) Branch hours as needed (Pain). Take with food or milk. 2021-02 Yes [id number] 1{tbl} Take 1 Univers vitamin 2-23 tablet by ity of w/FA tablet 00:00: mouth in [place] 00 the Medical morning. Branch docusate 2021-02 Yes [id number] 200mg Take 2 U nivers 100 mg 2-23 capsules ity of capsule 00:00: by mouth [place] 00 once daily Medical as needed Branch for Constipati on. ferrous 2021-02 Yes [id number] 325mg Take 1 Un [place] sulfate 325 2-23 tablet by ity of mg (65 mg 00:00: mouth [place] iron[place] 00 the Medical tablet morning Branch and 1 tablet in the evening. ibuprofen 2021-02 Yes [id number] 600mg Take 1 Univers 600 mg 2-23 tablet by ity of tablet 00:00: mouth [place] 00 every 6 Medical (six) Branch hours as needed (Pain). Take with food or milk. 2021-02 Yes [id number] 1{tbl} Take 1 Univers vitamin 2-23 tablet by ity of w/FA tablet 00:00: mouth in [place] 00 the Medical morning. Branch docusate 2021-02 Yes [id number] 200mg Take 2 U nivers 100 mg 2-23 capsules ity of capsule 00:00: by mouth [place] 00 once daily Medical as needed Branch for Constipati on. ferrous 2021-02 Yes [id number] 325mg Take 1 Un [place] sulfate 325 2-23 tablet by ity of mg (65 mg 00:00: mouth [place] iron) 00 the Medical tablet morning Branch and 1 tablet in the evening. ibuprofen 2021-02 Yes [id number] 600mg Take 1 Univers 600 mg 2-23 tablet by ity of tablet 00:00: mouth [place] 00 every 6 Medical (six) Branch hours as needed (Pain). Take with food or milk. 2021-02 Yes [id number] 1{tbl} Take 1 [facility] vitamin 2-23 tablet by ity of w/FA tablet 00:00: mouth in [place] 00 the Medical morning. Branch docusate 2021-02 Yes [id number] 200mg Take 2 U nivers 100 mg 2-23 capsules ity of capsule 00:00: by mouth [place] 00 once daily Medical as needed Branch for Constipati on. ferrous 2021-02 Yes [id number] 325mg Take 1 [facility] [place] sulfate 325 2-23 tablet by ity of mg (65 mg 00:00: [place] iron[place] 00 the Medical tablet morning Branch and 1 tablet in the evening. ibuprofen 2021-02 Yes [id number] 600mg Take 1 [facility] 600 mg 2-23 tablet by ity of tablet 00:00: mouth [place] 00 every 6 Medical (six) Branch hours as needed (Pain). Take with food or milk. 2021-02 Yes [id number] 1{tbl} Take 1 [facility] vitamin 2-23 tablet by ity of w/FA tablet 00:00: mouth in [place] 00 the Medical morning. Branch docusate 2021-02 Yes [id number] 200mg Take 2 U nivers 100 mg 2-23 capsules ity of capsule 00:00: by mouth [place] 00 once daily Medical as needed Branch for Constipati on. ferrous 2021-02 Yes [id number] 325mg Take 1 [facility] [place] sulfate 325 2-23 tablet by [place] of mg (65 mg 00:00: [place] iron[place] 00 the Medical tablet morning Branch and 1 tablet in the evening. ibuprofen 2021-02 Yes [id number] 600mg Take 1 [facility] 600 mg 2-23 tablet by ity of tablet 00:00: mouth [place] 00 every 6 Medical (six) Branch hours as needed (Pain). Take with food or milk. 2021-02 Yes [id number] 1{tbl} Take 1 [facility] vitamin 2-23 tablet by ity of w/FA tablet 00:00: mouth in [place] 00 the Medical morning. Branch docusate 2021-02 Yes [id number] 200mg Take 2 U nivers 100 mg 2-23 capsules ity of capsule 00:00: by mouth [place] 00 once daily Medical as needed Branch for Constipati on. ferrous 2021-02 Yes [id number] 325mg Take 1 [facility] [place] sulfate 325 2-23 tablet by [facility] of mg (65 mg 00:00: [place] iron[place] 00 the Medical tablet morning Branch and 1 tablet in the evening. ibuprofen 2021-02 Yes [id number] 600mg Take 1 [facility] 600 mg 2-23 tablet by ity of tablet 00:00: mouth [place] 00 every 6 Medical (six) Branch hours as needed (Pain). Take with food or milk. 2021-02 Yes [id number] 1{tbl} Take 1 [facility] vitamin 2-23 tablet by ity of w/FA tablet 00:00: mouth in [place] 00 the Medical morning. Branch docusate 2021-02 Yes [id number] 200mg Take 2 U nivers 100 mg 2-23 capsules ity of capsule 00:00: by mouth [place] 00 once daily Medical as needed Branch for Constipati on. ferrous 2021-02 Yes [id number] 325mg Take 1 [facility] [place] sulfate 325 2-23 tablet by [place] of mg (65 mg 00:00: [place] iron[place] 00 the Medical tablet morning Branch and 1 tablet in the evening. ibuprofen 2021-02 Yes [id number] 600mg Take 1 [facility] 600 mg 2-23 tablet by ity of tablet 00:00: mouth [place] 00 every 6 Medical (six) Branch hours as needed (Pain). Take with food or milk. 2021-02 Yes [id number] 1{tbl} Take 1 [facility] vitamin 2-23 tablet by ity of w/FA tablet 00:00: mouth in [place] 00 the Medical morning. Branch docusate 2021-02 Yes [id number] 200mg Take 2 [facility] nivers 100 mg 2-23 capsules ity of capsule 00:00: by mouth [place] 00 once daily Medical as needed Branch for Constipati on. ferrous 2021-02 Yes [id number] 325mg Take 1 [facility] [place] sulfate 325 2-23 tablet by [facility] of mg (65 mg 00:00: [place] iron[place] 00 the Medical tablet morning Branch and 1 tablet in the evening. ibuprofen 2021-02 Yes [id number] 600mg Take 1 [facility] 600 mg 2-23 tablet by ity of tablet 00:00: mouth [place] 00 every 6 Medical (six) Branch hours as needed (Pain). Take with food or milk. 2021-02 Yes [id number] 1{tbl} Take 1 [facility] vitamin 2-23 tablet by ity of w/FA tablet 00:00: mouth in [place] 00 the Medical morning. Branch docusate 2021-02 Yes [id number] 200mg Take 2 U nivers 100 mg 2-23 capsules ity of capsule 00:00: by mouth [place] 00 once daily Medical as needed Branch for Constipati on. ferrous 2021-02 Yes [id number] 325mg Take 1 [facility] [place] sulfate 325 2-23 tablet by ity of mg (65 mg 00:00: [place] iron[place] 00 the Medical tablet morning Branch and 1 tablet in the evening. ibuprofen 2021-02 Yes [id number] 600mg Take 1 [facility] 600 mg 2-23 tablet by ity of tablet 00:00: mouth [place] 00 every 6 Medical (six) Branch hours as needed (Pain). Take with food or milk. 2021-02 Yes [id number] 1{tbl} Take 1 [facility] vitamin 2-23 tablet by ity of w/FA tablet 00:00: mouth in [place] 00 the Medical morning. Branch docusate 2021-02 Yes [id number] 200mg Take 2 U nivers 100 mg 2-23 capsules ity of capsule 00:00: by mouth [place] 00 once daily Medical as needed Branch for Constipati on. ferrous 2021-02 Yes [id number] 325mg Take 1 [facility] [place] sulfate 325 2-23 tablet by ity of mg (65 mg 00:00: [place] iron[place] 00 the Medical tablet morning Branch and 1 tablet in the evening. ibuprofen 2021-02 Yes [id number] 600mg Take 1 [facility] 600 mg 2-23 tablet by ity of tablet 00:00: mouth [place] 00 every 6 Medical (six) Branch hours as needed (Pain). Take with food or milk. 2021-02 Yes [id number] 1{tbl} Take 1 [facility] vitamin 2-23 tablet by ity of w/FA tablet 00:00: mouth in [place] 00 the Medical morning. Branch docusate 2021-02 Yes [id number] 200mg Take 2 U nivers 100 mg 2-23 capsules ity of capsule 00:00: by mouth [place] 00 once daily Medical as needed Branch for Constipati on. ferrous 2021-02 Yes [id number] 325mg Take 1 [facility] [place] sulfate 325 2-23 tablet by ity of mg (65 mg 00:00: [place] iron[place] 00 the Medical tablet morning Branch and 1 tablet in the evening. ibuprofen 2021-02 Yes [id number] 600mg Take 1 [facility] 600 mg 2-23 tablet by ity of tablet 00:00: mouth [place] 00 every 6 Medical (six) Branch hours as needed (Pain). Take with food or milk. 2021-02 Yes [id number] 1{tbl} Take 1 [facility] vitamin 2-23 tablet by ity of w/FA tablet 00:00: mouth in [place] 00 the Medical morning. Branch docusate 2021-02 Yes [id number] 200mg Take 2 U nivers 100 mg 2-23 capsules ity of capsule 00:00: by mouth [place] 00 once daily Medical as needed Branch for Constipati on. ferrous 2021-02 Yes [id number] 325mg Take 1 [facility] [place] sulfate 325 2-23 tablet by ity of mg (65 mg 00:00: [place] iron[place] 00 the Medical tablet morning Branch and 1 tablet in the evening. ibuprofen 2021-02 Yes [id number] 600mg Take 1 [facility] 600 mg 2-23 tablet by ity of tablet 00:00: mouth [place] 00 every 6 Medical (six) Branch hours as needed (Pain). Take with food or milk. 2021-02 Yes [id number] 1{tbl} Take 1 [facility] vitamin 2-23 tablet by ity of w/FA tablet 00:00: mouth [place] 00 the Medical morning. Branch docusate 2021-02 Yes [id number] 200mg Take 2 U nivers 100 mg 2-23 capsules ity of capsule 00:00: by mouth [place] 00 once daily Medical as needed Branch for Constipati on. ferrous 2021-02 Yes [id number] 325mg Take 1 [facility] [place] sulfate 325 2-23 tablet by ity of mg (65 mg 00:00: [place] iron[place] 00 the Medical tablet morning Branch and 1 tablet in the evening. ibuprofen 2021-02 Yes [id number] 600mg Take 1 [facility] 600 mg 2-23 [...] 24 hours. Indication s: acute pain HYDROcodone 2021-02 No [id number] 1{tbl} Take 1 U nivers -acetaminop 2-23 12-31 tablet by it y of hen 5-325 00:00: 05:59 mouth [place] mg tablet 00 :00 every 6 Medical (six) Branch hours as needed (Pain scale above 4) for up to 7 days. Do not exceed 3 grams of acetaminop hen in 24 hours. Indication s: acute pain lactated 2021-02 1000mL at 125 [facility] ers ringers IV 2-22 12-22 mL/hr, ity of infusion 20:45: 20:35 1,000 mL, [place] 1,000 mL 00 :00 IV Medical Infusion, Branch ONCE, 1 dose, On [place] 02/09/22 at 1445, Routine rho(D) 2021-02 Yes 300ug 300 mcg, [facility] s immune 2-22 Intramuscu ity of globulin 20:34: lar, ONCE, [place] as (RHOGAM) 28 For 1 Medical syringe 300 dose, Branch mcg Conditiona l, Routine rho(D) 2021-02 Yes 300ug 300 [facility], [facility] Intr[facility]cu ity of globulin 20:34: lar, ONCE, [place] (RHOGAM) 28 For 1 Medical syringe 300 dose, Branch mcg Conditiona l, Routine human 2021-02 Yes .5mL 0.5 mL, [facility] papillomav 2-22 Intramuscu ity of vac,9-evelin(P 20:34: lar, [place] F) 19 ONCE-PRIOR Medical (GARDASIL-9 TO Branch ) syringe DISCHARGE, 0.5 mL 1 dose, Starting on [place] 02/09/22 at 1434, Until Discontinu ed, Routine, Give vaccine prior to discharge diphenhydrA 2021-02 Yes 25mg 25 mg, Univ ers MINE 2-22 Slow IV ity of (BENADRYL) 20:34: Push, [...] Yes 4mg 4 mg, Slow Univers (ZOFRAN 04-12 IV Push, ity of (PF)) 20:34: Q8HPRN, [place] injection 4 19 Starting Medi yessica mg on [place] Branch 02/09/22 at 1434, Until Discontinu ed, Routine, Nausea and Vomiting (N/V) bisacodyL 2021-02 Yes 10mg 10 mg, Univer s (DULCOLAX) 2 Rectal, ity of suppository 20:34: QDAILYPRN, [place] 10 mg 19 Starting Medical on [place] Branch 02/09/22 at 1434, Until Discontinu ed, Routine, Constipati on simethicone 2021-02 Yes 160mg 160 mg, [place] (GAS RELIEF 04-12 Oral, ity of (SIMETHICON 20:34: PC+HSPRN, [place] E)) 19 Starting Medical chewable on [facility] Branch tablet 160 02/09/22 mg at 1434, Until Discontinu ed, Routine, Gas docusate 2021-02 Yes 200mg 200 mg, Unive rs (COLACE) 2- Oral, ity of capsule 200 20:34: QDAILYPRN, [place] mg 19 Starting Medical on [place] Branch 02/09/22 at 1434, Until Discontinu ed, Routine, Constipati on magnesium 2021-02 Yes 30mL 30 mL, Univer s hydroxide 2 Oral, ity of (MILK OF 20:34: QDAILYPRN, [place] as MAGNESIA) 19 Starting Medica l 400 mg/5 mL on [place] Branch suspension 02/09/22 30 mL at 1434, Until Discontinu ed, Routine, Constipati on HYDROcodone 2021-02 Yes 2{tbl} 2 tablet, [facility] -acetaminop 2- Oral, ity of hen (NORCO 20:34: Q6HPRN, [place] 5) 5-325 mg 19 Starting Medi yessica tablet 2 on [facility] Branch tablet 02/09/22 at 1434, Until Discontinu ed, Routine, Pain (scale 7-10), Alternate with Ibuprofen HYDROcodone 2021-02 Yes 1{tbl} 1 tablet, [facility] -acetaminop 2-22 Oral, ity of hen (NORCO 20:34: Q6HPRN, [place] 5) 5-325 mg 19 Starting Medi yessica tablet 1 on [facility] Branch tablet 02/09/22 at 1434, Until Discontinu ed, Routine, Pain (scale 4-6), Alternate with Ibuprofen human 2021-02 Yes .5mL 0.5 mL, [facility] papillomav 04-12 Intramuscu ity of vac,9-evelin(P 20:34: lar, [place] F) 19 ONCE-PRIOR Medical (GARDASIL-9 TO [place] ) syringe DISCHARGE, 0.5 mL 1 dose, Starting on [place] 02/09/22 at 1434, Until Discontinu ed, Routine, Give vaccine prior to discharge diphenhydrA 2021-02 Yes 25mg 25 mg, Univ ers MINE 2-22 Slow IV ity of (BENADRYL) 20:34: Push, [place] injection 19 Q6HPRN, Medical 25 mg Starting Branch on [place]ie 02/09/22 at 1434, Until Discontinu ed, Routine, Itching diphenhydrA 2021-02 Yes 25mg 25 mg, Univ ers MINE 2-22 Oral, ity of (BENADRYL) 20:34: Q6HPRN, [place] tablet 25 19 Starting Medica l mg on [facility] Branch 02/09/22 at 1434, Until Discontinu ed, Routine, Sleep, Itching ondansetron 2021-02 Yes 4mg 4 mg, Slow Univers (ZOFRAN 2-22 IV Push, ity of (PF)) 20:34: Q8HPRN, [place] injection 4 19 Starting Medi yessica mg on [place] Branch 02/09/22 at 1434, Until Discontinu ed, Routine, Nausea and Vomiting (N/V) bisacodyL 2021-02 Yes 10mg 10 mg, Univer s (DULCOLAX) 2 Rectal, ity of suppository 20:34: QDAILYPRN, [place] 10 mg 19 Starting Medical on [place] Branch 02/09/22 at 1434, Until Discontinu ed, Routine, Constipati on simethicone 2021-02 Yes 160mg 160 mg, [place] (GAS RELIEF 04-12 Oral, ity of (SIMETHICON 20:34: PC+HSPRN, [place] E)) 19 Starting Medical chewable on [facility] tablet 160 02/09/22 mg at 1434, Until [...] Starting Medica l 400 mg/5 mL on [facility] Branch suspension 02/09/22 30 mL at 1434, Until Discontinu ed, Routine, Constipati on HYDROcodone 2021-02 Yes 2{tbl} 2 tablet, [facility] -acetaminop - Oral, ity of hen (NORCO 20:34: Q6HPRN, [place] 5) 5-325 mg 19 Starting Medi yessica tablet 2 on [facility] Branch tablet 02/09/22 at 1434, Until Discontinu ed, Routine, Pain (scale 7-10), Alternate with Ibuprofen HYDROcodone 2021-02 Yes 1{tbl} 1 tablet, Univers -acetaminop 2- Oral, ity of hen (NORCO 20:34: Q6HPRN, [place] 5) 5-325 mg 19 Starting Medi yessica tablet 1 on [facility] Branch tablet 02/09/22 at 1434, Until Discontinu ed, Routine, Pain (scale 4-6), Alternate with Ibuprofen lactated 2021-02- No 1000mL at 125 Univ [...] mg 07 dose, Medical Starting Branch on [facility] 02/09/22 at 1202, Until Discontinu ed, Routine, itching nalbuphine 2021-02 Yes 5mg 5 mg, Univer s (NUBAIN) 04-12 Intravenou ity o f injection 5 18:02: s, PRN, 1 [place] mg 07 dose, Medical Starting Branch on [facility] 02/09/22 at 1202, Until Discontinu ed, Routine, itching naloxone 2021-02- No .4mg 0.4 mg, Unive rs (NARCAN) 04-12 Slow IV ity of injection 18:02: 00:14 Push, PRN [place] 0.4 mg 07 :19 - SEE Medical INSTRUCTIO Branch NS, Starting on [facility] 02/09/22 at 1202, Until 02/11/22 at 1814, Routine, Analgesia Recovery naloxone 2021-02- No .4mg 0.4 mg, Unive rs (NARCAN) 04-12 Slow IV ity of injection 18:02: 00:14 Push, PRN [place] 0.4 mg 07 :19 - SEE Medical INSTRUCTIO [place] NS, Starting on [facility] 02/09/22 at 1202, Until 02/11/22 at 1814, Routine, Analgesia Recovery acetaminoph 2021-02- No 650mg 650 mg, U nivers en 04-12 Oral, ity of (TYLENOL) 12:45: 15:02 ONCE, 1 [place] tablet 650 00 :00 dose, On Medic al mg [facility] Branch 02/09/22 at 0645, Routine lactated 2021-02- No 1000mL at 125 Univ ers ringers IV 04-12 1222 mL/hr, ity of infusion 12:45: 20:34 1,000 mL, [place] 1,000 mL 00 :26 IV Medical Infusion, Branch CONTINUOUS , Starting on [place] 02/09/22 at 0645, Until [place] 02/09/22 at 1434, Routine ceFAZolin 2021-02 No 2000mg 2,000 mg, Univers (ANCEF) 04-12 IV ity of 2,000 mg in 12:32: 20:34 Piggyback, [place] NaCl 0.9% 22 :26 O.R. Medical (NS) 100 mL HOLDING Branc h MINI-BAG ONCE, Starting on [place] 02/09/22 at 0632, Until [place] 02/09/22 at 1434, Administer over 30 Minutes, 100 mL
Reas on for Anti-Infec tive: Surgical Prophylaxi s
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
Duration of therapy: within 24 hours of [...] Take 81 mg U nivers mg EC 03-12 by mouth ity of tablet 14:21: daily. [place] [address] Medical Branch aspirin 81 2021-02 Yes 81mg Take 81 mg U nivers mg EC 03-12 by mouth ity of tablet 14:21: daily. [place] 20 Medical Branch aspirin 2021-0 Yes 81mg Take 81 mg Univ ers (ADULT LOW 8-23 by mouth ity o f DOSE 16:59: daily. [place] ASPIRIN) 81 12 Medical mg EC Branch tablet aspirin 2021-0 Yes 81mg Take 81 mg Univ ers (ADULT LOW 8-23 by mouth ity o f DOSE 16:59: daily. [place] ASPIRIN) 81 12 Medical mg EC Branch tablet aspirin 0 Yes 81mg Take 81 mg Univ ers (ADULT LOW 8-23 by mouth ity o f DOSE 16:59: daily. [place] ASPIRIN) 81 12 Medical mg EC Branch tablet aspirin 2022-0 Yes 81mg Take 81 mg Univ ers [...] mouth ity o f DOSE 16:59: daily. [place] ASPIRIN) 81 12 Medical mg EC Branch tablet aspirin 2021-0 Yes 81mg Take 81 mg Univ ers (ADULT LOW 8-23 by mouth ity o f DOSE 16:59: daily. [place] ASPIRIN) 81 12 Medical mg EC Branch tablet aspirin 0 Yes 81mg Take 81 mg Univ ers (ADULT LOW 8-23 by mouth ity o f DOSE 16:59: daily. [place] ASPIRIN) 81 12 Medical mg EC Branch tablet aspirin 0 Yes 81mg Take 81 mg Univ ers (ADULT LOW 8-23 by mouth ity o f DOSE 16:59: daily. [place] ASPIRIN) 81 12 Medical mg EC Branch tablet Yes Take by [employer] vit 8-23 mouth. ity of calc,iron,f 16:59: [place] [address] Medical ( Branch VITAMIN ORAL) Yes Take by [employer] vit 8-23 mouth. ity of calc,iron,f 16:59: [place] [address] Medical ( Branch VITAMIN ORAL) Yes Take by [employer] vit 8-23 mouth. ity of calc,iron,f 16:59: [place] [address] Medical ( Branch VITAMIN ORAL) Yes Take by [employer] vit 8-23 mouth. ity of calc,iron,f 16:59: [place] [address] Medical ( Branch VITAMIN ORAL) Yes Take by [employer] vit 8-23 mouth. ity of calc,iron,f 16:59: [place] [address] Medical ( Branch VITAMIN ORAL) Yes Take by [employer] vit 8-23 mouth. ity of calc,iron,f 16:59: [place] [address] Medical ( Branch VITAMIN ORAL) Yes Take by [employer] vit 8-23 mouth. ity of calc,iron,f 16:59: [facility] 11 Medical ( Branch VITAMIN ORAL) Yes Take by [employer] vit 8-23 mouth. ity of calc,iron,f 16:59: [place] [address] Medical ( Branch VITAMIN ORAL) Yes Take by [employer] vit 8-23 mouth. ity of calc,iron,f 16:59: [facility] 11 Medical ( Branch VITAMIN ORAL) Yes Take by [employer] vit 8-23 mouth. ity of calc,iron,f 16:59: [place] [address] Medical ( Branch VITAMIN ORAL) Yes Take by [employer] [facility].it vit 8-23 mouth. ity of calc,iron,f 16:59: [place] [address] Medical ( Branch VITAMIN ORAL) Yes Take by [employer] vit 8-23 mouth. ity of calc,iron,f 16:59: [place] [address] Medical ( Branch VITAMIN ORAL) aspirin Yes 81mg Take 81 mg Univ ers (ADULT LOW 7-27 by mouth ity o f DOSE 15:32: daily. [place] ASPIRIN) 81 59 Medical mg EC Branch tablet Yes Take by [employer] vit 7-27 mouth. ity of calc,iron,f 15:32: [place] [id number] Medical ( Branch VITAMIN ORAL) [id number] Yes 1{each} Take 1 U nivers 3-dha-epa-f 7-01 Each by ity o f shameka oil 00:00: mouth [place] ( 00 daily. Medical GUMMY) 400 Branch mcg-35 mg -25 mg-5 mg Chew [id number] Yes 1{each} Take 1 U nivers 3-dha-epa-f 7-01 Each by ity o f [place] oil 00:00: mouth [place] ( 00 daily. Medical GUMMY) 400 Branch mcg-35 mg -25 mg-5 mg Chew [id number] Yes 1{each} Take 1 U nivers 3-dha-epa-f 7-01 Each by ity o f [place] oil 00:00: mouth [place] ( 00 daily. Medical GUMMY) 400 Branch mcg-35 mg -25 mg-5 mg Chew [id number] 2022-0 Yes 1{each} Take 1 U nivers 3-dha-epa-f 7-01 Each by ity o f [place] oil 00:00: mouth [place] ( 00 daily. Medical GUMMY) 400 Branch mcg-35 mg -25 mg-5 mg Chew [id number] 2022-0 Yes 1{each} Take 1 U nivers 3-dha-epa-f 7-01 Each by ity o f [place] oil 00:00: mouth [place] ( 00 daily. Medical GUMMY) 400 Branch mcg-35 mg -25 mg-5 mg Chew [id number] 2022-0 Yes 1{each} Take 1 U nivers 3-dha-epa-f 7-01 Each by ity o f [place] oil 00:00: mouth [place] ( 00 daily. Medical GUMMY) 400 Branch mcg-35 mg -25 mg-5 mg Chew [id number] 2022-0 Yes 1{each} Take 1 U nivers 3-dha-epa-f 7-01 Each by ity o f [place] oil 00:00: mouth [place] ( 00 daily. Medical GUMMY) 400 Branch mcg-35 mg -25 mg-5 mg Chew [id number] 2022-0 Yes 1{each} Take 1 U nivers 3-dha-epa-f 7-01 Each by ity o f [place] oil 00:00: mouth [place] ( 00 daily. Medical GUMMY) 400 Branch mcg-35 mg -25 mg-5 mg Chew [id number] 2022-0 Yes 1{each} Take 1 U nivers 3-dha-epa-f 7-01 Each by ity o f [place] oil 00:00: mouth [place] ( 00 daily. Medical GUMMY) 400 Branch mcg-35 mg -25 mg-5 mg Chew [id number] 2022-0 Yes 1{each} Take 1 U nivers 3-dha-epa-f 7-01 Each by ity o f [place] oil 00:00: mouth [place] ( 00 daily. Medical GUMMY) 400 Branch mcg-35 mg -25 mg-5 mg Chew [id number] 2021-0 Yes 1{each} Take 1 U nivers 3-dha-epa-f 7-01 Each by ity o f [place] oil 00:00: mouth [place] ( 00 daily. Medical GUMMY) 400 Branch mcg-35 mg -25 mg-5 mg Chew [id number] 2021-0 Yes 1{each} Take 1 U nivers 3-dha-epa-f 7- Each by ity o f [place] oil 00:00: mouth [place] ( 00 daily. Medical GUMMY) 400 Branch mcg-35 mg -25 mg-5 mg Chew [id number] 2021-0 Yes 1{each} Take 1 U nivers 3-dha-epa-f 7- Each by ity o f [place] oil 00:00: mouth [place] ( 00 daily. Medical GUMMY) 400 Branch mcg-35 mg -25 mg-5 mg Chew [id number] 2021-0 Yes 1{each} Take 1 U nivers 3-dha-epa-f 7- Each by ity o f [place] oil 00:00: mouth [place] ( 00 daily. Medical GUMMY) 400 Branch mcg-35 mg -25 mg-5 mg Chew [id number] 2021-0 2021- No 1{each} Take 1 Univers 3-dha-epa-f 7- 12-23 Each by ity of shame[place] oil 00:00: 00:00 mouth [place] ( 00 :00 daily. Medical GUMMY) 400 Branch mcg-35 mg -25 mg-5 mg Chew [id number] 2021-0 2021- No 1{each} Take 1 Univers 3-dha-epa-f 7- 12-23 Each by ity of shame[place] oil 00:00: 00:00 mouth [place] ( 00 :00 daily. Medical GUMMY) 400 Branch mcg-35 mg -25 mg-5 mg Chew 2021-0 Yes [id number] 1{tbl} Take 1 U nivers multivitami 6-28 tablet by ity of n ( 00:00: mouth [place] VITAMIN) 00 daily. Medical tablet Branch 2021-0 Yes [id number] 1{tbl} Take 1 U nivers multivitami 6-28 tablet by ity of n ( 00:00: mouth [place] VITAMIN) 00 daily. Medical tablet Branch Yes [id number] 1{tbl} Take 1 U nivers multivitami 6-28 tablet by ity of n ( 00:00: mouth [place] VITAMIN) 00 daily. Medical tablet Branch Yes [id number] 1{tbl} Take 1 U nivers multivitami 6-28 tablet by ity of n ( 00:00: mouth [place] VITAMIN) 00 daily. Medical tablet Branch Yes [id number] 1{tbl} Take 1 U nivers multivitami 6-28 tablet by ity of n ( 00:00: mouth [place] VITAMIN) 00 daily. Medical tablet Branch Yes [id number] 1{tbl} Take 1 U nivers multivitami 6-28 tablet by ity of n ( 00:00: mouth [place] VITAMIN) 00 daily. Medical tablet Branch Yes [id number] 1{tbl} Take 1 U nivers multivitami 6-28 tablet by ity of n ( 00:00: mouth [place] VITAMIN) 00 daily. Medical tablet Branch Yes [id number] 1{tbl} Take 1 U nivers multivitami 6-28 tablet by ity of n ( 00:00: mouth [place] VITAMIN) 00 daily. Medical tablet Branch Yes [id number] 1{tbl} Take 1 U nivers multivitami 6-28 tablet by ity of n ( 00:00: mouth [place] VITAMIN) 00 daily. Medical tablet Branch Yes [id number] 1{tbl} Take 1 U nivers multivitami 6-28 tablet by ity of n ( 00:00: mouth [place] VITAMIN) 00 daily. Medical tablet Branch Yes [id number] 1{tbl} Take 1 U nivers multivitami 6-28 tablet by ity of n ( 00:00: mouth [place] VITAMIN) 00 daily. Medical tablet Branch Yes [id number] 1{tbl} Take 1 U nivers multivitami 6-28 tablet by ity of n ( 00:00: mouth [place] VITAMIN) 00 daily. Medical tablet Branch Yes [id number] 1{tbl} Take 1 U nivers multivitami 6-28 tablet by ity of n ( 00:00: mouth [place] VITAMIN) 00 daily. Medical tablet Branch Yes [id number] 1{tbl} Take 1 U nivers multivitami 6-28 tablet by ity of n ( 00:00: mouth [place] VITAMIN) 00 daily. Medical tablet Branch Yes [id number] 1{tbl} Take 1 U nivers multivitami 6-28 tablet by ity of n ( 00:00: mouth [place] VITAMIN) 00 daily. Medical tablet Branch 2021- No [id number] 1{tbl} Take 1 Univers multivitami 6-28 12-23 tablet by it y of n ( 00:00: 00:00 [place] VITAMIN) 00 :00 daily. Medical tablet Branch 2021- No [id number] 1{tbl} Take 1 Univers multivitami 6-28 12-23 tablet by it y of n ( 00:00: 00:00 [place] VITAMIN) 00 :00 daily. Medical tablet Branch Yes Take by [employer] vit 7-21 mouth. ity of calc,iron,f 20:05: [place] olic 07 Medical ( Branch VITAMIN ORAL) aspirin Yes 81mg Take 81 mg Univ ers (ADULT LOW 7-21 by mouth ity o f DOSE 20:05: daily. [place] ASPIRIN) 81 07 Medical mg EC Branch tablet Yes Take by Univer s vit 7-21 mouth. ity of calc,iron,f 20:05: [place] olic 07 Medical ( Branch VITAMIN ORAL) aspirin Yes 81mg Take 81 mg Univ ers (ADULT LOW 7-21 by mouth ity o f DOSE 20:05: daily. [place] ASPIRIN) 81 07 Medical mg EC Branch tablet Yes Take by [employer] vit 6-09 mouth. ity of calc,iron,f 20:15: [facility] 49 Medical ( Branch VITAMIN ORAL) Yes Take by Univer s vit 6-09 mouth. ity of calc,iron,f 20:15: [facility] 49 Medical ( Branch VITAMIN ORAL) Yes Take by [facility] vit 6-09 mouth. ity of calc,iron,f 20:15: [place] [id number] Medical ( Branch VITAMIN ORAL) Yes Take by [facility] Stkr.it vit 6-09 mouth. ity of calc,iron,f 20:15: [place] [address] Medical ( Branch VITAMIN ORAL) Yes Take by [facility] vit 6-09 mouth. ity of calc,iron,f 20:15: [place] [address] Medical ( Branch VITAMIN ORAL) Yes Take by [facility] vit 6-09 mouth. ity of calc,iron,f 20:15: [place] [address] Medical ( Branch VITAMIN ORAL) Yes Take by [facility] Stkr.it vit 6-09 mouth. ity of calc,iron,f 20:15: [place] [address] Medical ( Branch VITAMIN ORAL) norethindro 2019- Yes [id number] 1{tbl} Take 1 Univers ne-e.estrad 5-21 tablet by ity of iol-iron 00:00: mouth [place] (LOESTRIN 00 daily. Medical FE ) Branch 1.5 mg-30 mcg (21)/75 mg (7) per tablet norethindro 2019- Yes [id number] 1{tbl} Take 1 Univers ne-e.estrad 5-21 tablet by ity of iol-iron 00:00: mouth [place] (LOESTRIN 00 daily. Medical FE ) Branch 1.5 mg-30 mcg (21)/75 mg (7) per tablet norethindro 2019-0 2020- No [id number] 1{tbl} Take 1 [facility] ne-e.estrad 5-21 05-12 tablet by it y of iol-iron 00:00: 00:00 mouth [place] (LOESTRIN 00 :00 daily. Medical FE ) Branch 1.5 mg-30 mcg (21)/75 mg (7) per tablet docusate Yes [id number] 240mg Take 1 [facility] [place] calcium 240 4-25 capsule by it y of mg capsule 00:00: mouth [place] 00 daily as Medical needed for Branch Constipati on. simethicone Yes [id number] 160mg Take 2 [facility] 80 mg 4-25 tablets by ity of chewable 00:00: mouth [place] tablet 00 after Medical meals and Branch at bedtime as needed for Gas. oxyCODONE 5 2020-0 Yes [id number] 5mg Take 1 [facility] mg 4-25 tablet by ity of immediate 00:00: mouth [place] release 00 every 6 Medical tablet (six) Branch hours as needed for Pain (scale 4-6) or Pain (scale 7-10). docusate 2020-0 Yes [id number] 240mg Take 1 [facility] [place] calcium 240 4-25 capsule by it y of mg capsule 00:00: mouth once [place] 00 daily as Medical needed for Branch Constipati on. simethicone 2020-0 Yes [id number] 160mg Take 2 [facility] 80 mg 4-25 tablets by ity of chewable 00:00: mouth [place] tablet 00 after Medical meals and Branch at bedtime as needed for Gas. oxyCODONE 5 2020-0 Yes [id number] 5mg Take 1 [facility] mg 4-25 tablet by ity of immediate 00:00: mouth [place] release 00 every 6 Medical tablet (six) Branch hours as needed for Pain (scale 4-6) or Pain (scale 7-10). docusate 2020-0 Yes [id number] 240mg Take 1 [facility] [place] calcium 240 4-25 capsule by it y of mg capsule 00:00: mouth once [place] 00 daily as Medical needed for Branch Constipati on. simethicone 2020-0 Yes [id number] 160mg Take 2 [facility] 80 mg 4-25 tablets by ity of chewable 00:00: mouth [place] tablet 00 after Medical meals and Branch at bedtime as needed for Gas. oxyCODONE 5 2020-0 Yes [id number] 5mg Take 1 [facility] mg 4-25 tablet by ity of immediate 00:00: mouth [place] release 00 every 6 Medical tablet (six) Branch hours as needed for Pain (scale 4-6) or Pain (scale 7-10). docusate 2020-0 Yes [id number] 240mg Take 1 [facility] [place] calcium 240 4-25 capsule by it y of mg capsule 00:00: mouth once [place] 00 daily as Medical needed for Branch Constipati on. simethicone 2020-0 Yes [id number] 160mg Take 2 [facility] 80 mg 4-25 tablets by ity of chewable 00:00: mouth [place] tablet 00 after Medical meals and Branch at bedtime as needed for Gas. oxyCODONE 5 2019- Yes [id number] 5mg Take 1 [facility] mg 4-25 tablet by ity of immediate 00:00: mouth [place] release 00 every 6 Medical tablet (six) Branch hours as needed for Pain (scale 4-6) or Pain (scale 7-10). docusate Yes [id number] 240mg Take 1 [facility] [place] calcium 240 4-25 capsule by it y of mg capsule 00:00: mouth once [place] 00 daily as Medical needed for Branch Constipati on. simethicone Yes [id number] 160mg Take 2 [facility] 80 mg 4-25 tablets by ity of chewable 00:00: mouth [place] tablet 00 after Medical meals and Branch at bedtime as needed for Gas. oxyCODONE 5 Yes [id number] 5mg Take 1 [facility] mg 4-25 tablet by ity of immediate 00:00: mouth [place] release 00 every 6 Medical tablet (six) Branch hours as needed for Pain (scale 4-6) or Pain (scale 7-10). docusate 2020- No [id number] 240mg Take 1 [facility] calcium 240 4-25 05-12 capsule by i ty of mg capsule 00:00: 00:00 mouth once [place] 00 :00 daily as Medical needed for Branch Constipati on. simethicone 2020- No [id number] 160mg Take 2 [facility] 80 mg 4-25 05-12 tablets by ity of chewable 00:00: 00:00 mouth [place] tablet 00 :00 after Medical meals and Branch at bedtime as needed for Gas. oxyCODONE 5 2020- No [id number] 5mg Take 1 [facility] mg 4-25 05-12 tablet by ity of immediate 00:00: 00:00 mouth [place] release 00 :00 every 6 Medical tablet (six) Branch hours as needed for Pain (scale 4-6) or Pain (scale 7-10). acetaminoph 2020- No [id number] 650mg Take 2 [facility] en 325 mg 4-25 04-26 tablets by ity of tablet 00:00: 04:59 mouth [place] 00 :00 every 6 Medical (six) Branch hours as needed for Pain (scale 1-3) or Pain (scale 4-6). acetaminoph 2020-0 2020- No [id number] 650mg Take 2 [facility] en 325 mg 4-25 04-26 tablets by ity of tablet 00:00: 04:59 mouth [place] 00 :00 every 6 Medical (six) Branch hours as needed for Pain (scale 1-3) or Pain (scale 4-6). acetaminoph 2020-0 2020- No [id number] 650mg Take 2 [facility] en 325 mg 4-25 04-26 tablets by ity of tablet 00:00: 04:59 mouth [place] 00 :00 every 6 Medical (six) Branch hours as needed for Pain (scale 1-3) or Pain (scale 4-6). acetaminoph 2019-0 2020- No [id number] 650mg Take 2 [facility] en 325 mg 4-25 04-26 tablets by ity of tablet 00:00: 04:59 mouth [place] 00 :00 every 6 Medical (six) Branch hours as needed for Pain (scale 1-3) or Pain (scale 4-6). acetaminoph 2019-0 2020- No [id number] 650mg Take 2 [facility] en 325 mg 4-25 04-26 tablets by ity of tablet 00:00: 04:59 mouth [place] 00 :00 every 6 Medical (six) Branch hours as needed for Pain (scale 1-3) or Pain (scale 4-6). 2019-0 Yes Take by [facility] s vits62/FA/o 4-22 mouth ity of m3/dha/epa 20:08: daily. [place] ( 21 Medical GUMMY ORAL) Branch ofloxacin 2020-0 Yes [id number] 5[drp] Place 5 Univers 0.3 % otic 4-14 Drops in ity o f drops 00:00: both ears [place] 00 2 (two) Medical times Branch daily. ofloxacin 2020-0 Yes [id number] 5[drp] Place 5 Univers 0.3 % otic 4-14 Drops in ity o f drops 00:00: both ears [place] 00 2 (two) Medical times Branch daily. ofloxacin 2020-0 Yes [id number] 5[drp] Place 5 Univers 0.3 % otic 4-14 Drops in ity o f drops 00:00: both ears [place] 00 2 (two) Medical times Branch daily. ofloxacin 2020-0 Yes [id number] 5[drp] Place 5 Univers 0.3 % otic 4-14 Drops in ity o f drops 00:00: both ears [place] 00 2 (two) Medical times Branch daily. ofloxacin 2020-0 Yes [id number] 5[drp] Place 5 [facility] 0.3 % otic 4-14 Drops in ity o f drops 00:00: both ears [place] 00 2 (two) Medical times Branch daily. ofloxacin 2020-0 Yes [id number] 5[drp] Place 5 [facility] 0.3 % otic 4-14 Drops in ity o f drops 00:00: both ears [place] 00 2 (two) Medical times Branch daily. ofloxacin 2020-0 Yes [id number] 5[drp] Place 5 [facility] 0.3 % otic 4-14 Drops in ity o f drops 00:00: both ears [place] 00 2 (two) Medical times Branch daily. ofloxacin 2020-0 Yes [id number] 5[drp] Place 5 [facility] 0.3 % otic 4-14 Drops in ity o f drops 00:00: both ears [place] 00 2 (two) Medical times Branch daily. 2020-0 Yes Take by Univer s vits62/FA/o 3-19 mouth ity of m3/dha/epa 18:41: daily. [place] ( 40 Medical GUMMY ORAL) Branch 2020-0 Yes Take by Univer s vits62/FA/o 3-19 mouth ity of m3/dha/epa 18:41: daily. [place] ( 40 Medical GUMMY ORAL) Branch 2020-0 Yes Take by Univer s vits62/FA/o 3-19 mouth ity of m3/dha/epa 18:41: daily. [place] ( 40 Medical GUMMY ORAL) Branch 2020-0 Yes Take by Univer s vits62/FA/o 3-19 mouth ity of m3/dha/epa 18:41: daily. [place] ( 40 Medical GUMMY ORAL) Branch 2020-0 Yes Take by Univer s vits62/FA/o 3-19 mouth ity of m3/dha/epa 18:41: daily. [place] ( 40 Medical GUMMY ORAL) Branch 2020-0 Yes Take by Univer s vits62/FA/o 3-19 mouth ity of m3/dha/epa 18:41: daily. [place] ( 40 Medical GUMMY ORAL) Branch 2020-0 Yes Take by Univer s vits62/FA/o 3-19 mouth ity of m3/dha/epa 18:41: daily. [place] ( 40 Medical GUMMY ORAL) Branch 2020-0 Yes Take by Univer s vits62/FA/o 3-19 mouth ity of m3/dha/epa 18:41: daily. [place] ( 40 Medical GUMMY ORAL) Branch 2020-0 Yes Take by Univer s vits62/FA/o 3-19 mouth ity of m3/dha/epa 18:41: daily. [place] ( 40 Medical GUMMY ORAL) Branch 2020-0 Yes Take by Univer s vits62/FA/o 3-19 mouth ity of m3/dha/epa 18:41: daily. [place] ( 40 Medical GUMMY ORAL) Branch 2020-0 Yes Take by Univer s vits62/FA/o 3-19 mouth ity of m3/dha/epa 18:41: daily. [place] ( 40 Medical GUMMY ORAL) Branch 2020-0 Yes Take by Univer s vits62/FA/o 3-19 mouth ity of m3/dha/epa 18:41: daily. [place] ( 40 Medical GUMMY ORAL) Branch 2020-0 Yes Take by Univer s vits62/FA/o 3-19 mouth ity of m3/dha/epa 18:41: daily. [place] ( 40 Medical GUMMY ORAL) Branch 2020-0 Yes Take by Univer s vits62/FA/o 3-19 mouth ity of m3/dha/epa 18:41: daily. [place] ( 40 Medical GUMMY ORAL) Branch 2020-0 Yes Take by Univer s vits62/FA/o 3-19 mouth ity of m3/dha/epa 18:41: daily. [place] ( 40 Medical GUMMY ORAL) Branch [id number] 2020-0 Yes [id number] 1{tbl} Take 1 [facility] iron-folic 1-07 tablet by ity of acid-dha 00:00: mouth [place] 30-1.4-200 00 daily. Medical mg CpID Branch [id number] 2020-0 Yes [id number] 1{tbl} Take 1 [facility] iron-folic 1-07 tablet by ity of acid-dha 00:00: mouth [place] 30-1.4-[address] [facility] Yes [id number] 1{tbl} Take 1 [facility] iron-folic 1-07 tablet by ity of acid-dha 00:00: mouth [place] 30-1.4-[address] [facility] Yes [id number] 1{tbl} Take 1 [facility] iron-folic 1-07 tablet by ity of acid-dha 00:00: mouth [place] 30-1.4-[address] [facility] Yes [id number] 1{tbl} Take 1 [facility] iron-folic 1-07 tablet by ity of acid-dha 00:00: mouth [place] 30-1.4-[address] [facility] Yes [id number] 1{tbl} Take 1 [facility] iron-folic 1-07 tablet by ity of acid-dha 00:00: mouth [place] 30-1.4-[address] [facility] Yes [id number] 1{tbl} Take 1 [facility] iron-folic 1-07 tablet by ity of acid-dha 00:00: mouth [place] 30-1.4-[address] [facility] Yes [id number] 1{tbl} Take 1 [facility] iron-folic 1-07 tablet by ity of acid-dha 00:00: mouth [place] 30-1.4-[address] [facility] Yes [id number] 1{tbl} Take 1 [facility] iron-folic 1-07 tablet by ity of acid-dha 00:00: mouth [place] 30-1.4-[address] [facility] Yes [id number] 1{tbl} Take 1 [facility] iron-folic 1-07 tablet by ity of acid-dha 00:00: mouth [place] 30-1.4-[address] [facility] Yes [id number] 1{tbl} Take 1 [facility] iron-folic 1-07 tablet by ity of acid-dha 00:00: mouth [place] 30-1.4-[address] [facility] Yes [id number] 1{tbl} Take 1 [facility] iron-folic 1-07 tablet by ity of acid-dha 00:00: mouth [place] 30-1.4-[address] [facility] Yes [id number] 1{tbl} Take 1 [facility] iron-folic 1-07 tablet by ity of acid-dha 00:00: mouth [place] 30-1.4-[address] [facility] Yes [id number] 1{tbl} Take 1 [facility] iron-folic 1-07 tablet by ity of acid-dha 00:00: mouth [place] 30-1.4-[address] [facility] Yes [id number] 1{tbl} Take 1 [facility] iron-folic 1-07 tablet by ity of acid-dha 00:00: mouth [place] 30-1.4-[address] [facility] Yes [id number] 1{tbl} Take 1 [facility] iron-folic 1-07 tablet by ity of acid-dha 00:00: mouth [place] 30-1.4-[address] [facility] Yes [id number] 1{tbl} Take 1 [facility] iron-folic 1-07 tablet by ity of acid-dha 00:00: mouth [place] 30-1.4-[address] [facility] Yes [id number] 1{tbl} Take 1 [facility] iron-folic 1-07 tablet by ity of acid-dha 00:00: mouth [place] 30-1.4-[address] [facility] Yes [id number] 1{tbl} Take 1 [facility] iron-folic 1-07 tablet by ity of acid-dha 00:00: mouth [place] 30-1.4-[address] [facility] Yes [id number] 1{tbl} Take 1 [facility] iron-folic 1-07 tablet by ity of acid-dha 00:00: mouth [place] 30-1.4-200 00 daily[address] Medical mg ID [facility] Yes [id number] 1{tbl} Take 1 [facility] iron-folic 1-07 tablet by ity of acid-dha 00:00: mouth [place] 30-1.4-200 00 daily. Medical mg CpID [facility] Yes [id number] 1{tbl} Take 1 [facility] iron-folic 1-07 tablet by ity of acid-dha 00:00: mouth [place] 30-1.4-[address] [facility] Yes [id number] 1{tbl} Take 1 [facility] iron-folic 1-07 tablet by ity of acid-dha 00:00: mouth [place] 30-1.4-200 00 daily. Medical mg ID [facility] Yes [id number] 1{tbl} Take 1 [facility] iron-folic 1-07 tablet by ity of acid-dha 00:00: mouth [place] 30-1.4-[address] [facility] Yes [id number] 1{tbl} Take 1 [facility] iron-folic 1-07 tablet by ity of acid-dha 00:00: mouth [place] 30-1.4-200 00 daily. Medical mg [place] [address] 2021- No [id number] 1{tbl} Take 1 [facility] iron-folic 1-07 05-12 tablet by ity of acid-dha 00:00: 00:00 mouth [place] 30-1.4-200 00 :00 daily. Medical mg [facility] cephALEXin 2018-02 Yes [id number] 500mg Take 1 [facility] 500 mg 2-11 capsule by ity of capsule 00:00: mouth 4 [place] 00 (four) Medical times Branch daily. cephALEXin 2018-02 Yes [id number] 500mg Take 1 [facility] 500 mg 2-11 capsule by ity of capsule 00:00: mouth 4 [place] 00 (four) Medical times Branch daily. cephALEXin 2018-02 Yes [id number] 500mg Take 1 [facility] 500 mg 2-11 capsule by ity of capsule 00:00: mouth 4 [place] 00 (four) Medical times Branch daily. cephALEXin 2018-02 Yes [id number] 500mg Take 1 [facility] 500 mg 2-11 capsule by ity of capsule 00:00: mouth 4 [place] 00 (four) Medical times Branch daily. cephALEXin 2019- Yes [id number] 500mg Take 1 [facility] 500 mg 2-11 capsule by ity of capsule 00:00: mouth [place] ([facility]) Medical times Branch daily. cephALEXin 2019- Yes [id number] 500mg Take 1 [facility] 500 mg 2-11 capsule by ity of capsule 00:00: mouth ([facility]) Medical times Branch daily. cephALEXin 2018- Yes [id number] 500mg Take 1 [facility] 500 mg 2-11 capsule by ity of capsule 00:00: mouth [place] ([facility]) Medical times Branch daily. cephALEXin 2018- Yes [id number] 500mg Take 1 [facility] 500 mg 2-11 capsule by ity of capsule 00:00: mouth [place] ([facility]) Medical times Branch daily. cephALEXin 2018- Yes [id number] 500mg Take 1 [facility] 500 mg 2-11 capsule by ity of capsule 00:00: mouth [place] ([facility]) Medical times Branch daily. cephALEXin 2018-02 Yes [id number] 500mg Take 1 [facility] 500 mg 2-11 capsule by ity of capsule 00:00: mouth [place] ([facility]) Medical times Branch daily. cephALEXin 2018-02 Yes [id number] 500mg Take 1 [facility] 500 mg 2-11 capsule by ity of capsule 00:00: mouth [place] ([facility]) Medical times Branch daily. cephALEXin 2018-02 Yes [id number] 500mg Take 1 [facility] 500 mg 2-11 capsule by ity of capsule 00:00: [facility] [place] ([facility]) Medical times Branch daily. cephALEXin 2018- Yes [id number] 500mg Take 1 [facility] 500 mg 2-11 capsule by ity of capsule 00:00: mouth [place] ([facility]) Medical times Branch daily. cephALEXin 2018- Yes [id number] 500mg Take 1 [facility] 500 mg 2-11 capsule by ity of capsule 00:00: mouth [place] ([facility]) Medical times Branch daily. cephALEXin 2019- Yes [id number] 500mg Take 1 [facility] 500 mg 2-11 capsule by ity of capsule 00:00: mouth [address] [place] [address] ([facility]) Medical times Branch daily. cephALEXin 2018- Yes [id number] 500mg Take 1 [facility] 500 mg 2-11 capsule by ity of capsule 00:00: mouth 4 [place] [address] ([facility]) Medical times [place] daily. cephALEXin 2018-02 Yes [id number] 500mg Take 1 [facility] 500 mg 2-11 capsule by ity of capsule 00:00: mouth 4 [place] [address] ([facility]) Medical times [place] daily. cephALEXin 2018-02 Yes [id number] 500mg Take 1 [facility] 500 mg 2-11 capsule by ity of capsule 00:00: mouth 4 [place] [address] ([facility]) Medical times [place] daily. cephALEXin 2018-02 Yes [id number] 500mg Take 1 [facility] 500 mg 2-11 capsule by ity of capsule 00:00: mouth 4 [place] [address] ([facility]) Medical times [place] daily. cephALEXin 2018-02 Yes [id number] 500mg Take 1 [facility] 500 mg 2-11 capsule by ity of capsule 00:00: mouth 4 [place] [address] ([facility]) Medical times [place] daily. 2019- Yes Take by Univer s vits62/FA/o 0-10 mouth ity of m3/dha/epa 19:12: daily. [place] ( 30 Medical GUMMY ORAL) Branch 2019 Yes Take by Univer s vits62/FA/o 0-10 mouth ity of m3/dha/epa 19:12: daily. [place] ( 30 Medical GUMMY ORAL) Branch 2019 Yes Take by Univer s vits62/FA/o 0-10 mouth ity of m3/dha/epa 19:12: daily. [place] ( 30 Medical GUMMY ORAL) Branch 2019 Yes Take by Univer s vits62/FA/o 0-10 mouth ity of m3/dha/epa 19:12: daily. [place] ( 30 Medical GUMMY ORAL) Branch No known No Univers medications ity [facility] [place] [facility] No known No Univers medications ity [facility] [place] [facility] No known No Univers medications ity [facility] [place] [facility] No known [facility] Univers medications ity [facility] [place] [facility] No [facility] No Univers medications ity [facility] [place] [facility] No known No [facility] Immunizations Ordered Immunization Filled Date Status Comments Sour ce Name Immunization Name TDAP 2021-12-08 Completed [facility] 00:00:00 [facility] TDAP 2021-12-08 Completed University of 00:00: [facility] TDAP 2021-12-08 Completed University of 00:00:00 [facility] TDAP 2021-12-08 Completed University of 00:00:00 [place] [facility] TDAP 2021-12-08 Completed University of 00:00:00 [place] [facility] TDAP 2021-12-08 Completed University of 00:00:00 [place] [facility] TDAP 2021-12-08 Completed University of 00:00:00 [place] [facility] TDAP 2021-12-08 Completed University of 00:00:00 [place] [facility] TDAP 2021-12-08 Completed University of 00:00:00 [place] [facility] TDAP 2021-12-08 Completed University of 00:00:00 [place] [facility] TDAP 2021-12-08 Completed University of 00:00:00 [place] [facility] TDAP 2021-12-08 Completed University of 00:00:00 [place] [facility] TDAP 2021-12-08 Completed University of 00:00:00 [facility] TDAP 2021-12-08 Completed University of 00:00:00 [facility] TDAP 2021-12-08 Completed University of 00:00:00 [place] [facility] TDAP 2021-12-08 Completed University of 00:00:00 [facility] TDAP 2021-12-08 Completed University of 00:00:00 [place] [facility] TDAP 2021-12-08 Completed University of 00:00:00 [place] [facility] TDAP 2021-12-08 Completed University of 00:00:00 [place] [facility] TDAP 2021-12-08 Completed University of 00:00:00 [place] [facility] TDAP 2021-12-08 Completed University of 00:00:00 [place] [facility] TDAP 2021-12-08 Completed University of 00:00:00 [place] [facility] TDAP 2021-12-08 Completed University of 00:00:00 [place] [facility] TDAP 2021-12-08 Completed University of 00:00:00 [facility] Branch TDAP 2021-12-08 Completed University of 00:00:00 [place] [facility] TDAP 2021-12-08 Completed University of 00:00:00 [place] [facility] TDAP 2021-12-08 Completed University of 00:00:00 [place] [facility] TDAP 2021-12-08 Completed University of 00:00:00 [place] [facility] TDAP 2021-12-08 Completed University of 00:00:00 [facility] TDAP 2021-12-08 Completed University of 00:00:00 [facility] TDAP 2020-07-28 Completed University of 00:00:00 [place] [facility] TDAP 2020-07-28 Completed University of 00:00:00 [place] [facility] TDAP 2020-07-28 Completed University of 00:00:00 [facility] TDAP 2020-07-28 Completed University of 00:00:00 [facility] TDAP 2020-07-28 Completed University of 00:00:00 [facility] TDAP 2020-07-28 Completed University of 00:00:00 [facility] TDAP 2020-07-28 Completed University of 00:00:00 [facility] TDAP 2020-07-28 Completed University of 00:00:00 [facility] TDAP 2020-07-28 Completed University of 00:00:00 [facility] TDAP 2020-07-28 Completed University of 00:00:00 [facility] TDAP 2020-07-28 Completed University of 00:00:00 [facility] TDAP 2020-07-28 Completed University of 00:00:00 [facility] TDAP 2020-07-28 Completed University of 00:00:00 [facility] TDAP 2020-07-28 Completed University of 00:00:00 [facility] TDAP 2020-07-28 Completed University of 00:00:00 [facility] TDAP 2020-07-28 Completed University of 00:00:00 [facility] TDAP 2020-07-28 Completed University of 00:00:00 [facility] TDAP 2020-07-28 Completed University of 00:00:00 [facility] TDAP 2020-07-28 Completed University of 00:00:00 [facility] TDAP 2020-07-28 Completed University of 00:00:00 [place] [facility] [place] TDAP 2020-07-28 Completed University of 00:00:00 [place] [facility] TDAP 2020-07-28 Completed University of 00:00:00 [place] [facility] [place] TDAP 2020-07-28 Completed University of 00:00:00 [facility] TDAP 2020-07-28 Completed University of 00:00:00 [facility] TDAP 2020-07-28 Completed University of 00:00:00 [facility] TDAP 2020-07-28 Completed University of 00:00:00 [place] [facility] TDAP 2020-07-28 Completed University of 00:00:00 [place] [facility] TDAP 2020-07-28 Completed University of 00:00:00 [place] [facility] TDAP 2020-07-28 Completed University of 00:00:00 [facility] TDAP 2020-07-28 Completed University of 00:00:00 [facility] TDAP 2020-07-28 Completed University of 00:00:00 [place] [facility] TDAP 2020-07-28 Completed University of 00:00:00 [facility] TDAP 2020-07-28 Completed University of 00:00:00 [facility] TDAP 2020-07-28 Completed University of 00:00:00 [place] [facility] TDAP 2020-07-28 Completed University of 00:00:00 [facility] TDAP 2020-07-28 Completed University of 00:00:00 [facility] TDAP 2020-07-28 Completed University of 00:00:00 [facility] TDAP 2020-07-28 Completed University of 00:00:00 [facility] TDAP 2020-07-28 Completed University of 00:00:00 [facility] TDAP 2020-07-28 Completed University of 00:00:00 [facility] TDAP 2020-07-28 Completed University of 00:00:00 [facility] TDAP 2020-07-28 Completed University of 00:00:00 [facility] TDAP (ADACEL) 2019-03-21 Completed University of VACCINE 00:00:00 [facility] TDAP (ADACEL) 2019-03-21 Completed University of VACCINE 00:00:00 [facility] TDAP (ADACEL) 2019-03-21 Completed University of VACCINE 00:00:00 [facility] TDAP (ADACEL) 2019-03-21 Completed University of VACCINE 00:00:00 [facility] TDAP (ADACEL) 2019-03-21 Completed University of VACCINE 00:00:00 [facility] TDAP (ADACEL) 2019-03-21 Completed University of VACCINE 00:00:00 [facility] TDAP (ADACEL) 2019-03-21 Completed University of VACCINE 00:00:00 [facility] TDAP (ADACEL) 2019-03-21 Completed University of VACCINE 00:00:00 [facility] TDAP (ADACEL) 2019-03-21 Completed University of VACCINE 00:00:00 [facility] TDAP (ADACEL) 2019-03-21 Completed University of VACCINE 00:00:00 [place] [facility] TDAP (ADACEL) 2019-03-21 Completed University of VACCINE 00:00:00 [facility] TDAP (ADACEL) 2019-03-21 Completed University of VACCINE 00:00:00 [facility] TDAP (ADACEL) 2019-03-21 Completed University of VACCINE 00:00:00 [facility] TDAP (ADACEL) 2019-03-21 Completed University of VACCINE 00:00:00 [facility] TDAP (ADACEL) 2019-03-21 Completed [facility] VACCINE 00:00:00 [facility] TDAP (ADACEL) 2019-03-21 Completed [facility] VACCINE 00:00:00 [facility] TDAP (ADACEL) 2019-03-21 Completed [facility] VACCINE 00:00:00 [facility] TDAP (ADACEL) 2019-03-21 Completed [facility] VACCINE 00:00:00 [facility] TDAP (ADACEL) 2019-03-21 Completed [facility] VACCINE 00:00:00 [facility] TDAP (ADACEL) 2019-03-21 Completed [facility] VACCINE 00:00:00 [facility] TDAP (ADACEL) 2019-03-21 Completed [facility] VACCINE 00:00:00 [facility] TDAP (ADACEL) 2019-03-21 Completed [facility] VACCINE 00:00:00 [facility] TDAP (ADACEL) 2019-03-21 Completed [facility] VACCINE 00:00:00 [facility] TDAP (ADACEL) 2019-03-21 Completed [facility] VACCINE 00:00:00 [facility] TDAP (ADACEL) 2019-03-21 Completed [facility] VACCINE 00:00:00 [facility] TDAP (ADACEL) 2019-03-21 Completed [facility] VACCINE 00:00:00 [facility] TDAP (ADACEL) 2019-03-21 Completed [facility] VACCINE 00:00:00 [facility] TDAP (ADACEL) 2019-03-21 Completed [facility] VACCINE 00:00:00 [facility] TDAP (ADACEL) 2019-03-21 Completed [facility] VACCINE 00:00:00 [facility] TDAP (ADACEL) 2019-03-21 Completed [facility] VACCINE 00:00:00 [facility] TDAP (ADACEL) 2019-03-21 Completed [facility] VACCINE 00:00:00 [facility] TDAP (ADACEL) 2019-03-21 Completed [facility] VACCINE 00:00:00 [facility] TDAP (ADACEL) 2019-03-21 Completed [facility] VACCINE 00:00:00 [facility] TDAP (ADACEL) 2019-03-21 Completed [facility] VACCINE 00:00:00 [facility] TDAP (ADACEL) 2019-03-21 Completed [facility] VACCINE 00:00:00 [facility] TDAP (ADACEL) 2019-03-21 Completed [facility] VACCINE 00:00:00 [facility] TDAP (ADACEL) 2019-03-21 Completed [facility] VACCINE 00:00:00 [facility] TDAP (ADACEL) 2019-03-21 Completed [facility] VACCINE 00:00:00 [facility] TDAP (ADACEL) 2019-03-21 Completed [facility] VACCINE 00:00:00 [facility] TDAP (ADACEL) 2019-03-21 Completed [facility] VACCINE 00:00:00 [facility] TDAP (ADACEL) 2019-03-21 Completed [facility] VACCINE 00:00:00 [facility] TDAP (ADACEL) 2019-03-21 Completed [facility] VACCINE 00:00:00 [facility] TDAP (ADACEL) 2019-03-21 Completed [facility] VACCINE 00:00:00 [facility] TDAP (ADACEL) 2019-03-21 Completed [facility] VACCINE 00:00:00 [facility] TDAP (ADACEL) 2019-03-21 Completed [facility] VACCINE 00:00:00 [facility] TDAP (ADACEL) 2019-03-21 Completed [facility] VACCINE 00:00:00 [facility] TDAP (ADACEL) 2019-03-21 Completed [facility] VACCINE 00:00:00 [facility] TDAP (ADACEL) 2019-03-21 Completed [facility] VACCINE 00:00:00 [facility] TDAP (ADACEL) 2019-03-21 Completed [facility] VACCINE 00:00:00 [facility] TDAP (ADACEL) 2019-03-21 Completed [facility] VACCINE 00:00:00 [facility] TDAP (ADACEL) 2019-03-21 Completed [facility] VACCINE 00:00:00 [facility] TDAP (ADACEL) 2019-03-21 Completed [facility] VACCINE 00:00:00 [facility] TDAP (ADACEL) 2019-03-21 Completed [facility] VACCINE 00:00:00 [facility] TDAP (ADACEL) 2019-03-21 Completed [facility] VACCINE 00:00:00 [facility] TDAP (ADACEL) 2019-03-21 Completed [facility] VACCINE 00:00:00 [facility] TDAP (ADACEL) 2019-03-21 Completed [facility] VACCINE 00:00:00 [facility] TDAP (ADACEL) 2019-03-21 Completed [facility] VACCINE 00:00:00 [facility] TDAP (ADACEL) 2019-03-21 Completed [facility] VACCINE 00:00:00 [facility] TDAP (ADACEL) 2019-03-21 Completed [facility] VACCINE 00:00:00 [facility] TDAP (ADACEL) 2019-03-21 Completed [facility] VACCINE 00:00:00 [facility] TDAP (ADACEL) 2019-03-21 Completed [facility] VACCINE 00:00:00 [facility] TDAP (ADACEL) 2019-03-21 Completed [facility] VACCINE 00:00:00 [facility] TDAP (ADACEL) 2019-03-21 Completed [facility] VACCINE 00:00:00 [facility] TDAP (ADACEL) 2019-03-21 Completed [facility] VACCINE 00:00:00 [facility] TDAP (ADACEL) 2019-03-21 Completed [facility] VACCINE 00:00:00 [facility] TDAP (ADACEL) 2019-03-21 Completed [facility] VACCINE 00:00:00 [facility] TDAP (ADACEL) 2019-03-21 Completed [facility] VACCINE 00:00:00 [facility] TDAP (ADACEL) 2019-03-21 Completed [facility] VACCINE 00:00:00 [facility] TDAP (ADACEL) 2019-03-21 Completed [facility] VACCINE 00:00:00 [facility] TDAP (ADACEL) 2019-03-21 Completed [facility] VACCINE 00:00:00 [facility] TDAP (ADACEL) 2019-03-21 Completed [facility] VACCINE 00:00:00 [facility] TDAP (ADACEL) 2019-03-21 Completed [facility] VACCINE 00:00:00 [facility] TDAP (ADACEL) 2019-03-21 Completed [facility] VACCINE 00:00:00 [facility] TDAP (ADACEL) 2019-03-21 Completed [facility] VACCINE 00:00:00 [facility] TDAP (ADACEL) 2019-03-21 Completed [facility] VACCINE 00:00:00 [facility] Influenza Virus 2018-11-28 Completed [facility]it y of Vaccine Quad .5 mL 00:00:00 [facility] 6+ MO Branch Influenza Virus 2018-11-28 Completed [facility] y of Vaccine Quad .5 mL 00:00:00 [facility] Influenza Virus 2018-11-28 Completed [facility] y of Vaccine Quad .5 mL 00:00:00 [facility] 6[facility] Influenza Virus 2018-11-28 Completed [facility] of Vaccine Quad .5 mL 00:00:00 [facility] Influenza Virus 2018-11-28 Completed [facility] y of Vaccine Quad .5 mL 00:00:00 [facility] Influenza Virus 2018-11-28 Completed [facility] y of Vaccine Quad .5 mL 00:00:00 [facility] 6+ MO [facility] Influenza Virus 2018-11-28 Completed [facility] y of Vaccine Quad .5 mL 00:00:00 [facility] Influenza Virus 2018-11-28 Completed [facility] y of Vaccine Quad .5 mL 00:00:00 [facility] Influenza Virus 2018-11-28 Completed [facility] y of Vaccine Quad .5 mL 00:00:00 [facility] Influenza Virus 2018-11-28 Completed [facility] of Vaccine Quad .5 mL 00:00:00 [facility] Influenza Virus 2018-11-28 Completed [facility] y of Vaccine Quad .5 mL 00:00:00 [facility] 6[facility] Influenza Virus 2018-11-28 Completed [facility] y of Vaccine Quad .5 mL 00:00:00 [facility] Influenza Virus 2018-11-28 Completed [facility] y of Vaccine Quad .5 mL 00:00:00 [facility] 6[facility] Influenza Virus 2018-11-28 Completed [facility] y of Vaccine Quad .5 mL 00:00:00 [facility] 6[facility] Influenza Virus 2018-11-28 Completed [facility] y of Vaccine Quad .5 mL 00:00:00 [facility] 6[facility] Influenza Virus 2018-11-28 Completed [facility] y of Vaccine Quad .5 mL 00:00:00 [facility] 6[facility] Influenza Virus 2018-11-28 Completed [facility] y of Vaccine Quad .5 mL 00:00:00 [facility] 6[facility] Influenza Virus 2018-11-28 Completed [facility] y of Vaccine Quad .5 mL 00:00:00 [facility] 6[facility] Influenza Virus 2018-11-28 Completed [facility] y of Vaccine Quad .5 mL 00:00:00 [facility] 6[facility] Influenza Virus 2018-11-28 Completed [facility] y of Vaccine Quad .5 mL 00:00:00 [facility] 6[facility] Influenza Virus 2018-11-28 Completed [facility] y of Vaccine Quad .5 mL 00:00:00 [facility] 6[facility] Influenza Virus 2018-11-28 Completed [facility] y of Vaccine Quad .5 mL 00:00:00 [facility] 6[facility] Influenza Virus 2018-11-28 Completed [facility] y of Vaccine Quad .5 mL 00:00:00 [facility] Influenza Virus 2018-11-28 Completed [facility] y of Vaccine Quad .5 mL 00:00:00 [facility] Influenza Virus 2018-11-28 Completed [facility] y of Vaccine Quad .5 mL 00:00:00 [facility] Influenza Virus 2018-11-28 Completed [facility] y of Vaccine Quad .5 mL 00:00:00 [facility] 6[facility] Influenza Virus 2018-11-28 Completed [facility] y of Vaccine Quad .5 mL 00:00:00 [facility] 6[facility] Influenza Virus 2018-11-28 Completed [facility] of Vaccine Quad .5 mL 00:00:00 [facility] Influenza Virus 2018-11-28 Completed [facility] y of Vaccine Quad .5 mL 00:00:00 [facility] 6[facility] Influenza Virus 2018-11-28 Completed [facility] y of Vaccine Quad .5 mL 00:00:00 [facility] 6[facility] Influenza Virus 2018-11-28 Completed [facility] y of Vaccine Quad .5 mL 00:00:00 [facility] 6[facility] Influenza Virus 2018-11-28 Completed [facility] of Vaccine Quad .5 mL 00:00:00 [facility] 6[facility] Influenza Virus 2018-11-28 Completed [facility] of Vaccine Quad .5 mL 00:00:00 [facility] 6[facility] Influenza Virus 2018-11-28 Completed [facility] of Vaccine Quad .5 mL 00:00:00 [facility] Influenza Virus 2018-11-28 Completed [facility] y of Vaccine Quad .5 mL 00:00:00 [facility] Influenza Virus 2018-11-28 Completed [facility] of Vaccine Quad .5 mL 00:00:00 [facility] Influenza Virus 2018-11-28 Completed [facility] y of Vaccine Quad .5 mL 00:00:00 [facility] Influenza Virus 2018-11-28 Completed [facility] y of Vaccine Quad .5 mL 00:00:00 [facility] Influenza Virus 2018-11-28 Completed [facility] y of Vaccine Quad .5 mL 00:00:00 [facility] Influenza Virus 2018-11-28 Completed [facility] y of Vaccine Quad .5 mL 00:00:00 [facility] Influenza Virus 2018-11-28 Completed [facility] y of Vaccine Quad .5 mL 00:00:00 [facility] Influenza Virus 2018-11-28 Completed [facility] y of Vaccine Quad .5 mL 00:00:00 [facility] Influenza Virus 2018-11-28 Completed [facility] y of Vaccine Quad .5 mL 00:00:00 [facility] Influenza Virus 2018-11-28 Completed [facility] y of Vaccine Quad .5 mL 00:00:00 [facility] Influenza Virus 2018-11-28 Completed [facility] y of Vaccine Quad .5 mL 00:00:00 [facility] Influenza Virus 2018-11-28 Completed [facility] y of Vaccine Quad .5 mL 00:00:00 [facility] Influenza Virus 2018-11-28 Completed [facility] y of Vaccine Quad .5 mL 00:00:00 [facility] Influenza Virus 2018-11-28 Completed [facility] y of Vaccine Quad .5 mL 00:00:00 [facility] Influenza Virus 2018-11-28 Completed [facility] y of Vaccine Quad .5 mL 00:00:00 [facility] 6[facility] Influenza Virus 2018-11-28 Completed [facility] y of Vaccine Quad .5 mL 00:00:00 [facility] Influenza Virus 2018-11-28 Completed [facility] y of Vaccine Quad .5 mL 00:00:00 [facility] Influenza Virus 2018-11-28 Completed [facility] y of Vaccine Quad .5 mL 00:00:00 [facility] 6[facility] Influenza Virus 2018-11-28 Completed [facility] y of Vaccine Quad .5 mL 00:00:00 [facility] Influenza Virus 2018-11-28 Completed [facility] y of Vaccine Quad .5 mL 00:00:00 [facility] 6[facility] Influenza Virus 2018-11-28 Completed [facility] y of Vaccine Quad .5 mL 00:00:00 [facility] 6[facility] Influenza Virus 2018-11-28 Completed [facility] y of Vaccine Quad .5 mL 00:00:00 [facility] 6[facility] Influenza Virus 2018-11-28 Completed [facility] y of Vaccine Quad .5 mL 00:00:00 [facility] 6[facility] Influenza Virus 2018-11-28 Completed [facility] y of Vaccine Quad .5 mL 00:00:00 [facility] Influenza Virus 2018-11-28 Completed [facility] y of Vaccine Quad .5 mL 00:00:00 [facility] Influenza Virus 2018-11-28 Completed [facility] y of Vaccine Quad .5 mL 00:00:00 [facility] Influenza Virus 2018-11-28 Completed [facility] y of Vaccine Quad .5 mL 00:00:00 [facility] Influenza Virus 2018-11-28 Completed [facility] y of Vaccine Quad .5 mL 00:00:00 [facility] Influenza Virus 2018-11-28 Completed [facility] y of Vaccine Quad .5 mL 00:00:00 [facility] 6[facility] Influenza Virus 2018-11-28 Completed [facility] y of Vaccine Quad .5 mL 00:00:00 [facility] Influenza Virus 2018-11-28 Completed [facility] y of Vaccine Quad .5 mL 00:00:00 [facility] 6[facility] Influenza Virus 2018-11-28 Completed [facility] y of Vaccine Quad .5 mL 00:00:00 [facility] Influenza Virus 2018-11-28 Completed [facility] y of Vaccine Quad .5 mL 00:00:00 [facility] 6[facility] Influenza Virus 2018-11-28 Completed [facility] y of Vaccine Quad .5 mL 00:00:00 [facility] 6+ MO [facility] Influenza Virus 2018-11-28 Completed [facility] y of Vaccine Quad .5 mL 00:00:00 [facility] Influenza Virus 2018-11-28 Completed [facility] y of Vaccine Quad .5 mL 00:00:00 [facility] 6[facility] Influenza Virus 2018-11-28 Completed [facility] y of Vaccine Quad .5 mL 00:00:00 [facility] Influenza Virus 2018-11-28 Completed [facility] y of Vaccine Quad .5 mL 00:00:00 [facility] 6[facility] Influenza Virus 2018-11-28 Completed [facility] y of Vaccine Quad .5 mL 00:00:00 [facility] 6+ MO Branch Influenza Virus 2018-11-28 Completed [facility] y of Vaccine Quad .5 mL 00:00:00 [facility] 6+ MO Branch Influenza Virus 2018-11-28 Completed [facility] y of Vaccine Quad .5 mL 00:00:00 [facility] 6+ MO Branch Influenza Virus 2012-11-29 Completed [facility] y of Vaccine Nasal 00:00:00 [facility] Influenza Virus 2012-11-29 Completed [facility]it y of Vaccine Nasal 00:00:00 [facility] Influenza Virus 2012-11-29 Completed [facility]it y of Vaccine Nasal 00:00:00 [facility] Influenza Virus 2012-11-29 Completed [facility] y of Vaccine Nasal 00:00:00 [facility] Influenza Virus 2012-11-29 Completed [facility]it y of Vaccine Nasal 00:00:00 [facility] Influenza Virus 2012-11-29 Completed [facility] y of Vaccine Nasal 00:00:00 [facility] Influenza Virus 2012-11-29 Completed [facility] y of Vaccine Nasal 00:00:00 [facility] Influenza Virus 2012-11-29 Completed [facility] y of Vaccine Nasal 00:00:00 [facility] Influenza Virus 2012-11-29 Completed [facility]it y of Vaccine Nasal 00:00:00 [facility] Influenza Virus 2012-11-29 Completed [facility] y of Vaccine Nasal 00:00:00 [facility] Influenza Virus 2012-11-29 Completed [facility]it y of Vaccine Nasal 00:00:00 [facility] Meningococcal 2011-11-27 Completed University of Polysaccharide 00:00:00 [facility] (groups A, C, Y and Branc h [...] Universit y of Vaccine - Whole 00:00:00 [facility] Influenza Virus 2011-11-10 Completed Universit y of Vaccine - Whole 00:00:00 [facility] Influenza Virus 2011-11-10 Completed [facility]it y of Vaccine - Whole 00:00:00 [facility] Influenza Virus 2011-11-10 Completed [facility]it y of Vaccine - Whole 00:00:00 [facility] Influenza Virus 2011-11-10 Completed [facility]it y of Vaccine - Whole 00:00:00 [facility] Influenza Virus 2011-11-10 Completed [facility]it y of Vaccine - Whole 00:00:00 [facility] Influenza Virus 2011-11-10 Completed [facility] y of Vaccine - Whole 00:00:00 [facility] Influenza Virus 2011-11-10 Completed [facility] y of Vaccine - Whole 00:00:00 [facility] Influenza Virus 2011-11-10 Completed [facility]it y of Vaccine - Whole 00:00:00 [facility] Influenza Virus 2011-11-10 Completed [facility]it y of Vaccine - Whole 00:00:00 [facility] Influenza Virus 2011-11-10 Completed [facility] y of Vaccine - Whole 00:00:00 [facility] Influenza Virus 2010-11-25 Completed [facility]it y of Vaccine Nasal 00:00:00 [facility] Influenza Virus 2010-11-25 Completed [facility]it y of Vaccine Nasal 00:00:00 [facility] Influenza Virus 2010-11-25 Completed [facility]it y of Vaccine Nasal 00:00:00 [facility] Influenza Virus 2010-11-25 Completed [facility]it y of Vaccine Nasal 00:00:00 [facility] Influenza Virus 2010-11-25 Completed [facility]it y of Vaccine Nasal 00:00:00 [facility] Influenza Virus 2010-11-25 Completed [facility]it y of Vaccine Nasal 00:00:00 [facility] Influenza Virus 2010-11-25 Completed [facility]it y of Vaccine Nasal 00:00:00 [facility] Influenza Virus 2010-11-25 Completed [facility]it y of Vaccine Nasal 00:00:00 [facility] Influenza Virus 2010-11-25 Completed [facility]it y of Vaccine Nasal 00:00:00 [facility] Influenza Virus 2010-11-25 Completed [facility]it y of Vaccine Nasal 00:00:00 [facility] Influenza Virus 2010-11-25 Completed [facility]it y of Vaccine Nasal 00:00:00 [facility] Flu Trivalent 2010-02-24 Completed University of 00:00:00 [facility] Flu Trivalent 2010-02-24 Completed [facility] of 00:00:00 [facility] Flu Trivalent 2010-02-24 Completed [facility] of 00:00:00 [facility] Flu Trivalent 2010-02-24 Completed [facility] of 00:00:00 [facility] Flu Trivalent 2010-02-24 Completed [facility] of 00:00:00 [facility] Flu Trivalent 2010-02-24 Completed [facility] of 00:00:00 [facility] Flu Trivalent 2010-02-24 Completed [facility] of 00:00:00 [facility] Flu Trivalent 2010-02-24 Completed [facility] of 00:00:00 [facility] Flu Trivalent 2010-02-24 Completed [facility] of 00:00:00 [facility] Flu Trivalent 2010-02-24 Completed [facility] of 00:00:00 [facility] Flu Trivalent 2010-02-24 Completed [facility] of 00:00:00 [facility] Influenza Virus 2008-11-23 Completed [facility]it y of Vaccine Nasal 00:00:00 [facility] Influenza Virus 2008-11-23 Completed [facility]it y of Vaccine Nasal 00:00:00 [facility] Influenza Virus 2008-11-23 Completed [facility]it y of Vaccine Nasal 00:00:00 [facility] Influenza Virus 2008-11-23 Completed [facility]it y of Vaccine Nasal 00:00:00 [facility] Influenza Virus 2008-11-23 Completed [facility] y of Vaccine Nasal 00:00:00 [facility] Influenza Virus 2008-11-23 Completed [facility] y of Vaccine Nasal 00:00:00 [facility] Influenza Virus 2008-11-23 Completed [facility] y of Vaccine Nasal 00:00:00 [facility] Influenza Virus 2008-11-23 Completed [facility] y of Vaccine Nasal 00:00:00 [facility] Influenza Virus 2008-11-23 Completed [facility] y of Vaccine Nasal 00:00:00 [facility] Influenza Virus 2008-11-23 Completed [facility] y of Vaccine Nasal 00:00:00 [facility] Influenza Virus 2008-11-23 Completed [facility]it y of Vaccine Nasal 00:00:00 [facility] HPV 2008-04-28 Completed [facility] of 00:00:00 [facility] HPV 2008-04-28 Completed [facility] of 00:00:00 [facility] HPV 2008-04-28 Completed [facility] of 00:00:00 [facility] HPV 2008-04-28 Completed [facility] of 00:00:00 [facility] HPV 2008-04-28 Completed [facility] of 00:00:00 [facility] HPV 2008-04-28 Completed [facility] 00:00:00 [facility] HPV 2008-04-28 Completed [facility] 00:00:00 [facility] HPV 2008-04-28 Completed [facility] 00:00:00 [facility] HPV 2008-04-28 Completed [facility] 00:00:00 [facility] HPV 2008-04-28 Completed [facility] 00:00:00 [facility] HPV 2008-04-28 Completed [facility] 00:00:00 [facility] HPV 2008-04-28 Completed [facility] 00:00:00 [facility] HPV 2008-04-28 Completed [facility] 00:00:00 [facility] HPV 2008-04-28 Completed [facility] 00:00:00 [facility] HPV 2008-04-28 Completed [facility] 00:00:00 [facility] HPV 2008-04-28 Completed [facility] 00:00:00 [facility] HPV 2008-04-28 Completed [facility] of 00:00:00 [facility] HPV 2007-12-02 Completed [facility] of 00:00:00 [facility] HPV 2007-12-02 Completed [facility] of 00:00:00 [facility] HPV 2007-12-02 Completed [facility] of 00:00:00 [facility] HPV 2007-12-02 Completed [facility] of 00:00:00 [facility] HPV 2007-12-02 Completed [facility] of 00:00:00 [facility] HPV 2007-12-02 Completed [facility] of 00:00:00 [facility] HPV 2007-12-02 Completed [facility] of 00:00:00 [facility] Influenza Virus 2007-12-02 Completed Universit y of Vaccine - Whole 00:00:00 [facility] HPV 2007-12-02 Completed [facility] of 00:00:00 [facility] Influenza Virus 2007-12-02 Completed Universit y of Vaccine - Whole 00:00:00 [facility] HPV 2007-12-02 Completed [facility] of 00:00:00 [facility] Influenza Virus 2007-12-02 Completed [facility]it y of Vaccine - Whole 00:00:00 [facility] HPV 2007-12-02 Completed [facility] of 00:00:00 [facility] Influenza Virus 2007-12-02 Completed [facility]it y of Vaccine - Whole 00:00:00 [facility] HPV 2007-12-02 Completed [facility] of 00:00:00 [facility] Influenza Virus 2007-12-02 Completed Universit y of Vaccine - Whole 00:00:00 [facility] HPV 2007-12-02 Completed [facility] of 00:00:00 [facility] Influenza Virus 2007-12-02 Completed [facility]it y of Vaccine - Whole 00:00:00 [facility] HPV 2007-12-02 Completed [facility] 00:00:00 [facility] [place] Influ[facility] Virus 2007-12-02 Completed [facility] Vaccine - Whole 00:00:00 [facility] HPV 2007-12-02 Completed University of 00:00:00 [facility] Influenza Virus 2007-12-02 Completed [facility]it [facility] of Vaccine - Whole 00:00:00 [facility] HPV 2007-12-02 Completed [facility] of 00:00:00 [facility] Influenza Virus 2007-12-02 Completed [facility]it [facility] of Vaccine - Whole 00:00:00 [facility] HPV 2007-12-02 Completed University of 00:00:00 [facility] Influenza Virus 2007-12-02 Completed [facility]it [facility] of Vaccine - Whole 00:00:00 [facility] HPV 2007-12-02 Completed [facility] of 00:00:00 [facility] Influenza Virus 2007-12-02 Completed [facility]it [facility] of Vaccine - Whole 00:00:00 [facility] HPV 2007-05-23 Completed [facility] of 00:00:00 [facility] HPV 2007-05-23 Completed [facility] of 00:00:00 [facility] HPV 2007-05-23 Completed [facility] of 00:00:00 [facility] HPV 2007-05-23 Completed [facility] of 00:00:00 [facility] HPV 2007-05-23 Completed [facility] of 00:00:00 [facility] HPV 2007-05-23 Completed [facility] of 00:00:00 [facility] HPV 2007-05-23 Completed [facility] of 00:00:00 [facility] TDAP 2007-05-23 Completed [facility] of 00:00:00 [facility] Meningococcal 2007-05-23 Completed [facility] Polysaccharide 00:00:00 [facility] (groups A, C, Y and Branc h W-135) conjugate vaccine (MCV4P) HPV 2007-05-23 Completed [facility] of 00:00:00 [facility] TDAP 2007-05-23 Completed [facility] of 00:00:00 [facility] Meningococcal 2007-05-23 Completed [facility] Polysaccharide 00:00:00 [facility] (groups A, C, Y and Branc h W-135) conjugate vaccine (MCV4P) HPV 2007-05-23 Completed [facility] of 00:00:00 [facility] TDAP 2007-05-23 Completed [facility] of 00:00:00 [facility] Meningococcal 2007-05-23 Completed [facility] Polysaccharide 00:00:00 [facility] (groups A, C, Y and Branc h W-135) conjugate vaccine (MCV4P) HPV 2007-05-23 Completed [facility] 00:00:00 [facility] TDAP 2007-05-23 Completed [facility] 00:00:00 [facility] Meningococcal 2007-05-23 Completed [facility] of Polysaccharide 00:00:00 [facility] (groups A, C, Y and Branc h W-135) conjugate vaccine (MCV4P) HPV 2007-05-23 Completed [facility] of 00:00:00 [facility] TDAP 2007-05-23 Completed [facility] 00:00:00 [facility] Meningococcal 2007-05-23 Completed [facility] Polysaccharide 00:00:00 [facility] (groups A, C, Y and Branc h W-135) conjugate vaccine (MCV4P) HPV 2007-05-23 Completed [facility] of 00:00:00 [facility] TDAP 2007-05-23 Completed [facility] 00:00:00 [facility] Meningococcal 2007-05-23 Completed [facility] Polysaccharide 00:00:00 [facility] (groups A, C, Y and Branc h W-135) conjugate vaccine (MCV4P) HPV 2007-05-23 Completed [facility] of 00:00:00 [facility] TDAP 2007-05-23 Completed [facility] 00:00:00 [facility] Meningococcal 2007-05-23 Completed [facility] Polysaccharide 00:00:00 [facility] (groups A, C, Y and Branc h W-135) conjugate vaccine (MCV4P) HPV 2007-05-23 Completed [facility] of 00:00:00 [facility] TDAP 2007-05-23 Completed [facility] of 00:00:00 [facility] Meningococcal 2007-05-23 Completed [facility] Polysaccharide 00:00:00 [facility] (groups A, C, Y and Branc h W-135) conjugate vaccine (MCV4P) HPV 2007-05-23 Completed [facility] of 00:00:00 [facility] TDAP 2007-05-23 Completed [facility] of 00:00:00 [facility] Meningococcal 2007-05-23 Completed [facility] Polysaccharide 00:00:00 [place] [facility] (groups A, C, Y and Branc h W-135) conjugate vaccine (MCV4P) HPV 2007-05-23 Completed [facility] of 00:00:00 [facility] TDAP 2007-05-23 Completed [facility] 00:00:00 [facility] Meningococcal 2007-05-23 Completed [facility] Polysaccharide 00:00:00 [facility] (groups A, C, Y and Branc h W-135) conjugate vaccine (MCV4P) HPV 2007-05-23 Completed [facility] of 00:00:00 [facility] TDAP 2007-05-23 Completed [facility] 00:00:00 [facility] Meningococcal 2007-05-23 Completed [facility] Polysaccharide 00:00:00 [facility] (groups A, C, Y and Branc h W-135) conjugate vaccine (MCV4P) Varicella 2006-06-25 Completed University of (varivax)(chicken 00:00:00 [place] [facility] HEPATITIS A 2006-06-25 Completed [facility] 00:00:00 [facility] Varicella 2006-06-25 Completed [facility] of (varivax)(chicken 00:00:00 [place] [facility] HEPATITIS A 2006-06-25 Completed [facility] 00:00:00 [facility] Varicella 2006-06-25 Completed [facility] of (varivax)(chicken 00:00:00 [place] [facility] HEPATITIS A 2006-06-25 Completed [facility] of 00:00:00 [facility] Varicella 2006-06-25 Completed [facility] of (varivax)(chicken 00:00:00 [place] [facility] HEPATITIS A 2006-06-25 Completed [facility] 00:00:00 [facility] Varicella 2006-06-25 Completed [facility] of (varivax)(chicken 00:00:00 [place] [facility] HEPATITIS A 2006-06-25 Completed [facility] of 00:00:00 [facility] Varicella 2006-06-25 Completed [facility] of (varivax)(chicken 00:00:00 [place] [facility] HEPATITIS A 2006-06-25 Completed [facility] of 00:00:00 [facility] Varicella 2006-06-25 Completed [facility] of (varivax)(chicken 00:00:00 [place] [facility] HEPATITIS A 2006-06-25 Completed [facility] of 00:00:00 [facility] Varicella 2006-06-25 Completed [facility] of (varivax)(chicken 00:00:00 [place] [facility]ox) [facility] HEPATITIS A 2006-06-25 Completed [facility] of 00:00:00 [facility] Varicella 2006-06-25 Completed [facility] of (varivax)(chicken 00:00:00 [place] [facility]ox[facility] HEPATITIS A 2006-06-25 Completed [facility] 00:00:00 [facility] Varicella 2006-06-25 Completed [facility] of (varivax)(chicken 00:00:00 [place] [facility]ox[facility] HEPATITIS A 2006-06-25 Completed [facility] of 00:00:00 [facility] Varicella 2006-06-25 Completed University of (varivax)(chicken 00:00:00 [facility] edical pox) Branch HEPATITIS A 2006-06-25 Completed [facility] of 00:00:00 [facility] DT/Tetanus 2004-01-20 Completed [facility] of 00:00:00 [facility] DT/Tetanus 2004-01-20 Completed [facility] of 00:00:00 [facility] DT/Tetanus 2004-01-20 Completed [facility] of 00:00:00 [facility] DT/Tetanus 2004-01-20 Completed [facility] of 00:00:00 [facility] DT/Tetanus 2004-01-20 Completed [facility] of 00:00:00 [facility] DT/Tetanus 2004-01-20 Completed [facility] of 00:00:00 [facility] DT/Tetanus 2004-01-20 Completed [facility] of 00:00:00 [facility] DT/Tetanus 2004-01-20 Completed [facility] of 00:00:00 [facility] DT/Tetanus 2004-01-20 Completed [facility] of 00:00:00 [facility] DT/Tetanus 2004-01-20 Completed [facility] of 00:00:00 [facility] DT/Tetanus 2004-01-20 Completed [facility] of 00:00:00 [facility] MMR 1996-12-12 Completed [facility] of 00:00:00 [facility] Poliovirus, Live, 1996-12-12 Completed Univers ity of Oral, Trivalent 00:00:00 [facility] ical Branch Haemophilus 1996-12-12 Completed University of influenzae type b 00:00:00 [facility] vaccine, conjugate Branch unspecified formulation DTaP, Unspecified 1996-12-12 Completed Univers ity of Formulation 00:00:00 [facility] MMR 1996-12-12 Completed [facility] of 00:00:00 [facility] Poliovirus, Live, 1996-12-12 Completed Univers ity of Oral, Trivalent 00:00:00 [facility] Haemophilus 1996-12-12 Completed University of influenzae type b 00:00:00 [facility] edical vaccine, conjugate Branch unspecified formulation DTaP, Unspecified 1996-12-12 Completed Univers ity of Formulation 00:00:00 [facility] MMR 1996-12-12 Completed [facility] of 00:00:00 [facility] Poliovirus, Live, 1996-12-12 Completed Univers ity of Oral, Trivalent 00:00:00 [facility] Haemophilus 1996-12-12 Completed University of influenzae type b 00:00:00 [facility] edical vaccine, conjugate Branch unspecified formulation DTaP, Unspecified 1996-12-12 Completed Univers ity of Formulation 00:00:00 [facility] MMR 1996-12-12 Completed [facility] of 00:00:00 [facility] Poliovirus, Live, 1996-12-12 Completed Univers ity of Oral, Trivalent 00:00:00 [facility] Haemophilus 1996-12-12 Completed University of influenzae type b 00:00:00 [facility] edical vaccine, conjugate Branch unspecified formulation DTaP, Unspecified 1996-12-12 Completed Univers ity of Formulation 00:00:00 [facility] MMR 1996-12-12 Completed [facility] of 00:00:00 [facility] Poliovirus, Live, 1996-12-12 Completed Univers ity of Oral, Trivalent 00:00:00 [facility] Haemophilus 1996-12-12 Completed University of influenzae type b 00:00:00 [facility] edical vaccine, conjugate Branch unspecified formulation DTaP, Unspecified 1996-12-12 Completed Univers ity of Formulation 00:00:00 [facility] MMR 1996-12-12 Completed [facility] of 00:00:00 [facility] Poliovirus, Live, 1996-12-12 Completed Univers ity of Oral, Trivalent 00:00:00 [facility] Haemophilus 1996-12-12 Completed University of influenzae type b 00:00:00 [facility] edical vaccine, conjugate Branch unspecified formulation DTaP, Unspecified 1996-12-12 Completed Univers ity of Formulation 00:00:00 [facility] MMR 1996-12-12 Completed [facility] of 00:00:00 [facility] Poliovirus, Live, 1996-12-12 Completed Univers ity of Oral, Trivalent 00:00:00 [facility] Haemophilus 1996-12-12 Completed University of influenzae type b 00:00:00 [facility] edical vaccine, conjugate Branch unspecified formulation DTaP, Unspecified 1996-12-12 Completed Univers ity of Formulation 00:00:00 [facility] MMR 1996-12-12 Completed [facility] of 00:00:00 [facility] Poliovirus, Live, 1996-12-12 Completed Univers ity of Oral, Trivalent 00:00:00 [facility] Haemophilus 1996-12-12 Completed University of influenzae type b 00:00:00 [facility] edical vaccine, conjugate Branch unspecified formulation DTaP, Unspecified 1996-12-12 Completed Univers ity of Formulation 00:00:00 [facility] MMR 1996-12-12 Completed [facility] of 00:00:00 [facility] Poliovirus, Live, 1996-12-12 Completed Univers ity of Oral, Trivalent 00:00:00 [facility] Haemophilus 1996-12-12 Completed University of influenzae type b 00:00:00 [facility] edical vaccine, conjugate Branch unspecified formulation DTaP, Unspecified 1996-12-12 Completed Univers ity of Formulation 00:00:00 [facility] MMR 1996-12-12 Completed University of 00:00:00 [facility] Poliovirus, Live, 1996-12-12 Completed Univers ity of Oral, Trivalent 00:00:00 [facility] Haemophilus 1996-12-12 Completed University of influenzae type b 00:00:00 [facility] edical vaccine, conjugate Branch unspecified formulation DTaP, Unspecified 1996-12-12 Completed Univers ity of Formulation 00:00:00 [facility] MMR 1996-12-12 Completed University of 00:00:00 [facility] Poliovirus, Live, 1996-12-12 Completed Univers ity of Oral, Trivalent 00:00:00 [facility] Haemophilus 1996-12-12 Completed University of influenzae type b 00:00:00 [facility] edical vaccine, conjugate Branch unspecified formulation DTaP, Unspecified 1996-12-12 Completed Univers ity of Formulation 00:00:00 [facility] Poliovirus, Live, 1996-10-10 Completed [facility] influenzae type b 00:00:00 [facility] edical vaccine, conjugate Branch unspecified formulation Hep B, Adol or Pedi 1996-10-10 Completed Unive rsity of Dosage 00:00:00 [facility] Poliovirus, Live, 1996-10-10 Completed [facility] Oral, [facility]:00[facility] of influenzae type b 00:00:00 [facility] edical vaccine, conjugate Branch unspecified formulation Hep B, Adol or Pedi 1996-10-10 Completed Unive rsity of Dosage 00:00:00 [facility] Poliovirus, Live, 1996-10-10 Completed [facility] Oral, [facility]rivalent 00:00[facility] of influenzae type b 00:00:00 [facility] edical vaccine, conjugate Branch unspecified formulation Hep B, Adol or Pedi 1996-10-10 Completed Unive rsity of Dosage 00:00:00 [facility] Poliovirus, Live, 1996-10-10 Completed Univers it[facility] Oral, Trivalent 00:00[facility] of influenzae type b 00:00:00 [facility] edical vaccine, conjugate Branch unspecified formulation Hep B, Adol or Pedi 1996-10-10 Completed Unive rsity of Dosage 00:00:00 [facility] Poliovirus, Live, 1996-10-10 Completed [facility]y [facility] Oral, Trivalent 00:00[facility] of influenzae type b 00:00:00 [facility] edical vaccine, conjugate Branch unspecified formulation Hep B, Adol or Pedi 1996-10-10 Completed Unive rsity of Dosage 00:00:00 [facility] Poliovirus, Live, 1996-10-10 Completed [facility] Oral, Trivalent 00:00[facility] of influenzae type b 00:00:00 [facility] edical vaccine, conjugate Branch unspecified formulation Hep B, Adol or Pedi 1996-10-10 Completed Unive rsity of Dosage 00:00:00 [facility] Poliovirus, Live, 1996-10-10 Completed [facility] ity [facility] Oral, Trivalent 00:00[facility] of influenzae type b 00:00:00 [facility] edical vaccine, conjugate Branch unspecified formulation Hep B, Adol or Pedi 1996-10-10 Completed Unive rsity of Dosage 00:00:00 [facility] Poliovirus, Live, 1996-10-10 Completed Univers ity [facility] Oral, Trivalent 00:00[facility] of influenzae type b 00:00:00 [facility] edical vaccine, conjugate Branch unspecified formulation Hep B, Adol or Pedi 1996-10-10 Completed Unive rsity of Dosage 00:00:00 [facility] Poliovirus, Live, 1996-10-10 Completed Univers ity [facility] Oral, Trivalent 00:00[facility] of influenzae type b 00:00:00 [facility] edical vaccine, conjugate Branch unspecified formulation Hep B, Adol or Pedi 1996-10-10 Completed Unive rsity of Dosage 00:00:00 [facility] Poliovirus, Live, 1996-10-10 Completed Univers ity of Oral, Trivalent 00:00[facility] of influenzae type b 00:00:00 [facility] edical vaccine, conjugate Branch unspecified formulation Hep B, Adol or Pedi 1996-10-10 Completed Unive rsity of Dosage 00:00:00 [facility] Poliovirus, Live, 1996-10-10 Completed [facility] it[facility] Oral, Trivalent 00:00[facility]00 [facility] of influenzae type b 00:00:00 [facility] edical vaccine, conjugate Branch unspecified formulation Hep B, Adol or Pedi 1996-10-10 Completed Unive rsity of Dosage 00:00:00 [facility] Poliovirus, Live, 1996-02-11 Completed Univers ity of Oral, Trivalent 00:00:00 [facility] Hep B, Unspecified 1996-02-11 Completed Univer sity of Formulation 00:00:00 [facility] DPT/HIB 1996-02-11 Completed University of 00:00:00 [facility] Poliovirus, Live, 1996-02-11 Completed Univers ity of Oral, Trivalent 00:00:00 [facility] Hep B, Unspecified 1996-02-11 Completed Univer sity of Formulation 00:00:00 [facility] DPT/HIB 1996-02-11 Completed University of 00:00:00 [facility] Poliovirus, Live, 1996-02-11 Completed Univers ity of Oral, Trivalent 00:00:00 [facility] Hep B, Unspecified 1996-02-11 Completed Univer sity of Formulation 00:00:00 [facility] DPT/HIB 1996-02-11 Completed University of 00:00:00 [facility] Poliovirus, Live, 1996-02-11 Completed Univers ity of Oral, Trivalent 00:00:00 [facility] Hep B, Unspecified 1996-02-11 Completed Univer sity of Formulation 00:00:00 [facility] DPT/HIB 1996-02-11 Completed University of 00:00:00 [facility] Poliovirus, Live, 1996-02-11 Completed Univers ity of Oral, Trivalent 00:00:00 [facility] Hep B, Unspecified 1996-02-11 Completed Univer sity of Formulation 00:00:00 [facility] DPT/HIB 1996-02-11 Completed University of 00:00:00 [facility] Poliovirus, Live, 1996-02-11 Completed Univers ity of Oral, Trivalent 00:00:00 [facility] Hep B, Unspecified 1996-02-11 Completed Univer sity of Formulation 00:00:00 [facility] DPT/HIB 1996-02-11 Completed University of 00:00:00 [facility] Poliovirus, Live, 1996-02-11 Completed Univers ity of Oral, Trivalent 00:00:00 [facility] Hep B, Unspecified 1996-02-11 Completed Univer sity of Formulation 00:00:00 [facility] DPT/HIB 1996-02-11 Completed University of 00:00:00 [facility] Poliovirus, Live, 1996-02-11 Completed Univers ity of Oral, Trivalent 00:00:00 [facility] Hep B, Unspecified 1996-02-11 Completed Univer sity of Formulation 00:00:00 [facility] DPT/HIB 1996-02-11 Completed University of 00:00:00 [facility] Poliovirus, Live, 1996-02-11 Completed Univers ity of Oral, Trivalent 00:00:00 [facility] ical Branch Hep B, Unspecified 1996-02-11 Completed Univer sity of Formulation 00:00:00 [facility] DPT/HIB 1996-02-11 Completed University of 00:00:00 [facility] Poliovirus, Live, 1996-02-11 Completed Univers ity of Oral, Trivalent 00:00:00 [facility] ical Branch Hep B, Unspecified 1996-02-11 Completed Univer sity of Formulation 00:00:00 [facility] DPT/HIB 1996-02-11 Completed University of 00:00:00 [facility] Poliovirus, Live, 1996-02-11 Completed Univers ity of Oral, Trivalent 00:00:00 [facility] Hep B, Unspecified 1996-02-11 Completed Univer sity of Formulation 00:00:00 [facility] DPT/HIB 1996-02-11 Completed University of 00:00:00 [facility] Hep B, Unspecified 1995 Completed Univer sity of Formulation 00:00:00 [facility] Hep B, Unspecified 1995 Completed Univer sity of Formulation 00:00:00 [facility] Hep B, Unspecified 1995 Completed Univer sity of Formulation 00:00:00 [facility] Hep B, Unspecified 1995 Completed Univer sity of Formulation 00:00:00 [facility] Hep B, Unspecified 1995 Completed Univer sity of Formulation 00:00:00 [facility] Hep B, Unspecified 1995 Completed Univer sity of Formulation 00:00:00 [facility] Hep B, Unspecified 1995 Completed Univer sity of Formulation 00:00:00 [facility] Hep B, Unspecified 1995 Completed Univer sity of Formulation 00:00:00 [facility] Hep B, Unspecified 1995 Completed Univer sity of Formulation 00:00:00 [facility] Hep B, Unspecified 1995 Completed Univer sity of Formulation 00:00:00 [facility] Hep B, Unspecified 1995 Completed Univer sity of Formulation 00:00:00 [facility] Influenza Virus Unknown Completed Universit y of Vaccine Quad .5 mL [facility] 6+ MO Branch (FLUZONE/FLULAVAL/FL UARIX) TDAP (ADACEL) Unknown Completed [facility] TDAP Unknown [facility]pleted [facility] TDAP Unknown Completed [facility] HPV Unknown Completed [facility] HPV Unknown Completed [facility] HPV Unknown Completed [facility] MMR Unknown Completed [facility] Poliovirus, Live, Unknown Completed Univers ity of Oral, Trivalent [facility] Poliovirus, Live, Unknown Completed Univers ity of Oral, Trivalent [facility] Poliovirus, Live, Unknown Completed Univers ity of Oral, Trivalent [facility] Varicella Unknown Completed [facility] (varivax)(chicken [facility] edical pox) Branch TDAP Unknown Completed [facility] Meningococcal Unknown Completed [facility] Polysaccharide [facility] [facility] (groups A, C, Y and Branc h W-135) conjugate vaccine (MCV4P) Meningococcal Unknown Completed [facility] (groups A, C, Y and Branc h W-135) conjugate vaccine (MCV4P) Haemophilus Unknown Completed [facility] influenzae type b [facility] edical vaccine, conjugate Branch unspecified formulation Haemophilus Unknown Completed [facility] influenzae type b [facility] edical vaccine, conjugate Branch unspecified formulation Hep B, Adol or Pedi Unknown Completed Unive rsity of Dosage [facility] Hep B, Unspecified Unknown Completed Univer sity of Formulation [facility] Hep B, Unspecified Unknown Completed Univer sity of Formulation [facility] HEPATITIS A Unknown Completed [facility] Influenza Virus Unknown Completed Universit y of Vaccine Nasal [facility] Influenza Virus Unknown Completed Universit y of Vaccine Nasal [facility] Influenza Virus Unknown Completed Universit y of Vaccine Nasal [facility] Influenza Virus Unknown Completed Universit y of Vaccine - Whole [facility] Influenza Virus Unknown Completed Universit y of Vaccine - Whole [facility] Flu Trivalent Unknown Completed [facility] DTaP, Unspecified Unknown Completed Univers ity of Formulation [facility] DT/Tetanus Unknown Completed [facility] DPT/HIB Unknown Completed [facility] Influenza Virus Unknown Completed Universit y of Vaccine Quad .5 mL [facility] IM 6+ [place] Branch (FLUZONE/FLULAVAL/FL UARIX) TDAP (ADACEL) Unknown Completed [facility] TDAP Unknown Completed [facility] TDAP Unknown Completed [facility] HPV Unknown Completed [facility] HPV Unknown Completed [facility] HPV Unknown Completed [facility] MMR Unknown Completed [facility] Poliovirus, Live, Unknown Completed Univers ity of Oral, Trivalent [facility] Poliovirus, Live, Unknown Completed Univers ity of Oral, Trivalent [facility] Poliovirus, Live, Unknown Completed Univers ity of Oral, Trivalent [facility] Varicella Unknown Completed [facility] (varivax)(chicken [place] [facility] pox) Branch TDAP Unknown Completed [facility] Meningococcal Unknown Completed [facility] (groups A, C, Y and Branc h W-135) conjugate vaccine (MCV4P) Meningococcal Unknown Completed [facility] (groups A, C, Y and Branc h W-135) conjugate vaccine (MCV4P) Haemophilus Unknown Completed [facility] influenzae type b [place] [facility] vaccine, conjugate Branch unspecified formulation Haemophilus Unknown Completed [facility] influenzae type b [facility] edical vaccine, conjugate Branch unspecified formulation Hep B, Adol or Pedi Unknown Completed Unive rsity of Dosage [facility] Hep B, Unspecified Unknown Completed Univer sity of Formulation [facility] Hep B, Unspecified Unknown Completed Univer sity of Formulation [facility] HEPATITIS A Unknown Completed [facility] Influenza Virus Unknown Completed Universit y of Vaccine Nasal [facility] Influenza Virus Unknown Completed Universit y of Vaccine Nasal [facility] Influenza Virus Unknown Completed Universit y of Vaccine Nasal [facility] Influenza Virus Unknown Completed Universit y of Vaccine - Whole [facility] Influenza Virus Unknown Completed Universit y of Vaccine - Whole [facility] Flu Trivalent Unknown Completed [facility] DTaP, Unspecified Unknown Completed Univers ity of Formulation [facility] DT/Tetanus Unknown Completed [facility] DPT/HIB Unknown Completed [facility] Influenza Virus Unknown Completed Universit y of Vaccine Quad .5 mL [facility] IM 6+ [place] Branch (FLUZONE/FLULAVAL/FL UARIX) TDAP (ADACEL) Unknown Completed [facility] VACCINE [facility] TDAP Unknown Completed [facility] HPV Unknown Completed [facility] HPV Unknown Completed [facility] HPV Unknown Completed [facility] MMR Unknown Completed [facility] Poliovirus, Live, Unknown Completed Univers ity of Oral, Trivalent [facility] Branch Poliovirus, Live, Unknown Completed Univers ity of Oral, Trivalent [facility] Branch Poliovirus, Live, Unknown Completed Univers ity of Oral, Trivalent [facility] Varicella Unknown Completed [facility] (varivax)(chicken [facility] edical pox) [place] TDAP Unknown Completed [facility] Meningococcal Unknown Completed [facility] Polysaccharide [facility] (groups A, C, Y and Branc h W-135) conjugate vaccine (MCV4P) Meningococcal Unknown Completed [facility] Polysaccharide [facility] (groups A, C, Y and Branc h W-135) conjugate vaccine (MCV4P) Haemophilus Unknown Completed [facility] influenzae type b [facility] edical vaccine, conjugate Branch unspecified formulation Haemophilus Unknown Completed [facility] influenzae type b [facility] edical vaccine, conjugate Branch unspecified formulation Hep B, Adol or Pedi Unknown Completed Unive rsity of Dosage [facility] Hep B, Unspecified Unknown Completed Univer sity of Formulation [facility] Hep B, Unspecified Unknown Completed Univer sity of Formulation [facility] HEPATITIS A Unknown Completed [facility] Influenza Virus Unknown Completed Universit y of Vaccine Nasal [facility] Influenza Virus Unknown Completed Universit y of Vaccine Nasal [facility] Influenza Virus Unknown Completed Universit [facility] of Vaccine Nasal [facility] Influenza Virus Unknown Completed [facility]it y of Vaccine - Whole [facility] Influenza Virus Unknown Completed [facility]it y of Vaccine - Whole [facility] Flu Trivalent Unknown Completed [facility] DTaP, Unspecified Unknown Completed Univers ity of Formulation [facility] DT/Tetanus Unknown Completed [facility] DPT/HIB Unknown Completed [facility] Vital Signs Vital Name Observation Time Observation Value Comments Source Systolic blood 2022-07-27 18:47:00 135 mm[Hg] Univer sity of pressure [facility] Diastolic blood 2022-07-27 18:47:00 72 mm[Hg] Unive rsity of pressure [facility] Heart rate 2022-07-27 18:47:00 98 /min [facility] [place] [facility] Body temperature 2022-07-27 18:47:00 35.61 [place] [facility] [place] [facility] Respiratory rate 2022-07-27 18:47:00 16 /min [facility] [place] [facility] Body height 2022-07-27 18:47:00 165.1 cm [facility] [place] [facility] Body weight 2022-07-27 18:47:00 124.059 kg [facility] [place] [facility] BMI 2022-07-27 18:47:00 45.51 kg/m2 [facility] [place] [facility] Oxygen saturation in 2022-07-12 17:45:00 96 /min [facility] Arterial blood by [facility] Pulse oximetry Branch Systolic blood 2022-07-12 17:30:00 130 mm[Hg] [facility] of pressure [facility] Diastolic blood 2022-07-12 17:30:00 84 mm[Hg] [facility] pressure [facility] Respiratory rate 2022-07-12 17:30:00 13 /min [facility] [place] [facility] Heart rate 2022-07-12 16:10:00 77 /min [facility] Body temperature 2022-07-12 16:10:00 36.22 Kimberlyn [facility] [place] [facility] Body height 2022-07-12 12:39:00 165.1 cm [facility] Body weight 2022-07-12 12:39:00 123.8 kg [facility] [place] [facility] BMI 2022-07-12 12:39:00 45.42 kg/m2 [facility] Respiratory rate 2022-07-12 13:05:00 18 /min [facility] [place] [facility] Systolic blood 2022-07-12 12:39:00 135 mm[Hg] [facility] pressure [facility] Diastolic blood 2022-07-12 12:39:00 85 mm[Hg] [facility] pressure [facility] Heart rate 2022-07-12 12:39:00 88 /min [facility] [place] [facility] Body temperature 2022-07-12 12:39:00 36.94 Kimberlyn [facility] [place] [facility] Body height 2022-07-12 12:39:00 165.1 cm [facility] [place] [facility] Body weight 2022-07-12 12:39:00 123.8 kg [facility] [place] [facility] BMI 2022-07-12 12:39:00 45.42 kg/m2 [facility] [place] [facility] Oxygen saturation in 2022-07-12 12:39:00 98 /min [facility] Arterial blood by [facility] Pulse oximetry Branch Systolic blood 2022-05-23 18:59:00 120 mm[Hg] Univer [facility]ity of pressure [facility] Diastolic blood 2022-05-23 18:59:00 69 mm[Hg] Unive rsity of pressure [facility] Heart rate 2022-05-23 18:59:00 85 /min [facility] [place] [facility] [place] Body temperature 2022-05-23 18:59:00 36.11 Kimberlyn [facility] [place] [facility] [place] Body height 2022-05-23 18:59:00 165.1 cm [facility] [place] [facility] [place] Body weight 2022-05-23 18:59:00 123.923 kg [facility] [place] [facility] BMI 2022-05-23 18:59:00 45.46 kg/m2 [facility] [place] [facility] Systolic blood 2022-05-08 20:43:00 120 mm[Hg] [facility] Diastolic blood 2022-05-08 20:43:00 58 mm[Hg] Unive rsity of pressure [facility] Heart rate 2022-05-08 20:43:00 88 /min [facility] [place] [facility] Body temperature 2022-05-08 20:43:00 36.33 Kimberlyn [facility] Respiratory rate 2022-05-08 20:43:00 18 /min [facility] [place] [facility] Body height 2022-05-08 20:43:00 165.1 cm [facility] [place] [facility] Body weight 2022-05-08 20:43:00 125.374 kg [facility] [place] [facility] BMI 2022-05-08 20:43:00 46.00 kg/m2 [facility] [place] [facility] Systolic blood 2022-03-30 21:49:00 119 mm[Hg] [facility] pressure [facility] Diastolic blood 2022-03-30 21:49:00 70 mm[Hg] [facility] pressure [facility] Heart rate 2022-03-30 21:49:00 83 /min [facility] [place] [facility] Body temperature 2022-03-30 21:49:00 36.22 [place] [facility] Respiratory rate 2022-03-30 21:49:00 18 /min [facility] Body weight 2022-03-30 21:49:00 123.968 kg [facility] BMI 2022-03-30 21:49:00 45.48 kg/m2 [facility] [place] [facility] Systolic blood 2022-02-28 22:15:00 133 mm[Hg] [facility] pressure [facility] Diastolic blood 2022-02-28 22:15:00 77 mm[Hg] [facility] Heart rate 2022-02-28 22:15:00 93 /min [facility] [place] [facility] Body temperature 2022-02-28 22:15:00 36.67 Kimber[place] [facility] [place] [facility] Respiratory rate 2022-02-28 22:15:00 20 /min [facility] [place] [facility] Body height 2022-02-28 22:15:00 165.1 cm [facility] [place] [facility] Body weight 2022-02-28 22:15:00 125.964 kg [facility] BMI 2022-02-28 22:15:00 46.21 kg/m2 [facility] Systolic blood 2022-02-11 05:56:00 133 mm[Hg] [facility] pressure [facility] Diastolic blood 2022-02-11 05:56:00 88 mm[Hg] [facility] pressure [facility] Heart rate 2022-02-11 05:56:00 96 /min [facility] Body temperature 2022-02-11 05:56:00 37 [place] [facility] [place] [facility] Respiratory rate 2022-02-11 05:56:00 20 /min [facility] [place] [facility] [place] Oxygen saturation in 2022-02-11 05:56:00 99 /min [facility] of Arterial blood by [facility] Pulse oximetry Branch Body weight 2022-02-09 12:00:00 130.182 kg [facility] [place] [facility] BMI 2022-02-09 12:00:00 47.76 kg/m2 [facility] Heart rate 2022-02-09 14:00:00 109 /min [facility] Oxygen saturation in 2022-02-09 14:00:00 98 /min University Arterial blood by [facility] Pulse oximetry Branch Systolic blood 2022-02-09 12:44:00 138 mm[Hg] [facility]iver [facility] of pressure [facility] Diastolic blood 2022-02-09 12:44:00 75 mm[Hg] [facility] pressure [facility] Body temperature 2022-02-09 12:44:00 37.22 [place] [facility] [place] [facility] Respiratory rate 2022-02-09 12:44:00 16 /min [facility] [place] [facility] [place] Body weight 2022-02-09 12:00:00 130.182 kg [facility] BMI 2022-02-09 12:00:00 47.76 kg/m2 [facility] Systolic blood 2022-01-10 19:13:00 123 mm[Hg] [facility] Diastolic blood 2022-01-10 19:13:00 78 mm[Hg] [facility] pressure [facility] Heart rate 2022-01-10 19:13:00 103 /min [facility] [place] Body temperature 2022-01-10 19:13:00 36.78 [place] [facility] Respiratory rate 2022-01-10 19:13:00 20 /min [facility] Body height 2022-01-10 19:13:00 165.1 cm [facility] Body weight 2022-01-10 19:13:00 130.182 kg [facility] BMI 2022-01-10 19:13:00 47.76 kg/m2 [facility] Systolic blood 2021-12-29 20:00:00 128 mm[Hg] [facility] pressure [facility] Diastolic blood 2021-12-29 20:00:00 81 mm[Hg] [facility] pressure [facility] Heart rate 2021-12-29 20:00:00 107 /min [facility] Body temperature 2021-12-29 20:00:00 36.61 Kimberlyn [facility] Respiratory rate 2021-12-29 20:00:00 18 /min [facility] Body height 2021-12-29 20:00:00 165.1 cm [facility] Body weight 2021-12-29 20:00:00 128.005 kg [facility] BMI 2021-12-29 20:00:00 46.96 kg/m2 [facility] Systolic blood 2021-12-08 13:19:00 123 mm[Hg] [facility] pressure [facility] Diastolic blood 2021-12-08 13:19:00 87 mm[Hg] [facility] pressure [facility] Heart rate 2021-12-08 13:19:00 105 /min [facility] Body temperature 2021-12-08 13:19:00 36.28 [place] [facility] Respiratory rate 2021-12-08 13:19:00 16 /min [facility] Body height 2021-12-08 13:19:00 165.1 cm [facility] Body weight 2021-12-08 13:19:00 125.828 kg [facility] BMI 2021-12-08 13:19:00 46.16 kg/m2 [facility] Systolic blood 2021-09-14 19:47:00 111 mm[Hg] [facility] Diastolic blood 2021-09-14 19:47:00 78 mm[Hg] [facility] pressure [facility] Heart rate 2021-09-14 19:47:00 133 /min [facility] Body temperature 2021-09-14 19:47:00 37.56 [place] [facility] Respiratory rate 2021-09-14 19:47:00 16 /min [facility] Body height 2021-09-14 19:47:00 165.1 cm [facility] Body weight 2021-09-14 19:47:00 116.756 kg [facility] BMI 2021-09-14 19:47:00 42.83 kg/m2 [facility] Systolic blood 2021-08-16 19:24:00 119 mm[Hg] [facility] of pressure [facility] Diastolic blood 2021-08-16 19:24:00 75 mm[Hg] [facility]ive [facility] of pressure [facility] Heart rate 2021-08-16 19:24:00 98 /min [facility] Body temperature 2021-08-16 19:24:00 37.11 Kimberlyn [facility] Respiratory rate 2021-08-16 19:24:00 16 /min [facility] Body height 2021-08-16 19:24:00 165.1 cm [facility] Body weight 2021-08-16 19:24:00 118.298 kg [facility] BMI 2021-08-16 19:24:00 43.40 kg/m2 [facility] Systolic blood 2021-08-16 19:24:00 119 mm[Hg] Univer [facility]ity of pressure [facility] Diastolic blood 2021-08-16 19:24:00 75 mm[Hg] Unive rsity of pressure [facility] Heart rate 2021-08-16 19:24:00 98 /min [facility] Body temperature 2021-08-16 19:24:00 37.11 Kimber[place] [facility] Respiratory rate 2021-08-16 19:24:00 16 /min [facility] Body height 2021-08-16 19:24:00 165.1 cm [facility] Body weight 2021-08-16 19:24:00 118.298 kg [facility] BMI 2021-08-16 19:24:00 43.40 kg/m2 [facility] Systolic blood 2020-09-08 20:04:00 119 mm[Hg] Univer [facility]ity of pressure [facility] Diastolic blood 2020-09-08 20:04:00 79 mm[Hg] Unive [facility]ity of pressure [facility] Heart rate 2020-09-08 20:04:00 96 /min [facility] Body temperature 2020-09-08 20:04:00 36.78 [place] [facility] Respiratory rate 2020-09-08 20:04:00 18 /min [facility] Body height 2020-09-08 20:04:00 165.1 cm [facility] Body weight 2020-09-08 20:04:00 112.22 kg [facility] BMI 2020-09-08 20:04:00 41.17 kg/m2 [facility] Systolic blood 2020-07-28 20:15:00 125 mm[Hg] [facility] Diastolic blood 2020-07-28 20:15:00 80 mm[Hg] [facility] pressure [facility] Heart rate 2020-07-28 20:15:00 90 /min [facility] Body temperature 2020-07-28 20:15:00 37 [place] [facility] Respiratory rate 2020-07-28 20:15:00 18 /min [facility] Body height 2020-07-28 20:15:00 165.1 cm [facility] Body weight 2020-07-28 20:15:00 108.682 kg [facility] BMI 2020-07-28 20:15:00 39.87 kg/m2 [facility] Systolic blood 2020-06-30 16:01:00 122 mm[Hg] [facility] Diastolic blood 2020-06-30 16:01:00 77 mm[Hg] [facility] pressure [facility] Heart rate 2020-06-30 16:01:00 83 /min [facility] Body temperature 2020-06-30 16:01:00 36.72 [place] [facility] Respiratory rate 2020-06-30 16:01:00 16 /min [facility] Body height 2020-06-30 16:01:00 165.1 cm [facility] Body weight 2020-06-30 16:01:00 109.135 kg [facility] BMI 2020-06-30 16:01:00 40.04 kg/m2 [facility] Systolic blood 2019-07-10 15:53:00 121 mm[Hg] [facility] pressure [facility] Diastolic blood 2019-07-10 15:53:00 85 mm[Hg] [facility] of pressure [facility] Heart rate 2019-07-10 15:53:00 97 /min [facility] Body temperature 2019-07-10 15:53:00 36.89 Kimber[place] [facility] Respiratory rate 2019-07-10 15:53:00 18 /min [facility] Body weight 2019-07-10 15:53:00 121.11 kg [facility] BMI 2019-07-10 15:53:00 44.43 kg/m2 [facility] Systolic blood 2019-07-10 15:53:00 121 mm[Hg] [facility] pressure [facility] Diastolic blood 2019-07-10 15:53:00 85 mm[Hg] [facility] pressure [facility] Heart rate 2019-07-10 15:53:00 97 /min [facility] Body temperature 2019-07-10 15:53:00 36.89 [place] [facility] Respiratory rate 2019-07-10 15:53:00 18 /min [facility] Body weight 2019-07-10 15:53:00 121.11 kg [facility] BMI 2019-07-10 15:53:00 44.43 kg/m2 [facility] Systolic blood 2019-06-19 18:08:00 130 mm[Hg] [facility] pressure [facility] Diastolic blood 2019-06-19 18:08:00 88 mm[Hg] [facility] pressure [facility] Heart rate 2019-06-19 18:08:00 96 /min [facility] Body temperature 2019-06-19 18:08:00 37 [place] [facility] Respiratory rate 2019-06-19 18:08:00 18 /min [facility] Body weight 2019-06-19 18:08:00 127.007 kg [facility] BMI 2019-06-19 18:08:00 46.59 kg/m2 [facility] Systolic blood 2019-06-19 18:08:00 130 mm[Hg] [facility] pressure [facility] Diastolic blood 2019-06-19 18:08:00 88 mm[Hg] Unive [facility]ity of pressure [facility] Heart rate 2019-06-19 18:08:00 96 /min [facility] Body temperature 2019-06-19 18:08:00 37 [place] [facility] Respiratory rate 2019-06-19 18:08:00 18 /min [facility] Body weight 2019-06-19 18:08:00 127.007 kg [facility] BMI 2019-06-19 18:08:00 46.59 kg/m2 [facility] Body temperature 2019-06-10 15:57:00 36.72 [place] [facility] Body temperature 2019-06-10 15:57:00 36.72 [place] [facility] Systolic blood 2019-06-05 19:38:00 129 mm[Hg] [facility] pressure [facility] Diastolic blood 2019-06-05 19:38:00 87 mm[Hg] [facility] of pressure [facility] Heart rate 2019-06-05 19:38:00 105 /min [facility] Body temperature 2019-06-05 19:38:00 36.89 Kimber[place] [facility] Respiratory rate 2019-06-05 19:38:00 18 /min [facility] Body height 2019-06-05 19:38:00 165.1 cm [facility] Body weight 2019-06-05 19:38:00 137.44 kg [facility] BMI 2019-06-05 19:38:00 50.42 kg/m2 [facility] Systolic blood 2019-06-03 21:00:00 148 mm[Hg] [facility] pressure [facility] Diastolic blood 2019-06-03 21:00:00 91 mm[Hg] [facility] of pressure [facility] Heart rate 2019-06-03 21:00:00 116 /min [facility] Respiratory rate 2019-06-03 21:00:00 20 /min [facility] Oxygen saturation in 2019-06-03 21:00:00 99 /min [facility] of Arterial blood by [facility] Pulse oximetry Branch Body temperature 2019-06-03 20:54:00 36.78 Kimberlyn Univ ersity of [facility] Body weight 2019-06-03 20:54:00 132.904 kg Universi ty of [facility] BMI 2019-06-03 20:54:00 48.76 kg/m2 Universi ty of [facility] Systolic blood 2019-05-29 20:24:00 132 mm[Hg] Univer sity of pressure [facility] Diastolic blood 2019-05-29 20:24:00 81 mm[Hg] Unive rsity of pressure [facility] Heart rate 2019-05-29 20:24:00 113 /min Universi ty of [facility] Body temperature 2019-05-29 20:24:00 36.89 Kimberlyn Univ ersity of [facility] Respiratory rate 2019-05-29 20:24:00 18 /min Univ ersity of [facility] Body height 2019-05-29 20:24:00 165.1 cm Universi ty of [facility] Body weight 2019-05-29 20:24:00 135.172 kg Universi ty of [facility] BMI 2019-05-29 20:24:00 49.59 kg/m2 Universi ty of [facility] Systolic blood 2019-05-23 20:38:00 122 mm[Hg] Univer sity of pressure [facility] Diastolic blood 2019-05-23 20:38:00 72 mm[Hg] Unive rsity of pressure [facility] Heart rate 2019-05-23 20:38:00 113 /min Universi ty of [facility] Body temperature 2019-05-23 20:38:00 36.83 Kimberlyn Univ ersity of [facility] Body weight 2019-05-23 20:38:00 132.904 kg Universi ty of [facility] BMI 2019-05-23 20:38:00 48.76 kg/m2 Universi ty of [facility] Systolic blood 2019-05-08 18:41:00 129 mm[Hg] Univer sity of pressure [facility] Diastolic blood 2019-05-08 18:41:00 79 mm[Hg] Unive rsity of pressure [facility] Heart rate 2019-05-08 18:41:00 113 /min Universi ty [facility] Body temperature 2019-05-08 18:41:00 36.67 Kimberlyn Univ [facility] Respiratory rate 2019-05-08 18:41:00 18 /min Univ [facility] Body height 2019-05-08 18:41:00 165.1 cm [facility] Body weight 2019-05-08 18:41:00 126.372 kg [facility] BMI 2019-05-08 18:41:00 46.36 kg/m2 [facility] Systolic blood 2019-04-04 22:03:00 130 mm[Hg] Univer sity of pressure [facility] Diastolic blood 2019-04-04 22:03:00 87 mm[Hg] Unive rsity of pressure [facility] Heart rate 2019-04-04 22:03:00 99 /min [facility] Body temperature 2019-04-04 22:03:00 36.72 Kimberlyn Univ [facility] Respiratory rate 2019-04-04 22:03:00 18 /min Univ [facility] Body height 2019-04-04 22:03:00 165.1 cm [facility] Body weight 2019-04-04 22:03:00 117.935 kg [facility] BMI 2019-04-04 22:03:00 43.27 kg/m2 [facility] Systolic blood 2019-03-21 22:42:00 120 mm[Hg] Univer sity of pressure [facility] Diastolic blood 2019-03-21 22:42:00 81 mm[Hg] Unive rsity of pressure [facility] Heart rate 2019-03-21 22:42:00 110 /min [facility] Body temperature 2019-03-21 22:42:00 36.83 Kimberlyn Univ [facility] Respiratory rate 2019-03-21 22:42:00 18 /min Univ [facility] Body height 2019-03-21 22:42:00 165.1 cm [facility] Body weight 2019-03-21 22:42:00 113.853 kg [facility] BMI 2019-03-21 22:42:00 41.77 kg/m2 [facility] Procedures Procedure Date / Time Performing Clinician Source Performed LAPAROSCOPIC 2022-07-12 13:41:00 Daniel Aguilar [facility] SALPINGECTOMY [facility] DIAGNOSTIC LAPAROSCOPY 2022-07-12 13:41:00 Daniel Aguilar [facility] HB ABO GROUPING 2022-07-12 12:58:00 Bertram Hernandez [facility] HB ABO GROUPING 2022-07-12 12:58:00 Bertram Hernandez [facility] POCT TEST 2022-07-12 12:40:00 Wilbert Urrutia [facility] POCT TEST 2022-07-12 12:40:00 Ghada Wilbert [facility] ASSIGNMENT OF BENEFITS 2022-07-12 12:29:40 Doctor Unassigned, No [facility] DISCLOSURE AND CONSENT, 2022-05-23 05:01:00 Doctor Unassigned, N o [facility] MEDICAL AND SURGICAL [facility] PROCEDURES GC & CHLAMYDIA AMPLIFIED 2022-03-30 22:14:00 Emmanuel Rabago [facility] HIV 1/2 AG-AB WITH 2022-03-30 22:14:00 Emmanuel Rabago [facility] SYPHILIS IGG/IGM 2022-03-30 22:14:00 Emmanuel Rabago [facility] CBC WITH DIFF 2022-02-10 10:19:00 [facility] CBC WITH DIFF 2022-02-10 10:19:00 [facility] VENOUS CORD GAS 2022-02-09 18:31:00 Juan Judy [facility] VENOUS CORD GAS 2022-02-09 18:31:00 Judy Martinez [facility] SECTION 2022-02-09 16:24:00 Juan Jose [facility] SECTION 2022-02-09 16:24:00 Juan Jose [facility] CBC WITH DIFF 2022-02-09 13:25:00 Juan [facility] HEPATITIS B SURFACE 2022-02-09 13:25:00 Juan [facility] ANTIGEN [facility] GALV ONLY - SYPHILIS 2022-02-09 13:25:[address] [facility] IGG/IGM Medical Branch CBC WITH DIFF 2022-02-09 13:25:00 Juan [facility] HEPATITIS B SURFACE 2022-02-09 13:25:00 Juan [facility] ANTIGEN [facility] GALV ONLY - SYPHILIS 2022-02-09 13:25:[address] [facility] IGG/IGM [facility] HB ABO GROUPING 2022-02-09 12:37:00 Juan [facility] RHO (D) IMMUNE GLOBULIN 2022-02-09 12:37:[facility] 2022-02-09 12:37:00 Juan [facility] RHO (D) IMMUNE GLOBULIN 2022-02-09 12:37:00 [facility] PO[facility] URINALYSIS 2022-01-10 19:15:00 Gin [facility] POCT URINALYSIS 2021-12-29 00:00:00 Gin [facility] GLUCOSE 1 HOUR POST 2021-12-08 14:20:00 Bertram Quinonez [facility] CBC WITH DIFF 2021-12-08 14:20:00 Bertram Quinonez [facility] TDAP VACCINE, >11 YRS, 2021-12-08 13:39:18 Bertram Quinonez [facility] POCT URINALYSIS 2021-12-08 00:00:00 Gin [facility] POCT URINALYSIS 2021-09-14 00:00:00 Gin [facility] QUAD SCRN 2021-08-16 20:53:00 Gin [facility] GLUCOSE 1 HOUR POST 2021-08-16 20:52:00 [facility] CBC WITH DIFF 2021-08-16 20:52:00 Gin [facility] RUBELLA SCREEN IGG 2021-08-16 20:52:00 Gin [facility] VZV ANTIBODY SCREEN 2021-08-16 20:52:00 Gin [facility] HEPATITIS B SURFACE 2021-08-16 20:52:00 Gin [facility] ANTIGEN [facility] HIV 1/2 AG-AB WITH 2021-08-16 20:52:00 Gin [facility] REFLEX [facility] GALV ONLY - SYPHILIS 2021-08-16 20:52:00 Gin [facility] IGG/IGM [facility] Branch HB ABO GROUPING 2021-08-16 20:49:00 Gin [facility] URINE CULTURE 2021-08-16 20:20:00 Gin [facility] GC & CHLAMYDIA AMPLIFIED 2021-08-16 20:20:00 Nicole Boland [facility] ASSAY [facility] LAB ONLY PAP 2021-08-16 20:20:00 Gin [facility] SMEAR-LIQUID BASED Medical [facility] h PAP SMEAR-LIQUID 2021-08-16 20:20:00 Gin [facility] BASED-CP [facility] Branch POCT URINALYSIS 2021-08-16 00:00:00 Gin [facility] POCT TEST 2021-08-16 00:00:00 Gin [facility] [id number] 2020-12-30 00:00:00 [facility] W/O 2020-09-08 20:02:00 Adum, Patience [facility] SPECIFIC GRAVITY [facility] SCANNED LAB RESULTS 2020-07-29 05:01:00 Doctor Unassigned, No [facility] TD[facility] VACCINE, >11 YRS, 2020-07-28 20:17:08 AdPatience [facility] POCT URINALYSIS W/O 2020-07-28 00:00:00 Adum, Patience [facility] CBC WITH DIFF 2020-07-02 19:18:00 Adum, Patience [facility] ASSIGNMENT OF BENEFITS 2020-07-02 18:02:33 Doctor Unassigned, No [facility] POCT TEST 2020-06-30 16:00:00 Adum, Patience Bella [facility] POCT URINALYSIS W/O 2020-06-30 15:59:00 Adum, Patience Bella [facility] ASSIGNMENT OF BENEFITS 2019-07-10 16:59:19 Doctor Unassigned, No [facility] POCT URINALYSIS W/O 2019-07-10 00:00:00 Rosie Lisa ity [facility] POCT URINALYSIS W/O 2019-06-05 00:00:00 Rosie Lisa y [facility] POCT URINALYSIS W/O 2019-05-29 00:00:00 Rosie Lisa y [facility] CBC WITH DIFFERENTIAL 2019-05-27 19:41:00 Rosie Lisa [facility] DSU PRE-OP 2019-05-23 05:01:00 Doctor Unassigned, No [facility] POCT URINALYSIS W/O 2019-05-08 00:00:00 Rosie Lisa ity [facility] ADC / LCC - DRUG SCREEN 2019-04-04 22:48:00 Rosie Lisa [facility] POCT URINALYSIS W/O 2019-04-04 00:00:00 Rosie Lisa ity [facility] GLUCOSE 1 HOUR POST 2019-03-26 21:52:00 Rosie Lisa ity [facility] CBC WITH DIFFERENTIAL 2019-03-26 21:52:00 Rosie Lisa [facility] ADC OR DANA ONLY - 2019-03-26 21:52:00 [facility] HIV 1/2 AG-AB WITH 2019-03-26 21:52:00 Rosie Lisa [facility] HB ABO GROUPING 2019-03-26 21:00:00 Rosie Lisa [facility] ASSIGNMENT OF BENEFITS 2019-03-26 20:30:45 Doctor Unassigned, No [facility] TDAP (ADACEL) 2019-03-21 22:45:02 Rosie Lisa [facility] Encounters Start End Encounter Admission Attending Care Care Encounter Source Date/Time Date/Time Type Type Clinicians Facility Department ID 2020-12-16 Outpatient P [facility] LUCIAN [id number] Univers [facility] 2020-12-16 Emergency [facility] [id number] Univers 18:00:22 ity [facility] 2022-08-08 2022-08-08 Outpatient R [facility] [id number] Univers 13:30:00 13:30:00 ity [facility] 2022-07-27 2022-07-27 Outpatient R LANI [facility] [id number] Univers 13:00:00 14:35:09 JOSSY [facility] 2022-07-27 2022-07-27 Office Pgy2 UNIVERSIT [id number] Univers 13:00:00 14:35:09 Visit Jossy Mccallum [facility] 350.1.13.10 ity of [facility] [place] [id number] [facility] 113 Branch 2022-07-12 2022-07-12 [facility] [employer] ICE MAKER [id number] Univers 07:31:00 13:15:00 DANIEL ity [facility] 2022-07-12 2022-07-12 Hospital RAVI Aguilar [id number] Univers 07:31:00 13:15:00 Encounter Daniel DESIR 350.1.13.10 ity of [facility] 4.2.7.2.686 David as [id number] [facility] 104 Branch 2022-07-12 2022-07-12 Surgery JeffRAVI 1.2.840.114 [id number] Univers 08:45:00 11:09:00 Daniel OLIVARESY 350.1.13.10 it y of HOSPITAL 4.2.7.2.686 David as [id number] [facility] 103 Branch 2022-07-12 2022-07-12 Orders Doctor JEAN MARIE 1.2.840.114 [id number] Univers 00:00:00 00:00:00 Only Unassigned, KARLEE 350.1.13.10 ity of [place] [facility] 4.2.7.2.686 David as [id number] [facility] 009 Branch 2022-07-10 2022-07-10 Patient Doctor RAVI 1.2.840.114 [id number] Univers 00:00:00 00:00:00 Secure Msg Unassigned, KARLEE 350.1.13.10 ity of [facility] [facility] 4.2.7.2.686 David as [id number] [facility] 101 Branch 2022-05-23 2022-05-23 [facility] [id number] Univers 13:45:00 15:06:02 DANIEL ity [facility] 2022-05-23 2022-05-23 Office Pgy2 UNIVERSIT [id number] Univers 13:45:00 15:06:02 Visit Daniel Aguilar [facility] 350.1.13.10 ity of [facility] [place] [id number] [facility] 113 Branch 2022-05-23 2022-05-23 Orders Doctor JEAN MARIE 1.2.840.114 [id number] Univers 00:00:00 00:00:00 Only Unassigned, KARLEE 350.1.13.10 ity of [place] [facility] 4.2.7.2.686 David as [id number] [facility] 009 Branch 2022-05-16 2022-05-16 Case KERMIT Rizvi 1.2.840.114 [id number] Univers 00:00:00 00:00:00 Management Sindy BRASHER 350.1.13.10 it[id number] [address] 2022-05-08 2022-05-08 Nurse Visit, DeeRmchp Nurse [facility] 1.2 .840.114 [id number] Univers 15:30:00 15:48:51 Visit Emmanuel Rabago TRACTOR OPERATOR [employer]ELING 350.1.13. 10 ity of REGIONAL 4.2.7.2.686 David as MATERNAL [id number] [facility] CH[facility] [address] [place] [address] 2022-05-08 2022-05-08 Outpatient R CARMELO, [facility] [id number] Univers 15:30:00 15:30:00 EMMANUEL ity o [facility] 2022-04-13 2022-04-13 Telephone [facility] 1.2.840.114 [id number] Univers 00:00:00 00:00:00 Emmanuel C TRACTOR OPERATOR [employer]EVELING 350.1.13.10 ity of [facility] 4.2.7.2.686 David as MATERNAL [id number] [facility] & CHILD [address] [place] [address] 2022-03-31 2022-03-31 [facility] 1.2.840.114 [id number] Univers 00:00:00 00:00:00 Emmanuel C TRACTOR OPERATOR [employer]EVELING 350.1.13.10 ity of REGIONAL 4.2.7.2.686 David as MATERNAL [id number] [facility] & CHILD [address] [place] [address] 2022-03-30 2022-03-30 Outpatient R CARMELO, [facility] [id number] Univers 15:30:00 16:18:57 EMMANUEL ity o [facility] 2022-03-30 2022-03-30 Office [facility] [id number] Univers 15:30:00 16:18:57 Visit Emmanuel C TRACTOR OPERATOR [employer]ELING 350.1.13.10 ity of REGIONAL 4.2.7.2.686 David as MATERNAL [id number] [facility] [address] [place] [address] 2022-03-28 2022-03-28 Outpatient R JOSE EDUARDO [facility] [id number] Univers 15:00:00 15:00:00 SINDY muriel [facility] 2022-03-07 2022-03-07 Outpatient Maggy JOSE EDUARDO [facility] [id number] Univers 13:15:00 13:15:00 SINDY muriel [facility] 2022-02-28 2022-02-28 Outpatient [facility] [id number] Univers 16:00:00 16:39:26 SINDY ity [facility] 2022-02-28 2022-02-28 [facility]ine [facility] 1 .2.840.114 [id number] Univers 16:00:00 16:39:26 Sindy Whitt TRACTOR OPERATOR [employer] 350.1.13. 10 ity of Visit [facility] 4.2.7.2.686 David as MATERNAL [id number] Med ical & CHILD [address] [place] [address] 2022-02-09 2022-02-11 Inpatient [facility] [id number] Univers 06:23:00 05:22:00 NIC ity [facility] 2022-02-09 2022-02-11 [facility] JEAN MARIE Sneed 1.2.840.114 [id number] Univers 06:23:00 05:22:00 Encounter Nic DESIR 350.1.13.10 ity of [facility] 4.2.7.2.686 David as [id number] [facility] [address] 2022-02-09 2022-02-09 Surgery JEAN MARIE Ingram 1.2.840.114 [id number] Univers 07:15:00 09:01:00 Chasey KARLEE 350.1.13.10 it y of [facility] 4.2.7.2.[place] [id number] [facility] 013 Branch 2022-02-01 2022-02-01 Telephone [facility] [id number] Univers 00:00:00 00:00:00 Bertram TRACTOR OPERATOR [employer] LEVELING 350.1.13.10 it y of [facility] 4.2.7.2.686 David as MATERNAL [id number] [facility] & CHILD [address] [place] [address] 2022-01-23 2022-01-23 Outpatient P [facility] [id number] Univers 15:00:00 15:00:00 [facility] 2022-01-19 2022-01-19 Outpatient Maggy QUINONEZ [facility] [id number] Univers 15:45:00 15:45:00 BERTRAM [facility] 2022-01-11 2022-01-11 Outpatient P [facility] [id number] Univers 13:00:00 13:00:00 [facility] 2022-01-10 2022-01-10 Routine Cristiano [facility] 1.2.840.114 [id number] Univers 13:15:00 13:21:51 Bertram TRACTOR OPERATOR [employer] 350.1.13.10 i ty of Visit REGIONAL 4.2.7.2.686 David as MATERNAL [id number] [address] 2022-01-10 2022-01-10 Outpatient R CRISTIANO [facility] [id number] Univers 13:15:00 13:21:51 BERTRAM [facility] 2021-12-29 2021-12-29 Outpatient Maggy QUINONEZ [facility] [id number] Univers 14:15:00 14:34:25 BERTRAM [facility] 2021-12-29 2021-12-29 Routine Cristiano [facility] 1.2.840.114 [id number] Univers 14:15:00 14:34:25 Bertram TRACTOR OPERATOR [employer] 350.1.13.10 i ty of Visit REGIONAL 4.2.7.2.686 David as MATERNAL [id number] [address] 2021-12-26 2021-12-26 Case Cristiano [facility] 1.2.840.114 [id number] Univers 00:00:00 00:00:00 Management Bertram TRACTOR OPERATOR [employer] 350.1.13.10 ity of REGIONAL 4.2.7.2.686 David as MATERNAL [id number] [facility] CHILD [address] [place] [address] 2021-12-22 2021-12-22 Outpatient Maggy QUINONEZ [facility] [id number] Univers 12:45:00 12:45:00 BERTRAM grajeda [facility] 2021-12-15 2021-12-15 Fire Extinguisher Installer Lab, Nwc-Rmchp [facility] 1.2.840. 114 [id number] Univers 08:00:00 11:08:42 Visit Nicole Boland TRACTOR OPERATOR [employer]ING 350.1.13.10 ity of REGIONAL 4.2.7.2.686 David as MATERNAL [id number] [facility] [address] [place] [address] 2021-12-15 2021-12-15 Outpatient Maggy BOLAND [facility] [id number] Univers 08:00:00 08:00:00 NICOLE grajeda [facility] 2021-12-13 2021-12-13 Patient Doctor [facility] 1.2.840.114 [id number] Univers 00:00:00 00:00:00 Secure Msg Unassigned, TRACTOR OPERATOR [employer]AS[employer] LEVELING 350.1.13.10 ity of [place] REGIONAL 4.2.7.2.686 David as MATERNAL [id number] [facility] CHILD [address] [place] [address] 2021-12-12 2021-12-12 Telephone Cristiano [facility] [id number] Univers 00:00:00 00:00:00 Bertram TRACTOR OPERATOR [employer]ELING 350.1.13.10 it y of REGIONAL 4.2.7.2.686 David as MATERNAL [id number] Med ical & CHILD [address] [facility] 2021-12-08 2021-12-08 Outpatient Maggy QUINONEZ [facility] [id number] Univers 08:15:00 09:20:06 BERTRAM grajeda [facility] 2021-12-08 2021-12-08 Routine Cristiano [facility] 1.2.840.114 [id number] Univers 08:15:00 09:20:06 Bertram TRACTOR OPERATOR [employer]EVELING 350.1.13.10 i ty of Visit REGIONAL 4.2.7.2.686 David as MATERNAL [id number] [facility] ical & CHILD [address] [place] [address] 2021-12-01 2021-12-01 Outpatient Maggy QUINONEZ [facility] [id number] Univers 10:30:00 10:30:00 [facility] 2021-11-10 2021-11-10 Outpatient Maggy QUINONEZ [facility] [id number] Univers 10:30:00 10:30:00 [facility] 2021-11-03 2021-11-03 Outpatient Maggy QUINONEZ [facility] [id number] Univers 15:15:00 15:15:00 [facility] 2021-11-03 2021-11-03 Tele[facility] [id number] Univers 00:00:00 00:00:00 Bertram TRACTOR OPERATOR LASER LEVELING 350.1.13.10 it y of [facility] 4.2.7.2.686 David as MATERNAL [id number] [facility] [address] [place] [address] 2021-10-25 2021-10-25 Outpatient Maggy BOLAND [facility] [id number] Univers 15:00:00 15:00:00 [facility] 2021-10-25 2021-10-25 Telephone [facility] [id number] Univers 00:00:00 00:00:00 Bertram TRACTOR OPERATOR [employer] LEVELING 350.1.13.10 it y of [facility] 4.2.7.2.686 David as MATERNAL [id number] [facility] & CHILD [address] [place] [address] 2021-10-12 2021-10-12 Outpatient Maggy BOLAND [facility] [id number] Univers 14:45:00 14:45:00 [facility] 2021-10-06 2021-10-06 Outpatient P [facility] [id number] Univers 13:00:00 13:00:00 [facility] 2021-09-14 2021-09-14 Outpatient R GIN [facility] [id number] Univers 14:45:00 15:42:26 [facility] 2021-09-14 2021-09-14 Routine Gin [facility] 1.2.840.114 [id number] Univers 14:45:00 15:42:26 Nicole TRACTOR OPERATOR [employer]ING 350.1.13.10 i ty of Visit REGIONAL 4.2.7.2.686 David as MATERNAL [id number] [facility] [address] [place] [address] 2021-09-14 2021-09-14 Outpatient R GIN [facility] [id number] Univers 14:45:00 14:45:00 NICOLE [facility] 2021-09-14 2021-09-14 Outpatient R PHOENIXJoseph [facility] [id number] Univers 14:45:00 14:45:[facility] 2021-09-14 2021-09-14 Outpatient R GIN [facility] [id number] Univers 14:45:00 14:45:00 [facility] 2021-09-05 2021-09-05 Telephone Gin [facility] [id number] Univers 00:00:00 00:00:00 Nicole TRACTOR OPERATOR [employer]ING 350.1.13.10 it y of REGIONAL 4.2.7.2.686 David as MATERNAL [id number] [facility] & CHILD [address] [place] [address] 2021-09-02 2021-09-02 Outpatient SUDARSHAN VELA [facility] [id number] Univers 11:15:00 14:39:00 ity of [facility] 2021-09-02 2021-09-02 Telemedici Sandhya Jarrett [facility] 1.2.8 [id number] Univers 11:15:00 14:39:00 ne Visit Sudarshan Montes TRACTOR OPERATOR [employer] 350.1.13.10 ity of REGIONAL 4.2.7.2.686 David as MATERNAL [id number] [facility] [address] [place] [address] 2021-09-01 2021-09-01 Fire Extinguisher Installer Krish Mazariegos [facility] 1.2.840.114 [id number] Univers 13:30:00 13:59:57 Visit Dino Zhang TRACTOR OPERATOR [employer]EV[employer]ING 350.1.13.1 0 ity of REGIONAL 4.2.7.2.686 David as MATERNAL [id number] [facility] & CHILD [address] [facility] 2021-09-01 2021-09-01 Outpatient P VICENTE [facility] [id number] Univers 13:30:00 13:59:57 DINO grajeda [facility] 2021-09-01 2021-09-01 Outpatient P VICENTE [facility] [id number] Univers 13:30:00 13:30:00 DINOISSAC grajeda [facility] 2021-08-26 2021-08-26 Outpatient R HEATH [facility] [id number] Univers 09:30:00 09:40:11 SANDRA grajeda [facility] 2021-08-26 2021-08-26 Fire Extinguisher Installer Lab, [facility] 1.2.840. 114 [id number] Univers 09:30:00 09:40:11 Visit Sandra Joe TRACTOR OPERATOR LASER LEVELING 350.1.13.10 ity of [facility] 4.2.7.2.686 David as MATERNAL [phone] [address] 2021-08-23 2021-08-23 Outpatient Maggy JOE [facility] [id number] Univers 10:00:00 10:00:00 SANDRA grajeda [facility] 2021-08-19 2021-08-19 Outpatient R ANDREW [facility] [id number] Univers 09:30:00 09:30:00 SARAH grajeda [facility] 2021-08-19 2021-08-19 [facility] 1.2.840.114 [id number] Univers 00:00:00 00:00:00 Sarah Bella TRACTOR OPERATOR LASER LEVELING 350.1.13.10 it y of REGIONAL 4.2.7.2.686 David as MATERNAL [phone] [address] 2021-08-17 2021-08-17 Telephone Gin [facility] 1.2.687.339 [id number] Univers 00:00:00 00:00:00 Nicole TRACTOR OPERATOR LASER LEVELING 350.1.13.10 it y of REGIONAL 4.2.7.2.686 David as MATERNAL [phone] [facility] CHILD [address] [place] [address] 2021-08-16 2021-08-16 Outpatient Maggy BOLAND [facility] [id number] Univers 14:15:00 15:39:45 [facility] 2021-08-16 Outpatient Maggy BOLAND [facility] [id number] Univers 14:15:00 15:39:45 [facility] 2021-08-16 2021-08-16 Initial Gin [facility] 1.2.840.114 [id number] Univers 14:15:00 15:39:45 Nicole TRACTOR OPERATOR LASER LEVELING 350.1.13.10 i ty of Visit [facility] 4.2.7.2.686 David as MATERNAL [phone] [facility] CHILD [address] [place] [address] 2021-08-16 2021-08-16 Outpatient Maggy BOLAND [facility] [id number] Univers 14:15:00 15:39:45 [facility] 2021-08-16 2021-08-16 Initial Gin [facility] 1.2.840.114 [id number] Univers 14:15:00 15:39:45 Nicole TRACTOR OPERATOR LASER LEVELING 350.1.13.10 i ty of Visit [facility] 4.2.7.2.686 David as MATERNAL [phone] [facility] CHILD [address] [place] [address] 2021-08-16 2021-08-16 Orders Doctor JEAN MARIE 1.2.840.114 [id number] Univers 00:00:00 00:00:00 Only Unassigned, KARLEE 350.1.13.10 ity of [place] [facility] 4.2.7.2.686 David as [phone] [address] 2020-12-30 2021-01-01 Inpatient ION Marino, KEONCR OB [id number] [facility] 10:05:00 13:15:00 Silas Araiza [facility] 2020-10-05 2020-10-05 Outpatient R [facility] [id number] Univers 13:00:00 13:00:00 ity of [facility] 2020-09-10 2020-09-10 Fire Extinguisher Installer Ultrasound, Adc [facility] 1.2 .840.114 [id number] Univers 15:11:35 15:41:35 Visit Olayinka Duenas [place] 350.1.13.10 ity of [place] [phone] Al dical [address] 2020-09-10 2020-09-10 Outpatient R [facility] [id number] Univers 15:00:00 15:00:00 ity [facility] 2020-09-08 2020-09-08 Routine Ad, [facility] 1.2.840.114 [id number] Univers 14:23:42 15:39:03 Patience [place] 350.1.13.10 ity of [place].2.[place] [phone] Al dic[address] 2020-09-08 2020-09-08 Outpatient R ADUM, [facility] [id number] Univers 14:15:00 14:15:00 [facility] 2020-09-01 2020-09-01 Outpatient R ADUM, [facility] [id number] Univers 09:15:00 09:15:00 PATIENCE [facility] 2020-08-25 2020-08-25 Outpatient R ADUM, [facility] [id number] Univers 14:15:00 14:15:00 [facility] 2020-08-16 2020-08-16 Patient Doctor UN[facility]ERS[facility] 1.2.392.345 [id number] Univers 00:00:00 00:00:00 Secure Msg Unassigned, Y HEALTH 350.1.13.10 ity of [place] [facility] 4.2.7.2.[place] [phone] [address] 2020-08-16 2020-08-16 Case Adum, [facility] 1.2.840.114 [id number] Univers 00:00:00 00:00:00 Management Paitence [place] 350.1.13.10 ity of [place] [phone] Al dical nal [address] [place] [address] 2020-08-16 2020-08-16 Telephone Mak [facility] 1.2.840.114 [id number] Univers 00:00:00 00:00:00 Rosey Serenity 350.1.13.10 i ty of [place].2.[place] [phone] Al dical nal [address] [place] [address] 2020-08-13 2020-08-13 Fire Extinguisher Installer Ultrasound, Adc [facility] 1.2 .840.114 [id number] Univers 14:15:34 15:15:34 Visit Marj Hays 350.1 .13.10 ity of [place].2.[place] [phone] Al dic[address] 2020-08-13 2020-08-13 Outpatient P [facility] [id number] Univers 14:00:00 14:00:00 ity of [facility] 2020-08-13 2020-08-13 Case Adum, [facility] 1.2.840.114 [id number] Univers 00:00:00 00:00:00 Management Patience [place] 350.1.13.10 ity of [place] [phone] Al dic[address] 2020-07-29 2020-07-29 Orders Doctor JEAN MARIE 1.2.840.114 [id number] Univers 00:00:00 00:00:00 Only Unassigned, KARLEE 350.1.13.10 ity of [place] [facility] 4.2.7.2.686 David as [phone] [address] 2020-07-28 2020-07-28 Routine Adum, [facility] 1.2.840.114 [id number] Univers 14:51:38 16:08:48 Patience B[place] 350.1.13.10 ity of [place]7.2.[place] [phone] Al dical nal [address] [facility] 2020-07-28 2020-07-28 Outpatient R ADUM, [facility] [id number] Univers 14:30:00 14:30:00 PATIENCE itmuriel of [facility] 2020-07-13 2020-07-13 Case Adum, [facility] 1.2.840.114 [id number] Univers 00:00:00 00:00:00 Management Patience Bella [place] 350.1.13.10 ity of [place] [phone] Al dical nal [address] [facility] 2020-07-09 2020-07-09 Telephone Ad, [facility] 1.2.658.468 [id number] Univers 00:00:00 00:00:00 Patience Sharpton 350.1.13.10 ity of [place] [phone] Al dical nal [address] [facility] 2020-07-05 2020-07-05 Fire Extinguisher Installer Derek, Adc Lab Main [facility] 1.2.8 40.114 [id number] Univers 12:40:26 12:55:26 Visit Admarguerite, Patience Sharpton 350.1.13.10 ity of [place]7.2.[place] [phone] Al dical nal [address] [place] [address] 2020-07-05 2020-07-05 Outpatient R ADUM, [facility] [id number] Univers 12:30:00 12:30:00 PATIENCE grajeda [facility] 2020-07-02 2020-07-02 Fire Extinguisher Installer Derek, Adc Lab Main [facility] 1.2.8 40.114 [id number] Univers 13:02:56 13:17:56 Visit AdPatience [place] 350.1.13.10 ity of [place].2.[place] [phone] Al dical nal [address] [place] [address] 2020-07-02 2020-07-02 Outpatient R [facility] [id number] Univers 10:15:00 10:15:00 ity of [facility] 2020-07-02 2020-07-02 Orders Doctor JEAN MARIE 1.2.840.114 [id number] Univers 00:00:00 00:00:00 Only Unassigned, KARLEE 350.1.13.10 ity of [place] [facility] 4.2.7.2.686 David as [phone] [address] 2020-06-30 2020-06-30 Initial Adum, [facility] 1.2.840.114 [id number] Univers 10:39:42 12:04:24 Patience Benton 350.1.13.10 ity of [place].2.[place] [phone] Al dical [address] 2020-06-30 2020-06-30 Outpatient R AD, [facility] [id number] Univers 10:30:00 10:30:00 [facility] 2020-06-24 2020-06-24 Outpatient R AD, [facility] [id number] Univers 13:30:00 13:30:00 [facility] 2020-01-12 2020-01-12 Outpatient R ADUM, [facility] [id number] Univers 13:00:00 13:00:00 [facility] 2019-11-13 2019-11-13 [facility] [id number] Univers 08:00:00 08:00:00 JULIA [facility] 2019-08-21 2019-08-21 Outpatient R [facility] [id number] Univers 13:00:00 13:00:00 ity [facility] 2019-07-22 2019-07-22 Telephone [facility] 1.2.840.114 [id number] 00:00:00 00:00:00 Rosie B[place] 350.1.13.10 [place] 4.2.7.2.686 Professio [phone] [address] 2019-07-22 2019-07-22 Telephone [facility] 1.2.840.114 [id number] Univers 00:00:00 00:00:00 Rosie B[place] 350.1.13.10 i ty of [place] [phone] Al dical [address] 2019-07-10 2019-07-10 Fire Extinguisher Installer Derek, [facility] 1.2.840.114 [id number] 11:59:33 12:14:33 Visit Lab Main [place] 350.1.13.10 [place] 4.2.7.2.686 Professio [phone] [address] 2019-07-10 2019-07-10 Fire Extinguisher Installer Derek [facility] Lab Main [facility] 1.2.8 40.114 [id number] Univers 11:59:33 12:14:33 Visit Rosei Lisa 350.1.13.10 ity of [place] [phone] Al dical [address] 2019-07-10 2019-07-10 Routine Lisa, [facility] 1.2.840.114 [id number] 10:32:19 11:43:21 Rosie [place] 350.1.13.10 Visit [place] 4.2.7.2.686 Professio [phone] [address] 2019-07-10 2019-07-10 Routine Gowen, [facility] 1.2.840.[id number] [facility] 10:32:19 11:43:21 Rosie [place] 350.1.13.10 ity of [place]7.2.[place] [phone] [address] 2019-07-10 2019-07-10 Outpatient R LISA, [facility] [id number] Univers 11:30:00 11:30:00 ROSIE grajeda of [facility] 2019-07-10 2019-07-10 Orders Doctor AJ 1.2.840.114 [id number] 00:00:00 00:00:00 Only Unassigned, KARLEE 350.1.13.10 [place] [facility] 4.2.7.2.686 [phone] 009 2019-07-10 2019-07-10 Orders Doctor AJ 1.2.840.114 [id number] Univers 00:00:00 00:00:00 Only Unassigned, KARLEE 350.1.13.10 ity of [place] [facility] 4.2.7.2.686 David as [phone] [address] 2019-06-19 2019-06-19 Routine Lisa, [facility] 1.2.840.114 [id number] 12:59:21 13:55:02 Rosie B[place] 350.1.13.10 Visit [place] 4.2.7.2.686 Professio [phone] [address] 2019-06-19 2019-06-19 Routine Lisa, [facility] 1.2.840.114 [id number] Univers 12:59:21 13:55:02 Rosie [place] 350.1.13.10 ity of [place]2.[place] [phone] Al dical [address] 2019-06-19 2019-06-19 Outpatient R LISA, [facility] [id number] Univers 13:00:00 13:00:00 ROSIE ity of [facility] 2019-06-11 2019-06-11 Telephone Lisa, [facility] 1.2.840.114 [id number] 00:00:00 00:00:00 Rosie [place] 350.1.13.10 [place] 4.2.7.2.686 Professio [phone] [address] 2019-06-11 2019-06-11 Telephone Lisa, [facility] 1.2.840.114 [id number] Univers 00:00:00 00:00:00 Rosiemuriel [place] 350.1.13.10 i ty of [place]2.[place] [phone] Al dical [address] 2019-06-10 2019-06-10 Nurse Nurse, [facility] 1.2.840.114 [id number] 10:43:00 11:07:40 Visit General [place] 350.1.13.10 Surgery [place] 4.2.7.2.686 Professio [phone] [address] 2019-06-10 2019-06-10 Nurse Nurse, [facility] General Surgery [facility] 1.2.840.114 [id number] Univers 10:43:00 11:07:40 Visit Rosie Lisa 350.1.13.10 ity of [place]2.[place] [phone] [facility] [address] [facility] 2019-06-10 2019-06-10 [facility] [id number] Univers 10:30:00 10:30:00 ROSIE itmuriel [facility] 2019-06-10 2019-06-10 Telephone [facility] 1.2.840.114 [id number] 00:00:00 00:00:00 Rosie [place] 350.1.13.10 [place] 4.2.7.2.686 Professio [phone] [address] 2019-06-10 2019-06-10 Telephone Lisa, [facility] 1.2.840.114 [id number] Univers 00:00:00 00:00:00 Rosie [place] 350.1.13.10 i ty of [place] [phone] [address] 2019-06-05 2019-06-05 Routine [facility] 1.2.840.114 [id number] Univers 14:20:26 15:15:21 Rosie [place] 350.1.13.10 ity of [place]7.2.[place] [phone] [address] 2019-06-05 2019-06-05 Outpatient R SLOAN, [facility] [id number] Univers 14:15:00 14:15:00 [facility] 2019-06-04 2019-06-04 Fire Extinguisher Installer Ultrasound, Vinicius-[facility] 1.2 .840.114 [id number] Univers 14:30:39 14:57:33 Visit Ramy Schwartz TRACTOR OPERATOR LASER LEVELING 350.1.13.10 ity of [facility] 4.2.7.2.686 David as MATERNAL [phone] [facility] ical & CHILD [address] [place] [address] 2019-06-04 2019-06-04 Outpatient P [facility] [id number] Univers 14:30:00 14:30:00 ity of [facility] 2019-06-03 2019-06-03 Emergency Thompson, [facility] 1.2.506.219 [id number] Univers 15:44:34 16:32:00 Cruzito B[place] 350.1.13.10 i ty of [place] [phone] [facility] [address] [place] 2019-06-02 2019-06-02 Telephone [facility] 1.2.840.114 [id number] Univers 00:00:00 00:00:00 Rosie Benton 350.1.13.10 i ty of [place].2.[place] [phone] Al dical nal [address] [facility] 2019-05-29 2019-05-29 Routine [facility] 1.2.840.114 [id number] Univers 14:59:08 15:47:56 Rosie [place] 350.1.13.10 ity of [place] 4[place]2.7.2.[place] [phone] Al dical nal [address] [place] [address] 2019-05-29 2019-05-29 [id number] Univers 14:45:00 14:45:00 ROSIE ity of [facility] 2019-05-27 2019-05-27 Fire Extinguisher Installer 1, Adc Lab [facility] 1.2.840.114 [id number] Univers 14:28:26 14:43:26 Visit Rosie Lisa 350.1.13.10 ity of [place].7.2.686 [place] [phone] [facility] [address] [place] 2019-05-27 2019-05-27 Outpatient R [facility] [id number] Univers 14:00:00 14:00:00 ity of [facility] 2019-05-23 2019-05-23 Routine [facility] 1.2.840.114 [id number] Univers 08:35:46 16:15:44 Rosie Benton 350.1.13.10 ity of [place] 4[place]2.7.2.[place] [phone] Al dical nal [address] [place] [address] 2019-05-23 2019-05-23 Outpatient R LISA, [facility] [id number] Univers 15:15:00 15:15:00 ROSIE ity of [facility] 2019-05-23 2019-05-23 Orders Doctor JEAN MARIE 1.2.840.114 [id number] Univers 00:00:00 00:00:00 Only Unassigned, KARLEE 350.1.13.10 [facility] 4.2.7.2.686 David as [phone] [address] 2019-05-15 2019-05-15 Telemedici [facility] 1.2.840.114 [id number] Univers 11:24:12 17:00:51 ne Visit Rosie Benton 350.1.13.10 ity of [place] [phone] Al dical nal [address] [place] [address] 2019-05-15 2019-05-15 Outpatient R LISA, [facility] [id number] Univers 16:00:00 16:00:00 ROSIE ity [facility] 2019-05-08 2019-05-10 [facility] 1.2.840.114 [id number] Univers 13:28:58 01:26:19 Rosie [place] 350.1.13.10 ity of [place].2.[place] [phone] Al dical [address] 2019-05-08 2019-05-08 Outpatient R LISA, [facility] [id number] Univers 13:15:00 13:15:00 ROSIE ity of [facility] 2019-04-24 2019-04-24 Outpatient R LISA, [facility] [id number] Univers 15:15:00 15:15:00 ROSIE ity [facility] 2019-04-04 2019-04-04 Routine Lisa, [facility] 1.2.840.114 [id number] Univers 15:41:32 16:58:45 Rosie [place] 350.1.13.10 ity of [place].2.[place] [phone] Al dical nal [address] [facility] 2019-03-26 2019-03-26 Fire Extinguisher Installer Derek, [place] Lab Main [facility] 1.2.[id number] [facility] 14:32:19 14:47:19 Visit LisaRosie 350.1.13.10 ity of [place]7.2.[place] [phone] Al dical nal [address] [facility] 2019-03-26 2019-03-26 Orders Doctor JEAN MARIE 1.2.840.114 [id number] Univers 00:00:00 00:00:00 Only Unassigned, KARLEE 350.1.13.10 ity of [place] [facility] 4.2.7.2.686 David as [phone] [address] 2019-03-21 2019-03-21 Routine [facility] 1.2.840.[id number] [facility] 16:12:08 16:53:37 Rosie [place] 350.1.13.10 ity of [place]2.[place] [phone] Al dicri nal [address] [facility] Results Test Description Test Time Test Comments Results Result Comments Source POCT Test 2022-07-12 12:43:00 Test Item Value Reference Range Interpretation Comme nts POCT PREG (test code = 1605) Negative On board controls acceptable with C Line (test code = 3574) Yes POCT PREG LOT # (test code = 3575) POCT PREG TEST DATE (test code = 3576) [facility] [id number] 12:43:00 Test Item Value Reference Range Interpretation Comments POCT PREG (test code = 1605) Negative On board controls acceptable with C Yes Line (test code = 3574) POCT PREG LOT # (test code = 3575) POCT PREG TEST DATE (test code = 3576) [facility] IMMUNE [id number] 20:41:00 Test Item Value Reference Range Interpretation Comments RHIG CANDIDATE? No- see comment Patient i s not a (test code = candidate for R hIg- 5055) Patient is Rh Positive.Perfor med at [facility] Laboratory Services - [facility] Blood [address] [place] [address] 31564Fgpq Free: [phone] A No. [id number] [facility]) IMMUNE [id number] 20:41:00 Test Item Value Reference Range Interpretation Comments RHIG CANDIDATE? No- see comment Patient i s not a (test code = candidate for R hIg- 5055) Patient is Rh Positive.Perfor med at [facility] Laboratory Services - [facility] Blood [address] [place] [address] 90067Bngx Free: [phone] A No. [id number] [facility] Cord [id number] 18:43:14 Test Item Value Reference Range Interpretation Comments VENOUS BASE EXCESS, CORD mEq/L (test code = 3530278448) VENOUS PH, CORD (test 7.25-7.45 code = 3883158979) VENOUS PC02, CORD (test See_Comment H [Au tomated message] code = 9215980064) The syste m which generated this result transmitted ref erence range: 27 - 49 mmHg. The reference r becca was not used to interpret this result as normal/abnor mal. VENOUS PO2, CORD (test See_Comment [Aut omated message] code = 6830363778) The syste m which generated this result transmitted ref erence range: 17 - 41 mmHg. The reference r becca was not used to interpret this result as normal/abnor mal. VENOUS BICARBONATE, CORD See_Comment [A utomated message] (test code = 6535913905) The system which generated this result transmitted ref erence range: 12 - 29 mEq/L. The reference r becca was not used to interpret this result as normal/abnor mal. Lab Interpretation (test Abnormal code = 91963-6) [facility] Cord [id number] 18:43:14 Test Item Value Reference Range Interpretation Comments VENOUS BASE EXCESS, CORD mEq/L (test code = 5190757877) VENOUS PH, CORD (test 7.25-7.45 code = 5613269745) VENOUS PC02, CORD (test See_Comment H [Au tomated message] code = 5428760610) The syste m which generated this result transmitted ref erence range: 27 - 49 mmHg. The reference r becca was not used to interpret this result as normal/abnor mal. VENOUS PO2, CORD (test See_Comment [Aut omated message] code = 2095541324) The syste m which generated this result transmitted ref erence range: 17 - 41 mmHg. The reference r becca was not used to interpret this result as normal/abnor mal. VENOUS BICARBONATE, CORD See_Comment [A utomated message] (test code = 4529578835) The system which generated this result transmitted ref erence range: 12 - 29 mEq/L. The reference r becca was not used to interpret this result as normal/abnor mal. Lab Interpretation (test Abnormal code = 15053-0) [facility] and Screen - ONCE [id number] 14:03:57 Test Item Value Reference Range Interpretation Comments ABO & RH (test code A POSITIVE Performe d at [facility] = 20) Laboratory [facility] Blood Bank[address] [place] [address] 92439Rwhh Free: [phone] A No. [id number] IAT (test code = Negative Performed a t [facility] 1185) Laboratory [facility] Blood Bank[address] [place] [address] s 42559Utzh Free: [phone] A No. [id number] [facility] - ONCE [id number] 14:03:57 Test Item Value Reference Range Interpretation Comments ABO & RH (test code A POSITIVE Performe d at [facility] = 20) Laboratory [facility] Blood [facility] [place] [address] s 69247Ccgk Free: [phone] A No. [id number] IAT (test code = Negative Performed a t [facility] 1185) Laboratory [facility] Blood [facility] [place] [address] s [id number] Free: [phone] A No. [id number] [facility] URINALYSIS W SPECIFIC [id number] 19:15:00 Test Item Value Reference Range Interpretation [...] U APPEAR (test code = 3267) na [facility] URINALYSIS W SPECIFIC [id number] 20:02:00 Test Item Value Reference Range Interpretation [...] POCT U APPEAR (test code = 3267) [facility] URINALYSIS W SPECIFIC [id number] 20:02:00 Test Item Value Reference Range Interpretation [...] POCT U APPEAR (test code = 3267) [facility] URINALYSIS W SPECIFIC [id number] 13:24:00 Test Item Value Reference Range Interpretation [...] POCT U APPEAR (test code = 3267) [facility] URINALYSIS W SPECIFIC [id number] 19:52:00 Test Item Value Reference Range Interpretation [...] POCT U APPEAR (test code = 3267) [facility] [id number] 20:17:52 Test Item Value Reference Interpretation Comments Range RACE (test code = 7199284830) WEIGHT (test code = lbs 2678270797) GEST. AGE (test 19w,3d code = 7000662891) INS. DEP (test code No = 4022151644) LMP (test code = 2528935355) US DATE (test code = 8587631306) PE DATE (test code = 4639583171) METHOD (test code = LMP 2532338380) MULT GEST (test No code = 6251119847) NTD HX (test code = No 9284395457) INITAL OR REPEAT Initial (test code = Testing 6470497651) SMOKER (test code = No 1820792885) RH (test code = Unknown [id number]) INHIBIN (test code 120.5 pg/mL = 9261249559) AFP-MS (test code = 10.5 ng/mL 9180996597) ESTRIOL (test code 0.11 ng/mL = 7098608779) BHCG DOWNS (test mIU/mL code = 1053762386) AFP-MS MoM (test code = 3143354579) BHCG MoM (test code = 7371031347) INHIBIN MoM (test code = 7612633542) E3 MoM (test code = 9428260839) EQ AGE RSK (test equivalent to that of a code = 0473879646) 41.5 year old DS APR (test code = 1:1010 9688804884) DS INTERP (test See Note The risk of Down code = 8546510856) syndrome is GREATER than the screening c ut-off. If thegestation al age is confirmed, coun selling regarding the r isks andbenefits of amniocentesis i s suggested. DS RSK (test code = ~ 1:67 The risk at 3468974792) mid-trimester i s approximately 1 :67 DS SCRN (test code Positive = 1929312125) TRISOMY 18 (test See Note These serum marker code = 7416406198) levels ar e not consistent with the pattern seen in Trisomy 18 pregnancies. Maternal serum screening will detectapproxima tely 60% of Trisomy 18 pregnancies. ES RSK (test code = ~ 1:843 The risk of Trisomy 18 8799920756) is approximatel y 1:843The Trisom y 18 cut-off is 1:45 ES SCRN (test code Negative = 2775996484) OSB INTERP (test See Note The materna l serum AFP code = 2658765666) result is NOT elevated for a of thisgestational age. The risk of an open neural tube defect is less thanthe screeni ng cut-off. OSB RSK (test code 1:4440 The risk of OSB is equal = 3297180200) to 1:4440The O SB cut-off is 2.57 (1:104) OSB SCRN (test code Negative = 6009313253) INTERPRETATION P INTERPRETATIO N: SCREEN (test code = POSITIVE Follow -up for 0362426896) risk of Down sy ndrome is suggested [facility] [id number] 19:26:59 Test Item Value Reference Range Interpretation Comments VZV IgG antibody Positive Negative (test code = 51651-6) KAMILLE (test code = KAMILLE) Positive - Indicates the patient was exposed to VZV through infection or vaccination.Negative - Indicates the patient could be susceptible to VZV infection.Equivocal - A second specimen should be sent for testing. [facility]ULIS[facility] [id number] 19:26:59 Test Item Value Reference Range Interpretation Comments Rubella screen IgG Positive Negative (test code = 8650551512) KAMILLE (test code = KAMILLE) Positive - Indicates the patient was exposed to Rubella through infection or vaccination.Negative - Indicates the patient could be susceptible to Rubella infection.Equivocal - A second specimen should be sent. [facility]neGAL ONLY - SYPHILIS [id number] 16:09:46 Test Item Value Reference Range Interpretation Comments Syphilis IgG/IgM (test Non-reactive Non-reactive code = 26429-6) KAMILLE (test code = KAMILLE) Non-reactive - No serologic evidence of T. pallidum infection. Cannot exclude incubating or early syphilis. Submit a second specimen in 2-4 weeks if syphilis is clinically suspected. Equivocal - Further testing to follow. Reactive - Further testing to follow. Lab Interpretation (test Normal code = 69491-4) [facility]ne[facility] AG-AB WITH [id number] 04:28:35 Test Item Value Reference Range Interpretation Comments HIV Negative Negative Semi-quantitative (test code = 50280-8) KAMILLE (test code = Non-reactive for HIV-1 KAMILLE) antigen and HIV-1/HIV-2 antibodies. ?No laboratory evidence of HIV infection. ?Repeat in 2-4 weeks if acute HIV infection is suspected. [facility]nePRENATAL WORKUP, BLOOD [id number] 03:11:28 Test Item Value Reference Range Interpretation Comments ABO & RH (test code A POSITIVE Performe d at [facility] = 20) Laboratory Serv [facility] Blood Bank3 [facility] [address]Owbe Free: [phone] A No. [id number] IAT (test code = Negative Performed a t [facility] 1185) Laboratory Serv [facility] Blood Bank3 [facility] s [address]Nlrk Free: [phone] A No. [id number] [facility]neGLUCOSE 1 HOUR POST [id number] 03:02:50 Test Item Value Reference Range Interpretation Comments GLUC 1 HR (test code = 1984610460) 108 mg/dL 120-170 L Lab Interpretation (test code = Abnormal 69308-1) [facility]neHEPATITIS B SURFACE [id number] 02:56:09 Test Item Value Reference Range Interpretation Comments HBsAg Semi-Quantitative (test code = Negative Negative 5195-3) [facility] Cle[facility]neCB WITH [id number] 01:53:42 Test Item Value Reference Range Interpretation Comments WBC (test code = See_Comment [Automated 6690-2) message] The sy stem which generated this result transmitted reference range : 4.30 - 11.10 10*3/?L. The reference range was not used to interpret this result as normal/abnormal . RBC (test code = See_Comment [Automated 789-8) message] The sy stem which [...] RDW-SD (test code = 39.0 fL 39-49.9 94350-5) RDW-CV (test code = 12.3 % 12-15.5 788-0) PLT (test code = See_Comment [Automated 777-3) message] The sy stem which generated this result transmitted reference range : 166 - 358 10*3/ ?L. The reference r becca was not used to interpret this result as normal/abnormal . MPV (test code = 11.7 fL 9.5-12.9 95909-9) NRBC/100 WBC (test See_Comment [Automat ed code = 2173741189) message] The system which generated this result transmitted reference range : 0.0 - 10.0 /100 WBCs. The refer ence range was not u sed to interpret th is result as normal/abnormal . NRBC x10^3 (test code See_Comment [Auto mated = 7837993742) message] The s ystem which generated this result transmitted reference range : 10*3/?L. The reference range was not used to interpret this result as normal/abnormal . GRAN MAT (NEUT) % 60.7 % (test code = 770-8) IMM GRAN % (test code 0.30 % = 0745490929) LYMPH % (test code = 31.7 % 736-9) MONO % (test code = 5.3 % 5905-5) EOS % (test code = 1.7 % 713-8) BASO % (test code = 0.3 % 706-2) GRAN MAT x10^3(ANC) 4.03 10*3/uL 1.88-7.09 (test code = 4993142324) IMM GRAN x10^3 (test 0-0.06 code = 7891464545) LYMPH x10^3 (test code 2.10 10*3/uL 1.32-3.29 = 731-0) MONO x10^3 (test code 0.35 10*3/uL 0.33-0.92 = 742-7) EOS x10^3 (test code = 0.11 10*3/uL 0.03-0.39 711-2) BASO x10^3 (test code 0.01-0.07 = 704-7) Lab Interpretation Abnormal (test code = 98369-8) [facility] URINALYSIS W SPECIFIC [id number] 19:26:00 Test Item Value Reference Range Interpretation [...] POCT U APPEAR (test code = 3267) [facility]nePOFL [id number] 19:25:00 Test Item Value Reference Range Interpretation Comments POCT PREG (test code = 1605) Positive On board controls acceptable with C Yes Line (test code = 3574) POCT PREG LOT # (test code = 3575) POCT PREG TEST DATE (test code = 3576) [facility] W/AUTO [id number] 05:46:00 Test Item Value Reference Range Interpretation [...] 0.0-0.05 N NRBC#) DRUGS OF ABUSE SCREEN [id number] 14:01:00 Test Item Value Reference Interpretation Comments [...] result as normal/abnormal . CORD VENOUS BLOOD [id number] 13:39:00 Test Item Value Reference Range Interpretation [...] HOLD IN OE? NCAMPUS: CCORD ARTERIAL BLOOD [id number] 13:38:00 Test Item Value Reference Range Interpretation [...] screening (test code = test only A [id number]) Non-Reactive te st result does not exclude [...] HIV testing consent form been signed? YESAB [id number] 11:49:00 Test Item Value Reference Range Interpretation Comments AB TREPONEMA (test code = NonReactive Screen NonReactive TREPAB) HBSAG NEUTRALIZATION [id number] 11:49:00 Test Item Value Reference Range Interpretation Comments AG HEPATITIS B SURFACE NEG-NONREAC SCREEN Nonreactive (test code = HBSAG) COVID 19 Asymptomatic IH [id number] 11:29:00 Test Item Value Reference Range Interpretation Comments COVID 19 Asymptomatic IH AG (test Negative Neg code = COVNONPUIAG) CBC W/AUTO [id number] 11:08:00 Test Item Value Reference Range Interpretation [...] 0.0-0.05 N NRBC#) POCT URINALYSIS W/O SPECIFIC [id number] 20:02:00 Test Item Value Reference Range Interpretation Comments POCT PH U (test code = 7604) n/a 5-8 POCT U LEUK EST (test code = 8003) n/a Negative - Negative POCT U NIT (test code = 3262) n/a Negative - Negative POCT U PROT (test code = 5849) neg Negative - Negative POCT U GLU (test code = 3256) neg Negative - Negative POCT U KETONE (test code = 3258) n/a Negative - Negative POCT U BLD (test code = 3257) n/a Negative - Negative [facility] URINALYSIS W/O SPECIFIC [id number] 20:17:00 Test Item Value Reference Range Interpretation [...] Negative Lab Interpretation (test code = Normal 92635-2) [facility] URINALYSIS W/O SPECIFIC [id number] 20:17:00 Test Item Value Reference Range Interpretation [...] Negative Lab Interpretation (test code = Normal 05273-0) [facility] WITH [id number] 19:47:33 Test Item Value Reference Range Interpretation Comments WBC (test code = See_Comment [Automated 0790-2) message] The sy stem which generated this result transmitted reference range : 4.30 - 11.10 10*3/?L. The reference range was not used to interpret this result as normal/abnormal . RBC (test code = See_Comment L [Automated 949-8) message] The sy stem which generated this [...] (test code = 38.4 fL 39.0-49.9 L 78770-6) RDW-CV (test code = 12.1 % 12.0-15.5 788-0) PLT (test code = See_Comment [Automated 777-3) message] The sy stem which generated this result transmitted reference range : 166 - 358 10*3/ ?L. The reference r becca was not used to interpret this result as normal/abnormal . MPV (test code = 11.9 fL 9.5-12.9 78615-6) NRBC/100 WBC (test See_Comment [Automat ed code = 9099610618) message] The system which generated this result transmitted reference range : 0.0 - 10.0 /100 WBCs. The refer ence range was not u sed to interpret th is result as normal/abnormal . NRBC x10^3 (test code <0.01 See_Comment [Auto mated = 5593113625) message] The s ystem which generated this result transmitted reference range : 10*3/?L. The reference range was not used to interpret this result as normal/abnormal . GRAN MAT (NEUT) % 50.1 % (test code = 770-8) IMM GRAN % (test code 0.40 % = 8023995841) LYMPH % (test code = 38.2 % 736-9) MONO % (test code = 7.8 % 5905-5) EOS % (test code = 2.9 % 713-8) BASO % (test code = 0.6 % 706-2) GRAN MAT x10^3(ANC) 2.62 10*3/uL 1.88-7.09 (test code = 1698793038) IMM GRAN x10^3 (test <0.03 0.00-0.06 code = 1322031225) LYMPH x10^3 (test code 2.00 10*3/uL 1.32-3.29 = 731-0) MONO x10^3 (test code 0.41 10*3/uL 0.33-0.92 = 742-7) EOS x10^3 (test code = 0.15 10*3/uL 0.03-0.39 711-2) BASO x10^3 (test code 0.03 10*3/uL 0.01-0.07 = 704-7) Lab Interpretation Abnormal (test code = 68924-6) [facility] [id number] 16:00:00 Test Item Value Reference Range Interpretation Comments POCT PREG (test code Positive = 1605) On board controls Yes acceptable with C Line (test code = 3574) POCT PREG LOT # (test code = 3575) POCT PREG TEST DATE (test code = 3576) KAMILLE (test code = KAMILLE) accurate development and interpretation of all internal controls [facility] URINALYSIS W/O SPECIFIC [id number] 15:59:00 Test Item Value Reference Range Interpretation [...] code = 3257) [facility]G Negative - [facility] [id number] 16:40:00 Test Item Value Reference Range Interpretation [...] Negative Lab Interpretation (test code = Normal 60397-7) [facility] URINALYSIS W/O SPECIFIC [id number] 20:12:00 Test Item Value Reference Range Interpretation [...] Negative Lab Interpretation (test code = Normal 26785-9) [facility] URINALYSIS W/O SPECIFIC [id number] 20:12:00 Test Item Value Reference Range Interpretation [...] Negative Lab Interpretation (test code = Normal 59407-2) [facility] URINALYSIS W/O SPECIFIC [id number] 20:34:00 Test Item Value Reference Range Interpretation [...] Negative Lab Interpretation (test code = Normal 87138-1) [facility] WITH [id number] 19:51:00 Test Item Value Reference Range Interpretation [...] RDW-SD (test code = 41.4 fL 39-49.9 61821-0) RDW-CV (test code = 12.9 % 12-15.5 788-0) PLT (test code = See_Comment [Automated 777-3) message] The sy stem which generated this result transmitted reference range : 166 - 358 10*3/ ?L. The reference r becca was not used to interpret this result as normal/abnormal . MPV (test code = 11.3 fL 9.5-12.9 03362-6) NRBC/100 WBC (test See_Comment [Automat ed code = 4473300731) message] The system which generated this result transmitted reference range : 0.0 - 10.0 /100 WBCs. The refer ence range was not u sed to interpret th is result as normal/abnormal . NRBC x10^3 (test code <0.01 See_Comment [Auto mated = 2952742658) message] The s ystem which generated this result transmitted reference range : 10*3/?L. The reference range was not used to interpret this result as normal/abnormal . GRAN MAT (NEUT) % 64.7 % (test code = 770-8) IMM GRAN % (test code 1.00 % = 1921033099) LYMPH % (test code = 23.0 % 736-9) MONO % (test code = 9.0 % 5905-5) EOS % (test code = 2.0 % 713-8) BASO % (test code = 0.3 % 706-2) GRAN MAT x10^3(ANC) 6.63 10*3/uL 1.88-7.09 (test code = 1768669173) IMM GRAN x10^3 (test 0.10 10*3/uL 0-0.06 H code = 8126214561) LYMPH x10^3 (test code 2.36 10*3/uL 1.32-3.29 = 731-0) MONO x10^3 (test code 0.92 10*3/uL 0.33-0.92 = 742-7) EOS x10^3 (test code = 0.20 10*3/uL 0.03-0.39 711-2) BASO x10^3 (test code 0.03 10*3/uL 0.01-0.07 = 704-7) Lab Interpretation Abnormal (test code = 92316-0) [facility] URINALYSIS W/O SPECIFIC [id number] 21:07:00 Test Item Value Reference Range Interpretation [...] Negative Lab Interpretation (test code = Normal 80776-1) [facility] URINALYSIS W/O SPECIFIC [id number] 21:07:00 Test Item Value Reference Range Interpretation [...] Negative Lab Interpretation (test code = Normal 68591-4) [facility] / [facility] - DRUG SCREEN [id number] 00:31:00 Test Item Value Reference Range Interpretation Comments BENZO U (test code = Negative Negative 1786462585) SUDHIR U (test code = Negative Negative 9266431914) AMPHET (test code = Negative Negative 6231831660) THC (test code = Negative Negative 5039230624) METHADONE (test code = Negative Negative 1369143173) Meth U (test code = Negative Negative 9041786801) OPIATES (test code = Negative Negative 6419476714) Cocaine Metabolite (test Negative Negative code = 9162387980) PROPOXY (test code = Negative Negative 9302656722) Tric U (test code = Negative Negative 6383223734) PCP (test code = Negative Negative 1838499988) OXYCOD (test code = Negative Negative 9787932218) KAMILLE (test code = KAMILLE) Urine Drug [...] testing). Lab Interpretation (test Normal code = 15730-7) [facility] W/O SPECIFIC [id number] 22:07:00 Test Item Value Reference Range Interpretation [...] code = 3257) N/A Negative - Negative [facility]neADC [facility] ONLY - [id number] 01:32:00 Test Item Value Reference Range Interpretation Comments RPR (Qualitative) (test code = Nonreactive Nonreactive 49205-0) Lab Interpretation (test code = Normal 53317-9) [facility] AG-AB WITH [id number] 23:28:00 Test Item Value Reference Range Interpretation Comments HIV Negative Negative Semi-quantitative (test code = 10098-5) KAMILLE (test code = Non-reactive for HIV-1 KAMILLE) antigen and HIV-1/HIV-2 antibodies. ?No laboratory evidence of HIV infection. ?Repeat in 2-4 weeks if acute HIV infection is suspected. [facility] HOUR POST [id number] 22:48:00 Test Item Value Reference Range Interpretation Comments GLUC 1 HR (test code = 1490379651) 105 mg/dL 120-170 L Lab Interpretation (test code = Abnormal 67138-2) [facility]nePRENATAL WORKUP, BLOOD [id number] 22:47:10 Test Item Value Reference Range Interpretation Comments ABO & RH (test code A Positive Performe d at [facility] = 20) Laboratory Serv [facility] Blood Bank1 [address] [place] [id number] Free: [phone] A No. [id number] IAT (test code = Negative Performed a t [facility] 1185) Laboratory Serv [facility] Blood [address] [place] [address]Kihs Free: [phone] A No. [id number] [facility]neCB WITH [id number] 21:58:00 Test Item Value Reference Range Interpretation [...] RDW-SD (test code = 42.3 fL 39-49.9 38848-1) RDW-CV (test code = 12.5 % 12-15.5 788-0) PLT (test code = See_Comment L [Automated 777-3) message] The sy stem which generated this result transmitted reference range : 166 - 358 10*3/ ?L. The reference r becca was not used to interpret this result as normal/abnormal . MPV (test code = 12.2 fL 9.5-12.9 34155-0) NRBC/100 WBC (test See_Comment [Automat ed code = 0123500889) message] The system which generated this result transmitted reference range : 0.0 - 10.0 /100 WBCs. The refer ence range was not u sed to interpret th is result as normal/abnormal . NRBC x10^3 (test code <0.01 See_Comment [Auto mated = 6131582589) message] The s ystem which generated this result transmitted reference range : 10*3/?L. The reference range was not used to interpret this result as normal/abnormal . GRAN MAT (NEUT) % 63.4 % (test code = 770-8) IMM GRAN % (test code 1.30 % = 1440503111) LYMPH % (test code = 25.0 % 736-9) MONO % (test code = 7.7 % 5905-5) EOS % (test code = 2.3 % 713-8) BASO % (test code = 0.3 % 706-2) GRAN MAT x10^3(ANC) 6.55 10*3/uL 1.88-7.09 (test code = 1389188156) IMM GRAN x10^3 (test 0.13 10*3/uL 0-0.06 H code = 4408080362) LYMPH x10^3 (test code 2.59 10*3/uL 1.32-3.29 = 731-0) MONO x10^3 (test code 0.80 10*3/uL 0.33-0.92 = 742-7) EOS x10^3 (test code = 0.24 10*3/uL 0.03-0.39 711-2) BASO x10^3 (test code 0.03 10*3/uL 0.01-0.07 = 704-7) Lab Interpretation Abnormal (test code = 19263-2) [facility]
[2022-12-21] MEDS ORDERED: IBUPROFEN 200 MG TAB PO ONE (20:39)
[2022-12-21] MEDS ORDERED: HYDROCODONE/APAP 5/325 MG TAB ONE (20:49)
[2022-12-21 20:53] VITALS: BP 130/77; TEMP 98.6; O2SAT 100
== END 2022-12-21 20:36 | disposition home or self-care (01) ==
LOC: ER 20:15
DX: H60.8X2 Other otitis externa, left ear (principal)
CPT/HCPCS: 99283

== ENCOUNTER → 2023-02-07 | Emergency (ER) | payer OTHER ==
--- OUTSIDE RECORDS SUMMARY | 2023-02-07 18:31 | XMS REPORT | Continuity of Care Document ---
Author Name Unknown Address [address] [facility] [address] [place] [address] [facility] [address] [facility]. [address] [place] [address] Care Team Providers Care Quality Assurance Consultant Name Role Phone Nicole Boland PA-C Primary Care Physician [phone] JOSSY MCCALLUM Attending Clinician Unavailable Pgy2 Attending Clinician Unavailable Jossy Mccallum MD Attending Clinician [phone] DANIEL AGUILAR Attending Clinician Unavailable Daniel Aguilar MD Attending Clinician [phone] Doctor Unassigned, [place] Attending Clinician U Sindy Garces MA Attending Clinician Unavailabl e Visit, Deechp Nurse Attending Clinician Unava ilable Emmanuel Rosas Attending Clinician + EMMANUEL RABAGO Attending Clinician Unavail able SINDY WHITT Attending Clinician Unavaila ble Provider, Deekina Temp Attending Clinician Mohini vailable Sindy Whitt CNM Attending Clinician [phone] NIC SNEED Attending Clinician Unavailable Olegario Ingram MD Attending Clinician + Bertram Rodriguez Attending Clinician [phone] BERTRAM QUINONEZ Attending Clinician Unavailable [facility] Attending Clinician Unavailable Nicole Boland PA-C Attending Clinician [phone] NICOLE BOLAND Attending Clinician Unavailable SUDARSHAN MONTES Attending Clinician Unavailable Sandhya Jarrett Attending Clinician Unavaildwayen Montes MD, Sudarshan Monteiro Attending Clinician [phone] Us, Brijesh-m Attending Clinician Unavailable Dino Lopez MD Attending Clinician [phone] DINO LOPEZ Attending Clinician UnavailSANDRA Gonzales Attending Clinician Unavailable Heath LABORER HEADING, Sandra Vines Attending Clinician [phone] SARAH DUPREE Attending Clinician [facility]ab [facility] +- [phone] Ultrasound, [facility] Attending Clinician Unavailmichel Duenas MD, Olayinka Winter Attending Clinician [phone] Patience Mcleod MD Attending Clinician [phone] PATIENCE MCLEOD Attending Clinician Unavailable Rosey Corado PA-C Attending Clinician [phone] Luc Triplett MD, Marj Attending Clinician + Pob, [facility] Main Attending Clinician UnavailJULIA Bernabe Attending Clinician Unavailable Rosie Lisa MD Attending Clinician [phone] ROSIE LISA Attending Clinician Unavailable Nurse, [facility] General Surgery Attending Clinician U navailable Ultrasound, Ang-m Attending Clinician Unavailmichel Schwartz MD, Ramy Cortez Attending Clinician [phone] Cruzito Thompson DO Attending Clinician [phone] , [facility] Attending Clinician Unavailable ROSIE LISA Admitting Clinician Unavailable DANIEL AGUILAR Admitting Clinician Unavailable Daniel Aguilar MD Admitting Clinician [phone] NIC SNEED Admitting Clinician Unavailable Payers Payer Name Policy Type Policy Number Effective Date Expirati on Date Source [facility] MEDICA[facility] [id number] 2018 00:00:00 Problems Condition Name Condition Details Condition Category Status Onset Date Resolution Date Last Treatment Date Treating Clinician Comments Source Tubal ligation status Tubal ligation status Disease Active 2023-0 4-07 00:00: 00 Overview: Formattin g of this note might be different from the original. Added automatic ally from request for surgery [id number] [facility] Well woman exam Well woman exam Disease Active 2-10 00:00: 00 [facility] Morbid obesity Morbid obesity Disease Active 2-10 00:00: 00 [facility] Nerve pain Nerve pain Disease Active 1-11 00:00: 00 [facility] 39 weeks gestation of 39 weeks gestation of Disease Active 2021-02 2-22 00:00: 00 [facility] Pain of round ligament affecting , antepartum Pain of round ligament affecting , antepartum Disease Active 2021-02 1-10 00:00: 00 [facility] Depression affecting in third trimester, antepartum Depression affecting in third trimester, antepartum Disease Active 2021-02 0-22 00:00: 00 [facility] Supervisio n of high-risk with insufficie nt care in third trimester Supervisio n of high-risk with insufficie nt care in third trimester Disease Active 2021-02 0-20 00:00: 00 [facility] Maternal tobacco use in third trimester Maternal tobacco use in third trimester Disease Active 2021-02 0-20 00:00: 00 [facility] Abnormal quad screen- +DS risk 1:67 Abnormal quad screen- +DS risk 1:67 Disease Active 6-29 00:00: 00 [facility] Obesity affecting , antepartum Obesity affecting , antepartum Disease Active 08-16 00:00: 00 [facility] High risk , antepartum High risk , antepartum Disease Active 08-16 00:00: 00 [facility] Insufficie nt care in second trimester Insufficie nt care in second trimester Disease Active 6 00:00: 00 [facility] History of pre-eclamp chad in prior , currently History of pre-eclamp chad in prior , currently Disease Active 2022-0 6-28 00:00: 00 [facility] S/P section S/P section Disease Active 0 6-28 00:00: 00 [facility] Short interval between pregnancie s affecting , antepartum Short interval between pregnancie s affecting , antepartum Disease Active 0 6-28 00:00: 00 [facility] Supervisio n of high risk in second trimester Supervisio n of high risk in second trimester Disease Active 0 7-21 00:00: 00 [facility] 23 weeks gestation of 23 weeks gestation of Disease Active 0 7-21 00:00: 00 [facility] Morbid obesity with body mass index of 40.0-49.9 Morbid obesity with body mass index of 40.0-49.9 Disease Active 0 5-12 00:00: 00 [facility] Hx of preeclamps ia, prior , currently , unspecifie d trimester Hx of preeclamps ia, prior , currently , unspecifie d trimester Disease Active 0 5-12 00:00: 00 [facility] Morbid obesity with body mass index of 40.0-49.9 Morbid obesity with body mass index of 40.0-49.9 Disease Active 0 5-12 00:00: 00 [facility] Single liveborn , delivered by Single liveborn , delivered by Disease Active 0 06-13 00:00: 00 [facility] 39 weeks gestation of 39 weeks gestation of Disease Active 0 06-07 00:00: 00 [facility] Supervisio n of high risk , antepartum Supervisio n of high risk , antepartum Disease Active 0 06-07 00:00: 00 [facility] Encounter for elective induction of labor Encounter for elective induction of labor Disease Active 0 - 00:00: 00 [facility] Positive GBS test Positive GBS test Disease Active 0 4- 00:00: 00 [facility] Seizure disorder during , antepartum Seizure disorder during , antepartum Disease Active 202006-07 00:00: 00 [facility] Excessive weight gain during , antepartum Excessive weight gain during , antepartum Disease Active 419 00:00: 00 [facility] BMI 40.0-44.9, adult BMI 40.0-44.9, adult Disease Active 4-19 00:00: 00 [facility] Morbid obesity with body mass index of 40.0-49.9 Morbid obesity with body mass index of 40.0-49.9 Disease Active 2-01 00:00: 00 [facility] Seizure disorder in Seizure disorder in Disease Active 2018-02 0-10 00:00: 00 [facility] Obesity affecting in second trimester Obesity affecting in second trimester Disease Active 11-14 00:00: 00 [facility] Obesity (BMI 30-39.9) Obesity (BMI 30-39.9) Disease Active 11-14 00:00: 00 [facility] Allergies, Adverse Reactions, Alerts Allergy Name Allergy Type Status Severity Reaction(s) Onset Date Inactive Date Treating Clinician Comments Source NO KNOWN ALLERGIE S Drug Class Active [facility] Social History Social Habit Start Date Stop Date Quantity Comments Source ASSERTION 2021-05-26 00:00:00 [facility] of tobacco use Cigarette Smoker [facility] History of Social function 2022-07-12 00:00:00 2022-07-12 00:00:00 [facility] Exposure to SARS-CoV-2 (event) 2022-06-30 00:00:00 2022-07-10 10:48:00 Not sure [facility] Tobacco use and exposure 2021-08-16 00:00:00 2021-08-16 00:00:00 Smokeless tobacco non-user [facility] Alcohol intake 2021-08-16 00:00:00 2021-08-16 00:00:00 Lifetime non-drinker (finding) [facility] Tobacco Comment 2021-08-16 00:00:00 2021-08-16 00:00:00 4 cig per wk x 1 yr. [facility] Sex Assigned At 1995 00:00:00 1995 00:00:00 [facility] Smoking Status Start Date Stop Date Source Ex-smoker 2022-07-10 00:00:00 2022-07-10 [facility] daily 2021-09-14 00:00:00 [facility] Never smoked tobacco [facility] Medications Ordered Medication Name Filled Medication Name Start Date Stop Date Current Medication? Ordering Clinician Indication Dosage Frequency Signature (SIG) Comments Components Source lactated ringers IV infusion 500 mL 07-12 16:15: 00 Yes 500mL at 75 mL/hr, 500 mL, IV Infusion, CONTINUOUS , Starting on Sun07/12/22 at 1115, Until Discontinu ed, Routine, PACU [facility] lactated ringers IV infusion 500 mL 07-12 16:15: 00 07-12 20:19 :28 No 500mL at 75 mL/hr, 500 mL, IV Infusion, CONTINUOUS , Starting on Sun07/12/22 at 1115, Until Sun07/12/22 at 1519, Routine, PACU [facility] bupivacaine (preserv free) (SENSORCAIN E MPF) 0.25 % (2.5 mg/mL) injection 07-12 16:05: 00 07-12 16:15 :07 No PRN, Starting on Sun07/12/22 at 1105, Until Sun07/12/22 at 1115, Routine, Intra-op [facility] HYDROcodone -acetaminop hen (NORCO 5) 5-325 mg tablet 1 tablet 07-12 16:02: 27 Yes 1{tbl} 1 tablet, Oral, PRN, 1 dose, Starting on Sun07/12/22 at 1102, Until Discontinu ed, Routine, Pain (scale 7-10), DSU Recovery [facility] ibuprofen (IBU) tablet 800 mg 07-12 16:02: 27 Yes 800mg 800 mg, Oral, PRN, 1 dose, Starting on Sun07/12/22 at 1102, Until Discontinu ed, Routine, Pain (scale 4-6), DSU Recovery [facility] acetaminoph en (TYLENOL) tablet 650 mg 07-12 16:02: 27 Yes 650mg 650 mg, Oral, PRN, 1 dose, Starting on Sun07/12/22 at 1102, Until Discontinu ed, Routine, Pain (scale 1-3), DSU Recovery [facility] HYDROcodone -acetaminop hen (NORCO 5) 5-325 mg tablet 1 tablet 07-12 16:02: 27 07-12 20:19 :28 No 1{tbl} 1 tablet, Oral, PRN, 1 dose, Starting on Sun07/12/22 at 1102, Until Sun07/12/22 at 1519, Routine, Pain (scale 7-10), DSU Recovery [facility] ibuprofen (IBU) tablet 800 mg 07-12 16:02: 27 07-12 20:19 :28 No 800mg 800 mg, Oral, PRN, 1 dose, Starting on Sun07/12/22 at 1102, Until Sun07/12/22 at 1519, Routine, Pain (scale 4-6), DSU Recovery [facility] acetaminoph en (TYLENOL) tablet 650 mg 07-12 16:02: 27 07-12 20:19 :28 No 650mg 650 mg, Oral, PRN, 1 dose, Starting on Sun07/12/22 at 1102, Until Sun07/12/22 at 1519, Routine, Pain (scale 1-3), DSU Recovery [facility] HYDROmorphO ne (DILAUDID) injection 0.2 mg 07-12 16:02: 18 Yes .2mg 0.2 mg, Slow IV Push, Q5MIN PRN, 10 doses, Starting on Sun07/12/22 at 1102, Until Discontinu ed, Routine, Pain (scale 7-10), PACU
Us e approved by (Faculty): PACU USE -ANESTHESI A SERVICE-HY DROMORPHON E INJECTIONS [facility] FENTanyl PF (SUBLIMAZE (PF)) injection 25 mcg 07-12 16:02: 18 07-12 16:34 :00 No 25ug 25 mcg, Slow IV Push, Q5MIN PRN, 4 doses, Starting on Sun07/12/22 at 1102, Until Sun07/12/22 at 1134, Routine, Pain (scale 4-6), PACU [facility] ondansetron (ZOFRAN (PF)) injection 4 mg 07-12 16:02: 18 07-12 16:55 :00 No 4mg 4 mg, Slow IV Push, PRN, 1 dose, Starting on Sun07/12/22 at 1102, Until Sun07/12/22 at 1155, Routine, Nausea and Vomiting (N/V), PACU [facility] HYDROmorphO ne (DILAUDID) injection 0.2 mg 07-12 16:02: 18 07-12 20:19 :28 No .2mg 0.2 mg, Slow IV Push, Q5MIN PRN, 10 doses, Starting on Sun07/12/22 at 1102, Until Sun07/12/22 at 1519, Routine, Pain (scale 7-10), PACU
Us e approved by (Faculty): PACU USE -ANESTHESI A SERVICE-HY DROMORPHON E INJECTIONS [facility] FENTanyl PF (SUBLIMAZE (PF)) injection 25 mcg 07-12 16:02: 18 07-12 16:34 :00 No 25ug 25 mcg, Slow IV Push, Q5MIN PRN, 4 doses, Starting on Sun07/12/22 at 1102, Until Sun07/12/22 at 1134, Routine, Pain (scale 4-6), PACU [facility] ondansetron (ZOFRAN (PF)) injection 4 mg 07-12 16:02: 18 07-12 16:55 :00 No 4mg 4 mg, Slow IV Push, PRN, 1 dose, Starting on Sun07/12/22 at 1102, Until Sun07/12/22 at 1155, Routine, Nausea and Vomiting (N/V), PACU [facility] ibuprofen 800 mg tablet 3-0 -24 00:00: 00 Yes [id number] 800mg Take 1 tablet by mouth every 6 (six) hours as needed for Alternate with [place] for pain scale 4-6. [facility] ibuprofen 800 mg tablet 3-0 5-24 00:00: 00 Yes [id number] 800mg Take 1 tablet by mouth every 6 (six) hours as needed for Alternate with [place] for pain scale 4-6. [facility] ibuprofen 800 mg tablet 3-0 -24 00:00: 00 Yes [id number] 800mg Take 1 tablet by mouth every 6 (six) hours as needed for Alternate with [place] for pain scale 4-6. [facility] ibuprofen 800 mg tablet 3-0 5-24 00:00: 00 Yes [id number] 800mg Take 1 tablet by mouth every 6 (six) hours as needed for Alternate with [place] for pain scale 4-6. [facility] ibuprofen 800 mg tablet 3-0 -24 00:00: 00 Yes [id number] 800mg Take 1 tablet by mouth every 6 (six) hours as needed for Alternate with [place] for pain scale 4-6. [facility] ibuprofen 800 mg tablet 2022-0 24 00:00: 00 Yes [id number] 800mg Take 1 tablet by mouth every 6 (six) hours as needed for Alternate with [place] for pain scale 4-6. [facility] HYDROcodone -acetaminop hen 5-325 mg tablet 2022-0 -24 00:00: 00 07-20 04:59 :00 No [id number] 1{tbl} Take 1 tablet by mouth every 6 (six) hours as needed for Pain (scale 4-6) or Pain (scale 7-10) for up to 7 days. Indication s: acute pain [facility] HYDROcodone -acetaminop hen 5-325 mg tablet 3-0 5-24 00:00: 00 07-20 04:59 :00 No [id number] 1{tbl} Take 1 tablet by mouth every 6 (six) hours as needed for Pain (scale 4-6) or Pain (scale 7-10) for up to 7 days. Indication s: [facility] (DEPO-PROVE RA) syringe 150 mg 2022-0 3-20 05:00: 00 01-15 05:59 :00 No [id number] 150mg Univer s ity [facility] medroxyPROG ESTERone (DEPO-PROVE RA) syringe 150 mg 2022-0 3-20 05:00: 00 01-15 05:59 :00 No [id number] 150mg [facility] medroxyPROG ESTERone (DEPO-PROVE RA) syringe 150 mg 2022-0 3-20 05:00: 00 01-15 05:59 :00 No [id number] 150mg Univer s ity of [facility] medroxyPROG ESTERone (DEPO-PROVE RA) syringe 150 mg 2022-0 3-20 05:00: 00 01-15 05:59 :00 No [id number] 150mg [facility] medroxyPROG ESTERone (DEPO-PROVE RA) syringe 150 mg 2022-0 3-20 05:00: 00 01-15 05:59 :00 No [id number] 150mg Univer s ity [facility] medroxyPROG ESTERone (DEPO-PROVE RA) syringe 150 mg 2022-0 3-20 05:00: 00 01-15 05:59 :00 No [id number] 150mg [facility] medroxyPROG ESTERone (DEPO-PROVE RA) syringe 150 mg 2022-0 -20 05:00: 00 01-15 05:59 :00 No [id number] 150mg 150 mg, Intramuscu lar, [id number], 3 doses, First dose on Sun05/08/22 at 0000, Last dose on Sun10/23/22 at 0000, Routine Univers ity [facility] medroxyPROG ESTERone (DEPO-PROVE RA) syringe 150 mg 2022-0 3-20 05:00: 00 01-15 05:59 :00 No [id number] 150mg Univer s ity [facility] medroxyPROG ESTERone (DEPO-PROVE RA) syringe 150 mg 2022-0 3-20 05:00: 00 01-15 05:59 :00 No [id number] 150mg Univer s ity of [facility] medroxyPROG ESTERone (DEPO-PROVE RA) syringe 150 mg 2023-0 3-20 05:00: 00 01-15 05:59 :00 No [id number] 150mg Univer s ity of [facility] medroxyPROG ESTERone (DEPO-PROVE RA) syringe 150 mg 2023-0 3-20 05:00: 00 01-15 05:59 :00 No [id number] 150mg Univer s ity of [facility] medroxyPROG ESTERone (DEPO-PROVE RA) syringe 150 mg 3-0 3-20 05:00: 00 01-15 05:59 :00 No [id number] 150mg Univer s ity of [facility] medroxyPROG ESTERone (DEPO-PROVE RA) syringe 150 mg 2023-0 3-20 05:00: 00 01-15 05:59 :00 No [id number] 150mg Univer s ity of [facility] medroxyPROG ESTERone (DEPO-PROVE RA) syringe 150 mg 3-0 3-20 05:00: 00 01-15 05:59 :00 No [id number] 150mg Univer s ity of [facility] medroxyPROG ESTERone (DEPO-PROVE RA) syringe 150 mg 3-0 3-20 05:00: 00 01-15 05:59 :00 No [id number] 150mg Univer s ity of [facility] medroxyPROG ESTERone (DEPO-PROVE RA) syringe 150 mg 2023-0 3-20 05:00: 00 01-15 05:59 :00 No [id number] 150mg Univer s ity of [facility] medroxyPROG ESTERone (DEPO-PROVE RA) syringe 150 mg 2023-0 3-20 05:00: 00 01-15 05:59 :00 No [id number] 150mg Univer s ity of [facility] medroxyPROG ESTERone (DEPO-PROVE RA) injection 150 mg 2021-02 12:15: 00 02-10 12:15 :00 No 150mg 150 mg, Intramuscu lar, ONCE, 1 dose, On Sun02/10/22 at 0615, Routine [facility] vit calc,iron,f olic ( VITAMIN ORAL) 2021-02 06:06: 02-10 00:00 :00 No Take by mouth. [facility] aspirin 81 mg EC tablet 2021-02 06:06: 02-10 00:00 :00 No 81mg Take 81 mg by mouth daily. [facility] vit calc,iron,f olic ( VITAMIN ORAL) 2021-02 06:06: 02-10 00:00 :00 No Take by mouth. [facility] aspirin 81 mg EC tablet 2021-02 06:06: 02-10 00:00 :00 No 81mg Take 81 mg by mouth daily. [facility] acetaminoph en ADULT (OFIRMEV) injection 1,000 mg 2021-02 00:45: 00 02-10 01:42 :24 No 1000mg 1,000 mg, IV Infusion, at 400 mL/hr Administer over 15 Minutes, ONCE, 1 dose, On Vickie 02/09/22 at 1845, Routine
Indicatio n: Perioperat elder Patient [facility] proMETHazin e (PHENERGAN) 12.5 mg in NS 50 mL IV piggyback (CNR) 2021-02 00:45: 00 02-10 02:13 :08 No 12.5mg 12.5 mg, IV Piggyback, ONCE, Administer over 15 Minutes, On Vickie 02/09/22 at 1845, For 1 dose [facility] vitamin w/FA tablet 2021-02 00:00: 00 Yes [id number] 1{tbl} Take 1 tablet by mouth in the morning. [facility] docusate 100 mg capsule 2021-02 00:00: 00 Yes [id number] 200mg Take 2 capsules by mouth once daily as needed for Constipati on. [facility] ferrous sulfate 325 mg (65 mg iron) tablet 2021-02 00:00: 00 Yes [id number] 325mg Take 1 tablet by mouth in the morning and 1 tablet in the evening. [facility] ibuprofen 600 mg tablet 2021-02 00:00: 00 Yes [id number] 600mg Take 1 tablet by mouth every 6 (six) hours as needed (Pain). Take with food or milk. [facility] ibuprofen (IBU) tablet 600 mg 2021-02 00:00: 00 Yes 600mg 600 mg, Oral, Q6H, First dose on Sun02/09/22 at 1800, Until Discontinu ed, Routine [facility] vitamin w/FA tablet 2021-02 00:00: 00 Yes [id number] 1{tbl} Take 1 tablet by mouth in the morning. [facility] docusate 100 mg capsule 2021-02 00:00: 00 Yes [id number] 200mg Take 2 capsules by mouth once daily as needed for Constipati on. [facility] ferrous sulfate 325 mg (65 mg iron) tablet 2021-02 00:00: 00 Yes [id number] 325mg Take 1 tablet by mouth in the morning and 1 tablet in the evening. [facility] ibuprofen 600 mg tablet 2021-02 00:00: 00 Yes [id number] 600mg Take 1 tablet by mouth every 6 (six) hours as needed (Pain). Take with food or milk. [facility] ibuprofen (IBU) tablet 600 mg 2021-02 00:00: 00 Yes 600mg 600 mg, Oral, Q6H, First dose on Sun02/09/22 at 1800, Until Discontinu ed, Routine [facility] vitamin w/FA tablet 2021-02 00:00: 00 Yes [id number] 1{tbl} Take 1 tablet by mouth in the morning. [facility] docusate 100 mg capsule 2021-02 00:00: 00 Yes [id number] 200mg Take 2 capsules by mouth once daily as needed for Constipati on. [facility] ferrous sulfate 325 mg (65 mg iron) tablet 2021-02 00:00: 00 Yes [id number] 325mg Take 1 tablet by mouth in the morning and 1 tablet in the evening. [facility] ibuprofen 600 mg tablet 2021-02 00:00: 00 Yes [id number] 600mg Take 1 tablet by mouth every 6 (six) hours as needed (Pain). Take with food or milk. [facility] vitamin w/FA tablet 2021-02 00:00: 00 Yes [id number] 1{tbl} Take 1 tablet by mouth in the morning. [facility] docusate 100 mg capsule 2021-02 00:00: 00 Yes [id number] 200mg Take 2 capsules by mouth once daily as needed for Constipati on. [facility] ferrous sulfate 325 mg (65 mg iron) tablet 2021-02 00:00: 00 Yes [id number] 325mg Take 1 tablet by mouth in the morning and 1 tablet in the evening. [facility] ibuprofen 600 mg tablet 2021-02 00:00: 00 Yes [id number] 600mg Take 1 tablet by mouth every 6 (six) hours as needed (Pain). Take with food or milk. [facility] vitamin w/FA tablet 2021-02 00:00: 00 Yes [id number] 1{tbl} Take 1 tablet by mouth in the morning. [facility] docusate 100 mg capsule 2021-02 00:00: 00 Yes [id number] 200mg Take 2 capsules by mouth once daily as needed for Constipati on. [facility] ferrous sulfate 325 mg (65 mg iron) tablet 2021-02 00:00: 00 Yes [id number] 325mg Take 1 tablet by mouth in the morning and 1 tablet in the evening. [facility] ibuprofen 600 mg tablet 2021-02 00:00: 00 Yes [id number] 600mg Take 1 tablet by mouth every 6 (six) hours as needed (Pain). Take with food or milk. [facility] vitamin w/FA tablet 2021-02 00:00: 00 Yes [id number] 1{tbl} Take 1 tablet by mouth in the morning. [facility] docusate 100 mg capsule 2021-02 00:00: 00 Yes [id number] 200mg Take 2 capsules by mouth once daily as needed for Constipati on. [facility] ferrous sulfate 325 mg (65 mg iron) tablet 2021-02 00:00: 00 Yes [id number] 325mg Take 1 tablet by mouth in the morning and 1 tablet in the evening. [facility] ibuprofen 600 mg tablet 2021-02 00:00: 00 Yes [id number] 600mg Take 1 tablet by mouth every 6 (six) hours as needed (Pain). Take with food or milk. [facility] vitamin w/FA tablet 2021-02 00:00: 00 Yes [id number] 1{tbl} Take 1 tablet by mouth in the morning. [facility] docusate 100 mg capsule 2021-02 00:00: 00 Yes [id number] 200mg Take 2 capsules by mouth once daily as needed for Constipati on. [facility] ferrous sulfate 325 mg (65 mg iron) tablet 2021-02 00:00: 00 Yes [id number] 325mg Take 1 tablet by mouth in the morning and 1 tablet in the evening. [facility] ibuprofen 600 mg tablet 2021-02 00:00: 00 Yes [id number] 600mg Take 1 tablet by mouth every 6 (six) hours as needed (Pain). Take with food or milk. [facility] vitamin w/FA tablet 2021-02 00:00: 00 Yes [id number] 1{tbl} Take 1 tablet by mouth in the morning. [facility] docusate 100 mg capsule 2021-02 00:00: 00 Yes [id number] 200mg Take 2 capsules by mouth once daily as needed for Constipati on. [facility] ferrous sulfate 325 mg (65 mg iron) tablet 2021-02 00:00: 00 Yes [id number] 325mg Take 1 tablet by mouth in the morning and 1 tablet in the evening. [facility] ibuprofen 600 mg tablet 2021-02 00:00: 00 Yes [id number] 600mg Take 1 tablet by mouth every 6 (six) hours as needed (Pain). Take with food or milk. [facility] vitamin w/FA tablet 2021-02 00:00: 00 Yes [id number] 1{tbl} Take 1 tablet by mouth in the morning. [facility] docusate 100 mg capsule 2021-02 00:00: 00 Yes [id number] 200mg Take 2 capsules by mouth once daily as needed for Constipati on. [facility] ferrous sulfate 325 mg (65 mg iron) tablet 2021-02 00:00: 00 Yes [id number] 325mg Take 1 tablet by mouth in the morning and 1 tablet in the evening. [facility] ibuprofen 600 mg tablet 2021-02 00:00: 00 Yes [id number] 600mg Take 1 tablet by mouth every 6 (six) hours as needed (Pain). Take with food or milk. [facility] vitamin w/FA tablet 2021-02 00:00: 00 Yes [id number] 1{tbl} Take 1 tablet by mouth in the morning. [facility] docusate 100 mg capsule 2021-02 00:00: 00 Yes [id number] 200mg Take 2 capsules by mouth once daily as needed for Constipati on. [facility] ferrous sulfate 325 mg (65 mg iron) tablet 2021-02 00:00: 00 Yes [id number] 325mg Take 1 tablet by mouth in the morning and 1 tablet in the evening. [facility] ibuprofen 600 mg tablet 2021-02 00:00: 00 Yes [id number] 600mg Take 1 tablet by mouth every 6 (six) hours as needed (Pain). Take with food or milk. [facility] vitamin w/FA tablet 2021-02 00:00: 00 Yes [id number] 1{tbl} Take 1 tablet by mouth in the morning. [facility] docusate 100 mg capsule 2021-02 00:00: 00 Yes [id number] 200mg Take 2 capsules by mouth once daily as needed for Constipati on. [facility] ferrous sulfate 325 mg (65 mg iron) tablet 2021-02 00:00: 00 Yes [id number] 325mg Take 1 tablet by mouth in the morning and 1 tablet in the evening. [facility] ibuprofen 600 mg tablet 2021-02 00:00: 00 Yes [id number] 600mg Take 1 tablet by mouth every 6 (six) hours as needed (Pain). Take with food or milk. [facility] vitamin w/FA tablet 2021-02 00:00: 00 Yes [id number] 1{tbl} Take 1 tablet by mouth in the morning. [facility] docusate 100 mg capsule 2021-02 00:00: 00 Yes [id number] 200mg Take 2 capsules by mouth once daily as needed for Constipati on. [facility] ferrous sulfate 325 mg (65 mg iron) tablet 2021-02 00:00: 00 Yes [id number] 325mg Take 1 tablet by mouth in the morning and 1 tablet in the evening. [facility] ibuprofen 600 mg tablet 2021-02 00:00: 00 Yes [id number] 600mg Take 1 tablet by mouth every 6 (six) hours as needed (Pain). Take with food or milk. [facility] vitamin w/FA tablet 2021-02 00:00: 00 Yes [id number] 1{tbl} Take 1 tablet by mouth in the morning. [facility] docusate 100 mg capsule 2021-02 00:00: 00 Yes [id number] 200mg Take 2 capsules by mouth once daily as needed for Constipati on. [facility] ferrous sulfate 325 mg (65 mg iron) tablet 2021-02 00:00: 00 Yes [id number] 325mg Take 1 tablet by mouth in the morning and 1 tablet in the evening. [facility] ibuprofen 600 mg tablet 2021-02 00:00: 00 Yes [id number] 600mg Take 1 tablet by mouth every 6 (six) hours as needed (Pain). Take with food or milk. [facility] vitamin w/FA tablet 2021-02 00:00: 00 Yes [id number] 1{tbl} Take 1 tablet by mouth in the morning. [facility] docusate 100 mg capsule 2021-02 00:00: 00 Yes [id number] 200mg Take 2 capsules by mouth once daily as needed for Constipati on. [facility] ferrous sulfate 325 mg (65 mg iron) tablet 2021-02 00:00: 00 Yes [id number] 325mg Take 1 tablet by mouth in the morning and 1 tablet in the evening. [facility] ibuprofen 600 mg tablet 2021-02 00:00: 00 Yes [id number] 600mg Take 1 tablet by mouth every 6 (six) hours as needed (Pain). Take with food or milk. [facility] vitamin w/FA tablet 2021-02 00:00: 00 Yes [id number] 1{tbl} Take 1 tablet by mouth in the morning. [facility] docusate 100 mg capsule 2021-02 00:00: 00 Yes [id number] 200mg Take 2 capsules by mouth once daily as needed for Constipati on. [facility] ferrous sulfate 325 mg (65 mg iron) tablet 2021-02 00:00: 00 Yes [id number] 325mg Take 1 tablet by mouth in the morning and 1 tablet in the evening. [facility] ibuprofen 600 mg tablet 2021-02 00:00: 00 Yes [id number] 600mg Take 1 tablet by mouth every 6 (six) hours as needed (Pain). Take with food or milk. [facility] vitamin w/FA tablet 2021-02 00:00: 00 Yes [id number] 1{tbl} Take 1 tablet by mouth in the morning. [facility] docusate 100 mg capsule 2021-02 00:00: 00 Yes [id number] 200mg Take 2 capsules by mouth once daily as needed for Constipati on. [facility] ferrous sulfate 325 mg (65 mg iron) tablet 2021-02 00:00: 00 Yes [id number] 325mg Take 1 tablet by mouth in the morning and 1 tablet in the evening. [facility] ibuprofen 600 mg tablet 2021-02 00:00: 00 Yes [id number] 600mg Take 1 tablet by mouth every 6 (six) hours as needed (Pain). Take with food or milk. [facility] vitamin w/FA tablet 2021-02 00:00: 00 Yes [id number] 1{tbl} Take 1 tablet by mouth in the morning. [facility] docusate 100 mg capsule 2021-02 00:00: 00 Yes [id number] 200mg Take 2 capsules by mouth once daily as needed for Constipati on. [facility] ferrous sulfate 325 mg (65 mg iron) tablet 2021-02 00:00: 00 Yes [id number] 325mg Take 1 tablet by mouth in the morning and 1 tablet in the evening. [facility] ibuprofen 600 mg tablet 2021-02 00:00: 00 Yes [id number] 600mg Take 1 tablet by mouth every 6 (six) hours as needed (Pain). Take with food or milk. [facility] vitamin w/FA tablet 2021-02 00:00: 00 Yes [id number] 1{tbl} Take 1 tablet by mouth in the morning. [facility] docusate 100 mg capsule 2021-02 00:00: 00 Yes [id number] 200mg Take 2 capsules by mouth once daily as needed for Constipati on. [facility] ferrous sulfate 325 mg (65 mg iron) tablet 2021-02 00:00: 00 Yes [id number] 325mg Take 1 tablet by mouth in the morning and 1 tablet in the evening. [facility] ibuprofen 600 mg tablet 2021-02 00:00: 00 Yes [id number] 600mg Take 1 tablet by mouth every 6 (six) hours as needed (Pain). Take with food or milk. [facility] vitamin w/FA tablet 2021-02 00:00: 00 Yes [id number] 1{tbl} Take 1 tablet by mouth in the morning. [facility] docusate 100 mg capsule 2021-02 00:00: 00 Yes [id number] 200mg Take 2 capsules by mouth once daily as needed for Constipati on. [facility] ferrous sulfate 325 mg (65 mg iron) tablet 2021-02 00:00: 00 Yes [id number] 325mg Take 1 tablet by mouth in the morning and 1 tablet in the evening. [facility] ibuprofen 600 mg tablet 2021-02 00:00: 00 Yes [id number] 600mg Take 1 tablet by mouth every 6 (six) hours as needed (Pain). Take with food or milk. [facility] vitamin w/FA tablet 2021-02 00:00: 00 Yes [id number] 1{tbl} Take 1 tablet by mouth in the morning. [facility] docusate 100 mg capsule 2021-02 00:00: 00 Yes [id number] 200mg Take 2 capsules by mouth once daily as needed for Constipati on. [facility] ferrous sulfate 325 mg (65 mg iron) tablet 2021-02 00:00: 00 Yes [id number] 325mg Take 1 tablet by mouth in the morning and 1 tablet in the evening. [facility] ibuprofen 600 mg tablet 2021-02 00:00: 00 Yes [id number] 600mg Take 1 tablet by mouth every 6 (six) hours as needed (Pain). Take with food or milk. [facility] vitamin w/FA tablet 2021-02 00:00: 00 Yes [id number] 1{tbl} Take 1 tablet by mouth in the morning. [facility] docusate 100 mg capsule 2021-02 00:00: 00 Yes [id number] 200mg Take 2 capsules by mouth once daily as needed for Constipati on. [facility] ferrous sulfate 325 mg (65 mg iron) tablet 2021-02 00:00: 00 Yes [id number] 325mg Take 1 tablet by mouth in the morning and 1 tablet in the evening. [facility] ibuprofen 600 mg tablet 2021-02 00:00: 00 Yes [id number] 600mg Take 1 tablet by mouth every 6 (six) hours as needed (Pain). Take with food or milk. [facility] HYDROcodone -acetaminop hen 5-325 mg tablet 2021-02 00:00: 00 02-18 05:59 :00 No [id number] 1{tbl} Take 1 tablet by mouth every 6 (six) hours as needed (Pain scale above 4) for up to 7 days. Do not exceed 3 grams of acetaminop hen in 24 hours. Indication s: acute pain [facility] HYDROcodone -acetaminop hen 5-325 mg tablet 2021-02 00:00: 00 02-18 05:59 :00 No [id number] 1{tbl} Take 1 tablet by mouth every 6 (six) hours as needed (Pain scale above 4) for up to 7 days. Do not exceed 3 grams of acetaminop hen in 24 hours. Indication s: acute pain [facility] lactated ringers IV infusion 1,000 mL 2021-02 20:45: 00 02-09 20:35 :00 No 1000mL at 125 mL/hr, 1,000 mL, IV Infusion, ONCE, 1 dose, On Vickie 02/09/22 at 1445, Routine [facility] rho(D) immune globulin (RHOGAM) syringe 300 mcg 2021-02 20:34: 28 Yes 300ug 300 mcg, Intramuscu lar, ONCE, For 1 dose, Conditiona l, Routine [facility] rho(D) immune globulin (RHOGAM) syringe 300 mcg 2021-02 20:34: 28 Yes 300ug 300 mcg, Intramuscu lar, ONCE, For 1 dose, Conditiona l, Routine [facility] HYDROcodone -acetaminop hen (NORCO 5) 5-325 mg tablet 2 tablet 2021-02 20:34: 19 Yes 2{tbl} 2 tablet, Oral, Q6HPRN, Starting on Sun02/09/22 at 1434, Until Discontinu ed, Routine, Pain (scale 7-10), Alternate with Ibuprofen [facility] HYDROcodone -acetaminop hen (NORCO 5) 5-325 mg tablet 1 tablet 2021-02 20:34: 19 Yes 1{tbl} 1 tablet, Oral, Q6HPRN, Starting on Sun02/09/22 at 1434, Until Discontinu ed, Routine, Pain (scale 4-6), Alternate with Ibuprofen [facility] human papillomav vac,9-evelin(P F) (GARDASIL-9 ) syringe 0.5 mL 2021-02 20:34: 19 Yes .5mL 0.5 mL, Intramuscu lar, ONCE-PRIOR TO DISCHARGE, 1 dose, Starting on Sun02/09/22 at 1434, Until Discontinu ed, Routine, Give vaccine prior to discharge [facility] diphenhydrA MINE (BENADRYL) injection 25 mg 2021-02 20:34: 19 Yes 25mg 25 mg, Slow IV Push, Q6HPRN, Starting on Sun02/09/22 at 1434, Until Discontinu ed, Routine, Itching [facility] diphenhydrA MINE (BENADRYL) tablet 25 mg 2021-02 20:34: 19 Yes 25mg 25 mg, Oral, Q6HPRN, Starting on Sun02/09/22 at 1434, Until Discontinu ed, Routine, Sleep, Itching [facility] ondansetron (ZOFRAN (PF)) injection 4 mg 2021-02 20:34: 19 Yes 4mg 4 mg, Slow IV Push, Q8HPRN, Starting on Sun02/09/22 at 1434, Until Discontinu ed, Routine, Nausea and Vomiting (N/V) [facility] bisacodyL (DULCOLAX) suppository 10 mg 2021-02 20:34: 19 Yes 10mg 10 mg, Rectal, QDAILYPRN, Starting on Sun02/09/22 at 1434, Until Discontinu ed, Routine, Constipati on [facility] simethicone (GAS RELIEF (SIMETHICON E)) chewable tablet 160 mg 2021-02 20:34: 19 Yes 160mg 160 mg, Oral, PC+HSPRN, Starting on Sun02/09/22 at 1434, Until Discontinu ed, Routine, Gas [facility] docusate (COLACE) capsule 200 mg 2021-02 20:34: 19 Yes 200mg 200 mg, Oral, QDAILYPRN, Starting on Sun02/09/22 at 1434, Until Discontinu ed, Routine, Constipati on [facility] magnesium hydroxide (MILK OF MAGNESIA) 400 mg/5 mL suspension 30 mL 2021-02 20:34: 19 Yes 30mL 30 mL, Oral, QDAILYPRN, Starting on Sun02/09/22 at 1434, Until Discontinu ed, Routine, Constipati on [facility] HYDROcodone -acetaminop hen (NORCO 5) 5-325 mg tablet 2 tablet 2021-02 20:34: 19 Yes 2{tbl} 2 tablet, Oral, Q6HPRN, Starting on Sun02/09/22 at 1434, Until Discontinu ed, Routine, Pain (scale 7-10), Alternate with Ibuprofen [facility] HYDROcodone -acetaminop hen (NORCO 5) 5-325 mg tablet 1 tablet 2021-02 20:34: 19 Yes 1{tbl} 1 tablet, Oral, Q6HPRN, Starting on Sun02/09/22 at 1434, Until Discontinu ed, Routine, Pain (scale 4-6), Alternate with Ibuprofen [facility] human papillomav vac,9-evelin(P F) (GARDASIL-9 ) syringe 0.5 mL 2021-02 20:34: 19 Yes .5mL 0.5 mL, Intramuscu lar, ONCE-PRIOR TO DISCHARGE, 1 dose, Starting on Sun02/09/22 at 1434, Until Discontinu ed, Routine, Give vaccine prior to discharge [facility] diphenhydrA MINE (BENADRYL) injection 25 mg 2021-02 20:34: 19 Yes 25mg 25 mg, Slow IV Push, Q6HPRN, Starting on Sun02/09/22 at 1434, Until Discontinu ed, Routine, Itching [facility] diphenhydrA MINE (BENADRYL) tablet 25 mg 2021-02 20:34: 19 Yes 25mg 25 mg, Oral, Q6HPRN, Starting on Sun02/09/22 at 1434, Until Discontinu ed, Routine, Sleep, Itching [facility] ondansetron (ZOFRAN (PF)) injection 4 mg 2021-02 20:34: 19 Yes 4mg 4 mg, Slow IV Push, Q8HPRN, Starting on Sun02/09/22 at 1434, Until Discontinu ed, Routine, Nausea and Vomiting (N/V) [facility] bisacodyL (DULCOLAX) suppository 10 mg 2021-02 20:34: 19 Yes 10mg 10 mg, Rectal, QDAILYPRN, Starting on Sun02/09/22 at 1434, Until Discontinu ed, Routine, Constipati on [facility] simethicone (GAS RELIEF (SIMETHICON E)) chewable tablet 160 mg 2021-02 20:34: 19 Yes 160mg 160 mg, Oral, PC+HSPRN, Starting on Sun02/09/22 at 1434, Until Discontinu ed, Routine, Gas [facility] docusate (COLACE) capsule 200 mg 2021-02 20:34: 19 Yes 200mg 200 mg, Oral, QDAILYPRN, Starting on Sun02/09/22 at 1434, Until Discontinu ed, Routine, Constipati on [facility] magnesium hydroxide (MILK OF MAGNESIA) 400 mg/5 mL suspension 30 mL 2021-02 20:34: 19 Yes 30mL 30 mL, Oral, QDAILYPRN, Starting on Sun02/09/22 at 1434, Until Discontinu ed, Routine, Constipati on [facility] lactated ringers IV infusion 1,000 mL 2021-02 20:34: 19 02-10 05:03 :25 No 1000mL at 125 mL/hr, 1,000 mL, IV Infusion, PRN, 1 dose, Starting on Sun02/09/22 at 1434, Until Discontinu ed, Routine [facility] nalbuphine (NUBAIN) injection 5 mg 2021-02 18:02: 07 Yes 5mg 5 mg, Intravenou s, PRN, 1 dose, Starting on Sun02/09/22 at 1202, Until Discontinu ed, Routine, itching [facility] nalbuphine (NUBAIN) injection 5 mg 2021-02 18:02: 07 Yes 5mg 5 mg, Intravenou s, PRN, 1 dose, Starting on Sun02/09/22 at 1202, Until Discontinu ed, Routine, itching [facility] naloxone (NARCAN) injection 0.4 mg 2021-02 18:02: 07 02-12 00:14 :19 No .4mg 0.4 mg, Slow IV Push, PRN - SEE INSTRUCTIO NS, Starting on Sun02/09/22 at 1202, Until 02/11/22 at 1814, Routine, Analgesia Recovery [facility] naloxone (NARCAN) injection 0.4 mg 2021-02 18:02: 07 02-12 00:14 :19 No .4mg 0.4 mg, Slow IV Push, PRN - SEE INSTRUCTIO NS, Starting on Sun02/09/22 at 1202, Until 02/11/22 at 1814, Routine, Analgesia Recovery [facility] acetaminoph en (TYLENOL) tablet 650 mg 2021-02 12:45: 00 02-09 15:02 :00 No 650mg 650 mg, Oral, ONCE, 1 dose, On Vickie 02/09/22 at 0645, Routine [facility] lactated ringers IV infusion 1,000 mL 2021-02 12:45: 00 02-09 20:34 :26 No 1000mL at 125 mL/hr, 1,000 mL, IV Infusion, CONTINUOUS , Starting on Sun02/09/22 at 0645, Until Sun02/09/22 at 1434, Routine [facility] ceFAZolin (ANCEF) 2,000 mg in NaCl 0.9% (NS) 100 mL MINI-BAG 2021-02 12:32: 22 02-09 20:34 :26 No 2000mg 2,000 mg, IV Piggyback, O.R. HOLDING ONCE, Starting on Sun02/09/22 at 0632, Until Sun02/09/22 at 1434, Administer over 30 Minutes, 100 mL
Reas on for Anti-Infec tive: Surgical Prophylaxi s
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
Duration of therapy: within 24 hours of surgery [facility] sodium citrate-cit sheila acid (BICITRA) 500-334 mg/5 mL solution 30 mL 2021-02 12:32: 22 02-09 16:33 :00 No 30mL 30 mL, Oral, PRE-PROCED URE ONCE, 1 dose, Starting on Sun02/09/22 at 0632, Until Sun02/09/22 at 1033, Routine, Surgery/Pr ocedure [facility] aspirin 81 mg EC tablet 2021-02 14:21: 20 Yes 81mg Take 81 mg by mouth daily. [facility] aspirin 81 mg EC tablet 2021-02 14:21: 20 Yes 81mg Take 81 mg by mouth daily. [facility] aspirin (ADULT LOW DOSE ASPIRIN) 81 mg EC tablet 10-11 16:59: 12 Yes 81mg Take 81 mg by mouth daily. [facility] aspirin (ADULT LOW DOSE ASPIRIN) 81 mg EC tablet 10-11 16:59: 12 Yes 81mg Take 81 mg by mouth daily. [facility] aspirin (ADULT LOW DOSE ASPIRIN) 81 mg EC tablet 10-11 16:59: 12 Yes 81mg Take 81 mg by mouth daily. [facility] aspirin (ADULT LOW DOSE ASPIRIN) 81 mg EC tablet 10-11 16:59: 12 Yes 81mg Take 81 mg by mouth daily. [facility] aspirin (ADULT LOW DOSE ASPIRIN) 81 mg EC tablet 10-11 16:59: 12 Yes 81mg Take 81 mg by mouth daily. [facility] aspirin (ADULT LOW DOSE ASPIRIN) 81 mg EC tablet 10-11 16:59: 12 Yes 81mg Take 81 mg by mouth daily. [facility] aspirin (ADULT LOW DOSE ASPIRIN) 81 mg EC tablet 10-11 16:59: 12 Yes 81mg Take 81 mg by mouth daily. [facility] aspirin (ADULT LOW DOSE ASPIRIN) 81 mg EC tablet 10-11 16:59: 12 Yes 81mg Take 81 mg by mouth daily. [facility] aspirin (ADULT LOW DOSE ASPIRIN) 81 mg EC tablet 10-11 16:59: 12 Yes 81mg Take 81 mg by mouth daily. [facility] aspirin (ADULT LOW DOSE ASPIRIN) 81 mg EC tablet 10-11 16:59: 12 Yes 81mg Take 81 mg by mouth daily. [facility] vit calc,iron,f olic ( VITAMIN ORAL) 10-11 16:59: 11 Yes Take by mouth. [facility] vit calc,iron,f olic ( VITAMIN ORAL) 10-11 16:59: 11 Yes Take by mouth. [facility] vit calc,iron,f olic ( VITAMIN ORAL) 10-11 16:59: 11 Yes Take by mouth. [facility] vit calc,iron,f olic ( VITAMIN ORAL) 10-11 16:59: 11 Yes Take by mouth. [facility] vit calc,iron,f olic ( VITAMIN ORAL) 10-11 16:59: 11 Yes Take by mouth. [facility] vit calc,iron,f olic ( VITAMIN ORAL) 10-11 16:59: 11 Yes Take by mouth. [facility] vit calc,iron,f olic ( VITAMIN ORAL) 10-11 16:59: 11 Yes Take by mouth. [facility] vit calc,iron,f olic ( VITAMIN ORAL) 10-11 16:59: 11 Yes Take by mouth. [facility] vit calc,iron,f olic ( VITAMIN ORAL) 10-11 16:59: 11 Yes Take by mouth. [facility] vit calc,iron,f olic ( VITAMIN ORAL) 10-11 16:59: 11 Yes Take by mouth. [facility] vit calc,iron,f olic ( VITAMIN ORAL) 10-11 16:59: 11 Yes Take by mouth. [facility] vit calc,iron,f olic ( VITAMIN ORAL) 10-11 16:59: 11 Yes Take by mouth. [facility] aspirin (ADULT LOW DOSE ASPIRIN) 81 mg EC tablet 09-14 15:32: 59 Yes 81mg Take 81 mg by mouth daily. [facility] vit calc,iron,f olic ( VITAMIN ORAL) 09-14 15:32: 58 Yes Take by mouth. [facility] [id number] 3-dha-epa-f shameka oil ( GUMMY) 400 mcg-35 mg -25 mg-5 mg Chew 08-19 00:00: 00 Yes 1{each} Take 1 Each by mouth daily. [facility] [id number] 3-dha-epa-f shameka oil ( GUMMY) 400 mcg-35 mg -25 mg-5 mg Chew 08-19 00:00: 00 Yes 1{each} Take 1 Each by mouth daily. [facility] [id number] 3-dha-epa-f shameka oil ( GUMMY) 400 mcg-35 mg -25 mg-5 mg Chew 08-19 00:00: 00 Yes 1{each} Take 1 Each by mouth daily. [facility] [id number] 3-dha-epa-f shameka oil ( GUMMY) 400 mcg-35 mg -25 mg-5 mg Chew 2022-0 7- 00:00: 00 Yes 1{each} Take 1 Each by mouth daily. [facility] [id number] 3-dha-epa-f shameka oil ( GUMMY) 400 mcg-35 mg -25 mg-5 mg Chew 2022-0 7- 00:00: 00 Yes 1{each} Take 1 Each by mouth daily. [facility] [id number] 3-dha-epa-f shameka oil ( GUMMY) 400 mcg-35 mg -25 mg-5 mg Chew 2022-0 7- 00:00: 00 Yes 1{each} Take 1 Each by mouth daily. [facility] [id number] 3-dha-epa-f shameka oil ( GUMMY) 400 mcg-35 mg -25 mg-5 mg Chew 2022-0 7- 00:00: 00 Yes 1{each} Take 1 Each by mouth daily. [facility] [id number] 3-dha-epa-f shameka oil ( GUMMY) 400 mcg-35 mg -25 mg-5 mg Chew 2022-0 7- 00:00: 00 Yes 1{each} Take 1 Each by mouth daily. [facility] [id number] 3-dha-epa-f shameka oil ( GUMMY) 400 mcg-35 mg -25 mg-5 mg Chew 2022-0 7- 00:00: 00 Yes 1{each} Take 1 Each by mouth daily. [facility] [id number] 3-dha-epa-f shameka oil ( GUMMY) 400 mcg-35 mg -25 mg-5 mg Chew 2022-0 7- 00:00: 00 Yes 1{each} Take 1 Each by mouth daily. [facility] [id number] 3-dha-epa-f shameka oil ( GUMMY) 400 mcg-35 mg -25 mg-5 mg Chew 2022-0 7 00:00: 00 Yes 1{each} Take 1 Each by mouth daily. [facility] [id number] 3-dha-epa-f shameka oil ( GUMMY) 400 mcg-35 mg -25 mg-5 mg Chew 2022-0 7- 00:00: 00 Yes 1{each} Take 1 Each by mouth daily. [facility] [id number] 3-dha-epa-f shameka oil ( GUMMY) 400 mcg-35 mg -25 mg-5 mg Chew 2-0 - 00:00: 00 Yes 1{each} Take 1 Each by mouth daily. [facility] [id number] 3-dha-epa-f shameka oil ( GUMMY) 400 mcg-35 mg -25 mg-5 mg Chew 2021-0 - 00:00: 00 Yes 1{each} Take 1 Each by mouth daily. [facility] [id number] 3-dha-epa-f shameka oil ( GUMMY) 400 mcg-35 mg -25 mg-5 mg Chew 2021-0 08-19 00:00: 00 02-10 00:00 :00 No 1{each} Take 1 Each by mouth daily. [facility] [id number] 3-dha-epa-f shameka oil ( GUMMY) 400 mcg-35 mg -25 mg-5 mg Chew 2021-08-19 00:00: 00 02-10 00:00 :00 No 1{each} Take 1 Each by mouth daily. [facility] multivitami n ( VITAMIN) tablet 2021-0 08-16 00:00: 00 Yes [id number] 1{tbl} Take 1 tablet by mouth daily. [facility] multivitami n ( VITAMIN) tablet 2021-0 08-16 00:00: 00 Yes [id number] 1{tbl} Take 1 tablet by mouth daily. [facility] multivitami n ( VITAMIN) tablet 2021-0 08-16 00:00: 00 Yes [id number] 1{tbl} Take 1 tablet by mouth daily. [facility] multivitami n ( VITAMIN) tablet 0 08-16 00:00: 00 Yes [id number] 1{tbl} Take 1 tablet by mouth daily. [facility] multivitami n ( VITAMIN) tablet 08-16 00:00: 00 Yes [id number] 1{tbl} Take 1 tablet by mouth daily. [facility] multivitami n ( VITAMIN) tablet 08-16 00:00: 00 Yes [id number] 1{tbl} Take 1 tablet by mouth daily. [facility] multivitami n ( VITAMIN) tablet 0 08-16 00:00: 00 Yes [id number] 1{tbl} Take 1 tablet by mouth daily. [facility] multivitami n ( VITAMIN) tablet 08-16 00:00: 00 Yes [id number] 1{tbl} Take 1 tablet by mouth daily. [facility] multivitami n ( VITAMIN) tablet 08-16 00:00: 00 Yes [id number] 1{tbl} Take 1 tablet by mouth daily. [facility] multivitami n ( VITAMIN) tablet 0 08-16 00:00: 00 Yes [id number] 1{tbl} Take 1 tablet by mouth daily. [facility] multivitami n ( VITAMIN) tablet 0 08-16 00:00: 00 Yes [id number] 1{tbl} Take 1 tablet by mouth daily. [facility] multivitami n ( VITAMIN) tablet 0 08-16 00:00: 00 Yes [id number] 1{tbl} Take 1 tablet by mouth daily. [facility] multivitami n ( VITAMIN) tablet 0 08-16 00:00: 00 Yes [id number] 1{tbl} Take 1 tablet by mouth daily. [facility] multivitami n ( VITAMIN) tablet 2021-0 08-16 00:00: 00 Yes [id number] 1{tbl} Take 1 tablet by mouth daily. [facility] multivitami n ( VITAMIN) tablet 08-16 00:00: 00 Yes [id number] 1{tbl} Take 1 tablet by mouth daily. [facility] multivitami n ( VITAMIN) tablet 08-16 00:00: 00 02-10 00:00 :00 No [id number] 1{tbl} Take 1 tablet by mouth daily. [facility] multivitami n ( VITAMIN) tablet 08-16 00:00: 00 02-10 00:00 :00 No [id number] 1{tbl} Take 1 tablet by mouth daily. [facility] vit calc,iron,f olic ( VITAMIN ORAL) 09-08 20:05: 07 Yes Take by mouth. [facility] aspirin (ADULT LOW DOSE ASPIRIN) 81 mg EC tablet 09-08 20:05: 07 Yes 81mg Take 81 mg by mouth daily. [facility] vit calc,iron,f olic ( VITAMIN ORAL) 09-08 20:05: 07 Yes Take by mouth. [facility] aspirin (ADULT LOW DOSE ASPIRIN) 81 mg EC tablet 09-08 20:05: 07 Yes 81mg Take 81 mg by mouth daily. [facility] vit calc,iron,f olic ( VITAMIN ORAL) 07-28 20:15: 49 Yes Take by mouth. [facility] vit calc,iron,f olic ( VITAMIN ORAL) 07-28 20:15: 49 Yes Take by mouth. [facility] vit calc,iron,f olic ( VITAMIN ORAL) 07-28 20:15: 49 Yes Take by mouth. [facility] vit calc,iron,f olic ( VITAMIN ORAL) 07-28 20:15: 49 Yes Take by mouth. [facility] vit calc,iron,f olic ( VITAMIN ORAL) 07-28 20:15: 49 Yes Take by mouth. [facility] vit calc,iron,f olic ( VITAMIN ORAL) 07-28 20:15: 49 Yes Take by mouth. [facility] vit calc,iron,f olic ( VITAMIN ORAL) 07-28 20:15: 49 Yes Take by mouth. [facility] norethicoro ne-e.estrad iol-iron (LOESTRIN FE 1.5/30) 1.5 mg-30 mcg (21)/75 mg (7) per tablet 07-09 00:00: 00 Yes [id number] 1{tbl} Take 1 tablet by mouth daily. [facility] i[facility]-iron (LOESTRIN FE 1.5/30) 1.5 mg-30 mcg (21)/75 mg (7) per tablet 07-09 00:00: 00 Yes [id number] 1{tbl} Take 1 tablet by mouth daily. [facility] iol-iron (LOESTRIN FE 1.5/30) 1.5 mg-30 mcg (21)/75 mg (7) per tablet 07-09 00:00: 00 06-30 00:00 :00 No [id number] 1{tbl} Take 1 tablet by mouth daily. [facility] docusate calcium 240 mg capsule 06-13 00:00: 00 Yes [id number] 240mg Take 1 capsule by mouth once daily as needed for Constipati on. [facility] simethicone 80 mg chewable tablet 06-13 00:00: 00 Yes [id number] 160mg Take 2 tablets by mouth after meals and at bedtime as needed for Gas. [facility] oxyCODONE 5 mg immediate release tablet 06-13 00:00: 00 Yes [id number] 5mg Take 1 tablet by mouth every 6 (six) hours as needed for Pain (scale 4-6) or Pain (scale 7-10). [facility] docusate calcium 240 mg capsule 2020-0 4-25 00:00: 00 Yes [id number] 240mg Take 1 capsule by mouth once daily as needed for Constipati on. [facility] simethicone 80 mg chewable tablet 2019-0 4-25 00:00: 00 Yes [id number] 160mg Take 2 tablets by mouth after meals and at bedtime as needed for Gas. [facility] oxyCODONE 5 mg immediate release tablet 2019-0 4-25 00:00: 00 Yes [id number] 5mg Take 1 tablet by mouth every 6 (six) hours as needed for Pain (scale 4-6) or Pain (scale 7-10). [facility] docusate calcium 240 mg capsule 2019-0 -25 00:00: 00 Yes [id number] 240mg Take 1 capsule by mouth once daily as needed for Constipati on. [facility] simethicone 80 mg chewable tablet 2019-0 25 00:00: 00 Yes [id number] 160mg Take 2 tablets by mouth after meals and at bedtime as needed for Gas. [facility] oxyCODONE 5 mg immediate release tablet 2019-0 25 00:00: 00 Yes [id number] 5mg Take 1 tablet by mouth every 6 (six) hours as needed for Pain (scale 4-6) or Pain (scale 7-10). [facility] docusate calcium 240 mg capsule 2019-0 25 00:00: 00 Yes [id number] 240mg Take 1 capsule by mouth once daily as needed for Constipati on. [facility] simethicone 80 mg chewable tablet 2019-0 -25 00:00: 00 Yes [id number] 160mg Take 2 tablets by mouth after meals and at bedtime as needed for Gas. [facility] oxyCODONE 5 mg immediate release tablet 2019-0 4-25 00:00: 00 Yes [id number] 5mg Take 1 tablet by mouth every 6 (six) hours as needed for Pain (scale 4-6) or Pain (scale 7-10). [facility] docusate calcium 240 mg capsule 2019-0 4-25 00:00: 00 Yes [id number] 240mg Take 1 capsule by mouth once daily as needed for Constipati on. [facility] simethicone 80 mg chewable tablet 2019-0 4-25 00:00: 00 Yes [id number] 160mg Take 2 tablets by mouth after meals and at bedtime as needed for Gas. [facility] oxyCODONE 5 mg immediate release tablet 2019-0 4-25 00:00: 00 Yes [id number] 5mg Take 1 tablet by mouth every 6 (six) hours as needed for Pain (scale 4-6) or Pain (scale 7-10). [facility] docusate calcium 240 mg capsule 0 425 00:00: 00 06-30 00:00 :00 No [id number] 240mg Take 1 capsule by mouth once daily as needed for Constipati on. [facility] simethicone 80 mg chewable tablet 0 4 00:00: 00 06-30 00:00 :00 No [id number] 160mg Take 2 tablets by mouth after meals and at bedtime as needed for Gas. [facility] oxyCODONE 5 mg immediate release tablet 0 25 00:00: 00 06-30 00:00 :00 No [id number] 5mg Take 1 tablet by mouth every 6 (six) hours as needed for Pain (scale 4-6) or Pain (scale 7-10). [facility] acetaminoph en 325 mg tablet 06-13 00:00: 00 06-14 04:59 :00 No [id number] 650mg Take 2 tablets by mouth every 6 (six) hours as needed for Pain (scale 1-3) or Pain (scale 4-6). [facility] acetaminoph en 325 mg tablet 2019-0 425 00:00: 00 06-14 04:59 :00 No [id number] 650mg Take 2 tablets by mouth every 6 (six) hours as needed for Pain (scale 1-3) or Pain (scale 4-6). [facility] acetaminoph en 325 mg tablet 2019-0 425 00:00: 00 06-14 04:59 :00 No [id number] 650mg Take 2 tablets by mouth every 6 (six) hours as needed for Pain (scale 1-3) or Pain (scale 4-6). [facility] acetaminoph en 325 mg tablet 2019-0 425 00:00: 00 06-14 04:59 :00 No [id number] 650mg Take 2 tablets by mouth every 6 (six) hours as needed for Pain (scale 1-3) or Pain (scale 4-6). [facility] acetaminoph en 325 mg tablet 2019-0 25 00:00: 00 06-14 04:59 :00 No [id number] 650mg Take 2 tablets by mouth every 6 (six) hours as needed for Pain (scale 1-3) or Pain (scale 4-6). [facility] vits62/FA/o m3/dha/epa ( GUMMY ORAL) 0 22 20:08: 21 Yes Take by mouth daily. [facility] ofloxacin 0.3 % otic drops 2019-0 4-14 00:00: 00 Yes [id number] 5[drp] Place 5 Drops in both ears 2 (two) times daily. [facility] ofloxacin 0.3 % otic drops 2019-0 4-14 00:00: 00 Yes [id number] 5[drp] Place 5 Drops in both ears 2 (two) times daily. [facility] ofloxacin 0.3 % otic drops 2020-0 4-14 00:00: 00 Yes [id number] 5[drp] Place 5 Drops in both ears 2 (two) times daily. [facility] ofloxacin 0.3 % otic drops 2020-0 4-14 00:00: 00 Yes [id number] 5[drp] Place 5 Drops in both ears 2 (two) times daily. [facility] ofloxacin 0.3 % otic drops 2020-0 4-14 00:00: 00 Yes [id number] 5[drp] Place 5 Drops in both ears 2 (two) times daily. [facility] ofloxacin 0.3 % otic drops 2020-0 4-14 00:00: 00 Yes [id number] 5[drp] Place 5 Drops in both ears 2 (two) times daily. [facility] ofloxacin 0.3 % otic drops 2019-0 4-14 00:00: 00 Yes [id number] 5[drp] Place 5 Drops in both ears 2 (two) times daily. [facility] ofloxacin 0.3 % otic drops 2019-0 4-14 00:00: 00 Yes [id number] 5[drp] Place 5 Drops in both ears 2 (two) times daily. [facility] vits62/FA/o m3/dha/epa ( GUMMY ORAL) 2019-0 3-19 18:41: 40 Yes Take by mouth daily. [facility] vits62/FA/o m3/dha/epa ( GUMMY ORAL) 2019-0 3-19 18:41: 40 Yes Take by mouth daily. [facility] vits62/FA/o m3/dha/epa ( GUMMY ORAL) 0 3-19 18:41: 40 Yes Take by mouth daily. [facility] vits62/FA/o m3/dha/epa ( GUMMY ORAL) 2019-0 3-19 18:41: 40 Yes Take by mouth daily. [facility] vits62/FA/o m3/dha/epa ( GUMMY ORAL) 2019-0 3-19 18:41: 40 Yes Take by mouth daily. [facility] vits62/FA/o m3/dha/epa ( GUMMY ORAL) 2019-0 3-19 18:41: 40 Yes Take by mouth daily. [facility] vits62/FA/o m3/dha/epa ( GUMMY ORAL) 2020-0 3-19 18:41: 40 Yes Take by mouth daily. [facility] vits62/FA/o m3/dha/epa ( GUMMY ORAL) 2020-0 3-19 18:41: 40 Yes Take by mouth daily. [facility] vits62/FA/o m3/dha/epa ( GUMMY ORAL) 2020-0 3-19 18:41: 40 Yes Take by mouth daily. [facility] vits62/FA/o m3/dha/epa ( GUMMY ORAL) 0 319 18:41: 40 Yes Take by mouth daily. [facility] vits62/FA/o m3/dha/epa ( GUMMY ORAL) 0 3-19 18:41: 40 Yes Take by mouth daily. [facility] vits62/FA/o m3/dha/epa ( GUMMY ORAL) 0 319 18:41: 40 Yes Take by mouth daily. [facility] vits62/FA/o m3/dha/epa ( GUMMY ORAL) 0 3 18:41: 40 Yes Take by mouth daily. [facility] vits62/FA/o m3/dha/epa ( GUMMY ORAL) 0 319 18:41: 40 Yes Take by mouth daily. [facility] vits62/FA/o m3/dha/epa ( GUMMY ORAL) 0 19 18:41: 40 Yes Take by mouth daily. [facility] vwbdthob51- iron-folic acid-dha 30-1.4-200 mg CpID 2020-0 02-25 00:00: 00 Yes [id number] 1{tbl} Take 1 tablet by mouth daily. [facility] mknywwwj19- iron-folic acid-dha 30-1.4-200 mg CpID 2020-0 02-25 00:00: 00 Yes [id number] 1{tbl} Take 1 tablet by mouth daily. [facility] zdjavbkw39- iron-folic acid-dha 30-1.4-200 mg CpID 2020-0 02-25 00:00: 00 Yes [id number] 1{tbl} Take 1 tablet by mouth daily. [facility] - iron-folic acid-dha 30-1.4-200 mg CpID 2020-0 02-25 00:00: 00 Yes [id number] 1{tbl} Take 1 tablet by mouth daily. [facility] jkogtwco91- iron-folic acid-dha 30-1.4-200 mg CpID 2020-0 -07 00:00: 00 Yes [id number] 1{tbl} Take 1 tablet by mouth daily. [facility] vhoqkoxc12- iron-folic acid-dha 30-1.4-200 mg CpID 2020-0 - 00:00: 00 Yes [id number] 1{tbl} Take 1 tablet by mouth daily. [facility] xyrxonyo19- iron-folic acid-dha 30-1.4-200 mg CpID 2020-0 - 00:00: 00 Yes [id number] 1{tbl} Take 1 tablet by mouth daily. [facility] - iron-folic acid-dha 30-1.4-200 mg CpID 2020-0 02-25 00:00: 00 Yes [id number] 1{tbl} Take 1 tablet by mouth daily. [facility] nkhcterj86- iron-folic acid-dha 30-1.4-200 mg CpID 2020-0 02-25 00:00: 00 Yes [id number] 1{tbl} Take 1 tablet by mouth daily. [facility] wuvanfee09- iron-folic acid-dha 30-1.4-200 mg CpID 2020-0 02-25 00:00: 00 Yes [id number] 1{tbl} Take 1 tablet by mouth daily. [facility] hgfneoqx47- iron-folic acid-dha 30-1.4-200 mg CpID 2020-0 02-25 00:00: 00 Yes [id number] 1{tbl} Take 1 tablet by mouth daily. [facility] - iron-folic acid-dha 30-1.4-200 mg CpID 2020-0 02-25 00:00: 00 Yes [id number] 1{tbl} Take 1 tablet by mouth daily. [facility] okgkzkzr28- iron-folic acid-dha 30-1.4-200 mg CpID 2020-0 02-25 00:00: 00 Yes [id number] 1{tbl} Take 1 tablet by mouth daily. [facility] sqvahbcl93- iron-folic acid-dha 30-1.4-200 mg CpID 2020-0 02-25 00:00: 00 Yes [id number] 1{tbl} Take 1 tablet by mouth daily. [facility] divfwbgl87- iron-folic acid-dha 30-1.4-200 mg CpID 2020-0 1-07 00:00: 00 Yes [id number] 1{tbl} Take 1 tablet by mouth daily. [facility] oxhbiqhn19- iron-folic acid-dha 30-1.4-200 mg CpID 2020-0 - 00:00: 00 Yes [id number] 1{tbl} Take 1 tablet by mouth daily. [facility] yofdakbj91- iron-folic acid-dha 30-1.4-200 mg CpID 2020-0 - 00:00: 00 Yes [id number] 1{tbl} Take 1 tablet by mouth daily. [facility] tmbnousy45- iron-folic acid-dha 30-1.4-200 mg CpID 2020-0 02-25 00:00: 00 Yes [id number] 1{tbl} Take 1 tablet by mouth daily. [facility] - iron-folic acid-dha 30-1.4-200 mg CpID 2020-0 - 00:00: 00 Yes [id number] 1{tbl} Take 1 tablet by mouth daily. [facility] ufvzsbft36- iron-folic acid-dha 30-1.4-200 mg CpID 2020-0 02-25 00:00: 00 Yes [id number] 1{tbl} Take 1 tablet by mouth daily. [facility] - iron-folic acid-dha 30-1.4-200 mg CpID 2020-0 02-25 00:00: 00 Yes [id number] 1{tbl} Take 1 tablet by mouth daily. [facility] soccifen94- iron-folic acid-dha 30-1.4-200 mg CpID 2020-0 02-25 00:00: 00 Yes [id number] 1{tbl} Take 1 tablet by mouth daily. [facility] kykorjgz73- iron-folic acid-dha 30-1.4-200 mg CpID 2020-0 02-25 00:00: 00 Yes [id number] 1{tbl} Take 1 tablet by mouth daily. [facility] znwxzivz58- iron-folic acid-dha 30-1.4-200 mg CpID 20200 - 00:00: 00 Yes [id number] 1{tbl} Take 1 tablet by mouth daily. [facility] aoopcxpk88- iron-folic acid-dha 30-1.4-200 mg CpID 2020-0 02-25 00:00: 00 Yes [id number] 1{tbl} Take 1 tablet by mouth daily. [facility] gsuitjyi61- iron-folic acid-dha 30-1.4-200 mg CpID 0 02-25 00:00: 00 06-30 00:00 :00 No [id number] 1{tbl} Take 1 tablet by mouth daily. [facility] cephALEXin 500 mg capsule 2018-02 00:00: 00 Yes [id number] 500mg Take 1 capsule by mouth 4 (four) times daily. [facility] cephALEXin 500 mg capsule 2018-02 00:00: 00 Yes [id number] 500mg Take 1 capsule by mouth 4 (four) times daily. [facility] cephALEXin 500 mg capsule 2018-02 00:00: 00 Yes [id number] 500mg Take 1 capsule by mouth 4 (four) times daily. [facility] cephALEXin 500 mg capsule 2018-02 00:00: 00 Yes [id number] 500mg Take 1 capsule by mouth 4 (four) times daily. [facility] cephALEXin 500 mg capsule 2018-02 00:00: 00 Yes [id number] 500mg Take 1 capsule by mouth 4 (four) times daily. [facility] cephALEXin 500 mg capsule 2018-02 00:00: 00 Yes [id number] 500mg Take 1 capsule by mouth 4 (four) times daily. [facility] cephALEXin 500 mg capsule 2018-02 00:00: 00 Yes [id number] 500mg Take 1 capsule by mouth 4 (four) times daily. [facility] cephALEXin 500 mg capsule 2018-02 00:00: 00 Yes [id number] 500mg Take 1 capsule by mouth 4 (four) times daily. [facility] cephALEXin 500 mg capsule 2018-02 00:00: 00 Yes [id number] 500mg Take 1 capsule by mouth 4 (four) times daily. [facility] 2018-02 00:00: 00 Yes [id number] 500mg Take 1 capsule by mouth 4 (four) times daily. [facility] cephALEXin 500 mg capsule 2018-02 00:00: 00 Yes [id number] 500mg Take 1 capsule by mouth 4 (four) times daily. [facility] cephALEXin 500 mg capsule 2018-02 00:00: 00 Yes [id number] 500mg Take 1 capsule by mouth 4 (four) times daily. [facility] cephALEXin 500 mg capsule 2018-02 00:00: 00 Yes [id number] 500mg Take 1 capsule by mouth 4 (four) times daily. [facility] cephALEXin 500 mg capsule 2018-02 00:00: 00 Yes [id number] 500mg Take 1 capsule by mouth 4 (four) times daily. [facility] cephALEXin 500 mg capsule 2018-02 00:00: 00 Yes [id number] 500mg Take 1 capsule by mouth 4 (four) times daily. [facility] cephALEXin 500 mg capsule 2018-02 00:00: 00 Yes [id number] 500mg Take 1 capsule by mouth 4 (four) times daily. [facility] cephALEXin 500 mg capsule 2018-02 00:00: 00 Yes [id number] 500mg Take 1 capsule by mouth 4 (four) times daily. [facility] cephALEXin 500 mg capsule 2018-02 00:00: 00 Yes [id number] 500mg Take 1 capsule by mouth 4 (four) times daily. [facility] cephALEXin 500 mg capsule 2018-02 00:00: 00 Yes [id number] 500mg Take 1 capsule by mouth 4 (four) times daily. [facility] cephALEXin 500 mg capsule 2018-02 00:00: 00 Yes [id number] 500mg Take 1 capsule by mouth 4 (four) times daily. [facility] vits62/FA/o m3/dha/epa ( GUMMY ORAL) 2018-02 010 19:12: 30 Yes Take by mouth daily. [facility] vits62/FA/o m3/dha/epa ( GUMMY ORAL) 2018-02 010 19:12: 30 Yes Take by mouth daily. [facility] vits62/FA/o m3/dha/epa ( GUMMY ORAL) 2018-02 010 19:12: 30 Yes Take by mouth daily. [facility] vits62/FA/o m3/dha/epa ( GUMMY ORAL) 2018-02 010 19:12: 30 Yes Take by mouth daily. [facility] No known medications No [facility] [place] [facility] [place] [facility] [place] [facility] [place] [facility] [place] [facility] No [facility] [place] [facility] No known medications No [facility] [place] [facility] Immunizations Ordered Immunization Name Filled Immunization Name Date Status Comments Source TDAP 2021-12-08 00:00:00 [facility]pleted [facility] 2021-12-08 00:00:00 [facility]pleted [facility] TDAP 2021-12-08 00:00:00 Completed [facility] TDAP 2021-12-08 00:00:00 Completed [facility] TDAP 2021-12-08 00:00:00 Completed [facility] TDAP 2021-12-08 00:00:00 Completed [facility] TDAP 2021-12-08 00:00:00 Completed [facility] TDAP 2021-12-08 00:00:00 Completed [facility] TDAP 2021-12-08 00:00:00 Completed [facility] TDAP 2021-12-08 00:00:00 Completed [facility] TDAP 2021-12-08 00:00:00 Completed [facility] TDAP 2021-12-08 00:00:00 Completed [facility] TDAP 2021-12-08 00:00:00 Completed [facility] TDAP 2021-12-08 00:00:00 Completed [facility] TDAP 2021-12-08 00:00:00 Completed [facility] TDAP 2021-12-08 00:00:00 Completed [facility] TDAP 2021-12-08 00:00:00 Completed [facility] TDAP 2021-12-08 00:00:00 Completed [facility] TDAP 2021-12-08 00:00:00 Completed [facility] TDAP 2021-12-08 00:00:00 Completed [facility] TDAP 2021-12-08 00:00:00 Completed [facility] TDAP 2021-12-08 00:00:00 Completed [facility] TDAP 2021-12-08 00:00:00 Completed [facility] TDAP 2021-12-08 00:00:00 Completed [facility] TDAP 2021-12-08 00:00:00 Completed [facility] TDAP 2021-12-08 00:00:00 Completed [facility] TDAP 2021-12-08 00:00:00 Completed [facility] TDAP 2021-12-08 00:00:00 Completed [facility] TDAP 2021-12-08 00:00:00 Completed [facility] TDAP 2021-12-08 00:00:00 Completed [facility] TDAP 2020-07-28 00:00:00 Completed [facility] TDAP 2020-07-28 00:00:00 Completed [facility] TDAP 2020-07-28 00:00:00 Completed [facility] TDAP 2020-07-28 00:00:00 Completed [facility] TDAP 2020-07-28 00:00:00 Completed [facility] TDAP 2020-07-28 00:00:00 Completed [facility] TDAP 2020-07-28 00:00:00 Completed [facility] TDAP 2020-07-28 00:00:00 Completed [facility] TDAP 2020-07-28 00:00:00 Completed [facility] TDAP 2020-07-28 00:00:00 Completed [facility] TDAP 2020-07-28 00:00:00 Completed [facility] TDAP 2020-07-28 00:00:00 Completed [facility] TDAP 2020-07-28 00:00:00 Completed [facility] TDAP 2020-07-28 00:00:00 Completed [facility] TDAP 2020-07-28 00:00:00 Completed [facility] TDAP 2020-07-28 00:00:00 Completed [facility] TDAP 2020-07-28 00:00:00 Completed [facility] TDAP 2020-07-28 00:00:00 Completed [facility] TDAP 2020-07-28 00:00:00 Completed [facility] TDAP 2020-07-28 00:00:00 Completed [facility] TDAP 2020-07-28 00:00:00 Completed [facility] TDAP 2020-07-28 00:00:00 Completed [facility] TDAP 2020-07-28 00:00:00 Completed [facility] TDAP 2020-07-28 00:00:00 Completed [facility] TDAP 2020-07-28 00:00:00 Completed [facility] TDAP 2020-07-28 00:00:00 Completed [facility] TDAP 2020-07-28 00:00:00 Completed [facility] TDAP 2020-07-28 00:00:00 Completed [facility] TDAP 2020-07-28 00:00:00 Completed [facility] TDAP 2020-07-28 00:00:00 Completed [facility] TDAP 2020-07-28 00:00:00 Completed [facility] TDAP 2020-07-28 00:00:00 Completed [facility] TDAP 2020-07-28 00:00:00 Completed [facility] TDAP 2020-07-28 00:00:00 Completed [facility] TDAP 2020-07-28 00:00:00 Completed [facility] TDAP 2020-07-28 00:00:00 Completed [facility] TDAP 2020-07-28 00:00:00 Completed [facility] TDAP 2020-07-28 00:00:00 Completed [facility] TDAP 2020-07-28 00:00:00 Completed [facility] TDAP 2020-07-28 00:00:00 Completed [facility] TDAP 2020-07-28 00:00:00 Completed [facility] TDAP 2020-07-28 00:00:00 Completed [facility] TDAP (ADACEL) VACCINE 2019-03-21 00:00:00 Completed [facility] TDAP (ADACEL) VACCINE 2019-03-21 00:00:00 Completed [facility] TDAP (ADACEL) VACCINE 2019-03-21 00:00:00 Completed [facility] TDAP (ADACEL) VACCINE 2019-03-21 00:00:00 Completed [facility] TDAP (ADACEL) VACCINE 2019-03-21 00:00:00 Completed [facility] TDAP (ADACEL) VACCINE 2019-03-21 00:00:00 Completed [facility] TDAP (ADACEL) VACCINE 2019-03-21 00:00:00 Completed [facility] TDAP (ADACEL) VACCINE 2019-03-21 00:00:00 Completed [facility] TDAP (ADACEL) VACCINE 2019-03-21 00:00:00 Completed [facility] TDAP (ADACEL) VACCINE 2019-03-21 00:00:00 Completed [facility] TDAP (ADACEL) VACCINE 2019-03-21 00:00:00 Completed [facility] TDAP (ADACEL) VACCINE 2019-03-21 00:00:00 Completed [facility] TDAP (ADACEL) VACCINE 2019-03-21 00:00:00 Completed [facility] TDAP (ADACEL) VACCINE 2019-03-21 00:00:00 Completed [facility] TDAP (ADACEL) VACCINE 2019-03-21 00:00:00 Completed [facility] TDAP (ADACEL) VACCINE 2019-03-21 00:00:00 Completed [facility] TDAP (ADACEL) VACCINE 2019-03-21 00:00:00 Completed [facility] TDAP (ADACEL) VACCINE 2019-03-21 00:00:00 Completed [facility] TDAP (ADACEL) VACCINE 2019-03-21 00:00:00 Completed [facility] TDAP (ADACEL) VACCINE 2019-03-21 00:00:00 Completed [facility] TDAP (ADACEL) VACCINE 2019-03-21 00:00:00 Completed [facility] TDAP (ADACEL) VACCINE 2019-03-21 00:00:00 Completed [facility] TDAP (ADACEL) VACCINE 2019-03-21 00:00:00 Completed [facility] TDAP (ADACEL) VACCINE 2019-03-21 00:00:00 Completed [facility] TDAP (ADACEL) VACCINE 2019-03-21 00:00:00 Completed [facility] TDAP (ADACEL) VACCINE 2019-03-21 00:00:00 Completed [facility] TDAP (ADACEL) VACCINE 2019-03-21 00:00:00 Completed [facility] TDAP (ADACEL) VACCINE 2019-03-21 00:00:00 Completed [facility] TDAP (ADACEL) VACCINE 2019-03-21 00:00:00 Completed [facility] TDAP (ADACEL) VACCINE 2019-03-21 00:00:00 Completed [facility] TDAP (ADACEL) VACCINE 2019-03-21 00:00:00 Completed [facility] TDAP (ADACEL) VACCINE 2019-03-21 00:00:00 Completed [facility] TDAP (ADACEL) VACCINE 2019-03-21 00:00:00 Completed [facility] TDAP (ADACEL) VACCINE 2019-03-21 00:00:00 Completed [facility] TDAP (ADACEL) VACCINE 2019-03-21 00:00:00 Completed [facility] TDAP (ADACEL) VACCINE 2019-03-21 00:00:00 Completed [facility] TDAP (ADACEL) VACCINE 2019-03-21 00:00:00 Completed [facility] TDAP (ADACEL) VACCINE 2019-03-21 00:00:00 Completed [facility] TDAP (ADACEL) VACCINE 2019-03-21 00:00:00 Completed [facility] TDAP (ADACEL) VACCINE 2019-03-21 00:00:00 Completed [facility] TDAP (ADACEL) VACCINE 2019-03-21 00:00:00 Completed [facility] TDAP (ADACEL) VACCINE 2019-03-21 00:00:00 Completed [facility] TDAP (ADACEL) VACCINE 2019-03-21 00:00:00 Completed [facility] TDAP (ADACEL) VACCINE 2019-03-21 00:00:00 Completed [facility] TDAP (ADACEL) VACCINE 2019-03-21 00:00:00 Completed [facility] [facility]EL[facility]INE 2019-03-21 [facility] 2019-03-21 00:00:00 [facility] TD[facility] (ADACEL) VACCINE 2019-03-21 00:00:00 [facility] TDAP (ADACEL) VACCINE 2019-03-21 00:00:00 [facility] TDAP (ADACEL) VACCINE 2019-03-21 00:00:00 [facility] TDAP (ADACEL) VACCINE 2019-03-21 00:00:00 [facility] TDAP (ADACEL) VACCINE 2019-03-21 00:00:00 [facility] TDAP (ADACEL) VACCINE 2019-03-21 00:00:00 [facility] TDAP (ADACEL) VACCINE 2019-03-21 00:00:00 [facility] TDAP (ADACEL) VACCINE 2019-03-21 00:00:00 [facility] TDAP (ADACEL) VACCINE 2019-03-21 00:00:00 [facility] TDAP (ADACEL) VACCINE 2019-03-21 00:00:00 [facility] TDAP (ADACEL) VACCINE 2019-03-21 00:00:00 [facility] TDAP (ADACEL) VACCINE 2019-03-21 00:00:00 [facility] TDAP (ADACEL) VACCINE 2019-03-21 00:00:00 [facility] TDAP (ADACEL) VACCINE 2019-03-21 00:00:00 [facility] TDAP (ADACEL) VACCINE 2019-03-21 00:00:00 [facility] TDAP (ADACEL) VACCINE 2019-03-21 00:00:00 [facility] TDAP (ADACEL) VACCINE 2019-03-21 00:00:00 [facility] TDAP (ADACEL) VACCINE 2019-03-21 00:00:00 [facility] TDAP (ADACEL) VACCINE 2019-03-21 00:00:00 [facility] TDAP (ADACEL) VACCINE 2019-03-21 00:00:00 [facility] TDAP (ADACEL) VACCINE 2019-03-21 00:00:00 [facility] TDAP (ADACEL) VACCINE 2019-03-21 00:00:00 [facility] TDAP (ADACEL) VACCINE 2019-03-21 00:00:00 [facility] TDAP (ADACEL) VACCINE 2019-03-21 00:00:00 [facility] TDAP (ADACEL) VACCINE 2019-03-21 00:00:00 [facility] TDAP (ADACEL) VACCINE 2019-03-21 00:00:00 [facility] TDAP (ADACEL) VACCINE 2019-03-21 00:00:00 [facility]pleted [facility] TDAP (ADACEL) VACCINE 2019-03-21 00:00:00 [facility] Influenza Virus Vaccine Quad .5 mL IM 6+ MO 2018-11-28 00:00:00 [facility] Influenza Virus Vaccine Quad .5 mL IM 6+ MO 2018-11-28 00:00:00 [facility] Influenza Virus Vaccine Quad .5 mL IM 6+ MO 2018-11-28 00:00:00 [facility] Influenza Virus Vaccine Quad .5 mL IM 6+ MO 2018-11-28 00:00:00 Completed [facility] Influenza Virus Vaccine Quad .5 mL IM 6+ MO 2018-11-28 00:00:00 Completed [facility] Influenza Virus Vaccine Quad .5 mL IM 6+ MO 2018-11-28 00:00:00 [facility]pleted [facility] Influenza Virus Vaccine Quad .5 mL IM 6+ MO 2018-11-28 00:00:00 Completed [facility] Influenza Virus Vaccine Quad .5 mL IM 6+ MO 2018-11-28 00:00:00 Completed [facility] Influenza Virus Vaccine Quad .5 mL IM 6+ MO 2018-11-28 00:00:00 Completed [facility] Influenza Virus Vaccine Quad .5 mL IM 6+ MO 2018-11-28 00:00:00 Completed [facility] Influenza Virus Vaccine Quad .5 mL IM 6+ MO 2018-11-28 00:00:00 Completed [facility] Influenza Virus Vaccine Quad .5 mL IM 6+ MO 2018-11-28 00:00:00 Completed [facility] Influenza Virus Vaccine Quad .5 mL IM 6+ MO 2018-11-28 00:00:00 Completed [facility] Influenza Virus Vaccine Quad .5 mL IM 6+ MO 2018-11-28 00:00:00 Completed [facility] Influenza Virus Vaccine Quad .5 mL IM 6+ MO 2018-11-28 00:00:00 [facility]pleted [facility] Influenza Virus Vaccine Quad .5 mL IM 6+ MO 2018-11-28 00:00:00 Completed [facility] Influenza Virus Vaccine Quad .5 mL IM 6+ MO 2018-11-28 00:00:00 Completed [facility] Influenza Virus Vaccine Quad .5 mL IM 6+ MO 2018-11-28 00:00:00 Completed [facility] Influenza Virus Vaccine Quad .5 mL IM 6+ MO 2018-11-28 00:00:00 Completed [facility] Influenza Virus Vaccine Quad .5 mL IM 6+ MO 2018-11-28 00:00:00 Completed [facility] Influenza Virus Vaccine Quad .5 mL IM 6+ MO 2018-11-28 00:00:00 Completed [facility] Influenza Virus Vaccine Quad .5 mL IM 6+ MO 2018-11-28 00:00:00 Completed [facility] Influenza Virus Vaccine Quad .5 mL IM 6+ MO 2018-11-28 00:00:00 Completed [facility] Influenza Virus Vaccine Quad .5 mL IM 6+ MO 2018-11-28 00:00:00 [facility]pleted [facility] Influenza Virus Vaccine Quad .5 mL IM 6+ MO 2018-11-28 00:00:00 Completed [facility] Influenza Virus Vaccine Quad .5 mL IM 6+ MO 2018-11-28 00:00:00 Completed [facility] Influenza Virus Vaccine Quad .5 mL IM 6+ MO 2018-11-28 00:00:00 Completed [facility] Influenza Virus Vaccine Quad .5 mL IM 6+ MO 2018-11-28 00:00:00 Completed [facility] Influenza Virus Vaccine Quad .5 mL IM 6+ MO 2018-11-28 00:00:00 Completed [facility] Influenza Virus Vaccine Quad .5 mL IM 6+ MO 2018-11-28 00:00:00 Completed [facility] Influenza Virus Vaccine Quad .5 mL IM 6+ MO 2018-11-28 00:00:00 Completed [facility] Influenza Virus Vaccine Quad .5 mL IM 6+ MO 2018-11-28 00:00:00 Completed [facility] Influenza Virus Vaccine Quad .5 mL IM 6+ MO 2018-11-28 00:00:00 [facility] Influenza Virus Vaccine Quad .5 mL IM 6+ MO 2018-11-28 00:00:00 Completed [facility] Influenza Virus Vaccine Quad .5 mL IM 6+ MO 2018-11-28 00:00:00 Completed [facility] Influenza Virus Vaccine Quad .5 mL IM 6+ MO 2018-11-28 00:00:00 Completed [facility] Influenza Virus Vaccine Quad .5 mL IM 6+ MO 2018-11-28 00:00:00 Completed [facility] Influenza Virus Vaccine Quad .5 mL IM 6+ MO 2018-11-28 00:00:00 Completed [facility] Influenza Virus Vaccine Quad .5 mL IM 6+ MO 2018-11-28 00:00:00 Completed [facility] Influenza Virus Vaccine Quad .5 mL IM 6+ MO 2018-11-28 00:00:00 Completed [facility] Influenza Virus Vaccine Quad .5 mL IM 6+ MO 2018-11-28 00:00:00 Completed [facility] Influenza Virus Vaccine Quad .5 mL IM 6+ MO 2018-11-28 00:00:00 Completed [facility] Influenza Virus Vaccine Quad .5 mL IM 6+ MO 2018-11-28 00:00:00 Com[facility] Influenza Virus Vaccine Quad .5 mL IM 6+ MO 2018-11-28 00:00:00 Completed [facility] Influenza Virus Vaccine Quad .5 mL IM 6+ MO 2018-11-28 00:00:00 Completed [facility] Influenza Virus Vaccine Quad .5 mL IM 6+ MO 2018-11-28 00:00:00 Completed [facility] Influenza Virus Vaccine Quad .5 mL IM 6+ MO 2018-11-28 00:00:00 Completed [facility] Influenza Virus Vaccine Quad .5 mL IM 6+ MO 2018-11-28 00:00:00 Completed [facility] Influenza Virus Vaccine Quad .5 mL IM 6+ MO 2018-11-28 00:00:00 Completed [facility] Influenza Virus Vaccine Quad .5 mL IM 6+ MO 2018-11-28 00:00:00 Completed [facility] Influenza Virus Vaccine Quad .5 mL IM 6+ MO 2018-11-28 00:00:00 Completed [facility] Influenza Virus Vaccine Quad .5 mL IM 6+ MO 2018-11-28 00:00:00 Completed [facility] Influenza Virus Vaccine Quad .5 mL IM 6+ MO 2018-11-28 00:00:00 Completed [facility] Influenza Virus Vaccine Quad .5 mL IM 6+ MO 2018-11-28 00:00:00 Completed [facility] Influenza Virus Vaccine Quad .5 mL IM 6+ MO 2018-11-28 00:00:00 Completed [facility] Influenza Virus Vaccine Quad .5 mL IM 6+ MO 2018-11-28 00:00:00 Completed [facility] Influenza Virus Vaccine Quad .5 mL IM 6+ MO 2018-11-28 00:00:00 Completed [facility] Influenza Virus Vaccine Quad .5 mL IM 6+ MO 2018-11-28 00:00:00 Completed [facility] Influenza Virus Vaccine Quad .5 mL IM 6+ MO 2018-11-28 00:00:00 Completed [facility] Influenza Virus Vaccine Quad .5 mL IM 6+ MO 2018-11-28 00:00:00 Completed [facility] Influenza Virus Vaccine Quad .5 mL IM 6+ MO 2018-11-28 00:00:00 Completed [facility] Influenza Virus Vaccine Quad .5 mL IM 6+ MO 2018-11-28 00:00:00 Completed [facility] Influenza Virus Vaccine Quad .5 mL IM 6+ MO 2018-11-28 00:00:00 Completed [facility] Influenza Virus Vaccine Quad .5 mL IM 6+ MO 2018-11-28 00:00:00 Completed [facility] Influenza Virus Vaccine Quad .5 mL IM 6+ MO 2018-11-28 00:00:00 Completed [facility] Influenza Virus Vaccine Quad .5 mL IM 6+ MO 2018-11-28 00:00:00 Completed [facility] Influenza Virus Vaccine Quad .5 mL IM 6+ MO 2018-11-28 00:00:00 Completed [facility] Influenza Virus Vaccine Quad .5 mL IM 6+ MO 2018-11-28 00:00:00 Completed [facility] Influenza Virus Vaccine Quad .5 mL IM 6+ MO 2018-11-28 00:00:00 Completed [facility] Influenza Virus Vaccine Quad .5 mL IM 6+ MO 2018-11-28 00:00:00 Completed [facility] Influenza Virus Vaccine Quad .5 mL IM 6+ MO 2018-11-28 00:00:00 Completed [facility] Influenza Virus Vaccine Quad .5 mL IM 6+ MO 2018-11-28 00:00:00 Completed [facility] Influenza Virus Vaccine Quad .5 mL IM 6+ MO 2018-11-28 00:00:00 Completed [facility] Influenza Virus Vaccine Quad .5 mL IM 6+ MO 2018-11-28 00:00:00 Completed [facility] Influenza Virus Vaccine Quad .5 mL IM 6+ MO 2018-11-28 00:00:00 Completed [facility] Influenza Virus Vaccine Nasal 2012-11-29 00:00:00 Completed [facility] Influenza Virus Vaccine Nasal 2012-11-29 00:00:00 Completed [facility] Influenza Virus Vaccine Nasal 2012-11-29 00:00:00 Completed [facility] Influenza Virus Vaccine Nasal 2012-11-29 00:00:00 Completed [facility] Influenza Virus Vaccine Nasal 2012-11-29 00:00:00 Completed [facility] Influenza Virus Vaccine Nasal 2012-11-29 00:00:00 Completed [facility] Influenza Virus Vaccine Nasal 2012-11-29 00:00:00 Completed [facility] Influenza Virus Vaccine Nasal 2012-11-29 00:00:00 Completed [facility] Influenza Virus Vaccine Nasal 2012-11-29 00:00:00 Completed [facility] Influenza Virus Vaccine Nasal 2012-11-29 00:00:00 Completed [facility] Influenza Virus Vaccine Nasal 2012-11-29 00:00:00 Completed [facility] Meningococcal Polysaccharide (groups A, C, Y and W-135) conjugate vaccine (MCV4P) 2011-11-27 00:00:00 Completed [facility] Meningococcal Polysaccharide (groups A, C, Y and W-135) conjugate vaccine (MCV4P) 2011-11-27 00:00:00 Completed [facility] Meningococcal Polysaccharide (groups A, C, Y and W-135) conjugate vaccine (MCV4P) 2011-11-27 00:00:00 Completed [facility] Meningococcal Polysaccharide (groups A, C, Y and W-135) conjugate vaccine (MCV4P) 2011-11-27 00:00:00 Completed [facility] Meningococcal Polysaccharide (groups A, C, Y and W-135) conjugate vaccine (MCV4P) 2011-11-27 00:00:00 Completed [facility] Meningococcal Polysaccharide (groups A, C, Y and W-135) conjugate vaccine (MCV4P) 2011-11-27 00:00:00 Completed [facility] Meningococcal Polysaccharide (groups A, C, Y and W-135) conjugate vaccine (MCV4P) 2011-11-27 00:00:00 Completed [facility] Meningococcal Polysaccharide (groups A, C, Y and W-135) conjugate vaccine (MCV4P) 2011-11-27 00:00:00 Completed [facility] Meningococcal Polysaccharide (groups A, C, Y and W-135) conjugate vaccine (MCV4P) 2011-11-27 00:00:00 Completed [facility] Meningococcal Polysaccharide (groups A, C, Y and W-135) conjugate vaccine (MCV4P) 2011-11-27 00:00:00 Completed [facility] Meningococcal Polysaccharide (groups A, C, Y and W-135) conjugate vaccine (MCV4P) 2011-11-27 00:00:00 Completed [facility] Influenza Virus Vaccine - Whole 2011-11-10 00:00:00 Completed [facility] Influenza Virus Vaccine - Whole 2011-11-10 00:00:00 Completed [facility] Influenza Virus Vaccine - Whole 2011-11-10 00:00:00 Completed [facility] Influenza Virus Vaccine - Whole 2011-11-10 00:00:00 Completed [facility] Influenza Virus Vaccine - Whole 2011-11-10 00:00:00 Completed [facility] Influenza Virus Vaccine - Whole 2011-11-10 00:00:00 Completed [facility] Influenza Virus Vaccine - Whole 2011-11-10 00:00:00 Completed [facility] Influenza Virus Vaccine - Whole 2011-11-10 00:00:00 Completed [facility] Influenza Virus Vaccine - Whole 2011-11-10 00:00:00 Completed [facility] Influenza Virus Vaccine - Whole 2011-11-10 00:00:00 Completed [facility] Influenza Virus Vaccine - Whole 2011-11-10 00:00:00 Completed [facility] Influenza Virus Vaccine Nasal 2010-11-25 00:00:00 Completed [facility] Influenza Virus Vaccine Nasal 2010-11-25 00:00:00 Completed [facility] Influenza Virus Vaccine Nasal 2010-11-25 00:00:00 Completed [facility] Influenza Virus Vaccine Nasal 2010-11-25 00:00:00 Completed [facility] Influenza Virus Vaccine Nasal 2010-11-25 00:00:00 Completed [facility] Influenza Virus Vaccine Nasal 2010-11-25 00:00:00 Completed [facility] Influenza Virus Vaccine Nasal 2010-11-25 00:00:00 Completed [facility] Influenza Virus Vaccine Nasal 2010-11-25 00:00:00 Completed [facility] Influenza Virus Vaccine Nasal 2010-11-25 00:00:00 Completed [facility] Influenza Virus Vaccine Nasal 2010-11-25 00:00:00 Completed [facility] Influenza Virus Vaccine Nasal 2010-11-25 00:00:00 Completed [facility] Flu Trivalent 2010-02-24 00:00:00 Completed [facility] Flu Trivalent 2010-02-24 00:00:00 Completed [facility] Flu Trivalent 2010-02-24 00:00:00 Completed [facility] Flu Trivalent 2010-02-24 00:00:00 Completed [facility] Flu Trivalent 2010-02-24 00:00:00 Completed [facility] Flu Trivalent 2010-02-24 00:00:00 Completed [facility] Flu Trivalent 2010-02-24 00:00:00 Completed [facility] Flu Trivalent 2010-02-24 00:00:00 Completed [facility] Flu Trivalent 2010-02-24 00:00:00 Completed [facility] Flu Trivalent 2010-02-24 00:00:00 Completed [facility] Flu Trivalent 2010-02-24 00:00:00 Completed [facility] Influenza Virus Vaccine Nasal 2008-11-23 00:00:00 Completed [facility] Influenza Virus Vaccine Nasal 2008-11-23 00:00:00 Completed [facility] Influenza Virus Vaccine Nasal 2008-11-23 00:00:00 Completed [facility] Influenza Virus Vaccine Nasal 2008-11-23 00:00:00 Completed [facility] Influenza Virus Vaccine Nasal 2008-11-23 00:00:00 Completed [facility] Influenza Virus Vaccine Nasal 2008-11-23 00:00:00 Completed [facility] Influenza Virus Vaccine Nasal 2008-11-23 00:00:00 Completed [facility] Influenza Virus Vaccine Nasal 2008-11-23 00:00:00 Completed [facility] Influenza Virus Vaccine Nasal 2008-11-23 00:00:00 Completed [facility] Influenza Virus Vaccine Nasal 2008-11-23 00:00:00 Completed [facility] Influenza Virus Vaccine Nasal 2008-11-23 00:00:00 Completed [facility] HPV 2008-04-28 00:00:00 Completed [facility] HPV 2008-04-28 00:00:00 Completed [facility] HPV 2008-04-28 00:00:00 Completed [facility] HPV 2008-04-28 00:00:00 Completed [facility] HPV 2008-04-28 00:00:00 Completed [facility] HPV 2008-04-28 00:00:00 Completed [facility] HPV 2008-04-28 00:00:00 Completed [facility] HPV 2008-04-28 00:00:00 Completed [facility] HPV 2008-04-28 00:00:00 Completed [facility] HPV 2008-04-28 00:00:00 Completed [facility] HPV 2008-04-28 00:00:00 Completed [facility] HPV 2008-04-28 00:00:00 Completed [facility] HPV 2008-04-28 00:00:00 Completed [facility] HPV 2008-04-28 00:00:00 Completed [facility] HPV 2008-04-28 00:00:00 Completed [facility] HPV 2008-04-28 00:00:00 Com[facility] HPV 2008-04-28 00:00:00 Completed [facility] HPV 2007-12-02 00:00:00 Completed [facility] HPV 2007-12-02 00:00:00 Completed [facility] HPV 2007-12-02 00:00:00 Completed [facility] HPV 2007-12-02 00:00:00 Completed [facility] HPV 2007-12-02 00:00:00 Completed [facility] HPV 2007-12-02 00:00:00 Completed [facility] HPV 2007-12-02 00:00:00 Completed [facility] Influenza Virus Vaccine - Whole 2007-12-02 00:00:00 Completed [facility] HPV 2007-12-02 00:00:00 Com[facility] Influenza Virus Vaccine - Whole 2007-12-02 00:00:00 Completed [facility] HPV 2007-12-02 00:00:00 Com[facility] Influenza Virus Vaccine - Whole 2007-12-02 00:00:00 Completed [facility] HPV 2007-12-02 00:00:00 Com[facility] Influenza Virus Vaccine - Whole 2007-12-02 00:00:00 Completed [facility] HPV 2007-12-02 00:00:00 Com[facility] Influenza Virus Vaccine - Whole 2007-12-02 00:00:00 Completed [facility] HPV 2007-12-02 00:00:00 Com[facility] Influenza Virus Vaccine - Whole 2007-12-02 00:00:00 Completed [facility] HPV 2007-12-02 00:00:00 Com[facility] Influenza Virus Vaccine - Whole 2007-12-02 00:00:00 Completed [facility] HPV 2007-12-02 00:00:00 Com[facility] Influenza Virus Vaccine - Whole 2007-12-02 00:00:00 Completed [facility] HPV 2007-12-02 00:00:00 Com[facility] Influenza Virus Vaccine - Whole 2007-12-02 00:00:00 Completed [facility] HPV 2007-12-02 00:00:00 Com[facility] Influenza Virus Vaccine - Whole 2007-12-02 00:00:00 Completed [facility] HPV 2007-12-02 00:00:00 Com[facility] Influenza Virus Vaccine - Whole 2007-12-02 00:00:00 Completed [facility] HPV 2007-05-23 00:00:00 Completed [facility] HPV 2007-05-23 00:00:00 Com[facility] HPV 2007-05-23 00:00:00 Completed [facility] HPV 2007-05-23 00:00:00 Completed [facility] HPV 2007-05-23 00:00:00 Com[facility] HPV 2007-05-23 00:00:00 Com[facility] HPV 2007-05-23 00:00:00 [facility]pleted [facility] TDAP 2007-05-23 00:00:00 Completed [facility] Meningococcal Polysaccharide (groups A, C, Y and W-135) conjugate vaccine (MCV4P) 2007-05-23 00:00:00 Completed [facility] HPV 2007-05-23 00:00:00 Completed [facility] TDAP 2007-05-23 00:00:00 Completed [facility] Meningococcal Polysaccharide (groups A, C, Y and W-135) conjugate vaccine (MCV4P) 2007-05-23 00:00:00 Completed [facility] HPV 2007-05-23 00:00:00 Completed [facility] TDAP 2007-05-23 00:00:00 Completed [facility] Meningococcal Polysaccharide (groups A, C, Y and W-135) conjugate vaccine (MCV4P) 2007-05-23 00:00:00 Completed [facility] HPV 2007-05-23 00:00:00 Completed [facility] TDAP 2007-05-23 00:00:00 Completed [facility] Meningococcal Polysaccharide (groups A, C, Y and W-135) conjugate vaccine (MCV4P) 2007-05-23 00:00:00 Completed [facility] HPV 2007-05-23 00:00:00 Completed [facility] TDAP 2007-05-23 00:00:00 Completed [facility] Meningococcal Polysaccharide (groups A, C, Y and W-135) conjugate vaccine (MCV4P) 2007-05-23 00:00:00 Completed [facility] HPV 2007-05-23 00:00:00 Completed [facility] TDAP 2007-05-23 00:00:00 Completed [facility] Meningococcal Polysaccharide (groups A, C, Y and W-135) conjugate vaccine (MCV4P) 2007-05-23 00:00:00 Completed [facility] HPV 2007-05-23 00:00:00 Completed [facility] TDAP 2007-05-23 00:00:00 Completed [facility] Meningococcal Polysaccharide (groups A, C, Y and W-135) conjugate vaccine (MCV4P) 2007-05-23 00:00:00 Completed [facility] HPV 2007-05-23 00:00:00 Completed [facility] TDAP 2007-05-23 00:00:00 Completed [facility] Meningococcal Polysaccharide (groups A, C, Y and W-135) conjugate vaccine (MCV4P) 2007-05-23 00:00:00 Completed [facility] HPV 2007-05-23 00:00:00 Completed [facility] TDAP 2007-05-23 00:00:00 Completed [facility] Meningococcal Polysaccharide (groups A, C, Y and W-135) conjugate vaccine (MCV4P) 2007-05-23 00:00:00 Completed [facility] HPV 2007-05-23 00:00:00 Completed [facility] TDAP 2007-05-23 00:00:00 Completed [facility] Meningococcal Polysaccharide (groups A, C, Y and W-135) conjugate vaccine (MCV4P) 2007-05-23 00:00:00 Completed [facility] HPV 2007-05-23 00:00:00 Completed [facility] TDAP 2007-05-23 00:00:00 Completed [facility] Meningococcal Polysaccharide (groups A, C, Y and W-135) conjugate vaccine (MCV4P) 2007-05-23 00:00:00 Completed [facility] Varicella (varivax)(chicken pox) 2006-06-25 00:00:00 Completed [facility] HEPATITIS A 2006-06-25 00:00:00 Completed [facility] Varicella (varivax)(chicken pox) 2006-06-25 00:00:00 Completed [facility] HEPATITIS A 2006-06-25 00:00:00 Completed [facility] Varicella (varivax)(chicken pox) 2006-06-25 00:00:00 Completed [facility] HEPATITIS A 2006-06-25 00:00:00 Completed [facility] Varicella (varivax)(chicken pox) 2006-06-25 00:00:00 Completed [facility] HEPATITIS A 2006-06-25 00:00:00 Completed [facility] Varicella (varivax)(chicken pox) 2006-06-25 00:00:00 Completed [facility] HEPATITIS A 2006-06-25 00:00:00 Completed [facility] Varicella (varivax)(chicken pox) 2006-06-25 00:00:00 Completed [facility] HEPATITIS A 2006-06-25 00:00:00 Completed [facility] Varicella (varivax)(chicken pox) 2006-06-25 00:00:00 Completed [facility] HEPATITIS A 2006-06-25 00:00:00 Completed [facility] Varicella (varivax)(chicken pox) 2006-06-25 00:00:00 Completed [facility] HEPATITIS A 2006-06-25 00:00:00 Completed [facility] Varicella (varivax)(chicken pox) 2006-06-25 00:00:00 Completed [facility] HEPATITIS A 2006-06-25 00:00:00 Completed [facility] Varicella (varivax)(chicken pox) 2006-06-25 00:00:00 Completed [facility] HEPATITIS A 2006-06-25 00:00:00 Completed [facility] Varicella (varivax)(chicken pox) 2006-06-25 00:00:00 Completed [facility] HEPATITIS A 2006-06-25 00:00:00 [facility] DT/Tetanus 2004-01-20 00:00:00 [facility]pleted [facility] DT/Tetanus 2004-01-20 00:00:00 Completed [facility] DT/Tetanus 2004-01-20 00:00:00 Completed [facility] DT/Tetanus 2004-01-20 00:00:00 Completed [facility] DT/Tetanus 2004-01-20 00:00:00 Completed [facility] DT/Tetanus 2004-01-20 00:00:00 Completed [facility] DT/Tetanus 2004-01-20 00:00:00 Completed [facility] DT/Tetanus 2004-01-20 00:00:00 Completed [facility] DT/Tetanus 2004-01-20 00:00:00 Completed [facility] DT/Tetanus 2004-01-20 00:00:00 Completed [facility] DT/Tetanus 2004-01-20 00:00:00 Completed [facility] MMR 1996-12-12 00:00:00 Completed [facility] Poliovirus, Live, Oral, Trivalent 1996-12-12 00:00:00 Completed [facility] Haemophilus influenzae type b vaccine, conjugate unspecified formulation 1996-12-12 00:00:00 Completed [facility] DTaP, Unspecified Formulation 1996-12-12 00:00:00 Completed [facility] MMR 1996-12-12 00:00:00 Completed [facility] Poliovirus, Live, Oral, Trivalent 1996-12-12 00:00:00 Completed [facility] Haemophilus influenzae type b vaccine, conjugate unspecified formulation 1996-12-12 00:00:00 Completed [facility] DTaP, Unspecified Formulation 1996-12-12 00:00:00 Completed [facility] MMR 1996-12-12 00:00:00 Completed [facility] Poliovirus, Live, Oral, Trivalent 1996-12-12 00:00:00 Completed [facility] Haemophilus influenzae type b vaccine, conjugate unspecified formulation 1996-12-12 00:00:00 Completed [facility] DTaP, Unspecified Formulation 1996-12-12 00:00:00 Completed [facility] MMR 1996-12-12 00:00:00 Com[facility] Poliovirus, Live, Oral, T[facility] 1996-12-12 00:00:00 [facility] Haemophilus influenzae type b vaccine, conjugate unspecified formulation 1996-12-12 00:00:00 [facility]pleted [facility] DTaP, Unspecified Formulation 1996-12-12 00:00:00 Completed [facility] MMR 1996-12-12 00:00:00 Completed [facility] Poliovirus, Live, Oral, Trivalent 1996-12-12 00:00:00 Completed [facility] Haemophilus influenzae type b vaccine, conjugate unspecified formulation 1996-12-12 00:00:00 Completed [facility] DTaP, Unspecified Formulation 1996-12-12 00:00:00 Completed [facility] MMR 1996-12-12 00:00:00 Completed [facility] Poliovirus, Live, Oral, Trivalent 1996-12-12 00:00:00 Completed [facility] Haemophilus influenzae type b vaccine, conjugate unspecified formulation 1996-12-12 00:00:00 Completed [facility] DTaP, Unspecified Formulation 1996-12-12 00:00:00 Completed [facility] MMR 1996-12-12 00:00:00 Completed [facility] Poliovirus, Live, Oral, Trivalent 1996-12-12 00:00:00 Completed [facility] Haemophilus influenzae type b vaccine, conjugate unspecified formulation 1996-12-12 00:00:00 Completed [facility] DTaP, Unspecified Formulation 1996-12-12 00:00:00 Completed [facility] MMR 1996-12-12 00:00:00 Completed [facility] Poliovirus, Live, Oral, Trivalent 1996-12-12 00:00:00 Completed [facility] Haemophilus influenzae type b vaccine, conjugate unspecified formulation 1996-12-12 00:00:00 Completed [facility] DTaP, Unspecified Formulation 1996-12-12 00:00:00 Completed [facility] MMR 1996-12-12 00:00:00 Completed [facility] Poliovirus, Live, Oral, Trivalent 1996-12-12 00:00:00 Completed [facility] Haemophilus influenzae type b vaccine, conjugate unspecified formulation 1996-12-12 00:00:00 Completed [facility] DTaP, Unspecified Formulation 1996-12-12 00:00:00 Completed [facility] MMR 1996-12-12 00:00:00 Completed [facility] Poliovirus, Live, Oral, Trivalent 1996-12-12 00:00:00 Completed [facility] Haemophilus influenzae type b vaccine, conjugate unspecified formulation 1996-12-12 00:00:00 Completed [facility] DTaP, Unspecified Formulation 1996-12-12 00:00:00 Completed [facility] MMR 1996-12-12 00:00:00 Completed [facility] Poliovirus, Live, Oral, Trivalent 1996-12-12 00:00:00 Completed [facility] Haemophilus influenzae type b vaccine, conjugate unspecified formulation 1996-12-12 00:00:00 Completed [facility] DTaP, Unspecified Formulation 1996-12-12 00:00:00 Completed [facility] Poliovirus, Live, Oral, Trivalent 1996-10-10 00:00:00 Completed [facility] Haemophilus influenzae type b vaccine, conjugate unspecified formulation 1996-10-10 00:00:00 Completed [facility] Hep B, Adol or Pedi Dosage 1996-10-10 00:00:00 Completed [facility] Poliovirus, Live, Oral, Trivalent 1996-10-10 00:00:00 Completed [facility] Haemophilus influenzae type b vaccine, conjugate unspecified formulation 1996-10-10 00:00:00 Completed [facility] Hep B, Adol or Pedi Dosage 1996-10-10 00:00:00 Completed [facility] Poliovirus, Live, Oral, Trivalent 1996-10-10 00:00:00 Completed [facility] Haemophilus influenzae type b vaccine, conjugate unspecified formulation 1996-10-10 00:00:00 Completed [facility] Hep B, Adol or Pedi Dosage 1996-10-10 00:00:00 Completed [facility] Poliovirus, Live, Oral, Trivalent 1996-10-10 00:00:00 Completed [facility] Haemophilus influenzae type b vaccine, conjugate unspecified formulation 1996-10-10 00:00:00 Completed [facility] Hep B, Adol or Pedi Dosage 1996-10-10 00:00:00 Completed [facility] Poliovirus, Live, Oral, Trivalent 1996-10-10 00:00:00 Completed [facility] Haemophilus influenzae type b vaccine, conjugate unspecified formulation 1996-10-10 00:00:00 Completed [facility] Hep B, Adol or Pedi Dosage 1996-10-10 00:00:00 Completed [facility] Poliovirus, Live, Oral, Trivalent 1996-10-10 00:00:00 Completed [facility] Haemophilus influenzae type b vaccine, conjugate unspecified formulation 1996-10-10 00:00:00 Completed [facility] Hep B, Adol or Pedi Dosage 1996-10-10 00:00:00 Completed [facility] Poliovirus, Live, Oral, Trivalent 1996-10-10 00:00:00 Completed [facility] Haemophilus influenzae type b vaccine, conjugate unspecified formulation 1996-10-10 00:00:00 Completed [facility] Hep B, Adol or Pedi Dosage 1996-10-10 00:00:00 Completed [facility] Poliovirus, Live, Oral, Trivalent 1996-10-10 00:00:00 Completed [facility] Haemophilus influenzae type b vaccine, conjugate unspecified formulation 1996-10-10 00:00:00 Completed [facility] Hep B, Adol or Pedi Dosage 1996-10-10 00:00:00 Completed [facility] Poliovirus, Live, Oral, Trivalent 1996-10-10 00:00:00 Completed [facility] Haemophilus influenzae type b vaccine, conjugate unspecified formulation 1996-10-10 00:00:00 Completed [facility] Hep B, Adol or Pedi Dosage 1996-10-10 00:00:00 Completed [facility] Poliovirus, Live, Oral, Trivalent 1996-10-10 00:00:00 Completed [facility] Haemophilus influenzae type b vaccine, conjugate unspecified formulation 1996-10-10 00:00:00 Completed [facility] Hep B, Adol or Pedi Dosage 1996-10-10 00:00:00 Completed [facility] Poliovirus, Live, Oral, Trivalent 1996-10-10 00:00:00 Completed [facility] Haemophilus influenzae type b vaccine, conjugate unspecified formulation 1996-10-10 00:00:00 Completed [facility] Hep B, Adol or Pedi Dosage 1996-10-10 00:00:00 Completed [facility] Poliovirus, Live, Oral, Trivalent 1996-02-11 00:00:00 Completed [facility] Hep B, Unspecified Formulation 1996-02-11 00:00:00 Completed [facility] DPT/HIB 1996-02-11 00:00:00 Completed [facility] Poliovirus, Live, Oral, Trivalent 1996-02-11 00:00:00 Completed [facility] Hep B, Unspecified Formulation 1996-02-11 00:00:00 Completed [facility] DPT/HIB 1996-02-11 00:00:00 Completed [facility] Poliovirus, Live, Oral, Trivalent 1996-02-11 00:00:00 Completed [facility] Hep B, Unspecified Formulation 1996-02-11 00:00:00 Completed [facility] DPT/HIB 1996-02-11 00:00:00 Completed [facility] Poliovirus, Live, Oral, Trivalent 1996-02-11 00:00:00 Completed [facility] Hep B, Unspecified Formulation 1996-02-11 00:00:00 Completed [facility] DPT/HIB 1996-02-11 00:00:00 Completed [facility] Poliovirus, Live, Oral, Trivalent 1996-02-11 00:00:00 Completed [facility] Hep B, Unspecified Formulation 1996-02-11 00:00:00 Completed [facility] DPT/HIB 1996-02-11 00:00:00 Completed [facility] Poliovirus, Live, Oral, Trivalent 1996-02-11 00:00:00 Completed [facility] Hep B, Unspecified Formulation 1996-02-11 00:00:00 Completed [facility] DPT/HIB 1996-02-11 00:00:00 Completed [facility] Poliovirus, Live, Oral, Trivalent 1996-02-11 00:00:00 Completed [facility] Hep B, Unspecified Formulation 1996-02-11 00:00:00 Completed [facility] DPT/HIB 1996-02-11 00:00:00 Completed [facility] Poliovirus, Live, Oral, Trivalent 1996-02-11 00:00:00 Completed [facility] Hep B, Unspecified Formulation 1996-02-11 00:00:00 Completed [facility] DPT/HIB 1996-02-11 00:00:00 Completed [facility] Poliovirus, Live, Oral, Trivalent 1996-02-11 00:00:00 Completed [facility] Hep B, Unspecified Formulation 1996-02-11 00:00:00 Completed [facility] DPT/HIB 1996-02-11 00:00:00 Completed [facility] Poliovirus, Live, Oral, Trivalent 1996-02-11 00:00:00 Completed [facility] Hep B, Unspecified Formulation 1996-02-11 00:00:00 Completed [facility] DPT/HIB 1996-02-11 00:00:00 Completed [facility] Poliovirus, Live, Oral, Trivalent 1996-02-11 00:00:00 Completed [facility] Hep B, Unspecified Formulation 1996-02-11 00:00:00 Completed [facility] DPT/HIB 1996-02-11 00:00:00 Completed [facility] Hep B, Unspecified Formulation 1995 00:00:00 Completed [facility] Hep B, Unspecified Formulation 1995 00:00:00 Completed [facility] Hep B, Unspecified Formulation 1995 00:00:00 Completed [facility] Hep B, Unspecified Formulation 1995 00:00:00 Completed [facility] Hep B, Unspecified Formulation 1995 00:00:00 Completed [facility] Hep B, Unspecified Formulation 1995 00:00:00 Completed [facility] Hep B, Unspecified Formulation 1995 00:00:00 Completed [facility] Hep B, Unspecified Formulation 1995 00:00:00 Completed [facility] Hep B, Unspecified Formulation 1995 00:00:00 Completed [facility] Hep B, Unspecified Formulation 1995 00:00:00 Completed [facility] Hep B, Unspecified Formulation 1995 00:00:00 Completed [facility] Influenza Virus Vaccine Quad .5 mL IM 6+ MO (FLUZONE/FLULAVAL/FL UARIX) Unknown Completed [facility] TDAP (ADACEL) VACCINE Unknown Completed [facility] TDAP Unknown Completed [facility] TDAP Unknown Completed [facility] HPV Unknown Completed [facility] HPV Unknown Completed [facility] HPV Unknown Completed [facility] MMR Unknown Completed [facility] Poliovirus, Live, Oral, Trivalent Unknown Completed [facility] Poliovirus, Live, Oral, Trivalent Unknown Completed [facility] Poliovirus, Live, Oral, Trivalent Unknown Completed [facility] Varicella (varivax)(chicken pox) Unknown Completed [facility] TDAP Unknown Completed [facility] Meningococcal Polysaccharide (groups A, C, Y and W-135) conjugate vaccine (MCV4P) Unknown Completed [facility] Meningococcal Polysaccharide (groups A, C, Y and W-135) conjugate vaccine (MCV4P) Unknown Completed [facility] Haemophilus influenzae type b vaccine, conjugate unspecified formulation Unknown Completed [facility] Haemophilus influenzae type b vaccine, conjugate unspecified formulation Unknown Completed [facility] Hep B, Adol or Pedi Dosage Unknown Completed [facility] Hep B, Unspecified Formulation Unknown Completed [facility] Hep B, Unspecified Formulation Unknown Completed [facility] HEPATITIS A Unknown Completed [facility] Influenza Virus Vaccine Nasal Unknown Completed [facility] Influenza Virus Vaccine Nasal Unknown Completed [facility] Influenza Virus Vaccine Nasal Unknown Completed [facility] Influenza Virus Vaccine - Whole Unknown Completed [facility] Influenza Virus Vaccine - Whole Unknown Completed [facility] Flu Trivalent Unknown Completed [facility] DTaP, Unspecified Formulation Unknown Completed [facility] DT/Tetanus Unknown Completed [facility] DPT/HIB Unknown Completed [facility] Influenza Virus Vaccine Quad .5 mL IM 6+ MO (FLUZONE/FLULAVAL/FL UARIX) Unknown Completed [facility] TDAP (ADACEL) VACCINE Unknown Completed [facility] TDAP Unknown Completed [facility] TDAP Unknown Completed [facility] HPV Unknown Completed [facility] HPV Unknown Completed [facility] HPV Unknown Completed [facility] MMR Unknown Completed [facility] Poliovirus, Live, Oral, Trivalent Unknown Completed [facility] Poliovirus, Live, Oral, Trivalent Unknown Completed [facility] Poliovirus, Live, Oral, Trivalent Unknown Completed [facility] Varicella (varivax)(chicken pox) Unknown Completed [facility] TDAP Unknown Completed [facility] Meningococcal Polysaccharide (groups A, C, Y and W-135) conjugate vaccine (MCV4P) Unknown Completed [facility] Meningococcal Polysaccharide (groups A, C, Y and W-135) conjugate vaccine (MCV4P) Unknown Completed [facility] Haemophilus influenzae type b vaccine, conjugate unspecified formulation Unknown Completed [facility] Haemophilus influenzae type b vaccine, conjugate unspecified formulation Unknown Completed [facility] Hep B, Adol or Pedi Dosage Unknown Completed [facility] Hep B, Unspecified Formulation Unknown Completed [facility] Hep B, Unspecified Formulation Unknown Completed [facility] HEPATITIS A Unknown Completed [facility] Influenza Virus Vaccine Nasal Unknown Completed [facility] Influenza Virus Vaccine Nasal Unknown Completed [facility] Influenza Virus Vaccine Nasal Unknown Completed [facility] Influenza Virus Vaccine - Whole Unknown Completed [facility] Influenza Virus Vaccine - Whole Unknown Completed [facility] Flu Trivalent Unknown Completed [facility] DTaP, Unspecified Formulation Unknown Completed [facility] DT/Tetanus Unknown Completed [facility] DPT/HIB Unknown Completed [facility] Influenza Virus Vaccine Quad .5 mL IM 6+ MO (FLUZONE/FLULAVAL/FL UARIX) Unknown Completed [facility] TDAP (ADACEL) VACCINE Unknown Completed [facility] TDAP Unknown Completed [facility] HPV Unknown Completed [facility] HPV Unknown Completed [facility] HPV Unknown Completed [facility] MMR Unknown Completed [facility] Poliovirus, Live, Oral, Trivalent Unknown Completed [facility] Poliovirus, Live, Oral, Trivalent Unknown Completed [facility] Poliovirus, Live, Oral, Trivalent Unknown Completed [facility] Varicella (varivax)(chicken pox) Unknown Completed [facility] TDAP Unknown Completed [facility] Meningococcal Polysaccharide (groups A, C, Y and W-135) conjugate vaccine (MCV4P) Unknown Completed [facility] Meningococcal Polysaccharide (groups A, C, Y and W-135) conjugate vaccine (MCV4P) Unknown Completed [facility] Haemophilus influenzae type b vaccine, conjugate unspecified formulation Unknown Completed [facility] Haemophilus influenzae type b vaccine, conjugate unspecified formulation Unknown Completed [facility] Hep B, Adol or Pedi Dosage Unknown Completed [facility] Hep B, Unspecified Formulation Unknown Completed [facility] Hep B, Unspecified Formulation Unknown Completed [facility] HEPATITIS A Unknown Completed [facility] Influenza Virus Vaccine Nasal Unknown Completed [facility] Influenza Virus Vaccine Nasal Unknown Completed [facility] Influenza Virus Vaccine Nasal Unknown Completed [facility] Influenza Virus Vaccine - Whole Unknown Completed [facility] Influenza Virus Vaccine - Whole Unknown Completed [facility] Flu Trivalent Unknown Completed [facility] DTaP, Unspecified Formulation Unknown Completed [facility] DT/Tetanus Unknown Completed [facility] DPT/HIB Unknown Completed [facility] Vital Signs Vital Name Observation Time Observation Value Comments S ource Systolic blood pressure 2022-07-27 18:47:00 135 mm[Hg] [facility] Diastolic blood pressure 2022-07-27 18:47:00 72 mm[Hg] [facility] Heart rate 2022-07-27 18:47:00 98 /min [facility] Body temperature 2022-07-27 18:47:00 35.61 [facility] Respiratory rate 2022-07-27 18:47:00 16 /min [facility] Body height 2022-07-27 18:47:00 165.1 cm [facility] Body weight 2022-07-27 18:47:00 124.059 kg [facility] BMI 2022-07-27 18:47:00 45.51 kg/m2 [facility] Oxygen saturation in Arterial blood by Pulse oximetry 2022-07-12 17:45:00 96 /min [facility] Systolic blood pressure 2022-07-12 17:30:00 130 mm[Hg] [facility] Diastolic blood pressure 2022-07-12 17:30:00 84 mm[Hg] [facility] Respiratory rate 2022-07-12 17:30:00 13 /min [facility] Heart rate 2022-07-12 16:10:00 77 /min [facility] Body temperature 2022-07-12 16:10:00 36.22 [facility] Body height 2022-07-12 12:39:00 165.1 cm [facility] Body weight 2022-07-12 12:39:00 123.8 kg [facility] BMI 2022-07-12 12:39:00 45.42 kg/m2 [facility] Respiratory rate 2022-07-12 13:05:00 18 /min [facility] Systolic blood pressure 2022-07-12 12:39:00 135 mm[Hg] [facility] Diastolic blood pressure 2022-07-12 12:39:00 85 mm[Hg] [facility] Heart rate 2022-07-12 12:39:00 88 /min [facility] Body temperature 2022-07-12 12:39:00 36.94 [facility] Body height 2022-07-12 12:39:00 [facility] 2022-07-12 12:39:00 123.8 kg [facility] BMI 2022-07-12 12:39:00 45.42 kg/m2 [facility] Oxygen saturation in Arterial blood by Pulse oximetry 2022-07-12 12:39:00 98 /min [facility] Systolic blood pressure 2022-05-23 18:59:00 120 mm[Hg] [facility] Diastolic blood pressure 2022-05-23 18:59:00 69 mm[Hg] [facility] Heart rate 2022-05-23 18:59:00 85 /min [facility] Body temperature 2022-05-23 18:59:00 36.11 [facility] Body height 2022-05-23 18:59:00 165.1 cm [facility] Body weight 2022-05-23 18:59:00 123.923 kg [facility] BMI 2022-05-23 18:59:00 45.46 kg/m2 [facility] Systolic blood pressure 2022-05-08 20:43:00 120 mm[Hg] [facility] Diastolic blood pressure 2022-05-08 20:43:00 58 mm[Hg] [facility] Heart rate 2022-05-08 20:43:00 88 /min [facility] Body temperature 2022-05-08 20:43:00 36.33 [facility] Respiratory rate 2022-05-08 20:43:00 18 /min [facility] Body height 2022-05-08 20:43:00 165.1 cm [facility] Body weight 2022-05-08 20:43:00 125.374 kg [facility] BMI 2022-05-08 20:43:00 46.00 kg/m2 [facility] Systolic blood pressure 2022-03-30 21:49:00 119 mm[Hg] [facility] Diastolic blood pressure 2022-03-30 21:49:00 70 mm[Hg] [facility] Heart rate 2022-03-30 21:49:00 83 /min [facility] Body temperature 2022-03-30 21:49:00 36.22 [facility] Respiratory rate 2022-03-30 21:49:00 18 /min [facility] Body weight 2022-03-30 21:49:00 123.968 kg [facility] BMI 2022-03-30 21:49:00 45.48 kg/m2 [facility] Systolic blood pressure 2022-02-28 22:15:00 133 mm[Hg] [facility] Diastolic blood pressure 2022-02-28 22:15:00 77 mm[Hg] [facility] Heart rate 2022-02-28 22:15:00 93 /min [facility] Body temperature 2022-02-28 22:15:00 36.67 [facility] Respiratory rate 2022-02-28 22:15:00 20 /min [facility] Body height 2022-02-28 22:15:00 165.1 cm [facility] Body weight 2022-02-28 22:15:00 125.964 kg [facility] BMI 2022-02-28 22:15:00 46.21 kg/m2 [facility] Systolic blood pressure 2022-02-11 05:56:00 133 mm[Hg] [facility] Diastolic blood pressure 2022-02-11 05:56:00 88 mm[Hg] [facility] Heart rate 2022-02-11 05:56:00 96 /min [facility] Body temperature 2022-02-11 05:56:00 37 [facility] Respiratory rate 2022-02-11 05:56:00 20 /min [facility] Oxygen saturation in Arterial blood by Pulse oximetry 2022-02-11 05:56:00 99 /min [facility] Body weight 2022-02-09 12:00:00 130.182 kg [facility] BMI 2022-02-09 12:00:00 47.76 kg/m2 [facility] Heart rate 2022-02-09 14:00:00 109 /min [facility] Oxygen saturation in Arterial blood by Pulse oximetry 2022-02-09 14:00:00 98 /min [facility] Systolic blood pressure 2022-02-09 12:44:00 138 mm[Hg] [facility] Diastolic blood pressure 2022-02-09 12:44:00 75 mm[Hg] [facility] Body temperature 2022-02-09 12:44:00 37.22 [facility] Respiratory rate 2022-02-09 12:44:00 16 /min [facility] Body weight 2022-02-09 12:00:00 130.182 kg [facility] BMI 2022-02-09 12:00:00 47.76 kg/m2 [facility] Systolic blood pressure 2022-01-10 19:13:00 123 mm[Hg] [facility] Diastolic blood pressure 2022-01-10 19:13:00 78 mm[Hg] [facility] Heart rate 2022-01-10 19:13:00 103 /min [facility] Body temperature 2022-01-10 19:13:00 36.78 [facility] Respiratory rate 2022-01-10 19:13:00 20 /min [facility] Body height 2022-01-10 19:13:00 165.1 cm [facility] Body weight 2022-01-10 19:13:00 130.182 kg [facility] BMI 2022-01-10 19:13:00 47.76 kg/m2 [facility] Systolic blood pressure 2021-12-29 20:00:00 128 mm[Hg] [facility] Diastolic blood pressure 2021-12-29 20:00:00 81 mm[Hg] [facility] Heart rate 2021-12-29 20:00:00 107 /min [facility] Body temperature 2021-12-29 20:00:00 36.61 [facility] Respiratory rate 2021-12-29 20:00:00 18 /min [facility] Body height 2021-12-29 20:00:00 165.1 cm [facility] Body weight 2021-12-29 20:00:00 128.005 kg [facility] BMI 2021-12-29 20:00:00 46.96 kg/m2 [facility] Systolic blood pressure 2021-12-08 13:19:00 123 mm[Hg] [facility] Diastolic blood pressure 2021-12-08 13:19:00 87 mm[Hg] [facility] Heart rate 2021-12-08 13:19:00 105 /min [facility] Body temperature 2021-12-08 13:19:00 36.28 [facility] Respiratory rate 2021-12-08 13:19:00 16 /min [facility] Body height 2021-12-08 13:19:00 165.1 cm [facility] Body weight 2021-12-08 13:19:00 125.828 kg [facility] BMI 2021-12-08 13:19:00 46.16 kg/m2 [facility] Systolic blood pressure 2021-09-14 19:47:00 111 mm[Hg] [facility] Diastolic blood pressure 2021-09-14 19:47:00 78 mm[Hg] [facility] Heart rate 2021-09-14 19:47:00 133 /min [facility] Body temperature 2021-09-14 19:47:00 37.56 [facility] Respiratory rate 2021-09-14 19:47:00 16 /min [facility] Body height 2021-09-14 19:47:00 165.1 cm [facility] Body weight 2021-09-14 19:47:00 116.756 kg [facility] BMI 2021-09-14 19:47:00 42.83 kg/m2 [facility] Systolic blood pressure 2021-08-16 19:24:00 119 mm[Hg] [facility] Diastolic blood pressure 2021-08-16 19:24:00 75 mm[Hg] [facility] Heart rate 2021-08-16 19:24:00 98 /min [facility] Body temperature 2021-08-16 19:24:00 37.11 [facility] Respiratory rate 2021-08-16 19:24:00 16 /min [facility] Body height 2021-08-16 19:24:00 165.1 cm [facility] Body weight 2021-08-16 19:24:00 118.298 kg [facility] BMI 2021-08-16 19:24:00 43.40 kg/m2 [facility] Systolic blood pressure 2021-08-16 19:24:00 119 mm[Hg] [facility] Diastolic blood pressure 2021-08-16 19:24:00 75 mm[Hg] [facility] Heart rate 2021-08-16 19:24:00 98 /min [facility] Body temperature 2021-08-16 19:24:00 37.11 [facility] Respiratory rate 2021-08-16 19:24:00 16 /min [facility] Body height 2021-08-16 19:24:00 165.1 cm [facility] Body weight 2021-08-16 19:24:00 118.298 kg [facility] BMI 2021-08-16 19:24:00 43.40 kg/m2 [facility] Systolic blood pressure 2020-09-08 20:04:00 119 mm[Hg] [facility] Diastolic blood pressure 2020-09-08 20:04:00 79 mm[Hg] [facility] Heart rate 2020-09-08 20:04:00 96 /min [facility] Body temperature 2020-09-08 20:04:00 36.78 [facility] Respiratory rate 2020-09-08 20:04:00 18 /min [facility] Body height 2020-09-08 20:04:00 165.1 cm [facility] Body weight 2020-09-08 20:04:00 112.22 kg [facility] BMI 2020-09-08 20:04:00 41.17 kg/m2 [facility] Systolic blood pressure 2020-07-28 20:15:00 125 mm[Hg] [facility] Diastolic blood pressure 2020-07-28 20:15:00 80 mm[Hg] [facility] Heart rate 2020-07-28 20:15:00 90 /min [facility] Body temperature 2020-07-28 20:15:00 37 [facility] Respiratory rate 2020-07-28 20:15:00 18 /min [facility] Body height 2020-07-28 20:15:00 165.1 cm [facility] Body weight 2020-07-28 20:15:00 108.682 kg [facility] BMI 2020-07-28 20:15:00 39.87 kg/m2 [facility] Systolic blood pressure 2020-06-30 16:01:00 122 mm[Hg] [facility] Diastolic blood pressure 2020-06-30 16:01:00 77 mm[Hg] [facility] Heart rate 2020-06-30 16:01:00 83 /min [facility] Body temperature 2020-06-30 16:01:00 36.72 [facility] Respiratory rate 2020-06-30 16:01:00 16 /min [facility] Body height 2020-06-30 16:01:00 165.1 cm [facility] Body weight 2020-06-30 16:01:00 109.135 kg [facility] BMI 2020-06-30 16:01:00 40.04 kg/m2 [facility] Systolic blood pressure 2019-07-10 15:53:00 121 mm[Hg] [facility] Diastolic blood pressure 2019-07-10 15:53:00 85 mm[Hg] [facility] Heart rate 2019-07-10 15:53:00 97 /min [facility] Body temperature 2019-07-10 15:53:00 36.89 [facility] Respiratory rate 2019-07-10 15:53:00 18 /min [facility] Body weight 2019-07-10 15:53:00 121.11 kg [facility] BMI 2019-07-10 15:53:00 44.43 [facility] 2019-07-10 15:53:00 121 mm[Hg] [facility] Diastolic blood pressure 2019-07-10 15:53:00 85 mm[Hg] [facility] Heart rate 2019-07-10 15:53:00 97 /min [facility] 2019-07-10 15:53:00 36.89 [facility] Respiratory rate 2019-07-10 15:53:00 18 /min [facility] Body weight 2019-07-10 15:53:00 121.11 kg [facility] BMI 2019-07-10 15:53:00 44.43 kg/m2 [facility] Systolic blood pressure 2019-06-19 18:08:00 130 mm[Hg] [facility] Diastolic blood pressure 2019-06-19 18:08:00 88 mm[Hg] [facility] Heart rate 2019-06-19 18:08:00 96 /min [facility] 2019-06-19 18:08:00 37 [facility] Respiratory rate 2019-06-19 18:08:00 18 /min [facility] Body weight 2019-06-19 18:08:00 127.007 kg [facility] BMI 2019-06-19 18:08:00 46.59 kg/m2 [facility] Systolic blood pressure 2019-06-19 18:08:00 130 mm[Hg] [facility] Diastolic blood pressure 2019-06-19 18:08:00 88 mm[Hg] [facility] Heart rate 2019-06-19 18:08:00 96 /min [facility] Body [facility] 2019-06-19 18:08:00 37 [facility] Respiratory rate 2019-06-19 18:08:00 18 /min [facility] Body weight 2019-06-19 18:08:00 127.007 [facility] 2019-06-19 18:08:00 46.59 kg/m2 [facility] Body temperature 2019-06-10 15:57:00 36.72 [facility] Body temperature 2019-06-10 15:57:00 36.72 [facility] Systolic blood pressure 2019-06-05 19:38:00 129 mm[Hg] [facility] Diastolic blood pressure 2019-06-05 19:38:00 87 mm[Hg] [facility] Heart rate 2019-06-05 19:38:00 105 /min [facility] Body temperature 2019-06-05 19:38:00 36.89 [facility] Respiratory rate 2019-06-05 19:38:00 18 /min [facility] Body height 2019-06-05 19:38:00 165.1 cm [facility] Body weight 2019-06-05 19:38:00 137.44 kg [facility] BMI 2019-06-05 19:38:00 50.42 kg/m2 [facility] Systolic blood pressure 2019-06-03 21:00:00 148 mm[Hg] [facility] Diastolic blood pressure 2019-06-03 21:00:00 91 mm[Hg] [facility] Heart rate 2019-06-03 21:00:00 116 /min [facility] Respiratory rate 2019-06-03 21:00:00 20 /min [facility] Oxygen saturation in Arterial blood by Pulse oximetry 2019-06-03 21:00:00 99 /min [facility] Body temperature 2019-06-03 20:54:00 36.78 [facility] Body weight 2019-06-03 20:54:00 132.904 kg [facility] BMI 2019-06-03 20:54:00 48.76 kg/m2 [facility] Systolic blood pressure 2019-05-29 20:24:00 132 mm[Hg] [facility] Diastolic blood pressure 2019-05-29 20:24:00 81 mm[Hg] [facility] Heart rate 2019-05-29 20:24:00 113 /min [facility] Body temperature 2019-05-29 20:24:00 36.89 [facility] Respiratory rate 2019-05-29 20:24:00 18 /min [facility] Body height 2019-05-29 20:24:00 165.1 cm [facility] Body weight 2019-05-29 20:24:00 135.172 kg [facility] BMI 2019-05-29 20:24:00 49.59 kg/m2 [facility] Systolic blood pressure 2019-05-23 20:38:00 122 mm[Hg] [facility] Diastolic blood pressure 2019-05-23 20:38:00 72 mm[Hg] [facility] Heart rate 2019-05-23 20:38:00 113 /min [facility] Body temperature 2019-05-23 20:38:00 36.83 [facility] Body weight 2019-05-23 20:38:00 132.904 kg [facility] BMI 2019-05-23 20:38:00 48.76 kg/m2 [facility] Systolic blood pressure 2019-05-08 18:41:00 129 mm[Hg] [facility] Diastolic blood pressure 2019-05-08 18:41:00 79 mm[Hg] [facility] Heart rate 2019-05-08 18:41:00 113 /min [facility] Body temperature 2019-05-08 18:41:00 36.67 [facility] Respiratory rate 2019-05-08 18:41:00 18 /min [facility] Body height 2019-05-08 18:41:00 165.1 cm [facility] Body weight 2019-05-08 18:41:00 126.372 kg [facility] BMI 2019-05-08 18:41:00 46.36 kg/m2 [facility] Systolic blood pressure 2019-04-04 22:03:00 130 mm[Hg] [facility] Diastolic blood pressure 2019-04-04 22:03:00 87 mm[Hg] [facility] Heart rate 2019-04-04 22:03:00 99 /min [facility] Body temperature 2019-04-04 22:03:00 36.72 [facility] Respiratory rate 2019-04-04 22:03:00 18 /min [facility] Body height 2019-04-04 22:03:00 165.1 cm [facility] Body weight 2019-04-04 22:03:00 117.935 kg [facility] BMI 2019-04-04 22:03:00 43.27 kg/m2 [facility] Systolic blood pressure 2019-03-21 22:42:00 120 mm[Hg] [facility] Diastolic blood pressure 2019-03-21 22:42:00 81 mm[Hg] [facility] Heart rate 2019-03-21 22:42:00 110 /min [facility] Body temperature 2019-03-21 22:42:00 36.83 [facility] Respiratory rate 2019-03-21 22:42:00 18 /min [facility] Body height 2019-03-21 22:42:00 165.1 cm [facility] Body weight 2019-03-21 22:42:00 113.853 kg [facility] BMI 2019-03-21 22:42:00 41.77 kg/m2 [facility] Procedures Procedure Date / Time Performed Performing Clinician Source LAPAROSCOPIC SALPINGECTOMY 2022-07-12 13:41:00 Daniel Aguilar [facility] DIAGNOSTIC LAPAROSCOPY 2022-07-12 13:41:00 Riaz Aguilar [facility] HB ABO GROUPING 2022-07-12 12:58:00 Bertram Hernandez [facility] HB ABO GROUPING 2022-07-12 12:58:00 Bertram Hernandez [facility] POCT TEST 2022-07-12 12:40:[address] [facility] POCT TEST 2022-07-12 12:40:[address] [facility] ASSIGNMENT OF BENEFITS 2022-07-12 12:29:40 Docto r Unassigned, [facility] DISCLOSURE AND CONSENT, MEDICAL AND SURGICAL PROCEDURES 2022-05-23 05:01:00 Doctor Unassigned, [facility] GC & CHLAMYDIA AMPLIFIED ASSAY 2022-03-30 22:14:00 Emmanuel Rabago [facility] HIV 1/2 AG-AB WITH REFLEX 2022-03-30 22:14:00 Emmanuel Rabago [facility] SYPHILIS IGG/IGM 2022-03-30 22:14:00 Sumanth [facility]ago [facility] CBC WITH DIFF 2022-02-10 10:19:00 Sarina Cornejo [facility] CBC WITH DIFF 2022-02-10 10:19:00 Sarina Cornejo [facility] VENOUS CORD GAS 2022-02-09 18:31:00 Judy Martinez [facility] VENOUS CORD GAS 2022-02-09 18:31:00 Judy Martinez [facility] SECTION 2022-02-09 16:24:00 Antwan Ingram [facility] SECTION 2022-02-09 16:24:00 Antwan Ingram [facility] CBC WITH DIFF 2022-02-09 13:25:00 [facility] HEPATITIS B SURFACE ANTIGEN 2022-02-09 13:25:00 [facility] - SYPHILIS IGG/IGM 2022-02-09 13:25:00 Judy [facility] CBC WITH DIFF 2022-02-09 13:25:00 Judy Martinez [facility] HEPATITIS B SURFACE ANTIGEN 2022-02-09 13:25:00 Juan Adena [facility] GALV ONLY - SYPHILIS IGG/IGM 2022-02-09 13:25:00 [facility] 2022-02-09 12:37:00 Judy Martinez [facility] RHO (D) IMMUNE GLOBULIN 2022-02-09 12:37:00 Ra dedrick Cornejo [facility] HB ABO GROUPING 2022-02-09 12:37:00 JuanJudy [facility] RHO (D) IMMUNE GLOBULIN 2022-02-09 12:37:00 Ra dedrick Cornejo [facility] POCT URINALYSIS 2022-01-10 19:15:00 Gin [facility] POCT URINALYSIS 2021-12-29 00:00:00 [facility] HOUR POST PRANDIAL 2021-12-08 14:20:[address] [facility] CBC WITH DIFF 2021-12-08 14:20:00 Bertram Quinonez [facility] TDAP VACCINE, >11 YRS, IM 2021-12-08 13:39:18 Bertram Quinonez [facility] POCT URINALYSIS 2021-12-08 00:00:00 Gin [facility] POCT URINALYSIS 2021-09-14 00:00:00 Gin [facility] QUAD SCRN 2021-08-16 20:53:00 Nicole Boland [facility] GLUCOSE 1 HOUR POST PRANDIAL 2021-08-16 20:52:00 [facility] DIFF 2021-08-16 20:52:00 Gin [facility] RUBELLA SCREEN IGG 2021-08-16 20:52:00 [facility] 2021-08-16 20:52:00 Gin [facility] HEPATITIS B SURFACE ANTIGEN 2021-08-16 20:52:00 Gin [facility] HIV 1/2 AG-AB WITH REFLEX 2021-08-16 20:52:00 Gin [facility] GALV ONLY - SYPHILIS IGG/IGM 2021-08-16 20:52:00 Gin [facility] HB ABO GROUPING 2021-08-16 20:49:00 Gin [facility] URINE CULTURE 2021-08-16 20:20:00 [facility] GC & CHLAMYDIA AMPLIFIED ASSAY 2021-08-16 20:20:00 [facility] PAP SMEAR-LIQUID BASED 2021-08-16 20:20:00 Gin [facility] PAP SMEAR-LIQUID BASED-CP 2021-08-16 20:20:00 [facility] PO[facility] 2021-08-16 00:00:00 Asya Bolandashmichel Handley [facility] POCT TEST 2021-08-16 00:00:00 Gin [facility] POCT URINALYSIS W/O SPECIFIC GRAVITY 2020-09-08 20:02:00 Adum, Patience [facility] SCANNED LAB RESULTS 2020-07-29 05:01:00 Doctor Cosme julio, [facility] TDAP VACCINE, >11 YRS, IM 2020-07-28 20:17:08 Adum, Patience [facility] POCT URINALYSIS W/O SPECIFIC GRAVITY 2020-07-28 00:00:00 Adum, Patience [facility] CBC WITH DIFF 2020-07-02 19:18:00 Adum, Patience Bella [facility] ASSIGNMENT OF BENEFITS 2020-07-02 18:02:33 Docto r Unassigned, [facility] POCT TEST 2020-06-30 16:00:00 Adum, Patience Bella [facility] POCT URINALYSIS W/O SPECIFIC GRAVITY 2020-06-30 15:59:00 Adum, Patience [facility] ASSIGNMENT OF BENEFITS 2019-07-10 16:59:19 Docto r Unassigned, [facility] POCT URINALYSIS W/O SPECIFIC GRAVITY 2019-07-10 00:00:00 Lisa [facility] POCT URINALYSIS W/O SPECIFIC GRAVITY 2019-06-05 00:00:00 Sloan [facility] POCT URINALYSIS W/O SPECIFIC GRAVITY 2019-05-29 00:00[facility] 2019-05-27 19:41:00 Sloan [facility] DSU PRE-OP 2019-05-23 05:01:00 Doctor Unass igned, [facility] POCT URINALYSIS W/O SPECIFIC GRAVITY 2019-05-08 00:00:00 Lisa, [facility] ADC / LCC - DRUG SCREEN TRIAGE 2019-04-04 22:48:00 Sloan [facility] POCT URINALYSIS W/O SPECIFIC GRAVITY 2019-04-04 00:00:00 Lisa, [facility] GLUCOSE 1 HOUR POST PRANDIAL 2019-03-26 21:52:00 Sloan [facility] CBC WITH DIFFERENTIAL 2019-03-26 21:52:00 Lisa [facility] ADC OR DANA ONLY - RPR 2019-03-26 21:52:00 Lisa, [facility] HIV 1/2 AG-AB WITH REFLEX 2019-03-26 21:52:00 Sloan [facility] HB ABO GROUPING 2019-03-26 21:00:[address] [facility] ASSIGNMENT OF BENEFITS 2019-03-26 20:30:45 Docto r Unassigned, [facility] TDAP (ADACEL) IMMUNIZATION 2019-03-21 22:45:02 Lisa, [facility] Encounters Start Date/Time End Date/Time Encounter Type Admission Type Attending Clinicians Care Facility Care Department Encounter ID Source 2020-12-16 18:13:48 Outpatient P [facility] [id number] [facility] 2020-12-16 18:00:22 Emergency [facility] [id number] [facility] 2022-08-08 13:30:00 2022-08-08 13:30:00 Outpatient R [facility] [id number] [facility] 2022-07-27 13:00:00 2022-07-27 14:35:09 Outpatient R JOSSY MCCALLUM [facility] [id number] [facility] 2022-07-27 13:00:00 2022-07-27 14:35:09 Office Visit Pgy2 Jossy Mccallum [facility] 1.2.840.114 350.1.13.10 4.2.7.2.686 [id number] [facility] 2022-07-12 07:31:00 2022-07-12 13:15:00 Outpatient R DANIEL AGUILAR [facility] 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 [id number] [facility] 2022-07-12 07:31:00 2022-07-12 13:15:00 Hospital Encounter [facility] 1.2.840.114 350.1.13.10 4.2.7.2.686 [id number] [facility] 2022-07-12 08:45:00 2022-07-12 11:09:00 Surgery [facility] 1.2.840.114 350.1.13.10 4.2.7.2.686 [id number] [facility] 2022-07-12 00:00:00 2022-07-12 00:00:00 Orders Only Doctor Unassigned, [facility] 1.2.840.114 350.1.13.10 4.2.7.2.686 [id number] [facility] 2022-07-10 00:00:00 2022-07-10 00:00:00 Patient Secure Msg Doctor Unassigned, [facility] 1.2.840.114 350.1.13.10 4.2.7.2.686 [id number] [facility] 2022-05-23 13:45:00 2022-05-23 15:06:02 Outpatient R DANIEL AGUILAR [facility] [id number] [facility] 2022-05-23 13:45:00 2022-05-23 15:06:02 Office Visit Pgy2 Daniel Aguilar Shayne [facility] 1.114 350.1.13.10 4.2.7.2.686 [id number] [facility] 2022-05-23 00:00:00 2022-05-23 00:00:00 Orders Only Doctor Unassigned, [facility] 1..114 350.1.13.10 4.2.7.2.686 [id number] [facility] 2022-05-16 00:00:00 2022-05-16 00:00:00 Case Management Sindy Rizvi 1..114 350.1.13.10 4.2.7.2.686 [id number] [facility] 2022-05-08 15:30:00 2022-05-08 15:48:51 Nurse Visit Visit, Ang-Rmchp Nurse Emmanuel Rabago [facility] 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 [facility] MATERNAL & CHILD [facility] .0.114 350.1.13.10 4.2.7.2.686 [id number] [facility] 2022-05-08 15:30:00 2022-05-08 15:30:00 Outpatient R EMMANUEL RABAGO [facility] [id number] [facility] 2022-04-13 00:00:00 2022-04-13 00:00:00 Telephone Emmanuel Rabago [facility] 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 [facility] MATERNAL & CHILD [facility] .840.114 350.1.13.10 4.2.7.2.686 [id number] [facility] 2022-03-31 00:00:00 2022-03-31 00:00:00 Telephone Emmanuel Rabago [facility] 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 [facility] MATERNAL & [facility] 1.840.114 350.1.13.10 4.2.7.2.686 [id number] [facility] 2022-03-30 15:30:00 2022-03-30 16:18:57 Outpatient R EMMANUEL RABAGO [facility] [id number] [facility] 2022-03-30 15:30:00 2022-03-30 16:18:57 Office Visit Emmanuel Rabago [facility] 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 [facility] & CHILD [facility] 1..840.114 350.1.13.10 4.2.7.2.686 [id number] [facility] 2022-03-28 15:00:00 2022-03-28 15:00:00 Outpatient SINDY CAIN [facility] [id number] [facility] 2022-03-07 13:15:00 2022-03-07 13:15:00 Outpatient R SINDY WHITT [facility] [id number] [facility] 2022-02-28 16:00:00 2022-02-28 16:39:26 Outpatient SINDY CAIN [facility] [id number] [facility] 2022-02-28 16:00:00 2022-02-28 16:39:26 Routine Visit Provider, Ang-Rmchp Sindy Gomez [facility] 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 [facility] & CHILD [facility] 1..840.114 350.1.13.10 4.2.7.2.686 [id number] [facility] 2022-02-09 06:23:00 2022-02-11 05:22:00 Inpatient P NIC SNEED [facility] [id number] [facility] 2022-02-09 06:23:00 2022-02-11 05:22:00 Hospital Encounter Nic Sneed [facility] 1.2.840.114 350.1.13.10 4.2.7.2.686 [id number] [facility] 2022-02-09 07:15:00 2022-02-09 09:01:00 [facility] 1.2.840.114 350.1.13.10 4.2.7.2.686 [id number] [facility] 2022-02-01 00:00:00 2022-02-01 00:00:00 Telephone Bertram Quinonez [facility] 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 [facility] & CHILD [email or web address] 1.2.840.114 350.1.13.10 4.2.7.2.686 [id number] [facility] 2022-01-23 15:00:00 2022-01-23 15:00:00 Outpatient P [facility] [id number] [facility] 2022-01-19 15:45:00 2022-01-19 15:45:00 Outpatient R BERTRAM QUINONEZ [facility] [id number] [facility] 2022-01-11 13:00:00 2022-01-11 13:00:00 Outpatient P [facility] [id number] [facility] 2022-01-10 13:15:00 2022-01-10 13:21:51 Routine Visit Bertram Quinonez [facility] 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 [facility] & CHILD [facility] [[email or web address] 1.2.840.114 350.1.13.10 4.2.7.2.686 [id number] [facility] 2022-01-10 13:15:00 2022-01-10 13:21:51 Outpatient BERTRAM BAL [facility] [id number] [facility] 2021-12-29 14:15:00 2021-12-29 14:34:25 Outpatient BERTRAM BAL [facility] [id number] [facility] 2021-12-29 14:15:00 2021-12-29 14:34:25 Routine Visit Bertram Quinonez [facility] 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 [facility] & CHILD [facility] 1.840.114 350.1.13.10 4.2.7.2.686 [id number] [facility] 2021-12-26 00:00:00 2021-12-26 00:00:00 Case Management Bertram Quinonez [facility] 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 [facility] CHILD [facility] 1.0.114 350.1.13.10 4.2.7.2.686 [id number] [facility] 2021-12-22 12:45:00 2021-12-22 12:45:00 Outpatient BERTRAM BAL [facility] [id number] [facility] 2021-12-15 08:00:00 2021-12-15 11:08:42 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 [facility] CHILD [facility] [[email or web address]] 1.84.114 350.1.13.10 4.2.7.2.686 [id number] [facility] 2021-12-15 08:00:00 2021-12-15 08:00:00 Outpatient NICOLE MERCADO [facility] [id number] [facility] 2021-12-13 00:00:00 2021-12-13 00:00:00 Patient Secure Msg Doctor Unassigned, [facility] 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 [facility] & CHILD [facility] [[email or web address]] 1.84.114 350.1.13.10 4.2.7.2.686 [id number] [facility] 2021-12-12 00:00:00 2021-12-12 00:00:00 Telephone Bertram Quinonez [facility] 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 [facility] CHILD [facility] 1.84.114 350.1.13.10 4.2.7.2.686 [id number] [facility] 2021-12-08 08:15:00 2021-12-08 09:20:06 Outpatient BERTRAM BAL [facility] [id number] [facility] 2021-12-08 08:15:00 2021-12-08 09:20:06 Routine Visit Bertram Quinonez [facility] 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 [facility] MATERNAL & CHILD [facility] ..840.114 350.1.13.10 4.2.7.2.686 [id number] [facility] 2021-12-01 10:30:00 2021-12-01 10:30:00 Outpatient BERTRAM BAL [facility] [id number] [facility] 2021-11-10 10:30:00 2021-11-10 10:30:00 Outpatient BERTRAM BAL [facility] [id number] [facility] 2021-11-03 15:15:00 2021-11-03 15:15:00 Outpatient BERTRAM BAL [facility] [id number] [facility] 2021-11-03 00:00:00 2021-11-03 00:00:00 Telephone Bertram Quinonez [facility] 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 [facility] MATERNAL & CHILD [facility] ..840.114 350.1.13.10 4.2.7.2.686 [id number] [facility] 2021-10-25 15:00:00 2021-10-25 15:00:00 Outpatient NICOLE MERCADO [facility] [id number] [facility] 2021-10-25 00:00:00 2021-10-25 00:00:00 Telephone Bertram Quinonez [facility] 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 [facility] MATERNAL & CHILD [facility] ..840.114 350.1.13.10 4.2.7.2.686 [id number] [facility] 2021-10-12 14:45:00 2021-10-12 14:45:00 Outpatient NICOLE MERCADO [facility] [id number] [facility] 2021-10-06 13:00:00 2021-10-06 13:00:00 Outpatient P [facility] [id number] [facility] 2021-09-14 14:45:00 2021-09-14 15:42:26 Outpatient R NICOLE BOLAND [facility] [id number] [facility] 2021-09-14 14:45:00 2021-09-14 15:42:26 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 MATERNAL & CHILD [email or web address]] .2.840.114 350.1.13.10 4.2.7.2.686 [id number] [facility] 2021-09-14 14:45:00 2021-09-14 14:45:00 Outpatient R NICOLE BOLAND [facility] [id number] [facility] 2021-09-14 14:45:00 2021-09-14 14:45:00 [id number] 2021-09-14 14:45:00 2021-09-14 14:45:00 Outpatient R NICOLE BOLAND [facility] [id number] [facility] 2021-09-05 00:00:00 2021-09-05 00:00:00 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 MATERNAL & CHILD [facility] 1.2.840.114 350.1.13.10 4.2.7.2.686 [id number] [facility] 2021-09-02 11:15:00 2021-09-02 14:39:00 Outpatient SUDARSHAN VELA [facility] [id number] [facility] 2021-09-02 11:15:00 2021-09-02 14:39:00 Telemedici ne Visit Sandhya Jarrett Joseph W [facility] 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 [facility] MATERNAL & CHILD [facility] 1.2.840.114 350.1.13.10 4.2.7.2.686 [id number] [facility] 2021-09-01 13:30:00 2021-09-01 13:59:57 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 Visit Krish Mazariegos Luis Diego [facility] 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 [facility] MATERNAL & CHILD [facility] 1.2.840.114 350.1.13.10 4.2.7.2.686 [id number] [facility] 2021-09-01 13:30:00 2021-09-01 13:59:57 Outpatient P DINO LOPEZ [facility] [id number] [facility] 2021-09-01 13:30:00 2021-09-01 13:30:00 Outpatient P DINO LOPEZ [facility] [id number] [facility] 2021-08-26 09:30:00 2021-08-26 09:40:11 Outpatient SANDRA VÁZQUEZ [facility] [id number] [facility] 2021-08-26 09:30:00 2021-08-26 09:40:11 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 Visit [facility] Sandra Joe [facility] 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 [facility] & CHILD [facility] [[email or web address]] ..840.114 350.1.13.10 4.2.7.2.686 [id number] [facility] 2021-08-23 10:00:00 2021-08-23 10:00:00 Outpatient SANDRA VÁZQUEZ [facility] [id number] [facility] 2021-08-19 09:30:00 2021-08-19 09:30:00 Outpatient SARAH GROSS [facility] [id number] [facility] 2021-08-19 00:00:00 2021-08-19 00:00:00 Telephone Sarah Dupree [facility] 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 & CHILD [facility] [[email or web address]] 1.840.114 350.1.13.10 4.2.7.2.686 [id number] [facility] 2021-08-17 00:00:00 2021-08-17 00:00:00 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 & CHILD [email or web address]] 1.840.114 350.1.13.10 4.2.7.2.686 [id number] [facility] 2021-08-16 14:15:00 2021-08-16 15:39:45 Outpatient R NICOLE BOLAND [facility] [id number] [facility] 2021-08-16 14:15:00 2021-08-16 15:39:45 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 & CHILD [facility] 1.840.114 350.1.13.10 4.2.7.2.686 [id number] [facility] 2021-08-16 14:15:00 2021-08-16 15:39:45 Outpatient R NICOLE BOLAND [facility] [id number] [facility] 2021-08-16 14:15:00 2021-08-16 15:39:45 Initial 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 & CHILD [facility] 1.840.114 350.1.13.10 4.2.7.2.686 [id number] [facility] 2021-08-16 14:15:00 2021-08-16 15:39:45 Outpatient R NICOLE BOLAND [facility] [id number] [facility] 2021-08-16 00:00:00 2021-08-16 00:00:00 Orders Only Doctor Unassigned, Hankins [facility] 1.840.114 350.1.13.10 4.2.7.2.686 [id number] [facility] 2020-10-05 13:00:00 2020-10-05 13:00:00 Outpatient R [facility] [id number] [facility] 2020-09-10 15:11:35 2020-09-10 15:41:35 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 [facility] Olay[facility] Maggy [facility] 1..840.114 350.1.13.10 4.2.7.2.686 [id number] [facility] 2020-09-10 15:00:00 2020-09-10 15:00:00 Outpatient R [facility] [id number] [facility] 2020-09-08 14:23:42 2020-09-08 15:39:03 Routine Visit Patience Mcleod [facility] 1..840.114 350.1.13.10 4.2.7.2.686 [id number] [facility] 2020-09-08 14:15:00 2020-09-08 14:15:00 Outpatient R CHELSY [facility] [id number] [facility] 2020-09-01 09:15:00 2020-09-01 09:15:00 Outpatient R [facility]LSY [facility] [id number] [facility] 2020-08-25 14:15:00 2020-08-25 14:15:00 Outpatient R CHELSY [facility] [id number] [facility] 2020-08-16 00:00:00 2020-08-16 00:00:00 Patient Secure Msg Doctor Unassigned, Hankins [facility] 1.840.114 350.1.13.10 4.2.7.2.686 [id number] [facility] 2020-08-16 00:00:00 2020-08-16 00:00:00 Case Management AdPatience everett [facility] 1.2840.114 350.1.13.10 4.2.7.2.686 [id number] [facility] 2020-08-16 00:00:00 2020-08-16 00:00:00 Telephone Mak Rosey [facility] 1.2840.114 350.1.13.10 4.2.7.2.686 [id number] 134 [id number] [facility] 2020-08-13 14:15:34 2020-08-13 15:15:34 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 Visit Ultrasound, Adc Mfm Marj Ferrara [facility] 1.2840.114 350.1.13.10 4.2.7.2.686 [id number] [facility] 2020-08-13 14:00:00 2020-08-13 14:00:00 Outpatient P [facility] [id number] [facility] 2020-08-13 00:00:00 2020-08-13 00:00:00 Case Management Adum, Patience Bella [facility] 1.2840.114 350.1.13.10 4.2.7.2.686 [id number] [facility] 2020-07-29 00:00:00 2020-07-29 00:00:00 Orders Only Doctor Unassigned, Hankins [facility] 1.20.114 350.1.13.10 4.2.7.2.686 [id number] [id number] [facility] 2020-07-28 14:51:38 2020-07-28 16:08:48 Routine Visit AdPatience everett [facility] 1.2840.114 350.1.13.10 4.2.7.2.686 [id number] [facility] 2020-07-28 14:30:00 2020-07-28 14:30:00 Outpatient R PATIENCE MCLEOD [facility] [id number] [facility] 2020-07-13 00:00:00 2020-07-13 00:00:00 Case Management AdumPatience [facility] 1.2.840.114 350.1.13.10 4.2.7.2.686 [id number] [facility] 2020-07-09 00:00:00 2020-07-09 00:00:00 Telephone AdPatience everett [facility] Building 1.2.840.114 350.1.13.10 4.2.7.2.686 [id number] [facility] 2020-07-05 12:40:26 2020-07-05 12:55:26 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 Visit Pob, Adc Lab Main AdPatience [facility] Building 1.2.840.114 350.1.13.10 4.2.7.2.686 [id number] [facility] 2020-07-05 12:30:00 2020-07-05 12:30:00 Outpatient R PATIENCE MCLEOD [facility] [id number] [facility] 2020-07-02 13:02:56 2020-07-02 13:17:56 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 [facility] Building 1.2.840.114 350.1.13.10 4.2.7.2.686 [id number] [facility] 2020-07-02 10:15:00 2020-07-02 10:15:00 Outpatient R [facility] [id number] [facility] 2020-07-02 00:00:00 2020-07-02 00:00:00 Orders Only Doctor Unassigned, Hankins [facility] 1.840.114 350.1.13.10 4.2.7.2.686 [id number] [facility] 2020-06-30 10:39:42 2020-06-30 12:04:24 Initial Visit Patience Mcleod [facility] Building 1.2840.114 350.1.13.10 4.2.7.2.686 [id number] [facility] 2020-06-30 10:30:00 2020-06-30 10:30:00 Outpatient R CHELSY [facility] [id number] [facility] 2020-06-24 13:30:00 2020-06-24 13:30:00 Outpatient R ADUM [facility] [id number] [facility] 2020-01-12 13:00:00 2020-01-12 13:00:00 Outpatient R ADUM [facility] [id number] [facility] 2019-11-13 08:00:00 2019-11-13 08:00:00 Outpatient R BUNNYJULIA [facility] [id number] [facility] 2019-08-21 13:00:00 2019-08-21 13:00:00 Outpatient R [facility] [id number] [facility] 2019-07-22 00:00:00 2019-07-22 00:00:00 Telephone Sloan Rosie [facility] Building 1..840.114 350.1.13.10 4.2.7.2.686 [id number] 2019-07-22 00:00:00 2019-07-22 00:00:00 Telephone Lisa, Lucy [facility] Building 1.840.114 350.1.13.10 4.2.7.2.686 [id number] [facility] 2019-07-10 11:59:33 2019-07-10 12:14:33 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 Visit Pob, Adc Lab Main [facility] Building 1.2.840.114 350.1.13.10 4.2.7.2.686 [id number] 2019-07-10 11:59:33 2019-07-10 12:14:33 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 Visit Pob, Adc Lab Main Rosie Lisa [facility] Building 1.2.840.114 350.1.13.10 4.2.7.2.686 [id number] [facility] 2019-07-10 10:32:19 2019-07-10 11:43:21 Routine Visit Rosie Lisa [facility] Building 1.2.840.114 350.1.13.10 4.2.7.2.686 [id number] 134 [id number] 2019-07-10 10:32:19 2019-07-10 11:43:21 Routine Visit Rosie Lisa [facility] Building 1.2.840.114 350.1.13.10 4.2.7.2.686 [id number] [facility] 2019-07-10 11:30:00 2019-07-10 11:30:00 Outpatient R ROSIE LISA [facility] [id number] [facility] 2019-07-10 00:00:00 2019-07-10 00:00:00 Orders Only Doctor Unassigned, Hankins [facility] 1.2.840.114 350.1.13.10 4.2.7.2.686 [id number] [facility] 2019-07-10 00:00:00 2019-07-10 00:00:00 Orders Only Doctor Unassigned, Hankins [facility] 1.2.840.114 350.1.13.10 4.2.7.2.686 [id number] 2019-06-19 12:59:21 2019-06-19 13:55:02 Routine Visit Rosie Lisa [facility] 1.2.840.114 350.1.13.10 4.2.7.2.686 [id number] 134 [id number] [facility] 2019-06-19 12:59:21 2019-06-19 13:55:02 Routine Visit Rosie Lisa [facility] 1.2.840.114 350.1.13.10 4.2.7.2.686 [id number] 134 [id number] 2019-06-19 13:00:00 2019-06-19 13:00:00 Outpatient R ROSIE LISA [facility] [id number] [facility] 2019-06-11 00:00:00 2019-06-11 00:00:00 Telephone [facility] 1.2.840.114 350.1.13.10 4.2.7.2.686 [id number] 134 [id number] [facility] 2019-06-11 00:00:00 2019-06-11 00:00:00 Telephone Rosie Lisa [facility] 1.2.840.114 350.1.13.10 4.2.7.2.686 [id number] 2019-06-10 10:43:00 2019-06-10 11:07:40 Nurse Visit Nurse, [facility] General Surgery [facility] 1.2.840.114 350.1.13.10 4.2.7.2.686 [id number] [facility] 2019-06-10 10:43:00 2019-06-10 11:07:40 Nurse Visit Nurse, [facility] General Surgery [facility] Building 1.2.840.114 350.1.13.10 4.2.7.2.686 [id number] 2019-06-10 10:30:00 2019-06-10 10:30:00 Outpatient R ROSIE LISA [facility] [id number] [facility] 2019-06-10 00:00:00 2019-06-10 00:00:00 Telephone Rosie Lisa [facility] Building 1.2.840.114 350.1.13.10 4.2.7.2.686 [id number] [facility] 2019-06-10 00:00:00 2019-06-10 00:00:00 Telephone Rosie Lisa [facility] 1.2.840.114 350.1.13.10 4.2.7.2.686 [id number] 134 [id number] 2019-06-05 14:20:26 2019-06-05 15:15:21 Routine Visit Rosie Lisa [facility] 1.2.840.114 350.1.13.10 4.2.7.2.686 [id number] [facility] 2019-06-05 14:15:00 2019-06-05 14:15:00 Outpatient R ROSIE LISA [facility] [id number] [facility] 2019-06-04 14:30:39 2019-06-04 14:57:33 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 Visit Ultrasound, Ramy Ledezma [facility] 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 [facility] 1.2.840.114 350.1.13.10 4.2.7.2.686 [id number] [facility] 2019-06-04 14:30:00 2019-06-04 14:30:00 Outpatient P [facility] [id number] [facility] 2019-06-03 15:44:34 2019-06-03 16:32:00 Emergency Cruzito Thompson [facility] 1.2.840.114 350.1.13.10 4.2.7.2.686 [id number] [facility] 2019-06-02 00:00:00 2019-06-02 00:00:00 Telephone Sloan [facility] nal Building 1.2.840.114 350.1.13.10 4.2.7.2.686 [id number] 134 [id number] [facility] 2019-05-29 14:59:08 2019-05-29 15:47:56 Routine Visit Rosie Lisa [facility] Building 1.2.840.114 350.1.13.10 4.2.7.2.686 [id number] 134 [id number] [facility] 2019-05-29 14:45:00 2019-05-29 14:45:00 [id number] 2019-05-27 14:28:26 2019-05-27 14:43:26 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 Visit 1, Adc Lab Sloan [facility] 1.2.840.114 350.1.13.10 4.2.7.2.686 [id number] [facility] 2019-05-27 14:00:00 2019-05-27 14:00:00 Outpatient R [facility] [id number] [facility] 2019-05-23 08:35:46 2019-05-23 16:15:44 Routine Visit Sloan [facility] Building 1.2.840.114 350.1.13.10 4.2.7.2.686 [id number] [facility] 2019-05-23 15:15:00 2019-05-23 15:15:00 Outpatient R ROSIE LISA [facility] [id number] [facility] 2019-05-23 00:00:00 2019-05-23 00:00:00 Orders Only Doctor Unassigned, Hankins [facility] 1.2.840.114 350.1.13.10 4.2.7.2.686 [id number] [facility] 2019-05-15 11:24:12 2019-05-15 17:00:51 Telemedici ne [facility] 1.2.840.114 350.1.13.10 4.2.7.2.686 [id number] 134 [id number] [facility] 2019-05-15 16:00:00 2019-05-15 16:00:00 Outpatient R SLOAN [facility] [id number] [facility] 2019-05-08 13:28:58 2019-05-10 01:26:19 Routine [facility] 1.2.840.114 350.1.13.10 4.2.7.2.686 [id number] 134 [id number] [facility] 2019-05-08 13:15:00 2019-05-08 13:15:00 Outpatient R [facility] [id number] [facility] 2019-04-24 15:15:00 2019-04-24 15:15:00 Outpatient R ROSIE LISA [facility] [id number] [facility] 2019-04-04 15:41:32 2019-04-04 16:58:45 Routine [facility] 1.2.840.114 350.1.13.10 4.2.7.2.686 [id number] [facility] 2019-03-26 14:32:19 2019-03-26 14:47:19 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 Visit Pob, Adc Lab Main Rosie Lisa [facility] Building 1.2.840.114 350.1.13.10 4.2.7.2.686 [id number] [facility] 2019-03-26 00:00:00 2019-03-26 00:00:00 Orders Only Doctor Unassigned, Hankins [facility] 1.2840.114 350.1.13.10 4.2.7.2.686 [id number] [facility] 2019-03-21 16:12:08 2019-03-21 16:53:37 Routine Visit Rosie Lisa [facility] Building 1.2.840.114 350.1.13.10 4.2.7.2.686 [id number] 134 [id number] [facility] Results Test Description Test Time Test Comments Results Result Co mments Source [id number] 12:43:00* Test Item Value Reference Range Interpretation Comme nts POCT PREG (test code = 1605) Negative On board controls acceptable with C Line (test code = 3574) Yes POCT PREG LOT # (test code = 3575) POCT PREG TEST DATE ( test code = 3576) [facility] ([facility]) IMMUNE [id number] 20:41:00* Test Item Value Reference Range Interpretation Comme nts RHIG CANDIDATE? (test code = 5055) No- see comment Patient is not a candidate for RhIg- Patient is Rh Positive.Performed at [facility] Laboratory [facility] Blood [address] [place] [address]Mvcb Free: [phone] No. [id number] [facility] ([facility]) IMMUNE [id number] 20:41:00* Test Item Value Reference Range Interpretation Comme nts RHIG CANDIDATE? (test code = 5055) No- see comment Patient is not a candidate for RhIg- Patient is Rh Positive.Performed at [facility] Laboratory Services [facility] Blood [address] [place] [address] 627[address]Ycvy Free: [phone] No. [id number] [facility] Cord [id number] 18:43:14* Test Item Value Reference Range Interpretation Comme nts VENOUS BASE EXCESS, CORD (test code = 7095002019) mEq/L VENOUS PH, CORD (test code = 8011396712) 7.25-7.45 VENOUS PC02, CORD (test code = 2696059385) See_Comment H [Automated me ssage] The system which generated this result transmitted reference range: 27 - 49 mmHg. The reference range was not used to interpret this result as normal/abnormal. VENOUS PO2, CORD (test code = 2613898190) See_Comment [Automated me ssage] The system which generated this result transmitted reference range: 17 - 41 mmHg. The reference range was not used to interpret this result as normal/abnormal. VENOUS BICARBONATE, CORD (test code = 1457140388) See_Comment [Automa marielena message] The system which generated this result transmitted reference range: 12 - 29 mEq/L. The reference range was not used to interpret this result as normal/abnormal. Lab Interpretation (test code = 56897-0) Abnormal [facility] Cord [id number] 18:43:14* Test Item Value Reference Range Interpretation Comme [facility] VENOUS BASE EXCESS, CORD (test code = 9206552352) mEq/L VENOUS PH, CORD (test code = 7229000585) 7.25-7.45 VENOUS PC02, CORD (test code = 8318421365) See_Comment H [Automated me ssage] The system which generated this result transmitted reference range: 27 - 49 mmHg. The reference range was not used to interpret this result as normal/abnormal. VENOUS PO2, CORD (test code = 8857118026) See_Comment [Automated me ssage] The system which generated this result transmitted reference range: 17 - 41 mmHg. The reference range was not used to interpret this result as normal/abnormal. VENOUS BICARBONATE, CORD (test code = 2506892694) See_Comment [Automa marielena message] The system which generated this result transmitted reference range: 12 - 29 mEq/L. The reference range was not used to interpret this result as normal/abnormal. Lab Interpretation (test code = 47737-3) Abnormal [facility] - ONCE [id number] 14:03:57* Test Item Value Reference Range Interpretation Comme nts ABO & RH (test code = 20) A POSITIVE Performed at [facility] Laboratory Services - [address] Free: [phone] No. [id number] IAT (test code = 1185) Negative Performed at [facility] Laboratory Services [address] Free: [phone] No. [id number] [facility] and Screen - ONCE [id number] 14:03:57* Test Item Value Reference Range Interpretation Comme nts ABO & RH (test code = 20) A POSITIVE Performed at [facility] Laboratory [address] Free: [phone] No. [id number] IAT (test code = 1185) Negative Performed at [facility] Laboratory Services [address] [address]Puvh Free: [phone] No. [id number] [facility] W SPECIFIC [id number] 19:15:00* Test Item Value Reference Range Interpretation Comme nts POCT U SP GRAV (test code = 3255) na 1.005-1.025 POCT PH U (test code = 3254) 5 mg/dl 5-8 POCT U LEUK EST (test code = 3263) neg Negative - Negative POCT U NIT (test code = 3262) neg Negative - Negati ve POCT U PROT (test code = 3259) neg Negative - Negat elder POCT U GLU (test code = 3256) neg Negative - Negati ve POCT U KETONE (test code = 3258) neg Negative - Neg ative POCT U UROBILI (test code = 3260) na 0.2-1 POCT U BILI (test code = 3261) na Negative - Negat elder POCT U BLD (test code = 3257) neg Negative - Negati ve POCT U COLOR (test code = 3266) na POCT U APPEAR (test code = 3267) na [facility] URINALYSIS W SPECIFIC [id number] 20:02:00* Test Item Value Reference Range Interpretation Comme nts POCT U SP GRAV (test code = 3255) na 1.005-1.025 POCT PH U (test code = 3254) na 5-8 POCT U LEUK EST (test code = 3263) na Negative - N egative POCT U NIT (test code = 3262) na Negative - Negati ve POCT U PROT (test code = 3259) neg Negative - Negat elder POCT U GLU (test code = 3256) neg Negative - Negati ve POCT U KETONE (test code = 3258) na Negative - Neg ative POCT U UROBILI (test code = 3260) na 0.2-1 POCT U BILI (test code = 3261) na Negative - Negat elder POCT U BLD (test code = 3257) na Negative - Negati ve POCT U COLOR (test code = 3266) POCT U APPEAR (test code = 3267) [facility] URINALYSIS W SPECIFIC [id number] 20:02:00* Test Item Value Reference Range Interpretation Comme nts POCT U SP GRAV (test code = 3255) na 1.005-1.025 POCT PH U (test code = 3254) na 5-8 POCT U LEUK EST (test code = 3263) na Negative - N egative POCT U NIT (test code = 3262) na Negative - Negati ve POCT U PROT (test code = 3259) neg Negative - Negat elder POCT U GLU (test code = 3256) neg Negative - Negati ve POCT U KETONE (test code = 3258) na Negative - Neg ative POCT U UROBILI (test code = 3260) na 0.2-1 POCT U BILI (test code = 3261) na Negative - Negat elder POCT U BLD (test code = 3257) na Negative - Negati ve POCT U COLOR (test code = 3266) POCT U APPEAR (test code = 3267) [facility] URINALYSIS W SPECIFIC [id number] 13:24:00* Test Item Value Reference Range Interpretation Comme nts POCT U SP GRAV (test code = 3255) n 1.005-1.025 POCT PH U (test code = 3254) n 5-8 POCT U LEUK EST (test code = 3263) n Negative - N egative POCT U NIT (test code = 3262) n Negative - Negati ve POCT U PROT (test code = 3259) neg Negative - Negat elder POCT U GLU (test code = 3256) neg Negative - Negati ve POCT U KETONE (test code = 3258) n Negative - Neg ative POCT U UROBILI (test code = 3260) n 0.2-1 POCT U BILI (test code = 3261) n Negative - Negat elder POCT U BLD (test code = 3257) n Negative - Negati ve POCT U COLOR (test code = 3266) POCT U APPEAR (test code = 3267) [facility] URINALYSIS W SPECIFIC [id number] 19:52:00* Test Item Value Reference Range Interpretation Comme nts POCT U SP GRAV (test code = 3255) n 1.005-1.025 POCT PH U (test code = 3254) n 5-8 POCT U LEUK EST (test code = 3263) n Negative - N egative POCT U NIT (test code = 3262) n Negative - Negati ve POCT U PROT (test code = 3259) neg Negative - Negat elder POCT U GLU (test code = 3256) neg Negative - Negati ve POCT U KETONE (test code = 3258) n Negative - Neg ative POCT U UROBILI (test code = 3260) n 0.2-1 POCT U BILI (test code = 3261) n Negative - Negat elder POCT U BLD (test code = 3257) n Negative - Negati ve POCT U COLOR (test code = 3266) POCT U APPEAR (test code = 3267) [id number] 20:17:52* Test Item Value Reference Range Interpretation Comments RACE (test code = 5808760150) WEIGHT (test code = 4982369477) lbs GEST. AGE (test code = 9299360527) 19w,3d INS. DEP (test code = 2452765553) No LMP (test code = 7722500926) US DATE (test code = 0196070178) PE DATE (test code = 4081770301) METHOD (test code = 3678725466) LMP MULT GEST (test code = 7923693970) No NTD HX (test code = 2815887898) No INITAL OR REPEAT (test code = 9981237826) Initial Testing SMOKER (test code = 2934177980) No RH (test code = 9972754038) Unknown INHIBIN (test code = 1292694467) 120.5 pg/mL AFP-MS (test code = 8745601645) 10.5 ng/mL ESTRIOL (test code = 2235361881) 0.11 ng/mL BHCG DOWNS (test code = 6010426394) mIU/mL AFP-MS MoM (test code = 0390036446) BHCG MoM (test code = 1894220002) INHIBIN MoM (test code = 4331629049) E3 MoM (test code = 1746645946) EQ AGE RSK (test code = 3788570879) equivalent to that of a 41.5 year old DS APR (test code = 1263653423) 1:1010 DS INTERP (test code = 3836166356) See Note The risk of D own syndrome is GREATER than the screening cut-off. If thegestational age is confirmed, counselling regarding the risks andbenefits of amniocentesis is suggested. DS RSK (test code = 2698228896) ~ 1:67 The risk at mid-trimester is approximately 1:67 DS SCRN (test code = 3724675765) Positive TRISOMY 18 (test code = 5196127306) See Note These serum m arker levels are not consistent with the pattern seen inTrisomy 18 pregnancies. Maternal serum screening will detectapproximately 60% of Trisomy 18 pregnancies. ES RSK (test code = 8777403003) ~ 1:843 The risk of Julius angus 18 is approximately 1:843The Trisomy 18 cut-off is 1:45 ES SCRN (test code = 4195285198) Negative OSB INTERP (test code = 8064165112) See Note The maternal serum AFP result is NOT elevated for a of thisgestational age. The risk of an open neural tube defect is less thanthe screening cut-off. OSB RSK (test code = 7105408518) 1:4440 The risk of OSB is equal to 1:4440The OSB cut-off is 2.57 (1:104) OSB SCRN (test code = 3688873573) Negative INTERPRETATION (test code = 9294248049) P INTERPRETATION: SCREEN POSITIVE Follow-up for risk of Down syndrome is suggested [facility] [id number] 19:26:59 * Test Item Value Reference Range Interpretation Comme [facility] Rubella screen IgG (test code = 8034034415) Positive Negative KAMILLE (test code = KAMILLE) Positive - Indicat es the patient was exposed to Rubella through infection or vaccination.Negative - Indicates the patient could be susceptible to Rubella infection.Equivocal - A second specimen should be sent. [facility]TIBODY [id number] 19:26:59* Test Item Value Reference Range Interpretation Comme [facility] VZV IgG antibody (test code = 85531-6) Positive Negative KAMILLE (test code = KAMILLE) Positive - Indicat es the patient was exposed to VZV through infection or vaccination.Negative - Indicates the patient could be susceptible to VZV infection.Equivocal - A second specimen should be sent for testing. [facility] ONLY - SYPHILIS [id number] 16:09:46* Test Item Value Reference Range Interpretation Comme [facility] Syphilis IgG/IgM (test code = 40164-2) Non-reactive Non-reactive KAMILLE (test code = KAMILLE) Non-reactive - No serologic evidence of T. pallidum infection. Cannot exclude incubating or early syphilis. Submit a second specimen in 2-4 weeks if syphilis is clinically suspected. Equivocal - Further testing to follow. Reactive - Further testing to follow. Lab Interpretation (test code = 07145-5) [facility] 1/2 AG-AB WITH [id number] 04:28:35* Test Item Value Reference Range Interpretation Comme [facility] HIV Semi-quantitative (test code = 22579-6) Negative Negative KAMILLE (test code = KAMILLE) Non-reactive for HIV-1 antigen and HIV-1/HIV-2 antibodies. ?No laboratory evidence of HIV infection. ?Repeat in 2-4 weeks if acute HIV infection is suspected. [facility] [id number] 03:11:28 * Test Item Value Reference Range Interpretation Comme nts ABO & RH (test code = 20) A POSITIVE Performed at [facility] Laboratory Services - [facility] Blood [address] [address]Imae Free: [phone] No. [id number] IAT (test code = 1185) Negative Performed at [facility] Laboratory Services - [facility] Blood [place] [address]Toll Free: [phone] No. [id number] [facility] [id number] 03:02:50* Test Item Value Reference Range Interpretation Comme nts GLUC 1 HR (test code = 6923674534) 108 mg/dL 120-170 L Lab Interpretation (test cod e = 91289-0) Abnormal [facility] SURFACE [id number] 02:56:09 * Test Item Value Reference Range Interpretation Comme nts HBsAg Semi-Quantitative (earl t code = 5195-3) Negative Negative [facility] WITH [id number] 01:53:42* Test Item Value Reference Range Interpretation Comme nts WBC (test code = 6690-2) See_Comment [Automated [employer]] The system which generated this result transmitted reference range: 4.30 - 11.10 10*3/?L. The reference range was not used to interpret this result as normal/abnormal. RBC (test code = 789-8) See_Comment [Automated [employer]] The system which generated this result transmitted reference range: 3.93 - 5.25 10*6/?L. The reference range was not used to interpret this result as normal/abnormal. HGB (test code = 718-7) 12.8 g/dL 11.6-15 HCT (test code = 4544-3) 35.8 % 35.7-45.2 MCV (test code = 787-2) 87.1 fL 80.6-95.5 MCH (test code = 785-6) 31.1 pg 25.9-32.8 MCHC (test code = 786-4) 35.8 g/dL 31.6-35.1 H RDW-SD (test code = 28671-2) 39.0 fL 39-49.9 RDW-CV (test code = 788-0) 12.3 % 12-15.5 PLT (test code = 777-3) See_Comment [Automated [employer]] The system which generated this result transmitted reference range: 166 - 358 10*3/?L. The reference range was not used to interpret this result as normal/abnormal. MPV (test code = 48965-9) 11.7 fL 9.5-12.9 NRBC/100 WBC (test code = 3978039489) See_Comment [Automated Ditto ssage] The system which generated this result transmitted reference range: 0.0 - 10.0 /100 WBCs. The reference range was not used to interpret this result as normal/abnormal. NRBC x10^3 (test code = 4960847673) See_Comment [Automated [employer]] The system which generated this result transmitted reference range: 10*3/?L. The reference range was not used to interpret this result as normal/abnormal. GRAN MAT (NEUT) % (test code = 770-8) 60.7 % IMM GRAN % (test code = 8148960854) 0.30 % LYMPH % (test code = 736-9) 31.7 % MONO % (test code = 5905-5) 5.3 % EOS % (test code = 713-8) 1.7 % BASO % (test code = 706-2) 0.3 % GRAN MAT x10^3(ANC) (test code = 1305403224) 4.03 10*3/uL 1.88-7.09 IMM GRAN x10^3 (test code = 7155296549) 0-0.06 LYMPH x10^3 (test code = 731-0) 2.10 10*3/uL 1.32-3.29 MONO x10^3 (test code = 742-7) 0.35 10*3/uL 0.33-0.92 EOS x10^3 (test code = 711-2) 0.11 10*3/uL 0.03-0.39 BASO x10^3 (test code = 704-7) 0.01-0.07 Lab Interpretation (test code = 97144-7) Abnormal [facility] URINALYSIS W SPECIFIC [id number] 19:26:00* Test Item Value Reference Range Interpretation Comme nts POCT U SP GRAV (test code = 3255) n 1.005-1.025 POCT PH U (test code = 3254) 6 mg/dl 5-8 POCT U LEUK EST (test code = 3263) neg Negative - Negative POCT U NIT (test code = 3262) neg Negative - Negati ve POCT U PROT (test code = 3259) trace Negative - Negat elder POCT U GLU (test code = 3256) neg Negative - Negati ve POCT U KETONE (test code = 3258) neg Negative - Neg ative POCT U UROBILI (test code = 3260) n 0.2-1 POCT U BILI (test code = 3261) n Negative - Negat elder POCT U BLD (test code = 3257) neg Negative - Negati ve POCT U COLOR (test code = 3266) POCT U APPEAR (test code = 3267) [facility] [id number] 19:25:00* Test Item Value Reference Range Interpretation Comme nts POCT PREG (test code = 1605) Positive On board controls acceptable with C Line (test code = 3574) Yes POCT PREG LOT # (test code = 3575) POCT PREG TEST DATE ( test code = 3576) [facility] URINALYSIS W/O SPECIFIC [id number] 20:02:00* Test Item Value Reference Range Interpretation Comme nts POCT PH U (test code = 3254) n/a 5-8 POCT U LEUK EST (test code = 3263) n/a Negative - N egative POCT U NIT (test code = 3262) n/a Negative - Negati ve POCT U PROT (test code = 3259) neg Negative - Negat elder POCT U GLU (test code = 3256) neg Negative - Negati ve POCT U KETONE (test code = 3258) n/a Negative - Neg ative POCT U BLD (test code = 3257) n/a Negative - Negati ve [facility] URINALYSIS W/O SPECIFIC [id number] 20:17:00* Test Item Value Reference Range Interpretation Comme nts POCT PH U (test code = 3254) n/a 5-8 POCT U LEUK EST (test code = 3263) n/a Negative - N egative POCT U NIT (test code = 3262) n/a Negative - Negati ve POCT U PROT (test code = 3259) neg Negative - Negat elder POCT U GLU (test code = 3256) neg Negative - Negati ve POCT U KETONE (test code = 3258) n/a Negative - Neg ative POCT U BLD (test code = 3257) n/a Negative - Negati ve Lab Interpretation (test cod e = 80995-4) Normal [facility] URINALYSIS W/O SPECIFIC [id number] 20:17:00* Test Item Value Reference Range Interpretation Comme nts POCT PH U (test code = 3254) n/a 5-8 POCT U LEUK EST (test code = 3263) n/a Negative - N egative POCT U NIT (test code = 3262) n/a Negative - Negati ve POCT U PROT (test code = 3259) neg Negative - Negat elder POCT U GLU (test code = 3256) neg Negative - Negati ve POCT U KETONE (test code = 3258) n/a Negative - Neg ative POCT U BLD (test code = 3257) n/a Negative - Negati ve Lab Interpretation (test cod e = 35200-0) Normal [facility] WITH [id number] 19:47:33* Test Item Value Reference Range Interpretation Comme nts WBC (test code = 6690-2) See_Comment [Automated messa ge] The system which generated this result transmitted reference range: 4.30 - 11.10 10*3/?L. The reference range was not used to interpret this result as normal/abnormal. RBC (test code = 789-8) See_Comment L [Automated messa ge] The system which generated this result transmitted reference range: 3.93 - 5.25 10*6/?L. The reference range was not used to interpret this result as normal/abnormal. HGB (test code = 718-7) 12.3 g/dL 11.6-15.0 HCT (test code = 4544-3) 33.9 % 35.7-45.2 L MCV (test code = 787-2) 87.4 fL 80.6-95.5 MCH (test code = 785-6) 31.7 pg 25.9-32.8 MCHC (test code = 786-4) 36.3 g/dL 31.6-35.1 H RDW-SD (test code = 19526-3) 38.4 fL 39.0-49.9 L RDW-CV (test code = 788-0) 12.1 % 12.0-15.5 PLT (test code = 777-3) See_Comment [Automated messa ge] The system which generated this result transmitted reference range: 166 - 358 10*3/?L. The reference range was not used to interpret this result as normal/abnormal. MPV (test code = 21026-7) 11.9 fL 9.5-12.9 NRBC/100 WBC (test code = 9642363418) See_Comment [Automated Ditto ssage] The system which generated this result transmitted reference range: 0.0 - 10.0 /100 WBCs. The reference range was not used to interpret this result as normal/abnormal. NRBC x10^3 (test code = 2374325128) <0.01 See_Comment [Automated messa ge] The system which generated this result transmitted reference range: 10*3/?L. The reference range was not used to interpret this result as normal/abnormal. GRAN MAT (NEUT) % (test code = 770-8) 50.1 % IMM GRAN % (test code = 6596658070) 0.40 % LYMPH % (test code = 736-9) 38.2 % MONO % (test code = 5905-5) 7.8 % EOS % (test code = 713-8) 2.9 % BASO % (test code = 706-2) 0.6 % GRAN MAT x10^3(ANC) (test code = 6686816741) 2.62 10*3/uL 1.88-7.09 IMM GRAN x10^3 (test code = 7951659757) <0.03 0.00-0.06 LYMPH x10^3 (test code = 731-0) 2.00 10*3/uL 1.32-3.29 MONO x10^3 (test code = 742-7) 0.41 10*3/uL 0.33-0.92 EOS x10^3 (test code = 711-2) 0.15 10*3/uL 0.03-0.39 BASO x10^3 (test code = 704-7) 0.03 10*3/uL 0.01-0.07 Lab Interpretation (test code = 47463-7) Abnormal [facility] [id number] 16:00:00* Test Item Value Reference Range Interpretation Comme nts POCT PREG (test code = 1605) Positive On board controls acceptable with C Line (test code = 3574) Yes POCT PREG LOT # (test code = 3575) POCT PREG TEST DATE (test code = 3576) KAMILLE (test code = KAMILLE) accurate developme nt and interpretation of all internal controls [facility] URINALYSIS W/O SPECIFIC [id number] 15:59:00* Test Item Value Reference Range Interpretation Comme nts POCT PH U (test code = 3254) 5 mg/dl 5-8 POCT U LEUK EST (test code = 3263) NEG Negative - Negative POCT U NIT (test code = 3262) NEG Negative - Negati ve POCT U PROT (test code = 3259) NEG Negative - Negat leder POCT U GLU (test code = 3256) NEG Negative - Negati ve POCT U KETONE (test code = 3258) NEG Negative - Neg ative POCT U BLD (test code = 3257) NEG Negative - Negati ve [facility] URINALYSIS W/O SPECIFIC [id number] 16:40:00* Test Item Value Reference Range Interpretation Comme nts POCT PH U (test code = 3254) n/a 5-8 POCT U LEUK EST (test code = 3263) n/a Negative - N egative POCT U NIT (test code = 3262) n/a Negative - Negati ve POCT U PROT (test code = 3259) neg Negative - Negat elder POCT U GLU (test code = 3256) neg Negative - Negati ve POCT U KETONE (test code = 3258) n/a Negative - Neg ative POCT U BLD (test code = 3257) n/a Negative - Negati ve Lab Interpretation (test cod e = 87359-8) [facility] URINALYSIS W/O SPECIFIC [id number] 20:12:00* Test Item Value Reference Range Interpretation Comme nts POCT PH U (test code = 3254) n/a 5-8 POCT U LEUK EST (test code = 3263) n/a Negative - N egative POCT U NIT (test code = 3262) n/a Negative - Negati ve POCT U PROT (test code = 3259) neg Negative - Negat elder POCT U GLU (test code = 3256) neg Negative - Negati ve POCT U KETONE (test code = 3258) n/a Negative - Neg ative POCT U BLD (test code = 3257) n/a Negative - Negati ve Lab Interpretation (test cod e = 29618-6) [facility] URINALYSIS W/O SPECIFIC [id number] 20:12:00* Test Item Value Reference Range Interpretation Comme nts POCT PH U (test code = 3254) n/a 5-8 POCT U LEUK EST (test code = 3263) n/a Negative - N egative POCT U NIT (test code = 3262) n/a Negative - Negati ve POCT U PROT (test code = 3259) neg Negative - Negat elder POCT U GLU (test code = 3256) neg Negative - Negati ve POCT U KETONE (test code = 3258) n/a Negative - Neg ative POCT U BLD (test code = 3257) n/a Negative - Negati ve Lab Interpretation (test cod e = 73406-7) [facility] URINALYSIS W/O SPECIFIC [id number] 20:34:00* Test Item Value Reference Range Interpretation Comme nts POCT PH U (test code = 3254) n/a 5-8 POCT U LEUK EST (test code = 3263) n/a Negative - N egative POCT U NIT (test code = 3262) n/a Negative - Negati ve POCT U PROT (test code = 3259) neg Negative - Negat elder POCT U GLU (test code = 3256) Negative - Negati ve POCT U KETONE (test code = 3258) n/a Negative - Neg ative POCT U BLD (test code = 3257) n/a Negative - Negati ve Lab Interpretation (test cod e = 84714-4) Normal [facility] WITH [id number] 19:51:00* Test Item Value Reference Range Interpretation Comme nts WBC (test code = 6690-2) See_Comment [Automated messa ge] The system which generated this result transmitted reference range: 4.30 - 11.10 10*3/?L. The reference range was not used to interpret this result as normal/abnormal. RBC (test code = 789-8) See_Comment L [Automated messa ge] The system which generated this result transmitted reference range: 3.93 - 5.25 10*6/?L. The reference range was not used to interpret this result as normal/abnormal. HGB (test code = 718-7) 12.0 g/dL 11.6-15 HCT (test code = 4544-3) 33.7 % 35.7-45.2 L MCV (test code = 787-2) 90.8 fL 80.6-95.5 MCH (test code = 785-6) 32.3 pg 25.9-32.8 MCHC (test code = 786-4) 35.6 g/dL 31.6-35.1 H RDW-SD (test code = 81310-5) 41.4 fL 39-49.9 RDW-CV (test code = 788-0) 12.9 % 12-15.5 PLT (test code = 777-3) See_Comment [Automated messa ge] The system which generated this result transmitted reference range: 166 - 358 10*3/?L. The reference range was not used to interpret this result as normal/abnormal. MPV (test code = 45819-8) 11.3 fL 9.5-12.9 NRBC/100 WBC (test code = 1422212454) See_Comment [Automated me ssage] The system which generated this result transmitted reference range: 0.0 - 10.0 /100 WBCs. The reference range was not used to interpret this result as normal/abnormal. NRBC x10^3 (test code = 1090331760) <0.01 See_Comment [Automated messa ge] The system which generated this result transmitted reference range: 10*3/?L. The reference range was not used to interpret this result as normal/abnormal. GRAN MAT (NEUT) % (test code = 770-8) 64.7 % IMM GRAN % (test code = 1622037902) 1.00 % LYMPH % (test code = 736-9) 23.0 % MONO % (test code = 5905-5) 9.0 % EOS % (test code = 713-8) 2.0 % BASO % (test code = 706-2) 0.3 % GRAN MAT x10^3(ANC) (test code = 5746168710) 6.63 10*3/uL 1.88-7.09 IMM GRAN x10^3 (test code = 4945320230) 0.10 10*3/uL 0-0.06 H LYMPH x10^3 (test code = 731-0) 2.36 10*3/uL 1.32-3.29 MONO x10^3 (test code = 742-7) 0.92 10*3/uL 0.33-0.92 EOS x10^3 (test code = 711-2) 0.20 10*3/uL 0.03-0.39 BASO x10^3 (test code = 704-7) 0.03 10*3/uL 0.01-0.07 Lab Interpretation (test code = 03212-6) Abnormal [facility] URINALYSIS W/O SPECIFIC [id number] 21:07:00* Test Item Value Reference Range Interpretation Comme nts POCT PH U (test code = 3254) n/a 5-8 POCT U LEUK EST (test code = 3263) n/a Negative - N egative POCT U NIT (test code = 3262) n/a Negative - Negati ve POCT U PROT (test code = 3259) neg Negative - Negat elder POCT U GLU (test code = 3256) neg Negative - Negati ve POCT U KETONE (test code = 3258) n/a Negative - Neg ative POCT U BLD (test code = 3257) n/a Negative - Negati ve Lab Interpretation (test cod e = 54086-8) [facility] SPECIFIC [id number] 21:07:00* Test Item Value Reference Range Interpretation Comme nts POCT PH U (test code = 3254) n/a 5-8 POCT U LEUK EST (test code = 3263) n/a Negative - N egative POCT U NIT (test code = 3262) n/a Negative - Negati ve POCT U PROT (test code = 3259) neg Negative - Negat elder POCT U GLU (test code = 3256) neg Negative - Negati ve POCT U KETONE (test code = 3258) n/a Negative - Neg ative POCT U BLD (test code = 3257) n/a Negative - Negati ve Lab Interpretation (test cod e = 02526-5) Normal [facility] / [facility] - DRUG SCREEN [id number] 00:31:00* Test Item Value Reference Range Interpretation Comme nts BENZO U (test code = 6347539730) Negative Negative SUDHIR U (test code = 1142678603) Negative Negative AMPHET (test code = 3858289129) Negative Negative THC (test code = 7520945956) Negative Negative METHADONE (test code = 5726390626) Negative Negative Meth U (test code = 7734784614) Negative Negative OPIATES (test code = 2670404209) Negative Negative Cocaine Metabolite (test code = 3146612271) Negative Negative PROPOXY (test code = 3108109087) Negative Negative Tric U (test code = 0541166462) Negative Negative PCP (test code = 6796444945) Negative Negative OXYCOD (test code = 8207186830) Negative Negative KAMILLE (test code = KAMILLE) Urine Drug [...] employment testing, legal testing). Lab Interpretation (test code = 24157-4) [facility]/O SPECIFIC [id number] 22:07:00* Test Item Value Reference Range Interpretation Comme nts POCT PH U (test code = 3254) N/A 5-8 POCT U LEUK EST (test code = 3263) N/A Negative - Negative POCT U NIT (test code = 3262) N/A Negative - Negati ve POCT U PROT (test code = 3259) Negative Negative - Negat elder POCT U GLU (test code = 3256) Negative Negative - Negati ve POCT U KETONE (test code = 3258) N/A Negative - Neg ative POCT U BLD (test code = 3257) N/A Negative - Negati ve [facility] - [id number] 01:32:00* Test Item Value Reference Range Interpretation Comme nts RPR (Qualitative) (test code = 11276-3) Nonreactive Nonreactive Lab Interpretation (test cod e = 64704-5) [facility] WITH [id number] 23:28:00* Test Item Value Reference Range Interpretation Comme nts HIV Semi-quantitative (test code = 03779-0) Negative Negative KAMILLE (test code = KAMILLE) Non-reactive for HIV-1 antigen and HIV-1/HIV-2 antibodies. ?No laboratory evidence of HIV infection. ?Repeat in 2-4 weeks if acute HIV infection is suspected. [facility] [id number] 22:48:00* Test Item Value Reference Range Interpretation Comme nts GLUC 1 HR (test code = 5194772134) 105 mg/dL 120-170 L Lab Interpretation (test cod e = 66811-8) Abnormal [facility]OD [id number] 22:47:10 * Test Item Value Reference Range Interpretation Comme nts ABO & RH (test code = 20) A Positive Performed at [facility] Laboratory [facility] Blood [address] [place], [place] [id number] Free: [phone] No. [id number] IAT (test code = 1185) Negative Performed at [facility] Laboratory [facility] Blood [address] [place], [place] [id number] Free: [phone] No. [id number] [facility] WITH [id number] 21:58:00* Test Item Value Reference Range Interpretation Comme nts WBC (test code = 6690-2) See_Comment [Automated messa ge] The system which generated this result transmitted reference range: 4.30 - 11.10 10*3/?L. The reference range was not used to interpret this result as normal/abnormal. RBC (test code = 789-8) See_Comment L [Automated messa ge] The system which generated this result transmitted reference range: 3.93 - 5.25 10*6/?L. The reference range was not used to interpret this result as normal/abnormal. HGB (test code = 718-7) 12.3 g/dL 11.6-15 HCT (test code = 4544-3) 34.4 % 35.7-45.2 L MCV (test code = 787-2) 93.0 fL 80.6-95.5 MCH (test code = 785-6) 33.2 pg 25.9-32.8 H MCHC (test code = 786-4) 35.8 g/dL 31.6-35.1 H RDW-SD (test code = 73510-9) 42.3 fL 39-49.9 RDW-CV (test code = 788-0) 12.5 % 12-15.5 PLT (test code = 777-3) See_Comment L [Automated messa ge] The system which generated this result transmitted reference range: 166 - 358 10*3/?L. The reference range was not used to interpret this result as normal/abnormal. MPV (test code = 09689-3) 12.2 fL 9.5-12.9 NRBC/100 WBC (test code = 3373895063) See_Comment [Automated Ditto ssage] The system which generated this result transmitted reference range: 0.0 - 10.0 /100 WBCs. The reference range was not used to interpret this result as normal/abnormal. NRBC x10^3 (test code = 9297721554) <0.01 See_Comment [Automated messa ge] The system which generated this result transmitted reference range: 10*3/?L. The reference range was not used to interpret this result as normal/abnormal. GRAN MAT (NEUT) % (test code = 770-8) 63.4 % IMM GRAN % (test code = 2901591678) 1.30 % LYMPH % (test code = 736-9) 25.0 % MONO % (test code = 5905-5) 7.7 % EOS % (test code = 713-8) 2.3 % BASO % (test code = 706-2) 0.3 % GRAN MAT x10^3(ANC) (test code = 2659152728) 6.55 10*3/uL 1.88-7.09 IMM GRAN x10^3 (test code = 1344873616) 0.13 10*3/uL 0-0.06 H LYMPH x10^3 (test code = 731-0) 2.59 10*3/uL 1.32-3.29 MONO x10^3 (test code = 742-7) 0.80 10*3/uL 0.33-0.92 EOS x10^3 (test code = 711-2) 0.24 10*3/uL 0.03-0.39 BASO x10^3 (test code = 704-7) 0.03 10*3/uL 0.01-0.07 Lab Interpretation (test code = 31996-4) [facility]
--- NOTE | 2023-02-07 20:38 | ER ---
Nurse's Notes [facility] Name: Chetna Amador Age: 27 yrs Sex: Female : 1995 Arrival Date: 02/07/2023 Time: 18:22 Bed 12 Private MD: Diagnosis: Acute upper respiratory infection, unspecified Presentation: 02/07 18:54 Chief complaint: Patient states: CONGEST[employer]ILLS. Coronavirus screen: At this bp time, the client does not indicate any symptoms associated with coronavirus-19. Ebola Screen: No symptoms or risks identified at this time. Initial Sepsis Screen: Does the patient meet any 2 criteria? No. Patient's initial sepsis screen is negative. Does the patient have a suspected source of infection? No. Patient's initial sepsis screen is negative. Risk Assessment: Do you want to hurt yourself or someone else? Patient reports no desire to harm self or others. Onset of symptoms is unknown. 18:54 Method Of Arrival: Ambulatory bp 18:54 Acuity: SWAPNIL 5 bp Triage Assessment: 18:55 General: Appears ill, obese, Behavior is calm, cooperative, appropriate for age. Pain: bp Denies pain. Historical: - Allergies: 18:55 No Known Allergies; bp - PMHx: 18:55 Seizures; bp - PSHx: 18:55 Ligation of fallopian tube; section; bp - Immunization history:: Adult Immunizations up to date. - Social history:: Smoking status: Patient denies any tobacco usage or history of. Screenin:07 [facility] ED Fall Risk Assessment (Adult) History of falling in the last 3 months, jw7 including since admission No falls in past 3 months (0 pts) Score/Fall Risk Level 0 - 2 = Low Risk Oriented to surroundings, Maintained a safe environment. Abuse screen: Denies threats or abuse. Denies injuries from another. Nutritional screening: No deficits noted. Tuberculosis screening: No symptoms or risk factors identified. Assessment: 20:06 Reassessment: Patient appears in no apparent distress at this time. No changes from jw7 previously documented assessment. Patient and/or family updated on plan of care and expected duration. Pain level reassessed. Patient is alert, oriented x 3, equal unlabored respirations, skin warm/dry/pink. Vital Signs: 18:54 Temp 97.1; bp ED Course: 18:37 Patient arrived in ED. mr 18:40 Sandhya Dutton FNP-C [facility] kb 18:40 Jose Murillo DO is Attending Physician. kb 18:55 Triage completed. bp 18:55 Arm band placed on. bp 19:49 Krystle Magana, RN is Primary Nurse. jw7 19:49 COVID swab sent to lab. Flu and/or RSV swab sent to lab. jw7 20:07 Patient has correct armband on for positive identification. Bed in low position. Call jw7 light in reach. 20:07 No provider procedures requiring assistance completed. jw7 21:00 Provided Education on: discharge instructions. jw7 21:00 Patient did not have IV access during this emergency room visit. jw7 Administered Medications: No medications were administered Medication: 20:07 VIS not applicable for this client. jw7 Outcome: 20:38 Discharge ordered by MD. kb 21:00 Discharged to home ambulatory, jw7 21:00 Condition: stable 21:00 Discharge instructions given to patient, Instructed on discharge instructions, follow up and referral plans. Demonstrated understanding of instructions, follow-up care, 21:01 Patient left the ED. jw7 Signatures: Sandhya Dutton FNP-C TILE TRIMMER-Ckb [place]a pearson, Reg Reg Wilbert Rodríguez, RN RN Krystle Becker, RN RN jw7
--- NOTE | 2023-02-07 20:38 | EDPHYS ---
Physician Documentation [facility] Name: Chetna Amador Age: 27 yrs Sex: Female : 1995 Arrival Date: 02/07/2023 Time: 18:22 Bed 12 Private MD: ED Physician Jose Murillo HPI: 02/07 20:55 This 27 yrs old Female presents to ER via Ambulatory with complaints of Flu kb Symptoms. 20:55 Patient is a 27-year-old female with history of seizures who presents for cough, kb congestion, body aches, chills and fever that started 2 days ago. Reports all 3 children have similar symptoms.. Historical: - Allergies: 18:55 No Known Allergies; bp - PMHx: 18:55 Seizures; bp - PSHx: 18:55 Ligation of fallopian tube; section; bp - Immunization history:: Adult Immunizations up to date. - Social history:: Smoking status: Patient denies any tobacco usage or history of. ROS: 20:55 Abdomen/GI: Negative for abdominal pain, nausea, vomiting, diarrhea, and constipation, kb 20:55 Constitutional: Positive for body aches, chills, fatigue, fever, malaise, 20:55 ENT: Positive for rhinorrhea, sinus congestion, 20:55 Respiratory: Positive for cough, 20:55 All other systems are negative, Exam: 20:55 Constitutional: This is a well developed, well nourished patient who is awake, alert, kb and in no acute distress. Head/Face: Normocephalic, atraumatic. ENT: Moist Mucous membranes Cardiovascular: Regular rate Respiratory: Respirations even and unlabored. No increased work of breathing. Talking in full sentences Skin: Warm, dry with normal turgor. Normal color. MS/ Extremity: Pulses equal, no cyanosis. Neurovascular intact. Full, normal range of motion. Neuro: Awake and alert, GCS 15, oriented to person, place, time, and situation. Moves all extremities. Normal gait. Vital Signs: 18:54 Temp 97.1; bp MDM: 18:41 Patient medically screened. kb 20:55 Differential Diagnosis: Other Flu, COVID, URI. Data reviewed: vital signs, nurses kb notes. I considered the following discharge prescriptions or medication management in the emergency department I discussed and recommended Over The Counter medications, Antibiotics: At this time antibiotics are not recommended, Antivirals: At this time, antivirals are not recommended. Counseling: I had a detailed discussion with the patient and/or guardian regarding the historical points, exam findings, and any diagnostic results supporting the discharge/admit diagnosis, lab results, the need for outpatient follow up, a family practitioner, to return to the emergency department if symptoms worsen or persist or if there are any questions or concerns that arise at home. 02/07 18:55 Order name: Flu; Complete Time: 20:35 kb 02/07 18:55 Order name: COVID-19 SARS RT PCR; Complete Time: 20:35 kb Administered Medications: No medications were administered Disposition: 20:24 I was immediately available on-site in the Emergency Department for consultation in the ms3 care of the patient. Disposition Summary: 02/07/23 20:38 Discharge Ordered Notes: Location: Home kb Condition: Stable kb Diagnosis - Acute upper respiratory infection, unspecified kb Followup: kb - With: Emergency Department - When: As needed - Reason: Worsening of condition Followup: kb - With: Private Physician - When: 2 - 3 days - Reason: Recheck today's complaints, Continuance of care, Re-evaluation by your physician Discharge Instructions: - Discharge Summary Sheet kb - Upper Respiratory Infection, Adult, [id number] kb - Viral Respiratory Infection, [id number] kb Forms: - Medication Reconciliation Form kb - Thank You Letter kb - Antibiotic Education kb - Prescription Opioid Use kb - Patient Portal Instructions kb - Leadership Thank You Letter kb Signatures: Dispatcher [employer] Sandhya Whitley, COMPUTER EQUIPMENT REPAIRER-C MELLO-Wilbert Sarabia, RN RN Jose Ferrara, DO DO ms3
[2023-02-07 22:15] VITALS: TEMP 97.1
== END ==
LOC: ER 18:22
DX: J06.9 Acute upper respiratory infection, unspecified (principal); Z11.52 Encounter for screening for COVID-19
CPT/HCPCS: 87635; 87804; 99283